=== PATIENT | male | born 1960 | race Caucasian/White ===

== ENCOUNTER 2018-03-06 14:20 | Emergency (ER) | payer OTHER ==
[2018-03-06 14:53] LABS: Absolute Lymphocytes (CBC) 2.3 K/uL (0.7-4.9); Absolute Monocytes 0.4 K/uL (0.1-1.3); Absolute Neutrophil 5.3 K/uL (1.8-8.0); Eosinophils % 2.2 % (0-4.4); Lymphocytes % 27.9 % (15.3-44.8); MCH 31.8 pg (27.0-35.0); MCV 94.5 fL (80-100); MPV 8.3 fL (7.6-11.3); Monocytes % 5.2 % (3.3-12.3); RBC Red Blood Cell Count 4.34 M/uL (4.33-5.43)
[2018-03-06 14:56] LABS: Protime INR 0.93
[2018-03-06 15:02] LABS: Bicarbonate 23 mEq/L (21-31); Glucose Level 121 mg/dL (65-120); Potassium 3.7 mEq/L (3.6-5.0); Sodium Level 137 mEq/L (135-145)
[2018-03-06 15:09] LABS: ALT/SGPT 17 IU/L (10-60); AST/SGOT 20 IU/L (10-42); Alkaline Phosphatase 59 IU/L (42-121); BUN Blood Urea Nitrogen 8 mg/dL (6-20); Bilirubin Direct 0.1 mg/dL (0-0.2); Magnesium 1.9 mg/dL (1.8-2.5); Protein, Total 6.7 g/dL (6.0-8.3)
--- NOTE | 2018-03-06 15:17 | RAD REPORT ---
EXAM DESCRIPTION: CT - Ct Stroke Brain Wo Cont - 03/06/2018 2:46 pm CLINICAL HISTORY: Numbness, left-sided weakness, history of CVA COMPARISON: August 2017 TECHNIQUE: Axial 5 millimeter thick images of the head were obtained without IV contrast. All CT scans are performed using dose optimization technique as appropriate and may include automated exposure control or mA/KV adjustment according to patient size. FINDINGS: No intracranial hemorrhage, mass, or cerebral edema. No acute cortical based infarction id entified. No cortical edema or sulcal effacement. A large area of encephalomalacia is present in the right temporal lobe extending into the right parietal lobe. There is no localized mass effect in this region which has the appearance of an old CVA. No extra-axial fluid collections. Yin matter-white matter differentiation is preserved. Visualized portions of the mastoid air cells, paranasal sinuses, and orbits are unremarkable. Findings telephoned to Andres Mccabe 1449 hours IMPRESSION: No CT evidence of acute intracranial process. Large area of encephalomalacia in the right temporoparietal region.
--- NOTE | 2018-03-06 15:36 | RAD REPORT ---
EXAM DESCRIPTION: RAD - Chest Single View - 03/06/2018 2:51 pm CLINICAL HISTORY: Left-sided weakness, code stroke chest film COMPARISON: January 05 TECHNIQUE: AP portable chest image was obtained 1446 hours . FINDINGS: Lungs are clear. Heart and vasculature are normal. No measurable pleural effusion and no p neumothorax. No gross bony abnormality seen. No acute aortic findings suspected. IMPRESSION: No acute cardiopulmonary process. No significant interval change.
--- NOTE | 2018-03-06 16:24 | EKG ---
Test Date: 2018-03-06 Test Time: 15:28:05 Coremaking Machine Operator: JO-ANN MEASUREMENT RESULTS: Intervals: Rate: 57 MD: 136 QRSD: 84 QT: 444 QTc: 432 [place]: P: 38 MD: 136 QRS: 31 T: 36 INTERPRETIVE STATEMENTS: Sinus bradycardia Otherwise normal ECG Compared to ECG 01/10/2018 17:20:04 Sinus rhythm no longer present Electronically Signed On 03-06-18 16:23:20 CDT by Carlos Pickard
--- NOTE | 2018-03-06 17:33 | RAD REPORT ---
EXAM DESCRIPTION: MRI - Brain Wo Cont - 03/06/2018 5:23 pm CLINICAL HISTORY: Left-sided numbness since this morning COMPARISON: January 2018 TECHNIQUE: Axial, sagittal, and coronal magnetic images of the brain were obtained. Contrast was not requested FINDINGS: Moderate to large area of cystic encephalomalacia is present within the right cerebrum. Diffusion-weighted/ADC mapping does not reveal evidence of acute infarction. The ventricles are normal caliber. An extra-axial fluid collection is not present The sinuses and mastoids are clear. IMPRESSION: Moderate to large area of cystic encephalomalacia within the right cerebrum likely secon lexie to an old infarct No acute abnormality is displayed
--- NOTE | 2018-03-06 18:10 | ER ---
Nurse's Notes [facility] Name: Agustín Camacho Age: 57 yrs Sex: Male : 1960 Arrival Date: 03/06/2018 Time: 14:23 Bed 20 Private MD: Naif Banegas H Diagnosis: Left sided paresthesia ;Other idiopathic peripheral autonomic neuropathy Presentation: 03/06 14:24 Presenting complaint: Patient states: i have a stroke 2013; this morning, around 8 am hj when i woke up, i didn't feel my L arm and L leg; denies headache and numbness;. Transition of care: patient was not received from another setting of care. Onset of symptoms was March 06, 2018. Initial Sepsis Screen: Does the patient meet any 2 criteria? No. Patient's initial sepsis screen is negative. Does the patient have a suspected source of infection? No. Patient's initial sepsis screen is negative. Care prior to arrival: None. 14:24 Method Of Arrival: Ambulatory 14:24 Acuity: BEVERLY 3 hj 14:39 Note last known normal last night;. hj Triage Assessment: 14:27 General: Appears in no apparent distress. uncomfortable, Behavior is calm, cooperative, hj appropriate for age. Pain: Denies pain. Historical: - Allergies: 14:27 NKA; hj - Home Meds: 14:27 aspirin 325 mg Oral tab 1 tab once daily [Active]; citalopram 20 mg tab 1 tab once hj daily [Active]; propranolol 10 mg Oral tab 1 tab daily [Active]; - PMHx: 14:27 Anxiety; CVA; Hernia; High Cholesterol; Hypertension; Prostate Cancer; hj - PSHx: 14:27 shoulder; Knee surgery; Hernia repair; prostate; hj - Immunization history:: Adult Immunizations up to date. - Social history:: Smoking status: . Screenin:50 Abuse screen: Denies threats or abuse. Nutritional screening: No deficits noted. em Tuberculosis screening: No symptoms or risk factors identified. Fall Risk None identified. Assessment: 14:32 Reassessment: pt transported to CT via wheelchair with DIEGO Wong. iw 14:39 Reassessment: Dr. Latham reports no bleed, and only sees previous infarct. iw 14:45 General: Appears in no apparent distress. comfortable, Behavior is calm, cooperative. em Pain: Denies pain. Neuro: Level of Consciousness is awake, alert, obeys commands, Oriented to person, place, time, situation, Pharmacy Informatics Specialist are equal bilaterally Speech is normal, Facial symmetry appears normal, Pupils are PERRLA, paresthesias in left arm and left leg Reports paresthesias in left arm and left leg since this morning but noticed it yesterday as well, took a Benadryl for itching that he noticed on his left side, arm and leg. Neuro: Denies headache. Cardiovascular: Heart tones S1 S2 present Capillary refill < 3 seconds Patient's skin is warm and dry. Respiratory: Airway is patent Respiratory effort is even, unlabored, Respiratory pattern is regular, symmetrical. GI: Abdomen is flat, Patient currently denies nausea, vomiting. : No signs and/or symptoms were reported regarding the genitourinary system. EENT: No signs and/or symptoms were reported regarding the EENT system. Derm: Skin is intact, Skin is pink, warm \\T\\ dry. Musculoskeletal: Range of motion: intact in all extremities. 14:50 Reassessment: Patient appears in no apparent distress at this time. I agree with above iw assessment by John Soriano LVN. 15:44 Reassessment: Patient appears in no apparent distress at this time. Patient is alert, em oriented x 3, equal unlabored respirations, skin warm/dry/pink. pt resting comfortably with eyes closed, pt at bedside Patient states symptoms have not improved. 16:45 Reassessment: Patient appears in no apparent distress at this time. pt wheeled to [facility] em via wheelchair by process environmental technician. 17:40 Reassessment: Patient appears in no apparent distress at this time. Patient and/or em family updated on plan of care and expected duration. Pain level reassessed. Patient is alert, oriented x 3, equal unlabored respirations, skin warm/dry/pink. pt reports feeling back in hands, Dr. Rees notified. 18:15 Reassessment: Patient appears in no apparent distress at this time. Patient and/or em family updated on plan of care and expected duration. Pain level reassessed. Patient is alert, oriented x 3, equal unlabored respirations, skin warm/dry/pink. pt states, "I am feeling better, my numbness has is almost gone, and my headache is gone." Patient states feeling better. Patient states symptoms have improved. Vital Signs: 14:27 BP 127 / 93; Pulse 65; Resp 18; Temp 98.2(TE); Pulse Ox 97% on R/A; Weight 78.93 kg; hj Height 5 ft. 8 in. (172.72 cm); Pain 0/10; 15:30 BP 114 / 74; Pulse 64; Resp 18; Pulse Ox 96% on R/A; Pain 0/10; em 16:30 BP 142 / 73; Pulse 59; Resp 18; Pulse Ox 96% on R/A; Pain 0/10; em 17:39 BP 150 / 89; Pulse 55; Resp 18; Pulse Ox 98% on R/A; Pain 0/10; em 18:37 BP 132 / 82; Pulse 59; Resp 20; Pulse Ox 98% on R/A; em 14:27 Body Mass Index 26.46 (78.93 kg, 172.72 cm) hj ED Course: 14:23 Patient arrived in ED. mr 14:24 Naif Banegas DO is Private Physician. mr 14:26 Triage completed. hj 14:27 Arm band placed on right wrist. hj 14:[address] via wheelchair. nj 14:38 CT completed. Patient tolerated procedure well. Patient moved back from CT. nj 14:40 Jose Rees MD is Attending Physician. kdr 14:46 John Soriano LVN is Primary Nurse. em 14:46 CT Stroke Brain w/o Contrast In Process Unspecified. EDMS 14:46 X-ray completed. Portable x-ray completed in exam room. Patient tolerated procedure jb2 well. 14:51 XRAY Chest (1 view) In Process Unspecified. EDMS 14:55 Patient has correct armband on for positive identification. Placed in gown. Bed in low em position. Call light in reach. Adult w/ patient. 14:58 No provider procedures requiring assistance completed. em 15:34 EKG done, by advanced manufacturing technician. reviewed by Jose Rese MD. at1 16:57 Patient moved to MRI via wheelchair. em2 17:11 Brain Wo Cont In Process Unspecified. EDMS 17:31 MRI completed. Patient tolerated well. Patient moved back from MRI. em2 18:08 Naif Banegas DO is Referral Physician. kdr 18:32 Patient did not have IV access during this emergency room visit. em Administered Medications: No medications were administered Outcome: 18:10 Discharge ordered by . kdr 18:33 Discharged to home ambulatory. em 18:33 Condition: good 18:33 Discharge instructions given to patient, Instructed on discharge instructions, follow up and referral plans. Demonstrated understanding of instructions, follow-up care. 18:38 Patient left the ED. em Signatures: Dispatcher [employer] EDMS Jose Rees MD MD kdr Rivera, Maria Luis M Guthrie jb2 John Soriano, MINE MANAGER MINE MANAGER em Liana Gao, DIEGO CORTEZ iw Donell Gupta em2 Josefa salazar, disk grinder EKG Tat1 Marvin Moura RN RN Harrison Maxwell Corrections: (The following items were deleted from the chart) 14:29 14:27 Pulse 65bpm; Resp 18bpm; Pulse Ox 97% RA; Temp 98.2F Temporal; 78.93 kg; Height 5 hj ft. 8 in.; BMI: 26.4; Pain 0/10; hj 18:38 18:15 Reassessment: Patient appears in no apparent distress at this time. Patient em and/or family updated on plan of care and expected duration. Pain level reassessed. Patient is alert, oriented x 3, equal unlabored respirations, skin warm/dry/pink. pt states, "I am feeling better, my numbness has is almost gone, and my headache is gone." em
--- NOTE | 2018-03-06 18:10 | EDPHYS ---
Physician Documentation [facility] Name: Agustín Camacho Age: 57 yrs Sex: Male : 1960 Arrival Date: 03/06/2018 Time: 14:23 Bed 20 Private MD: Naif Banegas H ED Physician Jose Rees HPI: 03/06 18:50 This 57 yrs old Male presents to ER via Ambulatory with complaints of Left kdr side Numbness. 18:50 The patient's problem is reported as paresthesias, in left upper extremity, in left kdr lower extremity. Onset: The symptoms/episode began/occurred at an unknown time. Last know well was last night. He noted decreased sensation in the left upper and lower extremity. That has persisted today. Duration: This was a single incident, The episode is continuous, the symptoms became persistent Today. Context: the episode(s) was witnessed, by family, , symptoms became apparent at an unknown time, Last night, occurred at home, occurred while the patient was at rest. The symptoms are alleviated by nothing. The symptoms are aggravated by nothing. Associated signs and symptoms: The patient has no apparent associated signs or symptoms. Severity of symptoms: At their worst the symptoms were mild moderate just prior to arrival, in the emergency department the symptoms are unchanged. The patient has experienced similar episodes in the past, a few times. The patient has not recently seen a physician. Historical: - Allergies: 14:27 NKA; hj - Home Meds: 14:27 aspirin 325 mg Oral tab 1 tab once daily [Active]; citalopram 20 mg tab 1 tab once hj daily [Active]; propranolol 10 mg Oral tab 1 tab daily [Active]; - PMHx: 14:27 Anxiety; CVA; Hernia; High Cholesterol; Hypertension; Prostate Cancer; hj - PSHx: 14:27 shoulder; Knee surgery; Hernia repair; prostate; hj - Immunization history:: Adult Immunizations up to date. - Social history:: Smoking status: . ROS: 18:50 Constitutional: Negative for fever, chills, and weight loss, Eyes: Negative for injury, kdr pain, redness, and discharge, ENT: Negative for injury, pain, and discharge, Neck: Negative for injury, pain, and swelling, Cardiovascular: Negative for chest pain, palpitations, and edema, Respiratory: Negative for shortness of breath, cough, wheezing, and pleuritic chest pain, Abdomen/GI: Negative for abdominal pain, nausea, vomiting, diarrhea, and constipation, Back: Negative for injury and pain, : Negative for injury, bleeding, discharge, and swelling, MS/Extremity: Negative for injury and deformity, Skin: Negative for injury, rash, and discoloration, Psych: Negative for depression, anxiety, suicide ideation, homicidal ideation, and hallucinations, Allergy/Immunology: Negative for hives, rash, and allergies, Endocrine: Negative for neck swelling, polydipsia, polyuria, polyphagia, and marked weight changes, Hematologic/Lymphatic: Negative for swollen nodes, abnormal bleeding, and unusual bruising. 18:50 Neuro: Positive for numbness, Negative for altered mental status, dizziness, gait disturbance, headache, hearing loss, loss of consciousness, seizure activity, speech changes, syncope, near syncope, tingling, tinnitus, tremor, visual changes, weakness. Exam: 18:50 Radiologist reports: No acute concerns kdr 18:50 Constitutional: This is a well developed, well nourished patient who is awake, alert, and in no acute distress. Head/Face: Normocephalic, atraumatic. Eyes: Pupils equal round and reactive to light, extra-ocular motions intact. Lids and lashes normal. Conjunctiva and sclera are non-icteric and not injected. Cornea within normal limits. Periorbital areas with no swelling, redness, or edema. Neck: Trachea midline, no thyromegaly or masses palpated, and no cervical lymphadenopathy. Supple, full range of motion without nuchal rigidity, or vertebral point tenderness. No Meningismus. Chest/axilla: Normal chest wall appearance and motion. Nontender with no deformity. No lesions are appreciated. Cardiovascular: Regular rate and rhythm with a normal S1 and S2. No gallops, murmurs, or rubs. Normal PMI, no JVD. No pulse deficits. Respiratory: Lungs have equal breath sounds bilaterally, clear to auscultation and percussion. No rales, rhonchi or wheezes noted. No increased work of breathing, no retractions or nasal flaring. Abdomen/GI: Soft, non-tender, with normal bowel sounds. No distension or tympany. No guarding or rebound. No evidence of tenderness throughout. Back: No spinal tenderness. No costovertebral tenderness. Full range of motion. Skin: Warm, dry with normal turgor. Normal color with no rashes, no lesions, and no evidence of cellulitis. MS/ Extremity: Pulses equal, no cyanosis. Neurovascular intact. Full, normal range of motion. Psych: Awake, alert, with orientation to person, place and time. Behavior, mood, and affect are within normal limits. 18:50 Neuro: Orientation: is normal, Mentation: is normal, Memory: is normal, Cranial nerves: no acute changes, Cerebellar function: is grossly normal based on the patient's age, Motor: moves all fours, strength is 5/5 in all extremities, Sensation: numbness, that is mild, Diffusely - he was unable to differentiate dull/sharp in either upper/lower extremity or face. Vital Signs: 14:27 BP 127 / 93; Pulse 65; Resp 18; Temp 98.2(TE); Pulse Ox 97% on R/A; Weight 78.93 kg; hj Height 5 ft. 8 in. (172.72 cm); Pain 0/10; 15:30 BP 114 / 74; Pulse 64; Resp 18; Pulse Ox 96% on R/A; Pain 0/10; em 16:30 BP 142 / 73; Pulse 59; Resp 18; Pulse Ox 96% on R/A; Pain 0/10; em 17:39 BP 150 / 89; Pulse 55; Resp 18; Pulse Ox 98% on R/A; Pain 0/10; em 18:37 BP 132 / 82; Pulse 59; Resp 20; Pulse Ox 98% on R/A; em 14:27 Body Mass Index 26.46 (78.93 kg, 172.72 cm) MDM: 18:10 Patient medically screened. kdr 18:50 Data reviewed: vital signs, nurses notes, lab test result(s), radiologic studies. kdr Counseling: I had a detailed discussion with the patient and/or guardian regarding: the historical points, exam findings, and any diagnostic results supporting the discharge/admit diagnosis, lab results, radiology results, the need for outpatient follow up. 03/06 14:46 Order name: Basic Metabolic Panel; Complete Time: 15:49 kdr 03/06 14:46 Order name: BNP; Complete Time: 15:49 kdr 03/06 14:46 Order name: CBC with Diff; Complete Time: 15:49 [facility] 03/06 14:46 Order name: LFT's; Complete Time: 15:49 [facility] 03/06 14:46 Order name: Magnesium; Complete Time: 15:49 [facility] 03/06 14:46 Order name: PT-INR; Complete Time: 15:49 [facility] 03/06 14:43 Order name: CT Stroke Brain w/o Contrast; Complete Time: 15:49 03/06 14:46 Order name: Ptt, Activated; Complete Time: 15:49 [facility] 03/06 14:46 Order name: Troponin (emerg Dept Use Only); Complete Time: 15:49 [facility] 03/06 14:46 Order name: XRAY Chest (1 view); Complete Time: 15:49 [facility] 03/06 14:46 Order name: EKG; Complete Time: 14:46 [facility] 03/06 14:46 Order name: Cardiac monitoring; Complete Time: 14:47 [facility] 03/06 16:08 Order name: Brain Wo Cont; Complete Time: 17:43 EDSD 03/06 14:46 Order name: EKG - Nurse/Tech; Complete Time: 14:47 [facility] 03/06 14:46 Order name: IV Saline Lock; Complete Time: 14:47 [facility] 03/06 14:46 Order name: Labs collected and sent; Complete Time: 14:47 [facility] 03/06 14:46 Order name: O2 Per Protocol; Complete Time: 14:46 [facility] 03/06 14:46 Order name: O2 Sat Monitoring; Complete Time: 14:46 kdr Administered Medications: No medications were administered Disposition: 03/06/18 18:10 Discharged to Home. Impression: Left sided paresthesia , Other idiopathic peripheral autonomic neuropathy. - Condition is Stable. - Medication Reconciliation Form, Thank You Letter form. - Follow up: Naif Banegas DO; When: 2 - 3 days; Reason: If symptoms return, Further diagnostic work-up, Recheck today's complaints, Continuance of care, Re-evaluation by your physician. - Problem is new. - Symptoms have improved. Signatures: Dispatcher [employer] Jose Alfred MD MD kdr John Soriano, CREATIVE SERVICES DIRECTOR CREATIVE SERVICES DIRECTOR Marvin Noel, RN RN hj Corrections: (The following items were deleted from the chart) 16:08 15:09 MR STROKE PROTOCOL+MRI.RAD.BRZ ordered. EDMS EDMS 18:31 14:46 Urine Dipstick-Ancillary ordered. kdr em
[2018-03-06 18:41] VITALS: TEMP 98.2
[2018-03-06 18:45] VITALS: O2SAT 98
[2018-03-06 18:46] VITALS: BP 132/82
== END 2018-03-06 18:38 | disposition home or self-care (01) ==
LOC: ER 14:20
DX: G90.09 Other idiopathic peripheral autonomic neuropathy (principal); I10 Essential (primary) hypertension; E78.00 Pure hypercholesterolemia, unspecified; F41.9 Anxiety disorder, unspecified; Z79.82 Long term (current) use of aspirin; Z85.46 Personal history of malignant neoplasm of prostate; Z86.73 Personal history of transient ischemic attack (TIA), and cerebral infarction without residual deficits
CPT/HCPCS: 36415; 70450; 70551; 71045; 80048; 80076; 83735; 83880; 84484; 85025; 85610; 85730; 93005; 99284

== ENCOUNTER 2018-06-04 08:48 | Emergency (ER) | payer OTHER ==
[2018-06-04] MEDS ORDERED: METHYLPREDNISOLONE 125 MG INJ ONE (09:33)
[2018-06-04] MEDS ORDERED: DIPHENHYDRAMINE 50 MG/ML VIAL ONE (09:33)
[2018-06-04] MEDS ORDERED: FAMOTIDINE 20 MG/2 ML VIAL IV ONE (09:33)
[2018-06-04] MEDS ORDERED: MORPHINE 4 MG/ML SYR ONE (10:11)
[2018-06-04] MEDS ORDERED: ONDANSETRON 4 MG/2 ML VIAL ONE (10:11)
--- NOTE | 2018-06-04 10:39 | EDPHYS ---
Physician Documentation [facility] Name: Agustín Camacho Age: 57 yrs Sex: Male : 1960 Arrival Date: 06/04/2018 Time: 08:51 Bed 8 Private MD: Naif Banegas H ED Physician Jose Rees HPI: 06/04 10:26 This 57 yrs old Male presents to ER via Wheelchair with complaints of Bee kdr Sting, Chest Tightness. 10:26 The patient or guardian reports chest pain that is located primarily in the anterior kdr chest wall, chest diffusely. Onset: suddenly, just prior to arrival. The pain does not radiate. Associated signs and symptoms: Pertinent positives: diaphoresis, nausea, Pertinent negatives: headache, lower extremity pain, lower extremity swelling, shortness of breath, syncope, vomiting, Multiple bee stings on his arms and legs. The chest pain is described as aching, burning. 10:28 The patient was bitten on the right arm and right leg, by a bee, after disturbing a kdr nest. Onset: The symptoms/episode began/occurred suddenly, just prior to arrival. Secondary to the bite the patient reports swelling, warmth. Associated signs and symptoms: Pertinent positives: erythema at site, pain at site, swelling at site, tenderness. Severity of symptoms: At their worst the symptoms were moderate, in the emergency department the symptoms are unchanged. The patient has not experienced similar symptoms in the past. The patient has not recently seen a physician. Historical: - Allergies: 09:02 NKA; iw - PMHx: 09:02 Anxiety; CVA; Hernia; High Cholesterol; Hypertension; Prostate Cancer; ADD/ADHD; iw - PSHx: 09:02 shoulder; Knee surgery; Hernia repair; prostate; iw - Immunization history:: Adult Immunizations not up to date, Last tetanus immunization: unknown. - Social history:: Smoking status: Patient uses tobacco products, smokes one-half pack cigarettes per day, Patient uses alcohol. - Ebola Screening: : Patient negative for fever greater than or equal to 101.5 degrees Fahrenheit, and additional compatible Ebola Virus Disease symptoms Patient denies exposure to infectious person Patient denies travel to an Ebola-affected area in the 21 days before illness onset No symptoms or risks identified at this time. ROS: 10:28 Constitutional: Negative for fever, chills, and weight loss, Eyes: Negative for injury, kdr pain, redness, and discharge, Neck: Negative for injury, pain, and swelling, Respiratory: Negative for shortness of breath, cough, wheezing, and pleuritic chest pain, Abdomen/GI: Negative for abdominal pain, nausea, vomiting, diarrhea, and constipation, Back: Negative for injury and pain, : Negative for injury, bleeding, discharge, and swelling, MS/Extremity: Negative for injury and deformity, Neuro: Negative for headache, weakness, numbness, tingling, and seizure activity. Psych: Negative for depression, anxiety, suicide ideation, homicidal ideation, and hallucinations, Allergy/Immunology: Negative for hives, rash, and allergies, Endocrine: Negative for neck swelling, polydipsia, polyuria, polyphagia, and marked weight changes, Hematologic/Lymphatic: Negative for swollen nodes, abnormal bleeding, and unusual bruising. 10:28 Cardiovascular: Positive for chest pain, Negative for edema, orthopnea, palpitations, paroxysmal nocturnal dyspnea. 10:28 Skin: Positive for discoloration, erythema, swelling, diffusely. Exam: 10:28 Constitutional: This is a well developed, well nourished patient who is awake, alert, kdr and in no acute distress. Head/Face: Normocephalic, atraumatic. Eyes: Pupils equal round and reactive to light, extra-ocular motions intact. Lids and lashes normal. Conjunctiva and sclera are non-icteric and not injected. Cornea within normal limits. Periorbital areas with no swelling, redness, or edema. Neck: Trachea midline, no thyromegaly or masses palpated, and no cervical lymphadenopathy. Supple, full range of motion without nuchal rigidity, or vertebral point tenderness. No Meningismus. Chest/axilla: Normal chest wall appearance and motion. Nontender with no deformity. No lesions are appreciated. Cardiovascular: Regular rate and rhythm with a normal S1 and S2. No gallops, murmurs, or rubs. Normal PMI, no JVD. No pulse deficits. Respiratory: Lungs have equal breath sounds bilaterally, clear to auscultation and percussion. No rales, rhonchi or wheezes noted. No increased work of breathing, no retractions or nasal flaring. Abdomen/GI: Soft, non-tender, with normal bowel sounds. No distension or tympany. No guarding or rebound. No evidence of tenderness throughout. Back: No spinal tenderness. No costovertebral tenderness. Full range of motion. Skin: Warm, dry with normal turgor. Normal color with no rashes, no lesions, and no evidence of cellulitis. Neuro: Awake and alert, GCS 15, oriented to person, place, time, and situation. Cranial nerves II-XII grossly intact. Motor strength 5/5 in all extremities. Sensory grossly intact. Cerebellar exam normal. Normal gait. Psych: Awake, alert, with orientation to person, place and time. Behavior, mood, and affect are within normal limits. 10:28 Musculoskeletal/extremity: Extremities: grossly normal except: The patient has multiple stings sites to the right side where is was stung by the bees.. Vital Signs: 09:02 BP 154 / 110; Pulse 85; Resp 18 S; Pulse Ox 96% on R/A; Weight 78.93 kg; Height 5 ft. 9 iw in. (175.26 cm); Pain 1010; 09:38 BP 144 / 95; Pulse 56; Resp 16 S; Pulse Ox 96% on R/A; iw 09:02 Body Mass Index 25.70 (78.93 kg, 175.26 cm) iw MDM: 10:28 Data reviewed: vital signs, nurses notes, lab test result(s). Counseling: I had a kdr detailed discussion with the patient and/or guardian regarding: the historical points, exam findings, and any diagnostic results supporting the discharge/admit diagnosis, lab results. 10:39 Patient medically screened. kdr Administered Medications: 09:37 Drug: SOLU-Medrol 125 mg Route: IVP; Site: left antecubital; iw 10:00 Follow up: Response: No adverse reaction; Marked relief of symptoms iw 09:37 Drug: Benadryl 25 mg Route: IVP; Site: left antecubital; iw 10:00 Follow up: Response: No adverse reaction; Marked relief of symptoms iw 09:37 Drug: Pepcid 20 mg Route: IVP; Site: left antecubital; iw 10:00 Follow up: Response: No adverse reaction iw 10:13 Drug: morphine 4 mg Route: IVP; Site: left antecubital; iw 10:40 Follow up: Response: No adverse reaction; Pain is decreased iw 10:13 Drug: Zofran 4 mg Route: IVP; Site: left antecubital; iw 10:32 Follow up: Response: No adverse reaction iw Disposition: 06/04/18 10:39 Discharged to Home. Impression: Toxic effect of venom of bees. - Condition is Stable. - Discharge Instructions: Bee, Wasp, or Hornet Sting, Adult. - Prescriptions for Benadryl 25 mg Oral Capsule - take 1 capsule by ORAL route every 6 hours As needed; 30 tablet. Pepcid 20 mg Oral Tablet - take 1 tablet by ORAL route every 12 hours for 10 days; 20 tablet. Zofran 4 mg Oral Tablet - take 1 tablet by ORAL route every 12 hours As needed; 6 tablet. Tramadol 50 mg Oral Tablet - take 1 tablet by ORAL route every 8 hours as needed; 12 tablet. Medrol (Domenico) 4 mg Oral Tablets, Dose Pack - take 1 tablet by ORAL route as directed - follow package instructions; 1 packet. - Medication Reconciliation Form, Thank You Letter form. - Follow up: Naif Banegas DO; When: 48 Hours; Reason: If symptoms return, Further diagnostic work-up, Recheck today's complaints, Continuance of care, Re-evaluation by your physician. - Problem is new. - Symptoms have improved. Signatures: Jose Rees MD MD kdr Liana Gao RN RN iw Willie Corley RN RN ae1 Corrections: (The following items were deleted from the chart) 10:51 10:39 06/04/2018 10:39 Discharged to Home. Impression: Toxic effect of venom of bees. ae1 Condition is Stable. Forms are Medication Reconciliation Form, Thank You Letter, Antibiotic Education, Prescription Opioid Use. Follow up: Naif Banegas; When: 48 Hours; Reason: If symptoms return, Further diagnostic work-up, Recheck today's complaints, Continuance of care, Re-evaluation by your physician. Problem is new. Symptoms have improved. kdr
--- NOTE | 2018-06-04 10:39 | ER ---
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 Transition of care: patient was not received from another setting of care. Onset: The symptoms/episode began/occurred acutely. Anaphylaxis evaluation, chest pain. Onset of symptoms was June 04, 2018. Risk Assessment: Do you want to hurt yourself or someone else? Patient reports no desire to harm self or others. Initial Sepsis Screen: Does the patient meet any 2 criteria? No. Patient's initial sepsis screen is negative. Does the patient have a suspected source of infection? No. Patient's initial sepsis screen is negative. Care prior to arrival: None. 09:00 Method Of Arrival: Wheelchair iw 09:00 Acuity: BEVERLY 3 iw Historical: - Allergies: 09:02 NKA; iw - PMHx: 09:02 Anxiety; CVA; Hernia; High Cholesterol; Hypertension; Prostate Cancer; ADD/ADHD; iw - PSHx: 09:02 shoulder; Knee surgery; Hernia repair; prostate; iw - Immunization history:: Adult Immunizations not up to date, Last tetanus immunization: unknown. - Social history:: Smoking status: Patient uses tobacco products, smokes one-half pack cigarettes per day, Patient uses alcohol. - Ebola Screening: : Patient negative for fever greater than or equal to 101.5 degrees Fahrenheit, and additional compatible Ebola Virus Disease symptoms Patient denies exposure to infectious person Patient denies travel to an Ebola-affected area in the 21 days before illness onset No symptoms or risks identified at this time. Screenin:40 Abuse screen: Denies threats or abuse. Denies injuries from another. Nutritional iw screening: No deficits noted. Tuberculosis screening: No symptoms or risk factors identified. Fall Risk IV access (20 points). Assessment: 09:10 General: Appears uncomfortable, Behavior is cooperative, anxious. Pain: Complains of iw pain in right arm and right leg Pain currently is 10 out of 10 on a pain scale. Neuro: Level of Consciousness is awake, alert, obeys commands, Oriented to person, place, time, situation, Moves all extremities. Full function. Cardiovascular: Reports chest pain, Capillary refill < 3 seconds in bilateral fingers Patient's skin is warm and dry. Respiratory: Airway is patent Respiratory effort is even, unlabored, Breath sounds are clear bilaterally. GI: Abdomen is flat, non-distended. Derm: Skin is normal. Musculoskeletal: Range of motion: intact in all extremities. Injury Description: Bite sustained to dorsal aspect of right forearm, right tricep, right elbow, right knee and anterior aspect of right ankle caused by is from insect was sustained 30-60 minutes ago. 10:11 Reassessment: Patient appears in no apparent distress at this time. Patient and/or iw family updated on plan of care and expected duration. Pain level reassessed. Patient is alert, oriented x 3, equal unlabored respirations, skin warm/dry/pink. pt sill c/o pain to right arm and right knee, pt states he is very sensitive on his right side after his stroke, ERP notified, verbal order given for pain meds, given per MAR. 10:45 Reassessment: Patient appears in no apparent distress at this time. Patient and/or iw family updated on plan of care and expected duration. Pain level reassessed. Patient is alert, oriented x 3, equal unlabored respirations, skin warm/dry/pink. Patient denies pain at this time. Patient states feeling better. Patient states symptoms have improved. Vital Signs: 09:02 BP 154 / 110; Pulse 85; Resp 18 S; Pulse Ox 96% on R/A; Weight 78.93 kg; Height 5 ft. 9 iw in. (175.26 cm); Pain 10/10; 09:38 BP 144 / 95; Pulse 56; Resp 16 S; Pulse Ox 96% on R/A; iw 09:02 Body Mass Index 25.70 (78.93 kg, 175.26 cm) ED Course: 08:51 Patient arrived in ED. mr 08:51 Naif Banegas DO is Private Physician. mr 08:52 Willie Corley, RN is Primary Nurse. ae1 08:54 Jose Rees MD is Attending Physician. kdr 09:01 Triage completed. iw 09:02 Arm band placed on. iw 09:03 Primary Nurse role handed off by Willie Corley, RN iw 09:03 Liana Gao, RN is Primary Nurse. iw 09:05 Patient has correct armband on for positive identification. iw 09:22 EKG done, by body shop technician. reviewed by Jose Rees MD. at1 09:25 Inserted saline lock: 20 gauge in right antecubital area, using aseptic technique. iw 10:37 Naif Banegas DO is Referral Physician. kdr 10:46 No provider procedures requiring assistance completed. Patient did not have IV access iw during this emergency room visit. Administered Medications: 09:37 Drug: SOLU-Medrol 125 mg Route: IVP; Site: left antecubital; iw 10:00 Follow up: Response: No adverse reaction; Marked relief of symptoms iw 09:37 Drug: Benadryl 25 mg Route: IVP; Site: left antecubital; iw 10:00 Follow up: Response: No adverse reaction; Marked relief of symptoms iw 09:37 Drug: Pepcid 20 mg Route: IVP; Site: left antecubital; iw 10:00 Follow up: Response: No adverse reaction iw 10:13 Drug: morphine 4 mg Route: IVP; Site: left antecubital; iw 10:40 Follow up: Response: No adverse reaction; Pain is decreased iw 10:13 Drug: Zofran 4 mg Route: IVP; Site: left antecubital; iw 10:32 Follow up: Response: No adverse reaction iw Outcome: 10:39 Discharge ordered by . kdr 10:50 Discharged to home ambulatory, with significant other. ae1 10:50 Condition: stable 10:50 Discharge instructions given to patient, Instructed on discharge instructions, follow up and referral plans. Demonstrated understanding of instructions. 10:51 Patient left the ED. ae1 Signatures: Jose Rees MD MD kdr Rivera, Maria mr Liana Gao, DIEGO RN iw Josefa salazar, electrician supervisor EKG Tat1 Willie Corley, DIEGO RN ae1
[2018-06-04 10:57] VITALS: O2SAT 96
[2018-06-04 10:58] VITALS: BP 144/95
--- NOTE | 2018-06-04 12:10 | EKG ---
Test Date: 2018-06-04 Test Time: 09:01:52 Web Software Engineer: JO-ANN MEASUREMENT RESULTS: Intervals: Rate: 82 SC: 148 QRSD: 82 QT: 376 QTc: 439 [place]: P: 25 SC: 148 QRS: 13 T: 18 INTERPRETIVE STATEMENTS: Normal sinus rhythm with sinus arrhythmia Normal ECG Compared to ECG 05/18/2018 08:48:12 Sinus bradycardia no longer present Electronically Signed On 06-04-18 12:10:06 CDT by Carlos Pickard
== END 2018-06-04 10:51 | disposition home or self-care (01) ==
LOC: ER 08:48
DX: T63.441A Toxic effect of venom of bees, accidental (unintentional), initial encounter (principal); I10 Essential (primary) hypertension; F17.210 Nicotine dependence, cigarettes, uncomplicated
CPT/HCPCS: 93005; 96374; 96375; 99283; J2405; J2930

== ENCOUNTER 2018-06-21 09:24 | Emergency (ER) | payer OTHER ==
[2018-06-21] MEDS ORDERED: ONDANSETRON 4 MG/2 ML VIAL ONE (09:56)
[2018-06-21] MEDS ORDERED: MORPHINE 4 MG/ML SYR ONE (09:56)
[2018-06-21 10:06] LABS: Urine Blood NEGATIVE (NEG); Urine Glucose NEGATIVE (NEG); Urine Protein NEGATIVE (NEG); Urine Specific Gravity 1.015 (1.005-1.030)
[2018-06-21 10:17] LABS: Urine Bacteria NONE SEEN /HPF (NONE SEEN); Urine Culture Reflex Order NOT NEEDED; Urine RBC <5 /HPF (NONE SEEN)
[2018-06-21 11:11] LABS: Absolute Lymphocytes (CBC) 2.1 K/uL (0.7-4.9); Absolute Monocytes 0.5 K/uL (0.1-1.3); Absolute Neutrophil 5.3 K/uL (1.8-8.0); Basophils % 1.1 % (0-1.3); Eosinophils % 2.4 % (0-4.4); Hematocrit 41.4 % (39.6-49.0); Lymphocytes % 25.3 % (15.3-44.8); MCH 31.6 pg (27.0-35.0); MCV 91.3 fL (80-100); MPV 8.8 fL (7.6-11.3); Monocytes % 6.3 % (3.3-12.3); RBC Red Blood Cell Count 4.54 M/uL (4.33-5.43)
[2018-06-21 11:18] LABS: ALT/SGPT 36 U/L (12-78); AST/SGOT 44 U/L (15-37); Albumin 3.4 g/dL (3.4-5.0); Alkaline Phosphatase 75 U/L (45-117); Amylase Level 40 U/L (25-115); BUN Blood Urea Nitrogen 14 mg/dL (7-18); Bicarbonate 27 mmol/L (21-32); Bilirubin Direct 0.2 mg/dL (0-0.2); Bilirubin Total 0.9 mg/dL (0.2-1.0); Glucose Level 90 mg/dL (74-106); Lipase 108 U/L (73-393); Potassium 4.1 mmol/L (3.5-5.1); Protein, Total 6.6 g/dL (6.4-8.2); Sodium Level 141 mmol/L (136-145)
[2018-06-21 11:21] LABS: CKMB Creatine Kinase MB < 1.0 ng/mL (0.3-3.6); Creatine Phosphokinase 109 U/L (39-308)
--- NOTE | 2018-06-21 12:07 | RAD REPORT ---
EXAM DESCRIPTION: CT - Chest Abdomen Pelvis W Cont - 06/21/2018 11:44 am CLINICAL HISTORY: Chest pain, abdominal pain COMPARISON: None. TECHNIQUE: Following dynamic enhancement using 100 milliliters nonionic IV contrast, axial imaging o f the chest, abdomen and pelvis was performed. Biphasic technique was utilized through the abdomen. Oral contrast was administered. All CT scans are performed using dose optimization technique as appropriate and may include automated exposure control or mA/KV adjustment according to patient size. FINDINGS: Lungs are clear of mass and infiltrate. No pleural effusion, pleural thickening or pneumot horax. No significant aortic or pulmonary arterial tree finding. Mediastinal and hilar regions show n o mass or abnormal lymphadenopathy. No chest wall mass or axillary lymphadenopathy. The liver, spleen and pancreas show no suspicious findings. Gallbladder is absent. No biliary tree di latation. Symmetric renal function is seen with no mass or hydronephrosis. No adrenal abnormalities. No dilated bowel loops or focal bowel wall thickening. Nonspecific enteritis is still possible. No acute or destructive bony process. No hernia, mass or bulky lymphadenopathy. Patient has right ing uinal hernia repair changes. No significant vascular findings. IMPRESSION: CT chest imaging shows no significant or suspicious finding. No obstruction, free air or emergent abdominal or pelvic finding. Small bowel enteritis is still possible.
--- NOTE | 2018-06-21 12:26 | EDPHYS ---
Physician Documentation [facility] Name: Agustín Camacho Age: 57 yrs Sex: Male : 1960 Arrival Date: 06/21/2018 Time: 09:26 Bed 15 Private MD: Naif Banegas H ED Physician Maxi Gonzalez HPI: 06/21 09:38 This 57 yrs old Male presents to ER via Ambulatory with complaints of jmm Abdominal Pain. 09:38 The patient presents with abdominal pain in the epigastric area, in the right upper jmm quadrant. Onset: The symptoms/episode began/occurred gradually, 1 month(s) ago. The symptoms radiate to right supraclavicular area, right clavicle, anterior aspect of right upper chest and right breast. Associated signs and symptoms: Pertinent negatives: fever, vomiting. This is a 57 year old male with a history of CVA, HTN, HLP that presents to the ED with right sided abdominal pain which radiates up the right chest. Patient denies vomiting or diarrhea. Symptoms are worsened after eating. Patient denies left sided chest pain or shortness of breath. . Historical: - Allergies: 09:30 NKA; rb1 - Home Meds: 09:30 aspirin 325 mg Oral tab 1 tab once daily [Active]; citalopram 20 mg tab 1 tab once rb1 daily [Active]; propranolol 10 mg Oral tab 1 tab daily [Active]; - PMHx: 09:30 ADD/ADHD; Anxiety; CVA; Hernia; High Cholesterol; Hypertension; Prostate Cancer; rb1 - PSHx: 09:30 shoulder; Knee surgery; Hernia repair; prostate; Cholecystectomy; rb1 - Immunization history:: Adult Immunizations up to date. - Social history:: Smoking status: Patient uses tobacco products, smokes one-half pack cigarettes per day. - Ebola Screening: : Patient negative for fever greater than or equal to 101.5 degrees Fahrenheit, and additional compatible Ebola Virus Disease symptoms. ROS: 09:38 Constitutional: Negative for fever, chills, and weight loss. jmm 09:38 Respiratory: Negative for shortness of breath, cough, wheezing, and pleuritic chest pain. 09:38 Back: Negative for injury and pain, MS/Extremity: Negative for injury and deformity, Skin: Negative for injury, rash, and discoloration, Neuro: Negative for headache, weakness, numbness, tingling, and seizure. 09:38 Cardiovascular: Positive for chest pain. 09:38 Abdomen/GI: Positive for abdominal pain. 09:38 All other systems are negative. Exam: 09:38 Head/Face: atraumatic. Chest/axilla: Normal chest wall appearance and motion. jm Cardiovascular: Regular rate and rhythm. No edema appreciated Respiratory: Normal respirations, no respiratory distress appreciated 09:38 Constitutional: The patient appears in no acute distress, alert, awake. 09:38 Abdomen/GI: Inspection: abdomen appears normal, Bowel sounds: normal, Palpation: moderate abdominal tenderness, in the right upper quadrant and right lower quadrant, voluntary guarding, is elicited in the right upper quadrant. 09:38 Back: ROM is normal. 09:38 Musculoskeletal/extremity: ROM: intact in all extremities. 09:38 Skin: Appearance: Color: normal in color. 09:38 Neuro: Orientation: is normal, Mentation: is normal, Memory: is normal. 09:38 Psych: Behavior/mood is pleasant, cooperative. Vital Signs: 09:30 BP 148 / 97; Pulse 54; Resp 19; Temp 97.8(TE); Pulse Ox 98% on R/A; Weight 78.93 kg; rb1 Height 5 ft. 8 in. (172.72 cm) (R); Pain 8/10; 10:30 BP 135 / 93; Pulse 53; Resp 18; Pulse Ox 98% on R/A; rb1 11:30 BP 123 / 81; Pulse 48; Resp 18; Pulse Ox 98% on R/A; Pain 5/10; rb1 12:30 BP 120 / 80; Pulse 48; Resp 19; Pulse Ox 98% on R/A; rb1 09:30 Body Mass Index 26.46 (78.93 kg, 172.72 cm) rb1 MDM: 09:38 Patient medically screened. [facility] 10:00 Differential diagnosis: gastritis, gastroesophageal reflux disease, Hepatitis, Peptic jmm Ulcer Disease, Perf. Gastric Ulcer. 12:25 Data reviewed: vital signs, nurses notes, lab test result(s), radiologic studies, CT [facility] scan. Counseling: I had a detailed discussion with the patient and/or guardian regarding: the historical points, exam findings, and any diagnostic results supporting the discharge/admit diagnosis, lab results, radiology results, the need for outpatient follow up, to return to the emergency department if symptoms worsen or persist or if there are any questions or concerns that arise at home. 12:25 Response to treatment: the patient's symptoms have markedly improved after treatment. [facility] 06/21 09:47 Order name: Amylase, Serum; Complete Time: 11:28 [facility] 06/21 09:47 Order name: Basic Metabolic Panel; Complete Time: 11:28 [facility] 06/21 09:47 Order name: CBC with Diff; Complete Time: 11:28 [facility] 06/21 09:47 Order name: Creatinine for Radiology; Complete Time: 11:28 [facility] 06/21 09:47 Order name: Hepatic Function; Complete Time: 11:28 [facility] 06/21 09:47 Order name: Lipase; Complete Time: 11: [facility] 06/21 09:47 Order name: Urine Microscopic Only; Complete Time: 10:18 [facility] 06/21 09:50 Order name: CT Chest, Abdomen, Pelvis - W/Contrast; Complete Time: 12:10 [facility] 06/21 09:50 Order name: Troponin (emerg Dept Use Only); Complete Time: 11: [facility] 06/21 09:50 Order name: CPK; Complete Time: 11:28 [facility] 06/21 09:50 Order name: Ckmb; Complete Time: 11: [facility] 06/21 09:59 Order name: Urine Dipstick--Ancillary (enter results) 06/21 09:59 Order name: Urine Dipstick-Ancillary; Complete Time: 10:18 [facility] 06/21 09:47 Order name: IV Saline Lock; Complete Time: 10:11 [facility] 06/21 09:47 Order name: Labs collected and sent; Complete Time: 10: [facility] 06/21 09:47 Order name: Urine Dipstick-Ancillary (obtain specimen); Complete Time: 10: [facility] 06/21 10:21 Order name: Labs - recollect needed; Complete Time: 10:41 eb Administered Medications: 09:57 Drug: morphine 4 mg Route: IVP; Site: right antecubital; rb1 10:11 Follow up: Response: No adverse reaction; Pain is decreased rb1 09:57 Drug: Zofran 4 mg Route: IVP; Site: right antecubital; rb1 10:11 Follow up: Response: No adverse reaction; Nausea is decreased rb1 Disposition: 14:39 Co-signature as Attending Physician, Maxi Gonzalez MD. rn Disposition: 06/21/18 12:25 Discharged to Home. Impression: Unspecified abdominal pain. - Condition is Stable. - Discharge Instructions: Abdominal Pain, Adult. - Prescriptions for omeprazole 40 mg Oral capsule,delayed release(DR/EC) - take 1 capsule by ORAL route once daily before a meal; 30 capsule. - Medication Reconciliation Form, Thank You Letter, Antibiotic Education, Prescription Opioid Use form. - Follow up: Jesus Jiménez MD; When: 2 - 3 days; Reason: Recheck today's complaints, Continuance of care, Re-evaluation by your physician. Signatures: Dispatcher [employer] [facility] Zane Thomas PA PA [facility] Maxi Gonzalez MD MD rn Blanca Andrew RN RN rb1 Rosa Hurtado Corrections: (The following items were deleted from the chart) 09:52 09:47 Abdomen Pelvis W Con+CT.RAD.BRZ ordered. [facility] 12:41 12:25 06/21/2018 12:25 Discharged to Home. Impression: Unspecified abdominal pain. rb1 Condition is Stable. Forms are Medication Reconciliation Form, Thank You Letter, Antibiotic Education, Prescription Opioid Use. Follow up: Jesus Jiménez; When: 2 - 3 days; Reason: Recheck today's complaints, Continuance of care, Re-evaluation by your physician. [facility]
--- NOTE | 2018-06-21 12:26 | ER ---
Nurse's Notes [facility] Name: Agustín Camacho Age: 57 yrs Sex: Male : 1960 Arrival Date: 06/21/2018 Time: 09:26 Bed 15 Private MD: Naif Banegas H Diagnosis: Unspecified abdominal pain Presentation: 06/21 09:30 Presenting complaint: Patient states: Has had abdominal pain x one month with N/V/D, rb1 denies bloody stools. Transition of care: patient was not received from another setting of care. Onset of symptoms is unknown. Risk Assessment: Do you want to hurt yourself or someone else? Patient reports no desire to harm self or others. Initial Sepsis Screen: Does the patient meet any 2 criteria? No. Patient's initial sepsis screen is negative. Does the patient have a suspected source of infection? No. Patient's initial sepsis screen is negative. Care prior to arrival: None. 09:30 Method Of Arrival: Ambulatory rb1 09:30 Acuity: BEVERLY 3 rb1 Triage Assessment: 09:30 General: Appears in no apparent distress. comfortable, Behavior is calm, cooperative, rb1 Reports fever for. Pain: Complains of pain in right lower quadrant Pain radiates to right upper quadrant Pain currently is 8 out of 10 on a pain scale. Pain began x one month. Neuro: Level of Consciousness is awake, alert, obeys commands, Oriented to person, place, time, situation. Cardiovascular: Capillary refill < 3 seconds is brisk in bilateral fingers. Respiratory: Airway is patent Respiratory effort is even, unlabored, Respiratory pattern is regular, symmetrical. GI: Reports diarrhea, nausea, vomiting, Patient currently denies bloody stool. : No signs and/or symptoms were reported regarding the genitourinary system. Derm: Skin is pink, warm \T\ dry. Historical: - Allergies: 09:30 NKA; rb1 - Home Meds: :30 aspirin 325 mg Oral tab 1 tab once daily [Active]; citalopram 20 mg tab 1 tab once rb1 daily [Active]; propranolol 10 mg Oral tab 1 tab daily [Active]; - PMHx: 09:30 ADD/ADHD; Anxiety; CVA; Hernia; High Cholesterol; Hypertension; Prostate Cancer; rb1 - PSHx: 09:30 shoulder; Knee surgery; Hernia repair; prostate; Cholecystectomy; rb1 - Immunization history:: Adult Immunizations up to date. - Social history:: Smoking status: Patient uses tobacco products, smokes one-half pack cigarettes per day. - Ebola Screening: : Patient negative for fever greater than or equal to 101.5 degrees Fahrenheit, and additional compatible Ebola Virus Disease symptoms. Screenin:30 Abuse screen: Denies threats or abuse. Nutritional screening: decreased appetite.. rb1 Tuberculosis screening: No symptoms or risk factors identified. Fall Risk None identified. Assessment: 09:30 General: See triage assessment. rb1 09:30 GI: Bowel sounds present X 4 quads. Abd is soft. rb1 10:12 Reassessment: Patient appears in no apparent distress at this time. Patient and/or rb1 family updated on plan of care and expected duration. Pain level reassessed. Patient is alert, oriented x 3, equal unlabored respirations, skin warm/dry/pink. 11:10 Reassessment: Patient appears in no apparent distress at this time. Patient and/or rb1 family updated on plan of care and expected duration. Pain level reassessed. Patient is alert, oriented x 3, equal unlabored respirations, skin warm/dry/pink. at bedside. 12:09 Reassessment: Patient appears in no apparent distress at this time. No changes from rb1 previously documented assessment. Vital Signs: 09:30 BP 148 / 97; Pulse 54; Resp 19; Temp 97.8(TE); Pulse Ox 98% on R/A; Weight 78.93 kg; rb1 Height 5 ft. 8 in. (172.72 cm) (R); Pain 8/10; 10:30 BP 135 / 93; Pulse 53; Resp 18; Pulse Ox 98% on R/A; rb1 11:30 BP 123 / 81; Pulse 48; Resp 18; Pulse Ox 98% on R/A; Pain 5/10; rb1 12:30 BP 120 / 80; Pulse 48; Resp 19; Pulse Ox 98% on R/A; rb1 09:30 Body Mass Index 26.46 (78.93 kg, 172.72 cm) [facility] ED Course: 09:26 Patient arrived in ED. sb2 09:27 Naif Banegas DO is Private Physician. sb2 09:29 Zane Thomas PA is PHCP. jmm 09:29 Maxi Gonzalez MD is Attending Physician. jmm 09:30 Arm band placed on right wrist. rb1 09:30 Patient has correct armband on for positive identification. Placed in gown. Bed in low rb1 position. Call light in reach. Side rails up X 1. Pulse ox on. NIBP on. Warm blanket given. 09:35 Blanca Andrew, RN is Primary Nurse. rb1 09:42 Triage completed. rb1 09:55 Inserted saline lock: 22 gauge in right antecubital area, using aseptic technique. rb1 Blood collected. 10:37 Radiology exam delayed due to lab results not completed at this time. (BUN/Creatinine). kw1 11:43 CT completed. Patient moved to CT via stretcher. Patient moved back from CT. kw1 11:44 CT Chest, Abdomen, Pelvis - W/Contrast In Process Unspecified. EDMS 12:25 Jesus Jiménez MD is Referral Physician. jm 12:40 Urine Dipstick--Ancillary (enter results) Sent. rb1 12:40 No provider procedures requiring assistance completed. IV discontinued, intact, rb1 bleeding controlled, No redness/swelling at site. Pressure dressing applied. Administered Medications: 09:57 Drug: morphine 4 mg Route: IVP; Site: right antecubital; rb1 10:11 Follow up: Response: No adverse reaction; Pain is decreased rb1 09:57 Drug: Zofran 4 mg Route: IVP; Site: right antecubital; rb1 10:11 Follow up: Response: No adverse reaction; Nausea is decreased rb1 Outcome: 12:25 Discharge ordered by . [facility] 12:40 Discharged to home ambulatory, with family. rb1 12:40 Condition: stable 12:40 Discharge instructions given to patient, Instructed on discharge instructions, follow up and referral plans. medication usage, Demonstrated understanding of instructions, follow-up care, medications, Prescriptions given X 1. 12:41 Patient left the ED. rb1 Signatures: Dispatcher [employer] EDMS aZne Thomas PA PA jmm Barber, Rebecca, RN RN rb1 Gretta Beasley kw1 Elba Henderson sb2
[2018-06-21 12:53] VITALS: TEMP 97.8; O2SAT 98
[2018-06-21 12:56] VITALS: BP 120/80
== END 2018-06-21 12:41 | disposition home or self-care (01) ==
LOC: ER 09:24 → SUPCPDRO 09:24 → ER 12:41
DX: R10.9 Unspecified abdominal pain (principal); I10 Essential (primary) hypertension; E78.00 Pure hypercholesterolemia, unspecified; F17.210 Nicotine dependence, cigarettes, uncomplicated; F41.9 Anxiety disorder, unspecified; Z79.82 Long term (current) use of aspirin; Z85.46 Personal history of malignant neoplasm of prostate; Z86.73 Personal history of transient ischemic attack (TIA), and cerebral infarction without residual deficits
CPT/HCPCS: 36415; 71260; 74177; 80048; 80076; 82150; 82550; 82553; 83690; 84484; 85025; J2405; Q9967; 81003; 81015; 96374; 96375; 99284

== ENCOUNTER 2019-01-06 21:54 | Emergency (ER) | payer OTHER ==
[2019-01-06 22:37] LABS: Protime INR 0.97
[2019-01-06 22:42] LABS: Absolute Lymphocytes (CBC) 3.1 K/uL (0.7-4.9); Absolute Neutrophil 12.8 K/uL (1.8-8.0); Basophils % 0.9 % (0-1.3); Eosinophils % 0.7 % (0-4.4); Hematocrit 42.7 % (39.6-49.0); Lymphocytes % 17.9 % (15.3-44.8); MPV 8.6 fL (7.6-11.3); Monocytes % 5.7 % (3.3-12.3); RBC Red Blood Cell Count 4.67 M/uL (4.33-5.43)
[2019-01-06 22:53] LABS: ALT/SGPT 25 U/L (12-78); AST/SGOT 16 U/L (15-37); Albumin 3.6 g/dL (3.4-5.0); Alkaline Phosphatase 94 U/L (45-117); BUN Blood Urea Nitrogen 8 mg/dL (7-18); Bicarbonate 20 mmol/L (21-32); Bilirubin Direct 0.1 mg/dL (0-0.2); Bilirubin Total 0.6 mg/dL (0.2-1.0); Glucose Level 98 mg/dL (74-106); NT PRO-BNP 58 pg/mL (<125); Potassium 3.7 mmol/L (3.5-5.1); Sodium Level 143 mmol/L (136-145); Troponin (Emerg Dept Use Only) < 0.02 ng/mL (0.0-0.045)
--- NOTE | 2019-01-06 23:26 | ER ---
Nurse's Notes [facility] Name: Agustín Camacho Age: 58 yrs Sex: Male : 1960 Arrival Date: 01/06/2019 Time: 22:02 Bed 20 Private MD: Diagnosis: Chest pain, unspecified Presentation: 01/06 22:03 Presenting complaint: Patient states: c/o sharp substernal chest pain that radiated to tl2 left side of jaw and slight tingling in left hand. Pain resolved on EMS arrival. EMS gave 324 aspirin. Pt states pain come and goes and is aggravated by palpation on chest wall. Transition of care: patient was not received from another setting of care. Onset of symptoms was January 06, 2019 at 21:30. Risk Assessment: Do you want to hurt yourself or someone else? Patient reports no desire to harm self or others. Initial Sepsis Screen: Does the patient meet any 2 criteria? No. Patient's initial sepsis screen is negative. Does the patient have a suspected source of infection? No. Patient's initial sepsis screen is negative. Care prior to arrival: Medication(s) given: ASA, 81 mg, x 4. 22:03 Method Of Arrival: EMS: [facility] tl2 22:03 Acuity: BEVERLY 3 tl2 Triage Assessment: 22:06 General: Appears in no apparent distress. uncomfortable, Behavior is calm, cooperative, tl2 appropriate for age. Pain: Complains of pain in anterior aspect of left upper chest Pain radiates to left jaw Pain currently is 2 out of 10 on a pain scale. Quality of pain is described as sharp, Is intermittent, Aggravated by palpation. Neuro: Level of Consciousness is awake, alert, obeys commands, Oriented to person, place, time, situation. Cardiovascular: Chest pain is described as mild, quality is sharp, is located in left anterior chest wall radiates to left jaw(s) began suddenly, 30 minutes prior to arrival episodes are intermittent last < 1 minute is aggravated by activity. Respiratory: Airway is patent Respiratory effort is even, unlabored, Respiratory pattern is regular, symmetrical, Breath sounds are clear bilaterally. GI: No signs and/or symptoms were reported involving the gastrointestinal system. : No signs and/or symptoms were reported regarding the genitourinary system. Derm: Skin is pink, warm \T\ dry. Historical: - Allergies: 22:06 NKA; tl2 - Home Meds: 22:06 aspirin 325 mg Oral tab 1 tab once daily [Active]; citalopram 20 mg tab 1 tab once tl2 daily [Active]; propranolol 10 mg Oral tab 1 tab daily [Active]; - PMHx: 22:06 ADD/ADHD; Anxiety; CVA; Hernia; High Cholesterol; Hypertension; Prostate Cancer; AAA; tl2 - Immunization history:: Adult Immunizations up to date. - Social history:: Smoking status: Patient uses tobacco products. - Ebola Screening: : No symptoms or risks identified at this time. Screenin:11 Abuse screen: Denies threats or abuse. Nutritional screening: No deficits noted. tl2 Tuberculosis screening: No symptoms or risk factors identified. Fall Risk None identified. Assessment: 22:06 General: see triage assessment. tl2 22:06 Pain: Pain began suddenly, 30 min ago. tl2 23:05 Reassessment: Patient appears in no apparent distress at this time. No changes from tl2 previously documented assessment. Patient and/or family updated on plan of care and expected duration. Pain level reassessed. Patient is alert, oriented x 3, equal unlabored respirations, skin warm/dry/pink. 23:30 Reassessment: Patient appears in no apparent distress at this time. Patient and/or tl2 family updated on plan of care and expected duration. Pain level reassessed. Patient is alert, oriented x 3, equal unlabored respirations, skin warm/dry/pink. pt verbalized understanding of discharge instructions, need for follow up. Patient states feeling better. Vital Signs: 22:06 BP 127 / 83; Pulse 85; Resp 20; Temp 98.7(O); Pulse Ox 98% on R/A; Weight 77.11 kg; tl2 Height 5 ft. 8 in. (172.72 cm); Pain 2/10; 23:05 BP 112 / 81; Pulse 79; Resp 22; Pulse Ox 96% on R/A; tl2 23:30 BP 109 / 73; Pulse 83; Resp 18; Pulse Ox 98% on R/A; Pain 0/10; tl2 22:06 Body Mass Index 25.85 (77.11 kg, 172.72 cm) tl2 ED Course: 22:02 Patient arrived in ED. tl2 22:04 Andres Love PA is PHCP. jr8 22:04 Al Selby MD is Attending Physician. jr8 22:05 Triage completed. tl2 22:06 Arm band placed on right wrist. EKG completed in triage. Results shown to MD. tl2 22:11 Patient has correct armband on for positive identification. electrologist on. Pulse tl2 ox on. NIBP on. 22:11 Patient maintains SpO2 saturation greater than 95% on room air. tl2 22:12 Jacque Singh, DIEGO is Primary Nurse. tl2 22:38 Inserted saline lock: 22 gauge in right hand, using aseptic technique. Blood collected. tl2 22:41 XRAY Chest (1 view) In Process Unspecified. EDMS 23:30 No provider procedures requiring assistance completed. IV discontinued, intact, tl2 bleeding controlled, No redness/swelling at site. Pressure dressing applied. Administered Medications: No medications were administered Outcome: 23:25 Discharge ordered by MD. jr8 23:30 Discharged to home ambulatory, with family. tl2 23:30 Condition: stable 23:30 Discharge instructions given to patient, family, Instructed on discharge instructions, follow up and referral plans. Demonstrated understanding of instructions, follow-up care. 23:31 Patient left the ED. tl2 Signatures: Dispatcher [employer] EDMS Andres Love PA PA jr8 Jacque Singh, DIEGO RN tl2 Corrections: (The following items were deleted from the chart) 23:05 22:00 General: see triage assessment. tl2 tl2
--- NOTE | 2019-01-06 23:26 | EDPHYS ---
Physician Documentation [facility] Name: Agustín Camacho Age: 58 yrs Sex: Male : 1960 Arrival Date: 01/06/2019 Time: 22:02 Bed 20 Private MD: ED Physician Al Selby HPI: 01/06 22:54 This 58 yrs old Male presents to ER via EMS with complaints of Chest Pain. jr8 22:54 The patient or guardian reports chest pain that is located primarily in the anterior jr8 chest wall, left. Onset: acutely, today. The pain radiates to left jaw. Associated signs and symptoms: The patient has no apparent associated signs or symptoms. The chest pain is described as sharp. Duration: The patient or guardian reports multiple episodes, that are intermittent, that wax and wane, with no pattern. Modifying factors: The symptoms are alleviated by nothing. the symptoms are aggravated by nothing. Severity of pain: At its worst the pain was moderate in the emergency department the pain has improved mildly. The patient has not experienced similar symptoms in the past. The patient has not recently seen a physician. Historical: - Allergies: 22:06 NKA; tl2 - Home Meds: 22:06 aspirin 325 mg Oral tab 1 tab once daily [Active]; citalopram 20 mg tab 1 tab once tl2 daily [Active]; propranolol 10 mg Oral tab 1 tab daily [Active]; - PMHx: 22:06 ADD/ADHD; Anxiety; CVA; Hernia; High Cholesterol; Hypertension; Prostate Cancer; AAA; tl2 - Immunization history:: Adult Immunizations up to date. - Social history:: Smoking status: Patient uses tobacco products. - Ebola Screening: : No symptoms or risks identified at this time. ROS: 22:54 Eyes: Negative for injury, pain, redness, and discharge, ENT: Negative for injury, jr8 pain, and discharge, Neck: Negative for injury, pain, and swelling, Respiratory: Negative for shortness of breath, cough, wheezing, and pleuritic chest pain, Abdomen/GI: Negative for abdominal pain, nausea, vomiting, diarrhea, and constipation, Back: Negative for injury and pain, MS/Extremity: Negative for injury and deformity, Skin: Negative for injury, rash, and discoloration, Neuro: Negative for headache, weakness, numbness, tingling, and seizure. 22:54 Cardiovascular: Positive for chest pain, Negative for edema, orthopnea, palpitations, paroxysmal nocturnal dyspnea. Exam: 22:54 Eyes: Pupils equal round and reactive to light, extra-ocular motions intact. Lids and jr8 lashes normal. Conjunctiva and sclera are non-icteric and not injected. Cornea within normal limits. Periorbital areas with no swelling, redness, or edema. ENT: Nares patent. No nasal discharge, no septal abnormalities noted. Tympanic membranes are normal and external auditory canals are clear. Oropharynx with no redness, swelling, or masses, exudates, or evidence of obstruction, uvula midline. Mucous membranes moist. Neck: Trachea midline, no thyromegaly or masses palpated, and no cervical lymphadenopathy. Supple, full range of motion without nuchal rigidity, or vertebral point tenderness. No Meningismus. Cardiovascular: Regular rate and rhythm with a normal S1 and S2. No gallops, murmurs, or rubs. Normal PMI, no JVD. No pulse deficits. Respiratory: Lungs have equal breath sounds bilaterally, clear to auscultation and percussion. No rales, rhonchi or wheezes noted. No increased work of breathing, no retractions or nasal flaring. Abdomen/GI: Soft, non-tender, with normal bowel sounds. No distension or tympany. No guarding or rebound. No evidence of tenderness throughout. Back: No spinal tenderness. No costovertebral tenderness. Full range of motion. Skin: Warm, dry with normal turgor. Normal color with no rashes, no lesions, and no evidence of cellulitis. MS/ Extremity: Pulses equal, no cyanosis. Neurovascular intact. Full, normal range of motion. Neuro: Awake and alert, GCS 15, oriented to person, place, time, and situation. Cranial nerves II-XII grossly intact. Motor strength 5/5 in all extremities. Sensory grossly intact. Cerebellar exam normal. Normal gait. 22:54 Chest/axilla: Inspection: normal, Palpation: tenderness, that is moderate, of the anterior aspect of left upper chest, that totally reproduces the patient's complaints, Axilla: are normal. Vital Signs: 22:06 BP 127 / 83; Pulse 85; Resp 20; Temp 98.7(O); Pulse Ox 98% on R/A; Weight 77.11 kg; tl2 Height 5 ft. 8 in. (172.72 cm); Pain 2/10; 23:05 BP 112 / 81; Pulse 79; Resp 22; Pulse Ox 96% on R/A; tl2 23:30 BP 109 / 73; Pulse 83; Resp 18; Pulse Ox 98% on R/A; Pain 0/10; tl2 22:06 Body Mass Index 25.85 (77.11 kg, 172.72 cm) tl2 MDM: 22:04 Patient medically screened. jr8 22:54 The patient was not given aspirin in the Emergency Department. Administered by EMS. jr8 Data reviewed: vital signs, nurses notes, lab test result(s), EKG, radiologic studies, plain films. Data interpreted: Pulse oximetry: on room air is 98 %. Interpretation: normal. 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 23:21 ED course: Patient has complete resolution of pain. Pain was completely reproducible jr8 upon palpation. Negative trop and ECG findings. Negative for acute radiographic findings. Patient safe to be d/c's home with knowing he should come back if worse or new symptoms were to arise . 01/06 22:04 Order name: Basic Metabolic Panel; Complete Time: 22:54 01/06 22:04 Order name: CBC with Diff; Complete Time: 22:47 01/06 22:04 Order name: LFT's; Complete Time: 22:54 01/06 22:04 Order name: Magnesium; Complete Time: 22:54 01/06 22:04 Order name: NT PRO-BNP; Complete Time: :54 01/06 22:04 Order name: PT-INR; Complete Time: 22:47 01/06 22:04 Order name: Troponin (emerg Dept Use Only); Complete Time: 22:54 01/06 22:04 Order name: XRAY Chest (1 view) 01/06 22:04 Order name: EKG; Complete Time: 22:05 /27 22:04 Order name: Cardiac monitoring; Complete Time: :8 01/06 22:04 Order name: EKG - Nurse/Tech; Complete Time: 8 01/06 22:04 Order name: IV Saline Lock; Complete Time: 8 01/06 22:04 Order name: Labs collected and sent; Complete Time: 8 01/06 22:04 Order name: O2 Per Protocol; Complete Time: 8 01/06 22:04 Order name: O2 Sat Monitoring; Complete Time: : Administered Medications: No medications were administered Disposition: 01/07 06:05 Co-signature as Attending Physician, Al Selby MD I agree with the assessment and tw4 plan of care. Disposition: 01/06/19 23:25 Discharged to Home. Impression: Chest pain, unspecified. - Condition is Stable. - Discharge Instructions: Nonspecific Chest Pain, Chest Wall Pain. - Medication Reconciliation Form, Thank You Letter, Antibiotic Education, Prescription Opioid Use form. - Follow up: Private Physician; When: 2 - 3 days; Reason: Recheck today's complaints, Continuance of care, Re-evaluation by your physician. - Problem is new. - Symptoms have improved. Signatures: Dispatcher [employer] EDMS Andres Love PA PA jr8 Jacque Singh RN RN tl2 Al Selby MD MD tw4 Corrections: (The following items were deleted from the chart) 01/06 23:31 23:25 01/06/2019 23:25 Discharged to Home. Impression: Chest pain, unspecified. tl2 Condition is Stable. Forms are Medication Reconciliation Form, Thank You Letter, Antibiotic Education, Prescription Opioid Use. Follow up: Private Physician; When: 2 - 3 days; Reason: Recheck today's complaints, Continuance of care, Re-evaluation by your physician. Problem is new. Symptoms have improved. jr8
[2019-01-07 01:01] VITALS: TEMP 98.7
[2019-01-07 01:04] VITALS: BP 109/73; O2SAT 98
--- NOTE | 2019-01-07 08:00 | RAD REPORT ---
EXAM DESCRIPTION: Juliann Single View01/06/2019 10:41 pm CLINICAL HISTORY: Chest pain COMPARISON: February 2018 FINDINGS: The lungs appear clear of acute infiltrate. The heart is normal size IMPRESSION: No acute abnormalities displayed
--- NOTE | 2019-01-07 08:44 | EKG ---
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
== END 2019-01-06 23:31 | disposition home or self-care (01) ==
LOC: ER 21:54
DX: R07.9 Chest pain, unspecified (principal); I10 Essential (primary) hypertension; E78.00 Pure hypercholesterolemia, unspecified; F90.9 Attention-deficit hyperactivity disorder, unspecified type; Z72.0 Tobacco use; Z79.82 Long term (current) use of aspirin; Z85.46 Personal history of malignant neoplasm of prostate
CPT/HCPCS: 36415; 71045; 80048; 80076; 83735; 83880; 84484; 85025; 85610; 93005; 99285

== ENCOUNTER 2020-04-01 19:48 | Observation (INO) | payer OTHER ==
--- OUTSIDE RECORDS SUMMARY | 2020-04-01 19:50 | XMS REPORT ---
:1960 Author Organization [facility] t Address [address] [place] [address] Dr. Castro[address] [place] [id number] Care Team Providers Name Role Phone Carlos BOLES, Dm Attending Clinician Problems This patient has no known problems. Allergies, Adverse Reactions, Alerts This patient has no known allergies or adverse reactions. Medications This patient has no known medications. Procedures This patient has no known procedures. Encounters Start End Encounter Admission Attending Care Care Encounter Source Date/Time Date/Time Type Type Clinicians Facility Department ID 2019-07-02 2019-07-02 Emergency Carlos [facility] [id number] 20:25:52 22:21:00 Shaggy Keller [id number] [place] [id number] [place] [id number] Results This patient has no known results.
[2020-04-01 20:35] LABS: Urine Blood NEGATIVE (NEG); Urine Glucose NEGATIVE (NEG); Urine Protein NEGATIVE (NEG); Urine pH 5.5 (5.0-7.0)
[2020-04-01 20:39] LABS: Barbiturates NEGATIVE (NEGATIVE); Benzodiazepines NEGATIVE (NEGATIVE); Cocaine NEGATIVE (NEGATIVE); METHAMPHETAM NEGATIVE (NEGATIVE); Methadone NEGATIVE (NEGATIVE); Opiates NEGATIVE (NEGATIVE); Phencyclidine NEGATIVE (NEGATIVE); THC Cannibis NEGATIVE (NEGATIVE)
--- NOTE | 2020-04-01 20:55 | RAD REPORT ---
EXAM DESCRIPTION: CT - Head Brain Wo Cont - 04/01/2020 8:41 pm CLINICAL HISTORY: Dizziness;TIA Headache, drowsiness COMPARISON: Ct Stroke Brain Wo Cont dated 03/06/2018; Head Brain Wo Cont dated 08/10/2017 TECHNIQUE: All CT scans are performed using dose optimization technique as appropriate and may inclu de automated exposure control or mA/KV adjustment according to patient size. FINDINGS: No intracranial hemorrhage, hydrocephalus or extra-axial fluid collection.Encephalomalacia in the distribution of the right middle cerebral artery again noted compatible with old infarction.N o areas of brain edema or evidence of midline shift. The paranasal sinuses and mastoids are clear. The calvarium is intact. IMPRESSION: No acute intracranial abnormality.
--- NOTE | 2020-04-01 20:57 | RAD REPORT ---
EXAM DESCRIPTION: RAD - Chest Single View - 04/01/2020 8:31 pm CLINICAL HISTORY: CHEST PAIN Chest pain. COMPARISON: Chest Single View dated 01/06/2019; Chest Single View dated 03/06/2018; Chest Pa And Lat ( 2 Views) dated 01/05/2018; Chest Pa And Lat (2 Views) dated 07/03/2017 FINDINGS: Portable technique limits examination quality. The lungs are grossly clear. The heart is normal in size. No displaced fractures. IMPRESSION: No acute intrathoracic process suspected.
[2020-04-01] MEDS ORDERED: THIAMINE 200 MG/2 ML INJ ONE (21:21)
[2020-04-01] MEDS ORDERED: ACETAMINOPHEN 500 MG TAB ONE (21:22)
[2020-04-01] MEDS ORDERED: NA CHLORIDE 0.9% 1,000 ML ONE (21:24)
[2020-04-01] MEDS ORDERED: FOLIC ACID 5 MG/ML VIAL ONE (21:24)
--- NOTE | 2020-04-01 21:25 | EDPHYS ---
Physician Documentation [facility] Name: Agustín Camacho Age: 59 yrs Sex: Male : 1960 Arrival Date: 04/01/2020 Time: 19:56 Bed 19 Private MD: ED Physician Duran De La Fuente HPI: 04/01 19:59 This 59 yrs old Male presents to ER via Unassigned with complaints of chest walter pain and hand pain. 19:59 The patient or guardian reports decreased range of motion, pain. The complaints affect walter the left hand diffusely. Context: The problem was sustained at home. The patient or guardian reports chest pain that is located primarily in the anterior chest wall, left. Onset: 1.5 hour(s) ago. The pain radiates to left hand and left arm. Onset: The symptoms/episode began/occurred just prior to arrival. Associated signs and symptoms: The patient has no apparent associated signs or symptoms. The chest pain is described as a heaviness. Duration: The patient or guardian reports a single episode, that is still ongoing. Modifying factors: The symptoms are alleviated by nothing. the symptoms are aggravated by nothing. Severity of pain: At its worst the pain was mild moderate in the emergency department the pain is unchanged. Modifying factors: The symptoms are alleviated by nothing, the symptoms are aggravated by nothing. Associated signs and symptoms: The patient has no apparent associated signs or symptoms. Historical: - Allergies: 20:20 NKA; ah - Home Meds: 21:43 aspirin 325 mg Oral tab 1 tab once daily [Active]; citalopram 40 mg oral tab [Active]; propranolol 10 mg Oral tab 1 tab daily [Active]; gabapentin oral oral [Active]; Omeprazole Oral [Active]; - PMHx: 20:20 AAA; Anxiety; CVA; Hernia; ADD/ADHD; High Cholesterol; Hypertension; Prostate Cancer; ah - Immunization history:: Adult Immunizations up to date. - Social history:: Smoking status: Patient reports the use of cigarette tobacco products, smokes one-half pack cigarettes per day, Patient uses alcohol, on a daily basis. - Family history:: not pertinent. ROS: 19:59 Constitutional: Negative for fever, chills, and weight loss, Eyes: Negative for injury, walter pain, redness, and discharge, ENT: Negative for injury, pain, and discharge, Neck: Negative for injury, pain, and swelling, Respiratory: Negative for shortness of breath, cough, wheezing, and pleuritic chest pain, Abdomen/GI: Negative for abdominal pain, nausea, vomiting, diarrhea, and constipation, Back: Negative for injury and pain, : Negative for injury, bleeding, discharge, and swelling, Skin: Negative for injury, rash, and discoloration, Neuro: Negative for headache, weakness, numbness, tingling, and seizure, Psych: Negative for depression, anxiety, suicide ideation, homicidal ideation, and hallucinations, Allergy/Immunology: Negative for hives, rash, and allergies, Endocrine: Negative for neck swelling, polydipsia, polyuria, polyphagia, and marked weight changes, Hematologic/Lymphatic: Negative for swollen nodes, abnormal bleeding, and unusual bruising. 19:59 Cardiovascular: Positive for chest pain. 19:59 MS/extremity: Positive for decreased range of motion, pain, of the left hand. Exam: 19:59 Constitutional: This is a well developed, well nourished patient who is awake, alert, walter and in no acute distress. Head/Face: Normocephalic, atraumatic. Eyes: Pupils equal round and reactive to light, extra-ocular motions intact. Lids and lashes normal. Conjunctiva and sclera are non-icteric and not injected. Cornea within normal limits. Periorbital areas with no swelling, redness, or edema. ENT: Nares patent. No nasal discharge, no septal abnormalities noted. Tympanic membranes are normal and external auditory canals are clear. Oropharynx with no redness, swelling, or masses, exudates, or evidence of obstruction, uvula midline. Mucous membranes moist. Neck: Trachea midline, no thyromegaly or masses palpated, and no cervical lymphadenopathy. Supple, full range of motion without nuchal rigidity, or vertebral point tenderness. No Meningismus. Chest/axilla: Normal chest wall appearance and motion. Nontender with no deformity. No lesions are appreciated. Cardiovascular: Regular rate and rhythm with a normal S1 and S2. No gallops, murmurs, or rubs. Normal PMI, no JVD. No pulse deficits. Respiratory: Lungs have equal breath sounds bilaterally, clear to auscultation and percussion. No rales, rhonchi or wheezes noted. No increased work of breathing, no retractions or nasal flaring. Abdomen/GI: Soft, non-tender, with normal bowel sounds. No distension or tympany. No guarding or rebound. No evidence of tenderness throughout. Back: No spinal tenderness. No costovertebral tenderness. Full range of motion. Skin: Warm, dry with normal turgor. Normal color with no rashes, no lesions, and no evidence of cellulitis. Neuro: Awake and alert, GCS 15, oriented to person, place, time, and situation. Cranial nerves II-XII grossly intact. Motor strength 5/5 in all extremities. Sensory grossly intact. Cerebellar exam normal. Normal gait. Psych: Awake, alert, with orientation to person, place and time. Behavior, mood, and affect are within normal limits. 19:59 Musculoskeletal/extremity: ROM: limited active range of motion due to pain, limited passive range of motion due to pain, in the left arm, Circulation is intact in all extremities. hypersensitive, ususal Compartment Syndrome exam of affected extremity: is normal. DVT Exam: no swelling, no appreciated bluish discoloration, no erythema, no increased warmth, pain, tenderness. 20:26 ECG was reviewed by the Attending Physician. [facility] Vital Signs: 20:00 BP 144 / 96; Pulse 62; Resp 15; Temp 98.3; Pulse Ox 96% ; Weight 84.37 kg; Height 5 ft. 9 in. (175.26 cm); Pain 0/10; 22:56 BP 136 / 96; Pulse 55; Resp 18; Pulse Ox 99% ; ll1 23:14 BP 141 / 77; Pulse 52; Resp 16; Temp 97.8; Pulse Ox 99% ; ll1 20:00 Body Mass Index 27.47 (84.37 kg, 175.26 cm) NIH Stroke Scale Scores: 20:05 NIHSS Score: 1 [facility] MDM: 19:56 Patient medically screened. [facility] 20:05 Data reviewed: vital signs, nurses notes, lab test result(s), EKG, radiologic studies, [facility] CT scan, plain films. 21:20 Differential diagnosis: anxiety, coronary artery disease chest wall pain, stable walter angina, unstable angina, tia/ cva. Data interpreted: suede brusher: rate is 62 beats/min, Pulse oximetry: on room air is 96 %. Test interpretation: by ED physician or midlevel provider: ECG, plain radiologic studies. Counseling: I had a detailed discussion with the patient and/or guardian regarding: the historical points, exam findings, and any diagnostic results supporting the discharge/admit diagnosis, lab results, radiology results, the need for further work-up and treatment in the hospital. Awaiting: labs results. ED course: dw pt, results, will admit to dr mcgarry, chest pain, left hand pain etoh ingestion. 21:53 HEART Score: History: Moderately Suspicious (1), ECG: Normal (0), Age: > 45 and < 65 walter years (1), Risk Factors: > or = 3 Risk factors for atherosclerotic disease (2), [Hypercholesterolemia] [Hypertension] [+ Family HX] Troponin: < or = 1 x Normal Limit (0). The patient was given aspirin in the Emergency Department. The patient's deep vein thrombosis risk score was calculated as follows: Total Score: 0. This patient was found to be at low risk for a deep vein thrombosis by using the Well's assessment criteria. The patient's pulmonary embolism risk score was calculated as follows: Total Score: 0-2 points. This patient was found to be at low risk for a pulmonary embolism by using the Well's assessment criteria. PATITO Risk Score: 1 - Three or more CAD risk factors, [Family Hx], [HTN], [Elevated Cholesterol], 1 - ASA use in past 7 days, TOTAL SCORE = 2. ED course: dr mcgarry admitting, pt stable. 04/01 19:58 Order name: Basic Metabolic Panel; Complete Time: 21:51 walter 04/01 19:58 Order name: CBC with Diff; Complete Time: 21:51 walter 04/01 19:58 Order name: LFT's; Complete Time: 21:51 walter 04/01 19:58 Order name: Magnesium; Complete Time: 21:51 walter 04/01 19:58 Order name: NT PRO-BNP; Complete Time: 21:51 walter 04/01 19:58 Order name: PT-INR; Complete Time: 21:38 walter 04/01 19:58 Order name: Troponin (emerg Dept Use Only); Complete Time: 21:51 walter 04/01 19:58 Order name: Alcohol Level; Complete Time: 21:51 walter 04/01 19:58 Order name: UDS; Complete Time: 20:52 walter 04/01 20:26 Order name: Urine Dipstick--Ancillary (enter results); Complete Time: 20:52 wv 04/01 22:37 Order name: Basic Metabolic Panel [facility] 04/01 22:37 Order name: Basic Metabolic Panel [facility] 04/01 22:37 Order name: Lipid Profile [facility] 04/01 22:37 Order name: Lipid Profile [facility] 04/01 19:58 Order name: XRAY Chest (1 view); Complete Time: 21:20 [facility] 04/01 19:58 Order name: EKG; Complete Time: 19:59 [facility] 04/01 19:58 Order name: Cardiac monitoring; Complete Time: 20:20 [facility] 04/01 19:58 Order name: EKG - Nurse/Tech; Complete Time: 20:20 [facility] 04/01 19:58 Order name: IV Saline Lock; Complete Time: 23:23 [facility] 04/01 19:58 Order name: Labs collected and sent; Complete Time: 23:23 [facility] 04/01 19:58 Order name: CT Head Brain wo Cont; Complete Time: 21:20 [facility] 04/01 22:38 Order name: CONS Physician Consult [facility] 04/01 22:38 Order name: EKG Electrocardiogram [facility] 04/01 19:58 Order name: O2 Per Protocol; Complete Time: 20:20 [facility] 04/01 19:58 Order name: O2 Sat Monitoring; Complete Time: 20:21 [facility] 04/01 19:58 Order name: Urine Dipstick-Ancillary (obtain specimen); Complete Time: 20:21 [facility] EC:26 Rate is 58 beats/min. Rhythm is regular. QRS [place] is Normal. RI interval is normal. QRS walter interval is normal. QT interval is normal. No Q waves. T waves are Normal. No ST changes noted. Clinical impression: Sinus bradycardia and No evidence of ischemia. Interpreted by me. Reviewed by me. Administered Medications: 21:20 Drug: foLIC Acid 1 mg Route: IVPB; Site: right antecubital; 23:24 Follow up: Response: No adverse reaction; IV Status: Completed infusion 1 21:25 Drug: NS 0.9% 1000 ml Route: IV; Rate: 1 bolus; Site: right antecubital; 23:25 Follow up: Response: No adverse reaction; IV Status: Completed infusion 1 21:25 Drug: Thiamine 100 mg Route: IV; Rate: bolus; Site: right antecubital; 23:25 Follow up: Response: No adverse reaction; IV Status: Completed infusion ll1 21:28 Drug: Tylenol 1000 mg Route: PO; 22:46 Follow up: Response: No adverse reaction ll1 21:36 Drug: PlaVIX 75 mg Route: PO; 22:46 Follow up: Response: No adverse reaction; RASS: Alert and Calm (0) ll1 22:09 Not Given (aspirin 324 mg given en route): Aspirin 81 mg PO once ll1 22:45 Drug: Lovenox 80 mg Route: Sub-Q; Site: right lower abdomen; 1 22:55 Follow up: Response: No adverse reaction 1 Disposition: 04/01/20 21:24 Hospitalization ordered by Matthieu Mcgarry for Observation. Preliminary diagnosis are Chest pain, unspecified, Weakness, Alcohol abuse. - Bed requested for Telemetry/MedSurg (observation). - Status is Observation. ll1 - Condition is Fair. - Problem is new. - Symptoms have improved. NIH Stroke Scale - NIH Stroke Score Date: 04/01/2020 Time: 20:05 Total Score = 1 1a. Level of Consciousness (LOC) - 0(Alert) 1b. Level of Consciousness (LOC) (Year \T\ Age) - 0(Both) 1c. LOC Commands (Open \T\ Closes Eyes/City Planning Teacher) - 0(Both) 2. Best Gaze (Lateral Gaze Paresis) - 0(Normal) 3. Visual Field Loss - 0(No visual loss) 4. Facial Palsy - 0(Normal) 5a. Left Arm: Motor (10-second hold) - 0(No drift) 5b. Right Arm: Motor (10-second hold) - 0(No drift) 6a. Left Leg: Motor (5-second hold - always test supine) - 0(No drift) 6b. Right Leg: Motor (5-second hold - always test supine) - 0(No drift) 7. Limb Ataxia (finger/nose \T\ heel/rodney - test with eyes open) - 0(Absent) 8. Sensory Loss (pinprick arms/legs/face) - 0(Normal) 9. Best Language: Aphasia (description/naming/reading) - 0(No aphasia) 10. Dysarthria (speech clarity - read or repeat words) - 1(Mild to Moderate) 11. Extinction and Inattention (visual/tactile/auditory/spatial/personal) - 0(No abnormality) Initials: [facility] Signatures: Dispatcher [employer] EDBrittani Harvey RN Duran Evans MD MD cha Harris, Amy, RN RN Reza Young RN RN ll1 Corrections: (The following items were deleted from the chart) 21:52 21:24 Hospitalization Ordered by Matthieu Mcgarry MD for Observation. Preliminary [facility] diagnosis is Chest pain, unspecified; Alcohol abuse with intoxication; Weakness. Bed requested for Telemetry/MedSurg (observation). Status is Observation. Condition is Fair. Problem is new. Symptoms have improved. [facility] 22:41 21:52 04/01/2020 21:24 Hospitalization Ordered by Matthieu Mcgarry MD for Observation. Preliminary diagnosis is Chest pain, unspecified; Weakness; Alcohol abuse. Bed requested for Telemetry/MedSurg (observation). Status is Observation. Condition is Fair. Problem is new. Symptoms have improved. [facility] 23:37 22:41 04/01/2020 21:24 Hospitalization Ordered by Matthieu Mcgarry MD for ll1 Observation. Preliminary diagnosis is Chest pain, unspecified; Weakness; Alcohol abuse. Bed requested for Telemetry/MedSurg (observation). Status is Observation. Condition is Fair. Problem is new. Symptoms have improved.
--- NOTE | 2020-04-01 21:25 | ER ---
Nurse's Notes [facility] Name: Agustín Camacho Age: 59 yrs Sex: Male : 1960 Arrival Date: 04/01/2020 Time: 19:56 Bed 19 Private MD: Diagnosis: Chest pain, unspecified;Weakness;Alcohol abuse Presentation: 04/01 20:00 Chief complaint: Patient states: chest pain on left side and left sided weakness. EMS states that they gave nitro and asa enroute. BP 144/96. Coronavirus screen: Proceed with normal triage. Patient denies a cough. Patient denies shortness of breath or difficulty breathing. Patient denies measured and/or subjective temperature greater than 100.4F prior to today's visit. Patient denies travel on a cruise ship or to a country the [facility] currently lists as an affected area. Patient denies contact with known and/or suspected case of COVID-19. Ebola Screen: No symptoms or risks identified at this time. Initial Sepsis Screen: Does the patient meet any 2 criteria? No. Patient's initial sepsis screen is negative. Does the patient have a suspected source of infection? No. Patient's initial sepsis screen is negative. Risk Assessment: Do you want to hurt yourself or someone else? Patient reports no desire to harm self or others. Onset of symptoms was April 01, 2020. Care prior to arrival: Medication(s) given: ASA, 325 mg, Nitroglycerin, 0.4 mg SL. 20:00 Method Of Arrival: EMS: [facility] 20:00 Acuity: BEVERLY 3 Historical: - Allergies: 20:20 NKA; - Home Meds: 21:43 aspirin 325 mg Oral tab 1 tab once daily [Active]; citalopram 40 mg oral tab [Active]; propranolol 10 mg Oral tab 1 tab daily [Active]; gabapentin oral oral [Active]; Omeprazole Oral [Active]; - PMHx: 20:20 AAA; Anxiety; CVA; Hernia; ADD/ADHD; High Cholesterol; Hypertension; Prostate Cancer; - Immunization history:: Adult Immunizations up to date. - Social history:: Smoking status: Patient reports the use of cigarette tobacco products, smokes one-half pack cigarettes per day, Patient uses alcohol, on a daily basis. - Family history:: not pertinent. Screenin:57 Abuse screen: Denies threats or abuse. Nutritional screening: No deficits noted. ll1 Tuberculosis screening: No symptoms or risk factors identified. Fall Risk IV access (20 points). Ambulatory Aid- None/Bed Rest/Nurse Assist (0 pts). Gait- Weak (10 pts.). Total [place] Fall Scale indicates Low Risk Score (25-44 pts). Assessment: 20:15 General: Appears uncomfortable, Behavior is calm, cooperative. Pain: Complains of pain ah in left arm Pain does not radiate. Pain currently is 5 out of 10 on a pain scale. Neuro: Level of Consciousness is awake, alert, Oriented to person, place, time, situation, Registered Representative are weak on left Gait is steady, Speech is normal, Facial symmetry appears normal, Pupils are PERRLA, pt states that left side is weaker r/t stroke from 6 years ago. Cardiovascular: Heart tones S1 S2 present Capillary refill < 3 seconds Patient's skin is warm and dry. Rhythm is sinus bradycardia. Respiratory: Airway is patent Respiratory effort is even, unlabored, Respiratory pattern is regular, symmetrical, Breath sounds are clear bilaterally. GI: No signs and/or symptoms were reported involving the gastrointestinal system. : No signs and/or symptoms were reported regarding the genitourinary system. EENT: No signs and/or symptoms were reported regarding the EENT system. Derm: No signs and/or symptoms reported regarding the dermatologic system. Musculoskeletal: No signs and/or symptoms reported regarding the musculoskeletal system. 20:45 Reassessment: pt states that chest is no longer hurting but he does have a headache ah now. Explained that this is a side effect of nitroglycerin sometime. Informed MD and received order for tylenol. Patient states feeling better. 22:10 Reassessment: Patient appears in no apparent distress at this time. No changes from ll1 previously documented assessment. Patient and/or family updated on plan of care and expected duration. Pain level reassessed. Patient is alert, oriented x 3, equal unlabored respirations, skin warm/dry/pink. 23:10 Reassessment: Patient appears in no apparent distress at this time. No changes from ll1 previously documented assessment. Patient and/or family updated on plan of care and expected duration. Pain level reassessed. Patient is alert, oriented x 3, equal unlabored respirations, skin warm/dry/pink. Vital Signs: 20:00 BP 144 / 96; Pulse 62; Resp 15; Temp 98.3; Pulse Ox 96% ; Weight 84.37 kg; Height 5 ft. ah 9 in. (175.26 cm); Pain 0/10; 22:56 BP 136 / 96; Pulse 55; Resp 18; Pulse Ox 99% ; ll1 23:14 BP 141 / 77; Pulse 52; Resp 16; Temp 97.8; Pulse Ox 99% ; ll1 20:00 Body Mass Index 27.47 (84.37 kg, 175.26 cm) NIH Stroke Scale Scores: 20:05 NIHSS Score: 1 [facility] ED Course: 19:56 Patient arrived in ED. [facility] 19:56 Duran De La Fuente MD is Attending Physician. [facility] 19:59 Sandi Hill, RN is Primary Nurse. 20:18 Triage completed. 20:31 XRAY Chest (1 view) In Process Unspecified. EDMS 20:41 CT Head Brain wo Cont In Process Unspecified. EDMS 21:23 Matthieu Ewing MD is Hospitalizing Provider. [facility] 22:10 Report received from Sandi Hill RN. ll1 22:58 Patient has correct armband on for positive identification. Bed in low position. Call ll1 light in reach. Side rails up X 1. seat installer on. Pulse ox on. NIBP on. 23:19 No provider procedures requiring assistance completed. Patient admitted, IV remains in ll1 place. 23:20 Arm band placed on. ll1 Administered Medications: 21:20 Drug: foLIC Acid 1 mg Route: IVPB; Site: right antecubital; 23:24 Follow up: Response: No adverse reaction; IV Status: Completed infusion 1 21:25 Drug: NS 0.9% 1000 ml Route: IV; Rate: 1 bolus; Site: right antecubital; 23:25 Follow up: Response: No adverse reaction; IV Status: Completed infusion 1 21:25 Drug: Thiamine 100 mg Route: IV; Rate: bolus; Site: right antecubital; 23:25 Follow up: Response: No adverse reaction; IV Status: Completed infusion 1 21:28 Drug: Tylenol 1000 mg Route: PO; 22:46 Follow up: Response: No adverse reaction ll1 21:36 Drug: PlaVIX 75 mg Route: PO; 22:46 Follow up: Response: No adverse reaction; RASS: Alert and Calm (0) [facility] 22:09 Not Given (aspirin 324 mg given en route): Aspirin 81 mg PO once [facility] 22:45 Drug: Lovenox 80 mg Route: Sub-Q; Site: right lower abdomen; 1 22:55 Follow up: Response: No adverse reaction [facility] Outcome: 21:24 Decision to Hospitalize by Provider. [facility] 23:20 Admitted to Med/surg accompanied by nurse, via wheelchair, room 224, Report called to [facility] DIEGO Loving on second 23:20 Condition: stable 23:20 Instructed on the need for admit. 23:37 Patient left the ED. [facility] NIH Stroke Scale - NIH Stroke Score Date: 04/01/2020 Time: 20:05 Total Score = 1 1a. Level of Consciousness (LOC) - 0(Alert) 1b. Level of Consciousness (LOC) (Year \T\ Age) - 0(Both) 1c. LOC Commands (Open \T\ Closes Eyes/Clinical Assistant Professor) - 0(Both) 2. Best Gaze (Lateral Gaze Paresis) - 0(Normal) 3. Visual Field Loss - 0(No visual loss) 4. Facial Palsy - 0(Normal) 5a. Left Arm: Motor (10-second hold) - 0(No drift) 5b. Right Arm: Motor (10-second hold) - 0(No drift) 6a. Left Leg: Motor (5-second hold - always test supine) - 0(No drift) 6b. Right Leg: Motor (5-second hold - always test supine) - 0(No drift) 7. Limb Ataxia (finger/nose \T\ heel/rodney - test with eyes open) - 0(Absent) 8. Sensory Loss (pinprick arms/legs/face) - 0(Normal) 9. Best Language: Aphasia (description/naming/reading) - 0(No aphasia) 10. Dysarthria (speech clarity - read or repeat words) - 1(Mild to Moderate) 11. Extinction and Inattention (visual/tactile/auditory/spatial/personal) - 0(No abnormality) Initials: walter Signatures: Dispatcher [employer] EDDuran Koch MD MD cha Harris, Amy RN DIEGO Reza Young RN RN ll1
[2020-04-01 21:27] LABS: Protime INR 0.93
[2020-04-01 21:35] LABS: Absolute Lymphocytes (CBC) 2.1 K/uL (0.7-4.9); Basophils % 0.7 % (0-1.3); Hematocrit 41.3 % (39.6-49.0); Lymphocytes % 24.6 % (15.3-44.8); MPV 8.3 fL (7.6-11.3); RBC Red Blood Cell Count 4.34 M/uL (4.33-5.43)
[2020-04-01] MEDS ORDERED: CLOPIDOGREL 75 MG TABLET ONE (21:40)
[2020-04-01 21:41] LABS: ALT/SGPT 21 U/L (12-78); AST/SGOT 18 U/L (15-37); Albumin 3.3 g/dL (3.4-5.0); Alkaline Phosphatase 60 U/L (45-117); BUN Blood Urea Nitrogen 13 mg/dL (7-18); Bicarbonate 25 mmol/L (21-32); Bilirubin Direct 0.2 mg/dL (0-0.2); Bilirubin Total 0.8 mg/dL (0.2-1.0); Glucose Level 89 mg/dL (74-106); NT PRO-BNP 79 pg/mL (<125); Potassium 3.7 mmol/L (3.5-5.1); Protein, Total 6.7 g/dL (6.4-8.2); Sodium Level 139 mmol/L (136-145); Troponin (Emerg Dept Use Only) < 0.02 ng/mL (0.0-0.045)
[2020-04-01] MEDS ORDERED: ENOXAPARIN 80 MG/0.8 ML SQ ONE (22:31)
[2020-04-01] MEDS ORDERED: MORPHINE 4 MG/ML SYR IV PRN (22:33)
[2020-04-01] MEDS ORDERED: ALPRAZOLAM 0.25 MG TABLET PO PRN (22:33)
[2020-04-01] MEDS ORDERED: ACETAMINOPHEN 500 MG TAB PO PRN (22:33)
[2020-04-01 23:44] VITALS: O2SAT 99
[2020-04-02 00:04] VITALS: BMI 24.8
[2020-04-02] MEDS: METOPROLOL TAR 50 MG TAB PO SCH ×2 (05:50→09:00)
[2020-04-02 06:43] LABS: Absolute Lymphocytes (CBC) 2.1 K/uL (0.7-4.9); Basophils % 0.7 % (0-1.3); Hematocrit 42.7 % (39.6-49.0); Lymphocytes % 32.5 % (15.3-44.8); MPV 8.5 fL (7.6-11.3); RBC Red Blood Cell Count 4.53 M/uL (4.33-5.43)
[2020-04-02 07:10] LABS: BUN Blood Urea Nitrogen 12 mg/dL (7-18); Bicarbonate 24 mmol/L (21-32); Glucose Level 94 mg/dL (74-106); Potassium 3.9 mmol/L (3.5-5.1); Sodium Level 143 mmol/L (136-145); Troponin I < 0.02 ng/mL (0.0-0.045)
[2020-04-02] MEDS ORDERED: ENOXAPARIN 40 MG/0.4 ML SQ SCH (09:00)
[2020-04-02] MEDS ORDERED: ASPIRIN EC 81 MG TAB PO SCH (09:00)
[2020-04-02 09:02] VITALS: BP 157/84
[2020-04-02 09:19] VITALS: TEMP 97.6
--- NOTE | 2020-04-02 09:37 | P.HP ---
Certification for Inpatient Patient admitted to: Observation With expected LOS: <2 Midnights Patient will require the following post-hospital care: None Practitioner: I am a practitioner with admitting privileges, knowledge of patient current condition, hospital course, and medical plan of care. Services: Services provided to patient in accordance with Admission requirements found in Title 42 Section 412.3 of the Code of Federal Regulations Patient History Date of Service: 04/01/20 Reason for admission: Chest pain rule out History of Present Illness: Patient is a 59-year-old gentleman who came to the hospital with chest discomfort. Pain was mainly in the sternal region. Patient's history of abdominal aortic aneurysm. Patient has been seeing Cardiology and had a stress test a year ago. Patient came to the hospital for further evaluation. Patient's serial troponins and EKG been negative. Patient echocardiograms are pending. Patient will be admitted for further evaluation. Allergies No Known Allergies Allergy (Verified 07/03/17 15:30) Home Medications: Aspirin Chewable [Aspirin Chewable*] 81 mg PO DAILY 04/02/20 Citalopram Hydrobromide [Citalopram HBr] 40 mg PO DAILY 04/02/20 Gabapentin 300 mg PO DAILY 04/02/20 Melatonin 5 mg PO BEDTIME 04/02/20 Omeprazole [Prilosec] 40 mg PO BEDTIME 04/02/20 Propranolol [Inderal*] 10 mg PO DAILY 04/02/20 - Past Medical/Surgical History Has patient received pneumonia vaccine in the past: No Diabetic: No -: CVA Jul 2014 -: Seziures started November 2014 -: HTN -: Tremors -: High CHolestrol -: Rotator Cuff SX Right X 3 -: Right Knee Arthroscopic -: Hernia with mesh - Family History Mother Medical History: Heart disease, Diabetes, Other (see notes) Notes: cabg. alzheimers Father Medical History: Cancer Notes: Brother Medical History: Cancer Notes: bladder cancer - Social History Smoking Status: Current every day smoker Alcohol use: Yes CD- Drugs: No Caffeine use: Yes Place of Residence: Home Review of Systems 10-point ROS is otherwise unremarkable Physical Examination - Vital Signs Temperature: 97.6 F Blood Pressure: 157/84 Pulse: 53 Respirations: 17 Pulse Ox (%): 98 - Physical Exam General: Alert, In no apparent distress, Oriented x3 HEENT: Atraumatic, PERRLA, Mucous membr. moist/pink, EOMI, Sclerae nonicteric Neck: Supple, 2+ carotid pulse no bruit, No LAD, Without JVD or thyroid abnormality Respiratory: Clear to auscultation bilaterally, Normal air movement Cardiovascular: Regular rate/rhythm, Normal S1 S2 Gastrointestinal: Normal bowel sounds, No tenderness Musculoskeletal: No clubbing, No swelling, No tenderness Integumentary: No rashes Neurological: Normal gait, Normal speech, Normal strength at 5/5 x4 extr, Normal tone, Sensation intact, Cranial nerves 3-12 intact, Normal affect Lymphatics: No axilla or inguinal lymphadenopathy - Studies Laboratory Data (last 24 hrs) 04/01/20 21:03: PT 11.0, INR 0.93 04/01/20 21:03: WBC 8.7, Hgb 14.2, Hct 41.3, Plt Count 195 04/01/20 21:03: Sodium 139, Potassium 3.7, BUN 13, Creatinine 0.86, Glucose 89, Magnesium 2.0, Total Bilirubin 0.8, AST 18, ALT 21, Alkaline Phosphatase 60 Assessment & Plan - Problems (Diagnosis) (1) Chest pain, rule out acute myocardial infarction Current Visit: Yes Status: Acute (2) Paresthesia of left upper extremity Current Visit: Yes Status: Acute (3) Tobacco abuse Onset Date: 04/02/17 Current Visit: No Status: Acute (4) History of completed stroke Current Visit: No Status: Chronic - Plan 1. Serial troponins and EKG 2. Cardiology consultation 3. Patient may need further workup. Discuss with Cardiology regarding inpatient or outpatient 4. Anti-platelet therapy, anti coagulation, beta-kan, statin, and O2 as needed 5. IV morphine for pain 6. Patient may need further evaluation of AAA 7. GI and DVT prophylaxis Discharge Plan: Home Plan to discharge in: 24 Hours - Advance Directives Does patient have a Living Will: No Does patient have a Durable POA for Healthcare: No - Code Status/Comfort Care Code Status Assessed: Yes Code Status: Full Code Critical Care: No Time Spent Managing PTS Care (In Minutes): 40
--- NOTE | 2020-04-02 09:40 | P.DS ---
Discharge Date: 04/02/20 Disposition: ROUTINE DISCHARGE Discharge Condition: GOOD Reason for Admission: Chest pain rule out Consultations: Cardiology - Problems (1) Chest pain, rule out acute myocardial infarction Status: Acute (2) Paresthesia of left upper extremity Status: Acute (3) Tobacco abuse Onset Date: 04/02/17 Status: Acute (4) History of completed stroke Status: Chronic Brief History of Present Illness: Patient is a 59-year-old gentleman who came to the hospital with chest discomfort. Pain was mainly in the sternal region. Patient's history of abdominal aortic aneurysm. Patient has been seeing Cardiology and had a stress test a year ago. Patient came to the hospital for further evaluation. Patient's serial troponins and EKG been negative. Patient echocardiograms are pending. Patient will be admitted for further evaluation. Hospital Course: Patient has done well during hospital stay. Cardiology was consulted and they are okay with discharge with outpatient follow-up. Patient will need outpatient echo and possibly stress testing along with evaluation of AAA. Return to the ER if chest pain worsens. Vital Signs/Physical Exam: Temp Pulse Resp BP Pulse Ox 97.6 F 53 17 157/84 H 98 04/02/20 09:36 04/02/20 09:36 04/02/20 09:36 04/02/20 09:36 04/02/20 09:36 General: Alert, In no apparent distress, Oriented x3 Laboratory Data at Discharge: WBC 6.4 K/uL (4.3-10.9) D 04/02/20 06:02 Hgb 14.4 g/dL (13.6-17.9) 04/02/20 06:02 Hct 42.7 % (39.6-49.0) 04/02/20 06:02 Plt Count 202 K/uL (152-406) 04/02/20 06:02 PT 11.0 SECONDS (9.5-12.5) 04/01/20 21:03 INR 0.93 04/01/20 21:03 Sodium 143 mmol/L (136-145) 04/02/20 06:02 Potassium 3.9 mmol/L (3.5-5.1) 04/02/20 06:02 BUN 12 mg/dL (7-18) 04/02/20 06:02 Creatinine 0.70 mg/dL (0.55-1.3) 04/02/20 06:02 Glucose 94 mg/dL (74-106) 04/02/20 06:02 Magnesium 2.0 mg/dL (1.8-2.4) 04/01/20 21:03 Total Bilirubin 0.8 mg/dL (0.2-1.0) 04/01/20 21:03 AST 18 U/L (15-37) 04/01/20 21:03 ALT 21 U/L (12-78) 04/01/20 21:03 Alkaline Phosphatase 60 U/L (45-117) 04/01/20 21:03 Troponin I < 0.02 ng/mL (0.0-0.045) 04/02/20 06:02 Triglycerides 75 mg/dL (<150) 04/02/20 06:21 Cholesterol 125 mg/dL (<200) 04/02/20 06:21 HDL Cholesterol 67 mg/dL (40-60) H 04/02/20 06:21 Cholesterol/HDL Ratio 1.87 04/02/20 06:21 Home Medications: Aspirin Chewable [Aspirin Chewable*] 81 mg PO DAILY 04/02/20 Citalopram Hydrobromide [Citalopram HBr] 40 mg PO DAILY 04/02/20 Gabapentin 300 mg PO DAILY 04/02/20 Melatonin 5 mg PO BEDTIME 04/02/20 Omeprazole [Prilosec] 40 mg PO BEDTIME 04/02/20 Propranolol [Inderal*] 10 mg PO DAILY 04/02/20 Patient Discharge Instructions: OK TO DC IV AND DC HOME. FOLLOW-UP WITH PRIMARY CARE PROVIDER IN 1-2 WEEKS. FOLLOW-UP WITH CARDIOLOGY IN 1-2 WEEKS. RETURN TO THE ER IF symptoms worsen. CALL or TEXT DR. ARIAS AT [phone] IF ANY QUESTIONS REGARDING HOSPITAL STAY. PLEASE CALL THE FLOOR AT [phone] IF ANY MEDICATION OR NURSING QUESTIONS. Diet: AHA Activity: Fall precautions Followup: Carlos Pickard MD [ACTIVE - CAN ADMIT] - 1-2 Weeks (Call to make an appointment. ) Time spent managing pt's care (in minutes): 20
--- NOTE | 2020-04-02 12:32 | CON ---
Date of Consultation: 04/02/[address] Ewing's service on 04/01/2020. I saw the patient on 04/02/2020. Reason For Consultation: Chest pain. History Of Present Illness: Mr. Camacho is a 59-year-old male. He is very well known to me from prev ious office visits. He has a history of hypertension, dyslipidemia, prostate cancer, ADD, CVA, anxie ty, and an abdominal aortic aneurysm. He came in with left-sided anterior sharp chest pain without a ny nausea, vomiting, diaphoresis. He denied any PND, orthopnea, pedal edema, palpitations, or syncop e. He denied any fever or chills. He felt a strange sensation in his left hand when he felt like he could not open it. The symptoms occurred after he ate. His symptoms are not exertional. Past Medical History: As stated above. Allergies: NONE. Review of Systems: Negative. Social History: Positive for tobacco. Family History: Positive for coronary artery disease. Medications: At home include Inderal, aspirin, Prilosec, and Neurontin. Physical Examination: General: He was in no acute distress. Vital Signs: His heart rate was 48, blood pressure 160/80, he was afebrile. HEENT: Negative. Neck: Supple with no bruit, lymphadenopathy, JVD, or thyromegaly. Chest: Clear to auscultation and percussion. Cardiac: Revealed a regular rhythm and rate with S4 gallops. No murmurs or rubs. Abdomen: Benign. Extremities: Revealed no clubbing, cyanosis, or edema. Skin: Dry and intact. Vascular: Pulses were present distally bilaterally. Neurologic: He was nonfocal. Impression And Plan: Atypical chest pain in a patient with many cardiac risk factors including hyper tension, dyslipidemia, abdominal aortic aneurysm. His EKG is normal. Chest x-ray is normal. Tropon in is normal. CT of his head was normal. I am comfortable with him going home today. This certainl y could be reflux disease. Could also be coronary artery disease. I will make arrangements for him to have outpatient followup with workup including a stress test, MPI, echocardiogram, abdominal aorti c aneurysm check and a carotid Doppler. He is to continue his other medications at home including In deral, aspirin . His cerebrovascular accident is old and coronary artery disease basically had no residual except hypersensitivity in his hand. His dyslipidemia is well controlled. His atte ntion deficit disorder and anxiety are well controlled. As stated above, he was due to have his abdo kelly aortic aneurysm checked in the near future. The case was discussed with Dr. Mitchell. MARY/PALMIRA Voice ID: [id number] Report ID: [id number]
--- NOTE | 2020-04-03 08:56 | EKG ---
Test Date: 2020-04-01 Test Time: 20:08:25 [employer] Supervisor: CARLOS MEASUREMENT RESULTS: Intervals: Rate: 58 NC: 112 QRSD: 72 QT: 450 QTc: 441 [place]: P: 55 NC: 112 QRS: 57 T: 57 INTERPRETIVE STATEMENTS: Sinus bradycardia Otherwise normal ECG Compared to ECG 01/06/2019 21:55:10 Sinus rhythm no longer present Sinus arrhythmia no longer present Electronically Signed On 04-03-20 08:54:11 CDT by Carlos Pickard
== END 2020-04-02 10:11 | disposition home or self-care (01) ==
LOC: ER 19:48 → ERHOLD 22:33 → 2ND 23:24
PROVIDERS: ADMIT Hospitalist; ATTEND Hospitalist
DX: R07.89 Other chest pain (principal); R20.2 Paresthesia of skin; I10 Essential (primary) hypertension; E78.00 Pure hypercholesterolemia, unspecified; F41.9 Anxiety disorder, unspecified; F17.200 Nicotine dependence, unspecified, uncomplicated; Z86.73 Personal history of transient ischemic attack (TIA), and cerebral infarction without residual deficits
CPT/HCPCS: 96365; 93005; 85025 ×2; 80048 ×2; 36415; 80320; 83735; 85610; 80061; 80076; 80307 ×8; 81003; 84484 ×3; 83880; 70450; 71045; 96372; 99285; J3411; J1650 ×2; J7030; G0378 ×2

== ENCOUNTER 2020-12-20 01:56 | Emergency (ER) | payer OTHER ==
--- NOTE | 2020-12-20 03:55 | EDPHYS ---
Physician Documentation [facility] Name: Agustín Camacho Age: 60 yrs Sex: Male : 1960 Arrival Date: 12/20/2020 Time: 02:02 Bed 13 Private MD: Naif Banegas H ED Physician Matthieu Alegre HPI: 12/20 02:56 This 60 yrs old Male presents to ER via Ambulatory with complaints of Foot ma2 Pain. 02:56 The patient presents with a contusion. The complaints affect the left foot. Associated ma2 signs and symptoms: Pertinent negatives: nausea, swelling, vomiting. Severity of symptoms: At their worst the symptoms were mild, in the emergency department the symptoms are unchanged. The patient has not experienced similar symptoms in the past. Historical: - Allergies: 02:35 NKA; sf - Home Meds: 02:35 aspirin 325 mg Oral tab 1 tab once daily [Active]; citalopram 40 mg tab [Active]; sf gabapentin Oral [Active]; Omeprazole Oral [Active]; propranolol 10 mg Oral tab 1 tab daily [Active]; - PMHx: 02:35 CVA; Hypertension; High Cholesterol; Prostate Cancer; Anxiety; AAA; Hernia; ADD/ADHD; sf - PSHx: 02:35 Joint replacement; sf - Immunization history:: Adult Immunizations unknown. - Social history:: Smoking status: Patient reports the use of cigarette tobacco products, denies chronic smoking, but will smoke occasionally, Patient uses alcohol, on a daily basis. 2-3 beers per day. Patient/guardian denies using street drugs, IV drugs. - Family history:: not pertinent. ROS: 02:56 MS/extremity: Positive for contusion, decreased range of motion, Negative for erythema, ma2 warmth. 02:56 Constitutional: Negative for fever, chills, and weight loss, Eyes: Negative for injury, pain, redness, and discharge. 02:56 All other systems are negative. Exam: 02:56 Constitutional: This is a well developed, well nourished patient who is awake, alert, ma2 and in no acute distress. Chest/axilla: Normal chest wall appearance and motion. Nontender with no deformity. No lesions are appreciated. Cardiovascular: Regular rate and rhythm with a normal S1 and S2. No gallops, murmurs, or rubs. Normal PMI, no JVD. No pulse deficits. Respiratory: Lungs have equal breath sounds bilaterally, clear to auscultation and percussion. No rales, rhonchi or wheezes noted. No increased work of breathing, no retractions or nasal flaring. MS/ Extremity: right great toe is contused with mild ttp, cap refill brisk no erythema or warmth Pulses equal, no cyanosis. Neurovascular intact. Full, normal range of motion. Neuro: Awake and alert, GCS 15, oriented to person, place, time, and situation. Cranial nerves II-XII grossly intact. Motor strength 5/5 in all extremities. Sensory grossly intact. Cerebellar exam normal. Normal gait. Vital Signs: 02:30 BP 116 / 83 (auto/); Pulse 70 MON; Resp 16 S; Temp 98.2(O); Pulse Ox 97% on R/A; Weight sf 78.93 kg (R); Height 5 ft. 9 in. (175.26 cm) (R); 02:30 BP 123 / 75; Pulse 69; Pulse Ox 98% ; sf 03:00 BP 123 / 80; Pulse 60; Resp 16; Pulse Ox 98% ; sf 03:30 BP 128 / 79; Pulse 56; Resp 16; Pulse Ox 97% ; sf 02:30 Body Mass Index 25.70 (78.93 kg, 175.26 cm) MDM: 02:12 Patient medically screened. [facility] 02:56 Differential diagnosis: fracture, sprain, gout. [facility] 03:53 Data reviewed: vital signs, nurses notes. Counseling: I had a detailed discussion with [facility] the patient and/or guardian regarding: the historical points, exam findings, and any diagnostic results supporting the discharge/admit diagnosis, the presence of at least one elevated blood pressure reading (>120/80) during this emergency department visit, radiology results. Response to treatment: the patient's symptoms have mildly improved after treatment. 12/20 02:58 Order name: Foot Right 3 View XRAY caHugo Administered Medications: No medications were administered Disposition: 12/20/20 03:54 Discharged to Home. Impression: Contusion of right great toe without damage to nail. - Condition is Stable. - Discharge Instructions: Foot Pain. - Medication Reconciliation Form, Thank You Letter, Antibiotic Education, Prescription Opioid Use form. - Follow up: Private Physician; When: Tomorrow; Reason: If symptoms return, Continuance of care. Signatures: Dispatcher [employer] [facility] Matthieu Alegre MD MD ma2 Giles Rasmussen RN RN sf Corrections: (The following items were deleted from the chart) 03:07 02:50 Foot Left 3 View+RAD.RAD.BRZ ordered. [facility] 04:05 03:54 12/20/2020 03:54 Discharged to Home. Impression: Contusion of right great toe sf without damage to nail. Condition is Stable. Forms are Medication Reconciliation Form, Thank You Letter, Antibiotic Education, Prescription Opioid Use. Follow up: Private Physician; When: Tomorrow; Reason: If symptoms return, Continuance of care. ma2
--- NOTE | 2020-12-20 03:55 | ER ---
Nurse's Notes [facility] Name: Agustín Camacho Age: 60 yrs Sex: Male : 1960 Arrival Date: 12/20/2020 Time: 02:02 Bed 13 Private MD: Naif Banegas H Diagnosis: Contusion of right great toe without damage to nail Presentation: 12/20 02:30 Chief complaint: Patient states: reports playing soccer with his dogs about 1300, sf kicked ball with right foot and felt pain, thought would get better but hasn't. Coronavirus screen: Client denies travel out of the [place] in the last 14 days. At this time, the client does not indicate any symptoms associated with coronavirus-19. Ebola Screen: Patient negative for fever greater than or equal to 101.5 degrees Fahrenheit, and additional compatible Ebola Virus Disease symptoms Patient denies exposure to infectious person. Patient denies travel to an Ebola-affected area in the 21 days before illness onset. No symptoms or risks identified at this time. Initial Sepsis Screen: Does the patient meet any 2 criteria? No. Patient's initial sepsis screen is negative. Does the patient have a suspected source of infection? No. Patient's initial sepsis screen is negative. Risk Assessment: Do you want to hurt yourself or someone else? Patient reports no desire to harm self or others. Onset of symptoms was December 19, 2020 at 13:00. 02:30 Method Of Arrival: Ambulatory 02:30 Acuity: BEVERLY 4 sf Historical: - Allergies: 02:35 NKA; sf - Home Meds: 02:35 aspirin 325 mg Oral tab 1 tab once daily [Active]; citalopram 40 mg tab [Active]; sf gabapentin Oral [Active]; Omeprazole Oral [Active]; propranolol 10 mg Oral tab 1 tab daily [Active]; - PMHx: 02:35 CVA; Hypertension; High Cholesterol; Prostate Cancer; Anxiety; AAA; Hernia; ADD/ADHD; sf - PSHx: 02:35 Joint replacement; sf - Immunization history:: Adult Immunizations unknown. - Social history:: Smoking status: Patient reports the use of cigarette tobacco products, denies chronic smoking, but will smoke occasionally, Patient uses alcohol, on a daily basis. 2-3 beers per day. Patient/guardian denies using street drugs, IV drugs. - Family history:: not pertinent. Screenin:39 Abuse screen: Denies threats or abuse. Denies injuries from another. Nutritional sf screening: No deficits noted. Tuberculosis screening: No symptoms or risk factors identified. Never had TB. Possible symptoms: None Risk factors: None. Fall Risk No fall in past 12 months (0 pts). Secondary diagnosis (15 points) CVA, No IV (0 pts). Ambulatory Aid- None/Bed Rest/Nurse Assist (0 pts). Gait- Impaired (20 pts.). Mental Status- Oriented to own ability (0 pts). Total [place] Fall Scale indicates Low Risk Score (25-44 pts). Fall prevention measures have been instituted. Side Rails Up X 2 As available Patient and Family Educated on Fall Prevention Program and strategies. Assessment: 02:37 General: Appears in no apparent distress. comfortable, Behavior is calm, cooperative, sf appropriate for age. Pain: Complains of pain in right foot Pain currently is 5 out of 10 on a pain scale. at worst was 10 out of 10 on a pain scale. Pain began suddenly. Neuro: No deficits noted. Level of Consciousness is awake, alert, Oriented to person, place, time, situation, Appropriate for age. Cardiovascular: No deficits noted. Capillary refill < 3 seconds Patient's skin is warm and dry. Respiratory: No deficits noted. Airway is patent Respiratory effort is even, unlabored, Respiratory pattern is regular, symmetrical. Musculoskeletal: Tenderness present in right foot Reports pain in right foot. 03:10 Reassessment: Patient appears in no apparent distress at this time. Patient and/or sf family updated on plan of care and expected duration. Pain level reassessed. Patient is alert, oriented x 3, equal unlabored respirations, skin warm/dry/pink. Vital Signs: 02:30 BP 116 / 83 (auto/); Pulse 70 MON; Resp 16 S; Temp 98.2(O); Pulse Ox 97% on R/A; Weight sf 78.93 kg (R); Height 5 ft. 9 in. (175.26 cm) (R); 02:30 BP 123 / 75; Pulse 69; Pulse Ox 98% ; sf 03:00 BP 123 / 80; Pulse 60; Resp 16; Pulse Ox 98% ; sf 03:30 BP 128 / 79; Pulse 56; Resp 16; Pulse Ox 97% ; sf 02:30 Body Mass Index 25.70 (78.93 kg, 175.26 cm) ED Course: 02:02 Patient arrived in ED. mr 02:02 Naif Banegas DO is Private Physician. mr 02:12 Matthieu Alegre MD is Attending Physician. ma2 02:20 Giles Rasmussen, RN is Primary Nurse. sf 02:32 Triage completed. sf 02:37 Arm band placed on. sf 02:39 Bed in low position. Call light in reach. Side rails up X2. sf 03:00 Foot Right 3 View XRAY Sent. sf 03:00 X-ray(s) taken. sf 03:10 Foot Right 3 View XRAY In Process Unspecified. EDMS 04:04 No provider procedures requiring assistance completed. Patient did not have IV access sf during this emergency room visit. Administered Medications: No medications were administered Outcome: 03:54 Discharge ordered by . ma 04:04 Discharged to home ambulatory, (refused w/c) sf 04:04 Condition: stable 04:04 Discharge instructions given to patient, Instructed on discharge instructions, follow up and referral plans. medication usage, Demonstrated understanding of instructions, follow-up care, medications. 04:05 Patient left the ED. sf Signatures: Dispatcher [employer] Savanna Jung mr Matthieu Alegre MD MD ma2 Giles Rasmussen, RN RN sf
[2020-12-20 04:10] VITALS: TEMP 98.2
[2020-12-20 04:12] VITALS: BP 128/79; O2SAT 97
--- NOTE | 2020-12-20 08:10 | RAD REPORT ---
EXAM DESCRIPTION: RAD - Foot Right 3 View - 12/20/2020 3:10 am CLINICAL HISTORY: PAIN, foot trauma COMPARISON: No comparisons FINDINGS: There is no dislocation or periosteal reaction. No fracture confirmed. There are subtle co rtical irregularities of the tuft first distal phalanx no this is not definitive for fracture. Histor y did not indicate any specific location of the posttraumatic pain. No joint abnormality. No air or foreign body in the soft tissues. IMPRESSION: No fracture confirmed. No foreign body. History did not localize a site of posttraumatic pain. Repeat, focused imaging could be performed in 7 days if the patient has continued symptoms concerning for fracture.
--- OUTSIDE RECORDS SUMMARY | 2020-12-20 12:35 | XMS REPORT | Continuity of Care Document ---
:1960 Author Organization [facility] t Address [address] [place] [address] Dr. Castro. [address] [place] [address] Care Team Providers Name Role Phone Carlos BOELS, Dm Attending Clinician Problems This patient has no known problems. Allergies, Adverse Reactions, Alerts This patient has no known allergies or adverse reactions. Medications This patient has no known medications. Procedures This patient has no known procedures. Encounters Start End Encounter Admission Attending Care Care Encounter Source Date/Time Date/Time Type Type Clinicians Facility Department ID 2019-07-02 2019-07-02 Emergency Carlos [facility] [id number] 20:25:52 22:21:00 Shaggy Keller [id number] [place] [id number] [place] [id number] Results This patient has no known results.
== END 2020-12-20 04:05 | disposition home or self-care (01) ==
LOC: ER 01:56
DX: S90.111A Contusion of right great toe without damage to nail, initial encounter (principal); X58.XXXA Exposure to other specified factors, initial encounter; I10 Essential (primary) hypertension; E78.00 Pure hypercholesterolemia, unspecified; Z85.46 Personal history of malignant neoplasm of prostate; F17.210 Nicotine dependence, cigarettes, uncomplicated; F41.9 Anxiety disorder, unspecified; F90.9 Attention-deficit hyperactivity disorder, unspecified type; Z86.73 Personal history of transient ischemic attack (TIA), and cerebral infarction without residual deficits; Z96.60 Presence of unspecified orthopedic joint implant
CPT/HCPCS: 99283

== ENCOUNTER 2021-08-23 22:20 | Emergency (ER) | payer OTHER ==
[2021-08-24 00:17] LABS: BUN Blood Urea Nitrogen 12 mg/dL (7-18); Bicarbonate 24 mmol/L (21-32); Glucose Level 112 mg/dL (74-106); Potassium 3.7 mmol/L (3.5-5.1); Sodium Level 139 mmol/L (136-145); Troponin (Emerg Dept Use Only) < 0.02 ng/mL (0.0-0.045)
--- NOTE | 2021-08-24 00:23 | EDPHYS ---
Physician Documentation [facility] Name: Agustín Camacho Age: 60 yrs Sex: Male : 1960 Arrival Date: 08/23/2021 Time: 22:24 Bed 5 Private MD: ED Physician Maxi Gonzalez HPI: 08/23 23:40 This 60 yrs old Male presents to ER via Ambulatory with complaints of High rn Blood Pressure. 23:40 The patient has elevated blood pressure and discovered this at home. Onset: The rn symptoms/episode began/occurred at an unknown time. Modifying factors: The symptoms are aggravated by Nothing. Associated signs and symptoms: Pertinent positives: Ringing in ears, Pertinent negatives: chest pain, dizziness, lightheadedness, visual changes, vomiting, weakness. Severity of symptoms: At its worst the blood pressure was moderate, in the emergency department the blood pressure is improved. The patient has experienced similar episodes in the past. The patient has not recently seen a physician. Patient reports went to bed feeling fine got woken up with ringing in the ears. States had a stroke in 2013 and ringing in the ears has been consistent and daily pain since then but tonight it felt a little bit louder. Denies any focal neurologic deficit that has not really been there since 2013. Denies any chest pain or shortness of breath. No vision changes. Ambulatory. Denies any change in medication or missed dosages. Is already feeling better and blood pressure has improved without intervention. States that blood pressure was 190/108 at home. Currently in triage is 164/99. Patient states now the blood pressure come down he feels like the ringing in the ears is closer back to normal.. Historical: - Allergies: 22:52 NKA; sj1 - Home Meds: 23:10 aspirin 325 mg Oral tab 1 tab once daily [Active]; citalopram 20 mg oral tab twice a df1 day [Active]; gabapentin 800 mg oral tab 1 tab 3 times per day [Active]; propranolol 10 mg Oral tab 1 tab daily [Active]; tizanidine 4 mg oral cap 1 cap 3 times per day [Active]; - PMHx: 22:52 AAA; ADD/ADHD; Anxiety; Hernia; CVA; Hypertension; High Cholesterol; Prostate Cancer; sj1 - PSHx: 23:10 umbilical hernia repair; roator cuff repair right; prostate removal; right knee df1 revision; Cholecystectomy; CVA; - Immunization history:: Adult Immunizations up to date, Client reports receiving the Shankar \T\ Shankar single-dose vaccine. - Social history:: Smoking status: Patient reports the use of cigarette tobacco products, 4 cigs daily, Patient uses alcohol, on a daily basis. Patient/guardian denies using street drugs. - Family history:: not pertinent. - Hospitalizations: : No recent hospitalization is reported. ROS: 23:40 Constitutional: Negative for fever, chills, and weight loss, Eyes: Negative for injury, rn pain, redness, and discharge, Neck: Negative for injury, pain, and swelling, Cardiovascular: Negative for chest pain, palpitations, and edema, Respiratory: Negative for shortness of breath, cough, wheezing, and pleuritic chest pain, Abdomen/GI: Negative for abdominal pain, nausea, vomiting, diarrhea, and constipation, Back: Negative for injury and pain, MS/Extremity: Negative for injury and deformity, Skin: Negative for injury, rash, and discoloration, Neuro: Negative for weakness, numbness, tingling, and seizure. 23:40 All other systems are negative. Exam: 23:40 Constitutional: This is a well developed, well nourished patient who is awake, alert, rn and in no acute distress. Ambulatory to room without assistance. Sits reclined in bed with legs crossed and well-appearing. Head/Face: Normocephalic, atraumatic. Eyes: Pupils equal round and reactive to light, extra-ocular motions intact. Lids and lashes normal. Conjunctiva and sclera are non-icteric and not injected. Cornea within normal limits. Periorbital areas with no swelling, redness, or edema. Neck: Trachea midline, no thyromegaly or masses palpated, and no cervical lymphadenopathy. Supple, full range of motion without nuchal rigidity, or vertebral point tenderness. No Meningismus. Cardiovascular: Regular rate and rhythm. No pulse deficits. Respiratory: No increased work of breathing, no retractions or nasal flaring. Abdomen/GI: Soft, non-tender Skin: Warm, dry with normal turgor. Normal color with no rashes, no lesions, and no evidence of cellulitis. MS/ Extremity: Pulses equal, no cyanosis. Neurovascular intact. Full, normal range of motion. Equal circumference. Neuro: Awake and alert, GCS 15, oriented to person, place, time, and situation. Cranial nerves II-XII grossly intact. Motor strength 4/5 left upper extremity and left lower extremity. Motor strength 5 out of 5 right upper extremity and right lower extremity. Sensory grossly intact. Cerebellar exam normal. Mild limp on left lower extremity when walking but no signs of ataxia. 08/24 00:18 ECG was reviewed by the Attending Physician. rn Vital Signs: 08/23 22:48 BP 164 / 99; Pulse 54; Resp 18; Temp 97.7(O); Pulse Ox 98% ; Weight 77.11 kg (R); sj1 Height 5 ft. 9 in. (175.26 cm) (R); Pain 0/10; 23:53 BP 158 / 96; Pulse 51; Resp 18; Pulse Ox 99% on R/A; Pain 10/10; df1 22:48 Body Mass Index 25.10 (77.11 kg, 175.26 cm) [facility] MDM: 22:55 Patient medically screened. rn 08/24 00:20 Differential diagnosis: hypertensive crisis, Malignant HTN. Data reviewed: vital signs, rn nurses notes, lab test result(s), EKG, radiologic studies, CT scan, and as a result, I will discharge patient. Data interpreted: awake overnight monitor: rate is 51 beats/min, rhythm is sinus bradycardia, with no ectopy, Interpretation: bradycardia, Pulse oximetry: on room air is 99 %. Interpretation: normal. Counseling: I had a detailed discussion with the patient and/or guardian regarding: the historical points, exam findings, and any diagnostic results supporting the discharge/admit diagnosis, lab results, radiology results, the need for outpatient follow up, to return to the emergency department if symptoms worsen or persist or if there are any questions or concerns that arise at home. Response to treatment: the patient's symptoms have markedly improved after treatment, the patient's condition has returned to base line, the patient is now symptom free, and as a result, I will discharge patient. Special discussion: I discussed with the patient/guardian in detail that at this point there is no indication for admission to the hospital. It is understood, however, that if the symptoms persist or worsen the patient needs to return immediately for re-evaluation. Based on the history and exam findings, there is no indication for further emergent testing or inpatient evaluation. I discussed with the patient/guardian the need to see the primary care provider for further evaluation of the symptoms. ED course: Findings and CT head. No ischemia on EKG. Troponin negative. No renal failure. Patient currently asymptomatic and blood pressure down to the 130s systolic without any medication or intervention. Will DC home with PCP follow-up and return precautions. Patient very happy that no damage found and they can go home.. 08/23 23:07 Order name: Troponin (emerg Dept Use Only); Complete Time: 00:17 rn 08/23 23:07 Order name: BMP; Complete Time: 00:17 rn 08/23 23: Order name: CT Head Brain wo Cont rn 08/23 23: Order name: IV Start; Complete Time: 23:54 rn 08/23 23: Order name: EKG; Complete Time: 23:08 rn 08/23 23: Order name: EKG - Nurse/Tech; Complete Time: 23:54 rn EC:18 Rate is 50 beats/min. Rhythm is regular. QRS [place] is Normal. [place] interval is normal. QRS rn interval is normal. QT interval is normal. No Q waves. T waves are Normal. No ST changes noted. Clinical impression: Sinus bradycardia. Interpreted by me. Reviewed by me. 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
--- NOTE | 2021-08-24 00:23 | ER ---
Nurse's Notes [facility] Name: Agustín Camacho Age: 60 yrs Sex: Male : 1960 Arrival Date: 08/23/2021 Time: 22:24 Bed 5 Private MD: Diagnosis: Essential (primary) hypertension;Headache Presentation: 08/23 22:48 Chief complaint: Patient states: bp 190/108 at home, ringing in the ears, lightheaded, sj1 and headache that started around 0. hx of CVA 2013. Coronavirus screen: Vaccine status: Patient reports receiving the 1st dose of the Covid vaccine. Ebola Screen: Patient negative for fever greater than or equal to 101.5 degrees Fahrenheit, and additional compatible Ebola Virus Disease symptoms Patient denies exposure to infectious person. Patient denies travel to an Ebola-affected area in the 21 days before illness onset. No symptoms or risks identified at this time. Initial Sepsis Screen: Does the patient meet any 2 criteria? No. Patient's initial sepsis screen is negative. Does the patient have a suspected source of infection? No. Patient's initial sepsis screen is negative. Risk Assessment: Do you want to hurt yourself or someone else? Patient reports no desire to harm self or others. Onset of symptoms was August 23, 2021. 22:48 Method Of Arrival: Ambulatory [facility] 22:48 Acuity: BEVERLY 2 sj1 Triage Assessment: 22:53 General: Appears in no apparent distress. Behavior is calm, cooperative, appropriate sj1 for age. Pain: Complains of pain in ringing in ears, headache resolved. EENT: Reports ringing in right ear and left ear. Neuro: Reports lightheaded. Cardiovascular: No deficits noted. Respiratory: No deficits noted. GI: No deficits noted. : No deficits noted. Derm: No deficits noted. Musculoskeletal: No deficits noted. Historical: - Allergies: 22:52 NKA; sj1 - Home Meds: 23:10 aspirin 325 mg Oral tab 1 tab once daily [Active]; citalopram 20 mg oral tab twice a df1 day [Active]; gabapentin 800 mg oral tab 1 tab 3 times per day [Active]; propranolol 10 mg Oral tab 1 tab daily [Active]; tizanidine 4 mg oral cap 1 cap 3 times per day [Active]; - PMHx: 22:52 AAA; ADD/ADHD; Anxiety; Hernia; CVA; Hypertension; High Cholesterol; Prostate Cancer; sj1 - PSHx: 23:10 umbilical hernia repair; roator cuff repair right; prostate removal; right knee df1 revision; Cholecystectomy; CVA; - Immunization history:: Adult Immunizations up to date, Client reports receiving the Shankar \T\ Shankar single-dose vaccine. - Social history:: Smoking status: Patient reports the use of cigarette tobacco products, 4 cigs daily, Patient uses alcohol, on a daily basis. Patient/guardian denies using street drugs. - Family history:: not pertinent. - Hospitalizations: : No recent hospitalization is reported. Screenin:54 Abuse screen: Denies threats or abuse. Denies injuries from another. Nutritional sj1 screening: No deficits noted. Tuberculosis screening: No symptoms or risk factors identified. Fall Risk None identified. Assessment: 23:54 General: Appears in no apparent distress. Behavior is calm, cooperative. Pain: df1 Complains of pain in face Pain does not radiate. Neuro: No deficits noted. Cardiovascular: No deficits noted. Respiratory: No deficits noted. GI: No deficits noted. : No deficits noted. EENT: Reports ringing in left ear and right ear. Derm: No deficits noted. Musculoskeletal: No deficits noted. Vital Signs: 22:48 BP 164 / 99; Pulse 54; Resp 18; Temp 97.7(O); Pulse Ox 98% ; Weight 77.11 kg (R); sj1 Height 5 ft. 9 in. (175.26 cm) (R); Pain 0/10; 23:53 BP 158 / 96; Pulse 51; Resp 18; Pulse Ox 99% on R/A; Pain 10/10; df1 22:48 Body Mass Index 25.10 (77.11 kg, 175.26 cm) sj1 ED Course: 22:24 Patient arrived in ED. wm 22:52 Triage completed. sj1 22:54 Patient has correct armband on for positive identification. sj1 22:55 Maxi Gonzalez MD is Attending Physician. rn 22:55 Arm band placed on right wrist. sj1 22:57 Vicki Burks, DIEGO is Primary Nurse. bc5 23:34 CT Head Brain wo Cont In Process Unspecified. EDMS 23:53 Inserted saline lock: 20 gauge in right antecubital area, using aseptic technique. df1 23:54 BMP Sent. df1 23:54 Troponin (emerg Dept Use Only) Sent. df1 08/24 00:31 No provider procedures requiring assistance completed. IV discontinued, intact. df1 Administered Medications: No medications were administered Outcome: 00:22 Discharge ordered by . rn 00:32 Discharged to home ambulatory. df1 00:32 Condition: stable 00:32 Discharge instructions given to patient, Instructed on discharge instructions, follow up and referral plans. Demonstrated understanding of instructions, follow-up care. 00:32 Patient left the ED. df1 Signatures: Dispatcher [employer] EDMS Maxi Gonzalez MD MD rn Marsh, Wendy Vicki Burks, RN RN [email or web address] Chika Dominguez df1 Bryanna Chaparro, RN RN sj1
[2021-08-24 00:50] VITALS: TEMP 97.7
[2021-08-24 00:51] VITALS: BP 158/96; O2SAT 99
--- NOTE | 2021-08-24 13:01 | RAD REPORT ---
EXAM DESCRIPTION: CT - Head Brain Wo Cont - 08/24/2021 6:16 am CLINICAL HISTORY: High blood pressure;Headache COMPARISON: 04/01/2020. TECHNIQUE: CT HEAD WITHOUT IV CONTRAST on 08/23/2021 11:07 PM CDT This exam was performed according to our departmental dose-optimization program, which includes autom ated exposure control, adjustment of the mA and/or kV according to patient size and/or use of iterati ve reconstruction technique. FINDINGS: There is no acute hemorrhage, mass effect or midline shift. There is encephalomalacia ther e is encephalomalacia throughout the right MCA territory. There is no hydrocephalus. There is bifront al cerebral atrophy. The calvarium is intact. Orbits and globes are unremarkable. The paranasal sinuses are clear. Mastoid air cells are clear. IMPRESSION: No acute intracranial findings. Electronically signed by: Stevan Vega MD 08/23/2021 11:56 PM CDT Due to temporary technical issues with the PACS/Fluency reporting system, reports are being signed by the in house radiologist without review as a courtesy to ensure prompt reporting. The interpreting r adiologist is fully responsible for the content of the report.
--- NOTE | 2021-08-25 11:46 | EKG ---
Test Date: 2021-08-23 Test Time: 23:41:49 Product Marketing Specialist: MEASUREMENT RESULTS: Intervals: Rate: 50 NE: 146 QRSD: 70 QT: 474 QTc: 432 [place]: P: 38 NE: 146 QRS: 23 T: 27 INTERPRETIVE STATEMENTS: Sinus bradycardia Junctional ST depression, probably normal Borderline ECG Compared to ECG 04/01/2020 20:08:25 ST (T wave) deviation now present Electronically Signed On 08-25-21 11:44:32 CDT by Carlos Pickard
== END 2021-08-24 00:32 | disposition home or self-care (01) ==
LOC: ER 22:20
DX: I10 Essential (primary) hypertension (principal); Z86.73 Personal history of transient ischemic attack (TIA), and cerebral infarction without residual deficits
CPT/HCPCS: 36415; 70450; 80048; 84484; 93005; 99283

== ENCOUNTER 2022-03-19 09:37 | Emergency (ER) | payer OTHER ==
--- OUTSIDE RECORDS SUMMARY | 2022-03-19 09:40 | XMS REPORT | Continuity of Care Document ---
:1960 Author Organization [facility] t Address [address] [place] [address] Dr. Mcgrath [address] [place] [address] Care Team Providers Name Role Phone Carmelo Banegas Bell Primary Care Physician CRISTOPHER Attending Clinician Unavailable Tino HERNANDEZ Attending Clinician Unavailable Dm Jeffrey Attending Clinician Payers Payer Name Policy Type Policy Number Effective Date Expiration Date S adriana MACIAS [id number] 2020 00:00:00 Problems Condition Condition Condition Status Onset Resolution Last Treating Co mments Source Name Details Category Date Date Treatment Clinician Date Essential Essential Disease Active 2017-11 NPI :183 hypertensi hypertensi 0-06 15220 on on 00:00: 00 Coronary Coronary Disease Active 2017-11 NPI:1 83 artery artery 0-06 [id number] disease disease 00:00: involving involving 00 [place] coronary coronary artery of artery of [place] heart with heart with angina angina pectoris pectoris Chest pain Chest pain Disease Active 2017-11 N PI:183 0-04 [id number] 00:00: 00 Allergies, Adverse Reactions, Alerts This patient has no known allergies or adverse reactions. 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 Clinician (SIG) Name Name naloxone 2022- Yes [id number] .4mg Administer NPI:152 (Narcan) 2 03-01 019652 0.4 mL 8509 205 MG/2ML 00:00: 04:59 (0.4 mg injection 00 :00 total) into affected nostril(s) if needed for opioid reversal. May repeat every 2-3 minutes as needed until medical assistance available. traMADol 2021- Yes [id number] 50mg Q6H Take 1 NPI:152 (Ultram) 50 03-01 [id number] tablet (50 4305923 MG tablet 00:00: 04:59 mg total) 00 :00 by mouth every 6 (six) hours if needed for severe pain for up to 10 days. cyclobenzap 2021- Yes [id number] 10mg Q.11419820 Take 1 NPI:152 rine 03-01 [id number] [id number] tablet (10 [id number] (Flexeril) 00:00: 04:59 3D mg total) 10 MG 00 :00 by mouth 3 tablet (three) times a day if needed for muscle spasms for up to 10 days. aspirin 81 Yes 81mg Chew 81 NPI: 152 MG chewable 4-21 mg. 1961106 tablet 10:40: 31 citalopram Yes 20mg Take 20 mg N PI:152 (CeleXA) 20 4-21 by mouth. 850 9205 MG tablet 10:40: 30 propranolol Yes NPI:15 2 (Inderal) 4-04 [id number] 10 MG 00:00: tablet 00 gabapentin Yes NPI:152 (Neurontin) 9-11 [id number] 600 MG 00:00: tablet 00 iohexol 2018- No 120mL 120 mL, NPI:1 83 (OMNIPAQUE 07-03 Intravenou 13 23872 350 02:45: 02:23 s, ONCE, 1 BULK-100 00 :00 dose, Fri mL) 07/02/19 at injection 2145, 120 mL Routine aspirin 81 2017-11 Yes 81mg Take 81 mg N PI:183 mg chewable 0-05 by mouth 1318 781 tablet 17:44: daily. 42 propranolol 2017-11 Yes 10mg Take 10 mg NPI:183 10 mg 0-05 by mouth 2 [id number] tablet 17:44: (two) 42 times daily. citalopram 2017-11 Yes 20mg Take 20 mg N PI:183 20 mg 0-05 by mouth [id number] tablet 17:44: daily. 42 omeprazole 2017-11 Yes 40mg Take 40 mg N PI:183 40 mg 0-05 by mouth 2 [id number] capsule 17:44: (two) 42 times daily. Immunizations Ordered Immunization Filled Immunization Date Status Commen ts Source Name Name Influenza Virus 2018-08-14 Completed NPI:[id number] Vaccine Quad .5 mL 00:00:00 IM 6+ MO Vital Signs Vital Name Observation Time Observation Value Comments Source Systolic blood pressure 2019-07-03 02:00:00 142 mm[Hg] Diastolic blood 2019-07-03 02:00:00 92 mm[Hg] NPI:1 [id number] pressure Heart rate 2019-07-03 02:00:00 80 /min NPI:1831 [id number] Respiratory rate 2019-07-03 02:00:00 18 /min Oxygen saturation in 2019-07-03 02:00:00 98 /min Arterial blood by Pulse oximetry Body temperature 2019-07-02 23:41:00 36.83 Seema Body height 2019-07-02 23:41:00 175.3 cm NPI:1831 [id number] Body weight 2019-07-02 23:41:00 79.379 kg NPI:1831 [id number] BMI 2019-07-02 23:41:00 25.84 kg/m2 NPI:1831 444265 Systolic blood pressure 2019-07-03 02:00:00 142 mm[Hg] Diastolic blood 2019-07-03 02:00:00 92 mm[Hg] NPI:1 [id number] pressure Heart rate 2019-07-03 02:00:00 80 /min NPI:1831 [id number] Respiratory rate 2019-07-03 02:00:00 18 /min Oxygen saturation in 2019-07-03 02:00:00 98 /min Arterial blood by Pulse oximetry Body temperature 2019-07-02 23:41:00 36.83 Seema Body height 2019-07-02 23:41:00 175.3 cm NPI:1831 [id number] Body weight 2019-07-02 23:41:00 79.379 kg NPI:1831 [id number] BMI 2019-07-02 23:41:00 25.84 kg/m2 NPI:1831 [id number] Procedures Procedure Date / Time Performed Performing Clinician [facility] e CT ABDOMEN PELVIS W 2019-07-03 02:30:21 Shaggy Gonzalez NPI:1831 [id number] CONTRAST LIPASE 2019-07-03 01:59:00 Sheyla Gao NPI:[id number] COMP. 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 [id number] DIAGNOSIS AND TREATMENT Name Encounters Start End Encounter Admission Attending Care Care Encounter Source Date/Time Date/Time Type Type Clinicians Facility Department ID 2022-03-14 Outpatient [facility] [id number] NPI:152 17:35:15 [id number] 2022-03-01 Outpatient VEGA NICHOLAS [facility] [id number] 05-29 NPI:152 13:13:28 [id number] 2022-02-28 Outpatient VEGA NICHOLAS [facility] [id number] 05-29 NPI:152 09:56:43 [id number] 2022-02-19 Outpatient [facility] [id number] NPI:152 08:57:39 [id number] 2022-02-13 Outpatient VEGA NICHOLAS [facility] [id number] 05-29 NPI:152 14:32:28 [id number] 2022-03-04 2022-03-04 Telephone TinoMikki [facility] [id number] NPI:152 00:00:00 00:00:00 TinoMikki TAFT [id number] [facility] [id number] [place] [id number] 2019-07-02 2019-07-02 Emergency [facility] [id number] 20:25:52 22:21:00 Shaggy Kelelr 350.1.13.10 [place] 4.2.7.2.686 [place] [id number] 2019-07-02 2019-07-02 Emergency [facility] [id number] NPI:183 20:25:52 22:21:00 Shaggy Keller [id number] [place] 4.2.7.2.686 [place] [id number] Results Test Description Test Time Test Comments Results Result Comments Source Lipase, Serum 2019-07-03 02:19:00 Test Item Value Reference Range Interpretation Comme nts LIPASE (test code = 8571294127) 218 U/L 0-220 Lab Interpretation (test code = 29658-2) Normal NPI:[id number] Metabolic [id number] 02:18:00 Test Item Value Reference Range Interpretation Comments NA (test code = 143 mmol/L 135-145 1994654603) K (test code = 4.3 mmol/L 3.5-5 7858868385) CL (test code = 110 mmol/L 98-108 H 3286135595) CO2 TOTAL (test code = 19 mmol/L 23-31 L 1224789709) AGAP (test code = 2-16 7609746151) BUN (test code = 6 mg/dL 7-23 L 1649474830) GLUCOSE (test code = 73 mg/dL 70-110 0421326166) CREATININE (test code = 0.62 mg/dL 0.6-1.25 3950362400) TOTAL BILI (test code = 0.4 mg/dL 0.1-1.1 4523474865) CALCIUM (test code = 8.9 mg/dL 8.6-10.6 8074539139) T PROTEIN (test code = 7.6 g/dL 6.3-8.2 3691771212) ALBUMIN (test code = 4.4 g/dL 3.5-5 3369634760) ALK PHOS (test code = 114 U/L 34-122 1611557601) ALT(SGPT) (test code = 60 U/L 9-51 H 6013591483) AST(SGOT) (test code = 26 U/L 13-40 5729683661) eGFR Calculation mL/min/1.73m2 (Non-) (test code = 1114792639) eGFR Calculation mL/min/1.73m2 () (test code = 9234499801) THOMAS (test code = THOMAS) Association of Glomerular Filtration Rate (GFR) and Staging of Kidney Disease*+ + + +| GFR (mL/min/1.73 m2)?| With Kidney Damage?|?Without Kidney Damage+ --------+ --------+ +|?>90?|?S tage one?|? Normal?+ ---------+ ---------+ +|?60-89? |?Stage two?|? Decreased GFR? + --+ --+ ------+|?30-59?|?Stage three?|? Stage three? + --+ --+ ------+|?15-29?|?Stage four? |? Stage four?+ -------+ -------+ +|?<15 (or dialysis)?|?Stage five? |? Stage five?+ -------+ -------+ +*Each stage assumes the associated GFR level has been in effect for at least three months.?Stages 1 to 5, with or without kidney disease, indicate chronic kidney disease.Notes: Determination of stages one and two (with eGFR >59mL/min/1.73 m2) requires estimation of kidney damage for at least three months as defined by structural or functional abnormalities of the kidney, manifested by either:Pathological abnormalities or Markers of kidney damage (including abnormalities in the composition of the blood or urine or abnormalities in imaging tests). Lab Interpretation Abnormal (test code = 99222-8) NPI:[id number] 02:16:00 Test Item Value Reference Range Interpretation Comments APPEARANCE (test code = Clear Clear 0155548462) COLOR (test code = Yellow Yellow 0679863136) PH (test code = 4.8-8.0 1577910154) SP GRAVITY (test code = <=1.005 1.003-1.030 3164261406) GLU U QUAL (test code = Negative Negative 2766764488) BLOOD (test code = Negative Negative 1212942762) KETONES (test code = Negative Negative 9231147107) PROTEIN (test code = Negative Negative 2887-8) UROBILIN (test code = 0.2 mg/dL See_Comment [Auto mated message] 9777281605) The system Unight generated this result transmit keely reference range : 0-1.0 mg/dL. Th e reference range was not used to interpret this result as normal/abnormal . BILIRUBIN (test code = Negative Negative 2687158270) NITRITE (test code = Negative Negative 4072003708) LEUK HARSHA (test code = Negative Negative 3876165432) RBC/HPF (test code = See_Comment [Autom ated message] 0187738706) The system Unight generated this result transmit keely reference range : 0 - 3 HPF. The refe rence range was not u sed to interpret th is result as normal/abnormal . WBC/HPF (test code = See_Comment [Autom ated message] 0730014899) The system Unight generated this result transmit keely reference range : 0 - 5 HPF. The refe rence range was not u sed to interpret th is result as normal/abnormal . BACTERIA (test code = Negative Negative 7181386523) Lab Interpretation (test Normal code = 33137-4) NPI:[id number] WITH [id number] 02:07:00 Test Item Value Reference Range Interpretation Comments WBC (test code = See_Comment H [Automated 6690-2) message] The sy stem which generated this result transmitted reference range : 4.20 - 10.70 10*3/?L. The reference range was not used to interpret this result as normal/abnormal . RBC (test code = See_Comment [Automated 789-8) message] The sy stem which generated this result transmitted reference range : 4.26 - 5.52 10*6/?L. The reference range was not used to interpret this result as normal/abnormal . HGB (test code = 14.8 g/dL 12.2-16.4 718-7) HCT (test code = 42.9 % 38.4-49.3 4544-3) MCV (test code = 92.1 fL 81.7-95.6 787-2) MCH (test code = 31.8 pg 26.1-32.7 785-6) MCHC (test code = 34.5 g/dL 31.2-35 786-4) RDW-SD (test code = 45.6 fL 38.5-51.6 47688-3) RDW-CV (test code = 13.4 % 12.1-15.4 788-0) PLT (test code = See_Comment [Automated 777-3) message] The sy stem which generated this result transmitted reference range : 150 - 328 10*3/ ?L. The reference r ellen was not used to interpret this result as normal/abnormal . MPV (test code = 9.8 fL 9.8-13 11876-6) NRBC/100 WBC (test See_Comment [Automat ed code = 4617218430) message] The system which generated this result transmitted reference range : 0.0 - 10.0 /100 WBCs. The refer ence range was not u sed to interpret th is result as normal/abnormal . NRBC x10^3 (test code <0.01 See_Comment [Auto mated = 4361186082) message] The s ystem which generated this result transmitted reference range : 10*3/?L. The reference range was not used to interpret this result as normal/abnormal . GRAN MAT (NEUT) % 60.9 % (test code = 770-8) IMM GRAN % (test code 0.40 % = 2227689005) LYMPH % (test code = 31.2 % 736-9) MONO % (test code = 4.9 % 5905-5) EOS % (test code = 2.0 % 713-8) BASO % (test code = 0.6 % 706-2) GRAN MAT x10^3(ANC) 6.66 10*3/uL 1.99-6.95 (test code = 9485111441) IMM GRAN x10^3 (test 0.04 10*3/uL 0-0.06 code = 0582928480) LYMPH x10^3 (test code 3.41 10*3/uL 1.09-3.23 H = 731-0) MONO x10^3 (test code 0.54 10*3/uL 0.36-1.02 = 742-7) EOS x10^3 (test code = 0.22 10*3/uL 0.06-0.53 711-2) BASO x10^3 (test code 0.07 10*3/uL 0.01-0.09 = 704-7) Lab Interpretation Abnormal (test code = 58884-7) "
[2022-03-19] MEDS ORDERED: KETOROLAC 30 MG/ML INJ ONE (10:08)
[2022-03-19] MEDS ORDERED: METHYLPREDNISOLONE 125 MG INJ ONE (10:08)
[2022-03-19 10:10] LABS: Absolute Lymphocytes (CBC) 1.7 K/uL (0.7-4.9); Hematocrit 40.5 % (39.6-49.0); Lymphocytes % 22.3 % (15.3-44.8); MPV 7.8 fL (7.6-11.3); RBC Red Blood Cell Count 4.27 M/uL (4.33-5.43)
[2022-03-19 10:43] LABS: Potassium 4.2 mmol/L (3.5-5.1); Troponin High Sensitivity 6.2 pg/mL (<58.9)
--- NOTE | 2022-03-19 10:59 | RAD REPORT ---
EXAM DESCRIPTION: RAD - Chest Single View - 03/19/2022 10:36 am CLINICAL HISTORY: CHEST PAIN COMPARISON: Portable 04/01/2020 TECHNIQUE: AP portable chest image was obtained 03/19/2022 10:36 am . FINDINGS: Lungs are clear. Heart and vasculature are normal. No measurable pleural effusion and no p neumothorax. No acute bony abnormality seen. No acute aortic findings suspected. IMPRESSION: No acute cardiopulmonary process. Insert stable
--- NOTE | 2022-03-19 13:22 | EDPHYS ---
Physician Documentation [facility] Name: Agustín Camacho Age: 61 yrs Sex: Male : 1960 Arrival Date: 03/19/2022 Time: 09:49 Bed 6 Private MD: ED Physician Jose Rees HPI: 03/19 10:26 This 61 yrs old Male presents to ER via EMS with complaints of Chest pain. kdr 10:26 Patient states over he was at home this morning when he started to have chest kdr discomfort. The pain radiated into his back and his shoulder blade. He has had prior chest pain episodes, this pain was different and what he is experienced before. He was also having pain with deep breath or with turning his torso. He denied nausea vomiting fever chills cough congestion diaphoresis. He otherwise is not in any acute distress and has no other focal complaints. Onset: The symptoms/episode began/occurred suddenly, this morning. Severity of symptoms: At their worst the symptoms were mild moderate just prior to arrival, in the emergency department the symptoms are unchanged. The patient has not experienced similar symptoms in the past. The patient has not recently seen a physician. Patient states that while he has chest pain and chest pain episodes previously this is different pain which is why he came to the ED. Historical: - Allergies: 10:12 NKA; jd3 - PMHx: 10:12 AAA; ADD/ADHD; Anxiety; CVA; Hernia; High Cholesterol; Hypertension; Prostate Cancer; jd3 - PSHx: 10:12 Cholecystectomy; prostate removal; right knee revision; roator cuff repair right; jd3 umbilical hernia repair; - Immunization history:: Adult Immunizations up to date. - Social history:: Smoking status: unknown. ROS: 10:26 Constitutional: Negative for fever, chills, and weight loss, Eyes: Negative for injury, kdr pain, redness, and discharge, ENT: Negative for injury, pain, and discharge, Neck: Negative for injury, pain, and swelling, Respiratory: Negative for shortness of breath, cough, wheezing, and pleuritic chest pain, Abdomen/GI: Negative for abdominal pain, nausea, vomiting, diarrhea, and constipation, Back: Negative for injury and pain, : Negative for injury, bleeding, discharge, and swelling, MS/Extremity: Negative for injury and deformity, Skin: Negative for injury, rash, and discoloration, Neuro: Negative for headache, weakness, numbness, tingling, and seizure activity. Psych: Negative for depression, anxiety, suicide ideation, homicidal ideation, and hallucinations, Allergy/Immunology: Negative for hives, rash, and allergies, Endocrine: Negative for neck swelling, polydipsia, polyuria, polyphagia, and marked weight changes, Hematologic/Lymphatic: Negative for swollen nodes, abnormal bleeding, and unusual bruising. 10:26 Cardiovascular: Positive for chest pain, Negative for edema, orthopnea, palpitations, paroxysmal nocturnal dyspnea, acute changes. Exam: 10:14 ECG was reviewed by the Attending Physician. kdr 10:26 Constitutional: This is a well developed, well nourished patient who is awake, alert, kdr and in no acute distress. Head/Face: Normocephalic, atraumatic. Eyes: Pupils equal round and reactive to light, extra-ocular motions intact. Lids and lashes normal. Conjunctiva and sclera are non-icteric and not injected. Cornea within normal limits. Periorbital areas with no swelling, redness, or edema. Neck: Trachea midline, no thyromegaly or masses palpated, and no cervical lymphadenopathy. Supple, full range of motion without nuchal rigidity, or vertebral point tenderness. No Meningismus. Chest/axilla: Normal chest wall appearance and motion. Nontender with no deformity. No lesions are appreciated. Respiratory: Lungs have equal breath sounds bilaterally, clear to auscultation and percussion. No rales, rhonchi or wheezes noted. No increased work of breathing, no retractions or nasal flaring. Abdomen/GI: Soft, non-tender, with normal bowel sounds. No distension or tympany. No guarding or rebound. No evidence of tenderness throughout. Back: No spinal tenderness. No costovertebral tenderness. Full range of motion. Skin: Warm, dry with normal turgor. Normal color with no rashes, no lesions, and no evidence of cellulitis. MS/ Extremity: Pulses equal, no cyanosis. Neurovascular intact. Full, normal range of motion. Neuro: Awake and alert, GCS 15, oriented to person, place, time, and situation. Cranial nerves II-XII grossly intact. Motor strength 5/5 in all extremities. Sensory grossly intact. Cerebellar exam normal. Normal gait. Psych: Awake, alert, with orientation to person, place and time. Behavior, mood, and affect are within normal limits. 10:26 Cardiovascular: Rate: bradycardic, Rhythm: regular, Pulses: no pulse deficits are appreciated, Heart sounds: normal, Edema: is not appreciated. Vital Signs: 10:12 BP 133 / 85; Pulse 50; Resp 16 S; Temp 98.2(TE); Pulse Ox 97% on R/A; Weight 81.65 kg jd3 (R); Height 5 ft. 7 in. (170.18 cm) (R); Pain 5/10; 11:25 BP 145 / 87; Pulse 49; Resp 16 S; Pulse Ox 99% on R/A; jd3 12:43 BP 139 / 88; Pulse 51; Resp 17 S; Pulse Ox 99% on R/A; jd3 10:12 Body Mass Index 28.19 (81.65 kg, 170.18 cm) jd3 MDM: 10:26 Data reviewed: vital signs, nurses notes. kdr 13:22 Patient medically screened. kdr 03/19 09:56 Order name: Basic Metabolic Panel; Complete Time: 11:38 kdr 03/19 09:56 Order name: CBC with Diff; Complete Time: 11:38 kdr 03/19 09:56 Order name: NT PRO-BNP; Complete Time: 11:38 kdr 03/19 09:56 Order name: Troponin HS; Complete Time: 11:38 kdr 03/19 09:58 Order name: COVID-19 SARS RT PCR (Document "Date of Onset" if Symptomatic); Complete jd3 Time: 11:54 03/19 11:38 Order name: Troponin High Sensitivity; Complete Time: 13:08 kdr 03/19 09:56 Order name: XRAY Chest (1 view); Complete Time: 11:38 kdr 03/19 09:56 Order name: EKG; Complete Time: 09:57 kdr 03/19 09:56 Order name: Cardiac monitoring; Complete Time: 09:59 kdr 03/19 09:56 Order name: EKG - Nurse/Tech; Complete Time: 09:59 kdr 03/19 09:56 Order name: IV Saline Lock; Complete Time: 09:59 kdr 03/19 09:56 Order name: Labs collected and sent; Complete Time: 09:59 kdr 03/19 09:56 Order name: O2 Per Protocol; Complete Time: 09:59 kdr 03/19 09:56 Order name: O2 Sat Monitoring; Complete Time: :59 kdr EC:14 Rate is 54 beats/min. Rhythm is regular, Sinus bradycardia with No ectopy. QRS Slick is kdr Normal. KS interval is normal. QRS interval is normal. QT interval is normal. Clinical impression: NSR w/ Non-specific ST/T Changes and Sinus bradycardia. Administered Medications: 10:16 Drug: Ketorolac 15 mg Route: IVP; Site: right antecubital; jd3 11:14 Follow up: Response: No adverse reaction jd3 10:16 Drug: SOLU-Medrol (methylPrednisoLONE) 125 mg Route: IVP; Site: right antecubital; jd3 11:14 Follow up: Response: No adverse reaction jd3 Disposition Summary: 03/19/22 13:22 Discharge Ordered Location: Home kdr Problem: new kdr Symptoms: have improved kdr Condition: Fair kdr Diagnosis - Chest pain on breathing kdr - Chest pain, unspecified kdr Followup: kdr - With: Private Physician - When: 2 - 3 days - Reason: If symptoms return, Further diagnostic work-up, Recheck today's complaints, Continuance of care, Re-evaluation by your physician Discharge Instructions: - Discharge Summary Sheet kdr - Chest Wall Pain, [id number] kdr - Nonspecific Chest Pain, Adult, [id number] kdr Forms: - Medication Reconciliation Form kdr - Thank You Letter kdr Prescriptions: - Ibuprofen 600 mg Oral Tablet - take 1 tablet by ORAL route every 6 hours As needed take with food; 30 tablet; kdr Refills: 0, Product Selection Permitted - Medrol (Domenico) 4 mg Oral Tablets, Dose Pack - take 1 tablet by ORAL route as directed - follow package instructions; 1 kdr packet; Refills: 0, Product Selection Permitted Signatures: Dispatcher [employer] Jose Alfred MD MD kdr Osbaldo Broussard RN RN jd3 Corrections: (The following items were deleted from the chart) 10:12 10:12 PSHx: CVA; jd3 jd3
--- NOTE | 2022-03-19 13:22 | ER ---
Nurse's Notes [facility] Name: Agustín Camacho Age: 61 yrs Sex: Male : 1960 Arrival Date: 03/19/2022 Time: 09:49 Bed 6 Private MD: Diagnosis: Chest pain on breathing;Chest pain, unspecified Presentation: 03/19 10:09 Chief complaint: EMS states: "pt reporting chest pain that started this morning about 1 jd3 and a half hours ago. this chest pain radiated to his left arm and to his back. we gave 2 of nitro and the pt reported the pain getting better. his EKG showed normal sinus bradycardia.". Coronavirus screen: At this time, the client does not indicate any symptoms associated with coronavirus-19. Ebola Screen: No symptoms or risks identified at this time. Initial Sepsis Screen: Does the patient meet any 2 criteria? No. Patient's initial sepsis screen is negative. Does the patient have a suspected source of infection? No. Patient's initial sepsis screen is negative. Risk Assessment: Do you want to hurt yourself or someone else? Patient reports no desire to harm self or others. Onset of symptoms was March 19, 2022. 10:09 Method Of Arrival: EMS: [facility] jd3 10:09 Acuity: BEVERLY 3 jd3 Historical: - Allergies: 10:12 NKA; jd3 - PMHx: 10:12 AAA; ADD/ADHD; Anxiety; CVA; Hernia; High Cholesterol; Hypertension; Prostate Cancer; jd3 - PSHx: 10:12 Cholecystectomy; prostate removal; right knee revision; roator cuff repair right; jd3 umbilical hernia repair; - Immunization history:: Adult Immunizations up to date. - Social history:: Smoking status: unknown. Screenin:16 Abuse screen: Denies threats or abuse. Nutritional screening: No deficits noted. jd3 Tuberculosis screening: No symptoms or risk factors identified. Fall Risk IV access (20 points). Ambulatory Aid- None/Bed Rest/Nurse Assist (0 pts). Gait- Normal/Bed Rest/Wheelchair (0 pts) Mental Status- Oriented to own ability (0 pts). Total Saldana Fall Scale indicates No Risk (0-24 pts). Assessment: 10:13 General: Appears in no apparent distress. comfortable, Behavior is calm, cooperative, jd3 appropriate for age. Pain: Complains of pain in chest Pain radiates to back Quality of pain is described as heavy, pressure. Neuro: Jo Agitation-Sedation Scale (RASS): 0 - Alert and Calm Level of Consciousness is awake, alert, obeys commands, Oriented to person, place, time, situation. Cardiovascular: Capillary refill < 3 seconds Patient's skin is warm and dry. Rhythm is sinus bradycardia. Respiratory: Airway is patent Respiratory effort is even, unlabored, Respiratory pattern is regular, symmetrical, Denies cough, shortness of breath at rest. GI: Abdomen is non-distended, Abd is soft and non tender X 4 quads. Reports nausea, Patient currently denies abdominal pain, constipation, diarrhea, vomiting. : No signs and/or symptoms were reported regarding the genitourinary system. EENT: No signs and/or symptoms were reported regarding the EENT system. Derm: Skin is intact, Skin is dry, Skin is normal, Skin temperature is warm. Musculoskeletal: Circulation, motion, and sensation intact. Range of motion: intact in all extremities. 11:25 Reassessment: Patient appears in no apparent distress at this time. No changes from jd3 previously documented assessment. Patient and/or family updated on plan of care and expected duration. Pain level reassessed. Patient is alert, oriented x 3, equal unlabored respirations, skin warm/dry/pink. 12:43 Reassessment: Patient appears in no apparent distress at this time. Patient and/or jd3 family updated on plan of care and expected duration. Pain level reassessed. Patient is alert, oriented x 3, equal unlabored respirations, skin warm/dry/pink. Patient denies pain at this time. Patient states feeling better. 13:33 Reassessment: Patient appears in no apparent distress at this time. Patient and/or jd3 family updated on plan of care and expected duration. Pain level reassessed. Patient is alert, oriented x 3, equal unlabored respirations, skin warm/dry/pink. Patient denies pain at this time. Patient states feeling better. Vital Signs: 10:12 BP 133 / 85; Pulse 50; Resp 16 S; Temp 98.2(TE); Pulse Ox 97% on R/A; Weight 81.65 kg jd3 (R); Height 5 ft. 7 in. (170.18 cm) (R); Pain 5/10; 11:25 BP 145 / 87; Pulse 49; Resp 16 S; Pulse Ox 99% on R/A; jd3 12:43 BP 139 / 88; Pulse 51; Resp 17 S; Pulse Ox 99% on R/A; jd3 10:12 Body Mass Index 28.19 (81.65 kg, 170.18 cm) jd3 ED Course: 09:49 Patient arrived in ED. bd 09:50 Jose Rees MD is Attending Physician. kdr 09:57 Osbaldo Broussard, RN is Primary Nurse. jd3 10:11 Triage completed. jd3 10:13 Arm band placed on. jd3 10:13 EKG done, by ED staff, reviewed by Jose Rees MD. Inserted saline lock: 20 gauge in jd3 right antecubital area, using aseptic technique. Blood collected. 10:16 Patient has correct armband on for positive identification. Bed in low position. Call jd3 light in reach. Side rails up X2. Client placed on continuous cardiac and pulse oximetry monitoring. NIBP monitoring applied. forestry technical officer on. Pulse ox on. NIBP on. 10:38 XRAY Chest (1 view) In Process Unspecified. EDMS 13:33 No provider procedures requiring assistance completed. IV discontinued, intact, jd3 bleeding controlled, No redness/swelling at site. Pressure dressing applied. Administered Medications: 10:16 Drug: Ketorolac 15 mg Route: IVP; Site: right antecubital; jd3 11:14 Follow up: Response: No adverse reaction jd3 10:16 Drug: SOLU-Medrol (methylPrednisoLONE) 125 mg Route: IVP; Site: right antecubital; jd3 11:14 Follow up: Response: No adverse reaction jd3 Outcome: 13:22 Discharge ordered by . kdr 13:34 Discharged to home ambulatory, with family. jd3 13:34 Condition: stable 13:34 Discharge instructions given to patient, family, Instructed on discharge instructions, follow up and referral plans. medication usage, Demonstrated understanding of instructions, follow-up care, medications, Prescriptions given X 2. 13:34 Patient left the ED. jd3 Signatures: Dispatcher [employer] EDMS Janet Diana bd Jose Rees MD MD kdr Osbaldo Broussard, RN RN jd3 Corrections: (The following items were deleted from the chart) 10:12 10:12 PSHx: CVA; jd3 jd3
[2022-03-19 14:35] VITALS: TEMP 98.2
[2022-03-19 14:36] VITALS: O2SAT 99
[2022-03-19 14:37] VITALS: BP 139/88
--- NOTE | 2022-03-20 07:32 | EKG ---
Test Date: 2022-03-19 Test Time: 09:58:06 Stone Gluer: MANINDER MEASUREMENT RESULTS: Intervals: Rate: 54 [place]: 146 QRSD: 82 QT: 446 QTc: 422 [place]: P: 57 [place]: 146 QRS: 54 T: 46 INTERPRETIVE STATEMENTS: Sinus bradycardia Otherwise normal ECG Compared to ECG 08/23/2021 23:41:49 ST (T wave) deviation no longer present Electronically Signed On 03-20-22 07:29:58 CDT by Carlos Pickard
== END 2022-03-19 13:34 | disposition home or self-care (01) ==
LOC: ER 09:37
DX: R07.1 Chest pain on breathing (principal); I10 Essential (primary) hypertension; E78.00 Pure hypercholesterolemia, unspecified; Z20.822 Contact with and (suspected) exposure to COVID-19; Z86.73 Personal history of transient ischemic attack (TIA), and cerebral infarction without residual deficits; Z85.46 Personal history of malignant neoplasm of prostate
CPT/HCPCS: 93005; 85025; 80048; 36415; 84484 ×2; 83880; 71045; 96375; 96374; 99285; U0003; J2930

== ENCOUNTER 2022-12-16 20:20 | Emergency (ER) | payer OTHER ==
--- OUTSIDE RECORDS SUMMARY | 2022-12-16 20:23 | XMS REPORT | Continuity of Care Document ---
:1960 Author Organization [facility] t Address [address] [place] [address] Care Team Providers Name Role Phone Alexandrea Banegas Primary Care Physician Tong Macedo MD Attending Clinician Mikki Jiménez MA Attending Clinician Unavailable Shaggy Jeffrey Attending Clinician Payers Payer Name Policy Type Policy Number Effective Date Expiration Date S ource Problems Condition Condition Condition Status Onset Resolution Last Treating Co mments Source Name Details Category Date Date Treatment Clinician Date Tear of Tear of Disease Active [facility] right right 06-04 Health rotator rotator 00:00: cuff cuff 00 Arthritis Arthritis Disease Active [facility] of right of right -17 Health acromiocla acromiocla 00:00: vicular vicular 00 joint joint Essential Essential Disease Active 2017-11 Uni vers hypertensi hypertensi 0-06 it y of on on 00:00: [place] [facility] Coronary Coronary Disease Active 2017-11 Unive rs artery artery 0-06 ity of disease disease 00:00: [place] involving involving 00 Medi ginny [place] coronary coronary artery of artery of [place] heart with heart with angina angina pectoris pectoris Chest pain Chest pain Disease Active 2017-11 U nivers 0-04 ity of 00:00: [place] 00 [facility] Allergies, Adverse Reactions, Alerts This patient has no known allergies or adverse reactions. Social History Social Habit Start Date Stop Date Quantity Comments Source History of tobacco Cigarette Smoker [facility] use Alcohol intake 2022-06-04 2022-06-04 Current drinker [facility]th 00:00:00 00:00:00 of alcohol (finding) Exposure to 2022-02-24 2022-03-26 Not sure [facility] SARS-CoV-2 (event) 00:00:00 14:58:00 Cigarettes smoked 2022-02-28 2022-02-28 [facility] current (pack per 00:00:00 00:00:00 day) - Reported Tobacco use and 2022-02-28 2022-02-28 Smokeless tobacco [facility] exposure 00:00:00 00:00:00 non-user Cigarette 2022-02-28 2022-02-28 [facility] pack-years 00:00:00 00:00:00 Alcohol Comment 2018-08-13 2018-08-13 [facility] 00:00:00 00:00:[address] [facility] Sex Assigned At [birth year] [facility] 00:00:00 00:00:00 Smoking Status Start Date Stop Date Source Heavy tobacco smoker 2022-02-28 00:00:00 [facility] Current every day smoker 2019-07-02 00:00:[address] Uni [address] [facility] Medications Ordered Filled Start Stop Current Ordering Indication Dosage Frequency Signature Comments Components Source Medication Medication Date Date Medication? Clinician (SIG) Name Name cyclobenzap Yes [id number] 10mg Q.[id number] Take 1 UT rine 03-01 [id number] tablet (10 H ealth (Flexeril) 00:00: 3D mg total) 10 MG 00 by mouth 3 tablet (three) times a day if needed for muscle spasms for up to 10 days. cyclobenzap Yes [id number] 10mg Q.59731437 Take 1 UT rine - 715183 [id number] tablet (10 H ealth (Flexeril) 00:00: 3D mg total) 10 MG 00 by mouth 3 tablet (three) times a day if needed for muscle spasms for up to 10 days. naloxone 2022- No [id number] .4mg Administer [facility] (Narcan) 2 03-01 [id number] 0.4 mL [facility] th MG/2ML 00:00: 04:59 (0.4 mg injection 00 :00 total) into affected nostril(s) if needed for opioid reversal. May repeat every 2-3 minutes as needed until medical assistance available. naloxone 2022- No [id number] .4mg Administer UT (Narcan) 2 03-01 [id number] 0.4 mL Heal th MG/2ML 00:00: 04:59 (0.4 mg injection 00 :00 total) into affected nostril(s) if needed for opioid reversal. May repeat every 2-3 minutes as needed until medical assistance available. traMADol 2021- No [id number] 50mg Q6H Take 1 UT (Ultram) 50 03-01 [id number] tablet (50 Health MG tablet 00:00: 04:59 mg total) 00 :00 by mouth every 6 (six) hours if needed for severe pain for up to 10 days. cyclobenzap 2021- No [id number] 10mg Q.86119302 Take 1 UT rine 03-01 [id number] tablet (10 Health (Flexeril) 00:00: 04:59 3D mg total) 10 MG 00 :00 by mouth 3 tablet (three) times a day if needed for muscle spasms for up to 10 days. aspirin 81 2021-0 Yes 81mg Chew 81 UT MG chewable 4-21 mg. Health tablet 10:40: 31 aspirin 81 2021-0 Yes 81mg Chew 81 UT MG chewable 4-21 mg. Health tablet 10:40: 31 aspirin 81 2021-0 Yes 81mg Chew 81 UT MG chewable 4-21 mg. Health tablet 10:40: 31 citalopram 2021-0 Yes 20mg Take 20 mg U T (CeleXA) 20 4-21 by mouth. Hea lth MG tablet 10:40: 30 citalopram 2021-0 Yes 20mg Take 20 mg U T (CeleXA) 20 4-21 by mouth. Hea lth MG tablet 10:40: 30 citalopram 2021-0 Yes 20mg Take 20 mg U T (CeleXA) 20 4-21 by mouth. Hea lth MG tablet 10:40: 30 propranolol 2021-0 Yes UT (Inderal) 4- Health 10 MG 00:00: tablet 00 propranolol Yes UT (Inderal) 4- Health 10 MG 00:00: tablet 00 propranolol Yes UT (Inderal) 4-04 Health 10 MG 00:00: tablet 00 gabapentin Yes UT (Neurontin) 9- Health 600 MG 00:00: tablet 00 gabapentin Yes UT (Neurontin) 9-11 Health 600 MG 00:00: tablet 00 gabapentin Yes UT (Neurontin) 9 Health 600 MG 00:00: tablet 00 iohexol 2019- No 120mL 120 mL, Unive rs (OMNIPAQUE 07-03 Intravenou it y of 350 02:45: 02:23 s, ONCE, 1 [place] BULK-100 00 :00 dose, Fri Medica l mL) 07/02/19 at [place] injection 2145, 120 mL Routine aspirin 81 2017-11 Yes 81mg Take 81 mg U nivers mg chewable 0-05 by mouth ity of tablet 17:44: daily. [address] propranolol 2017-11 Yes 10mg Take 10 mg Univers 10 mg 0-05 by mouth 2 ity of tablet 17:44: (two) [place] 42 times Medical daily. [place] citalopram 2017-11 Yes 20mg Take 20 mg U nivers 20 mg 0-05 by mouth ity of tablet 17:44: daily. [address] omeprazole 2017-11 Yes 40mg Take 40 mg U nivers 40 mg 0-05 by mouth 2 ity of capsule 17:44: (two) [place] 42 times Medical daily. [place] Immunizations Ordered Filled Immunization Date Status Comments [facility] e Immunization Name Name Influenza Virus 2018-08-14 Completed Universit y of Vaccine Quad .5 mL 00:00:00 [facility] 6+ MO [place] Vital Signs Vital Name Observation Time Observation Value Comments Source Body height 2022-02-28 15:39:00 175.3 cm [facility] Body weight 2022-02-28 15:39:00 78.926 kg [facility] BMI 2022-02-28 15:39:00 25.70 kg/m2 [facility] Systolic blood 2019-07-03 02:00:00 142 mm[Hg] Univer sity of pressure [facility] Diastolic blood 2019-07-03 02:00:00 92 mm[Hg] Unive rsity of pressure [facility] Branch Heart rate 2019-07-03 02:00:00 80 /min [facility] [place] [facility] Respiratory rate 2019-07-03 02:00:00 18 /min Univ ersity of [place] [facility] Oxygen saturation in 2019-07-03 02:00:00 98 /min University of Arterial blood by [facility] Pulse oximetry Branch Body temperature 2019-07-02 23:41:00 36.83 Seema [facility] ersity of [facility] Body height 2019-07-02 23:41:00 175.3 cm Universi ty of [facility] Body weight 2019-07-02 23:41:00 79.379 kg Universi ty of [facility] Branch BMI 2019-07-02 23:41:00 25.84 kg/m2 Universi ty [facility] Systolic blood 2019-07-03 02:00:00 142 mm[Hg] Univer sity of pressure [facility] Diastolic blood 2019-07-03 02:00:00 92 mm[Hg] Unive rsity of pressure [facility] Heart rate 2019-07-03 02:00:00 80 /min Universi ty of [facility] Branch Respiratory rate 2019-07-03 02:00:00 18 /min Univ ersity of [facility] Branch Oxygen saturation in 2019-07-03 02:00:00 98 /min University of Arterial blood by [facility] Pulse oximetry Branch Body temperature 2019-07-02 23:41:00 36.83 Seema [facility] ersity of [facility] Body height 2019-07-02 23:41:00 175.3 cm Universi ty [facility] Medical [place] Body weight 2019-07-02 23:41:00 79.379 kg Universi ty [facility] Branch BMI 2019-07-02 23:41:00 25.84 kg/m2 [facility] Procedures Procedure Date / Time Performing Clinician Source Performed CT ABDOMEN PELVIS W 2019-07-03 02:30:21 Shaggy Gonzalez [facility] CONTRAST [facility] Branch LIPASE 2019-07-03 01:59:00 Sheyla Gao [facility] COMP. METABOLIC PANEL 2019-07-03 01:59:00 Sheyla Gao [facility] [place] ([id number]) Medical Branch CBC WITH DIFFERENTIAL 2019-07-03 01:59:00 Sheyla Gao Uni versity [facility] URINALYSIS 2019-07-03 01:59:00 Sheyla Gao [facility] CONSENT/REFUSAL FOR 2019-07-02 23:33:31 [facility], [facility] Name Medical Branch Encounters Start End Encounter Admission Attending Care Care Encounter Source Date/Time Date/Time Type Type Clinicians Facility Department ID 2022-03-26 2022-03-26 Office Tong Macedo [facility] [id number] [place] 15:30:00 16:50:06 Visit OLNEY [id number] H [facility] MEDICAL [id number] [address] 0 [id number] 2022-03-04 2022-03-04 Telephone Mikki Jiménez [facility] 1.2.840. [id number] [place] 00:00:00 00:00:00 TinoMikki SCAR [id number] [facility] MEDICAL [id number] [address] 6 [id number] 2022-02-28 2022-02-28 Office Tong Macedo [facility] [id number] [place] 10:00:00 12:04:39 Visit OLNEY [id number] H [facility] MEDICAL [id number] [address] [id number] 2019-07-02 2019-07-02 Emergency [facility] [id number] 20:25:52 22:21:00 Shaggy Keller [id number] [place] 4.2.7.2.686 [place] [id number] 2019-07-02 2019-07-02 Emergency [facility] [place] [facility] [id number] [facility] 20:25:52 22:21:00 Shaggy Keller [id number] i ty of [place] [id number] [facility] [id number] [place] [address] Branch Results Test Description Test Time Test Comments Results Result Comments Source Lipase, Serum 2019-07-03 02:19:00 Test Item Value Reference Range Interpretation Comme nts LIPASE (test code = 5941525707) 218 U/L 0-220 Lab Interpretation (test code = 21043-5) Normal [facility] [id number] 02:18:00 Test Item Value Reference Range Interpretation Comments NA (test code = 143 mmol/L 135-145 5838528305) K (test code = 4.3 mmol/L 3.5-5 1130022688) CL (test code = 110 mmol/L 98-108 H 8002077913) CO2 TOTAL (test code = 19 mmol/L 23-31 L 1327015587) AGAP (test code = 2-16 5345380435) BUN (test code = 6 mg/dL 7-23 L 7998712251) GLUCOSE (test code = 73 mg/dL 70-110 6900730505) CREATININE (test code = 0.62 mg/dL 0.6-1.25 1241409831) TOTAL BILI (test code = 0.4 mg/dL 0.1-1.9 8014255911) CALCIUM (test code = 8.9 mg/dL 8.6-10.6 7769978110) T PROTEIN (test code = 7.6 g/dL 6.3-8.2 4361562225) ALBUMIN (test code = 4.4 g/dL 3.5-5 8161032484) ALK PHOS (test code = 114 U/L 34-122 7966814149) ALT(SGPT) (test code = 60 U/L 9-51 H 9197714276) AST(SGOT) (test code = 26 U/L 13-40 7972146594) eGFR Calculation mL/min/1.73m2 (Non-) (test code = 7717591987) eGFR Calculation mL/min/1.73m2 () (test code = 3864567794) THOMAS (test code = THOMAS) Association of [...] tests). Lab Interpretation Abnormal (test code = 08281-0) [facility]inal[facility]2019-08-24 02:16:00 Test Item Value Reference Range Interpretation Comments APPEARANCE (test code = Clear Clear 8300567876) COLOR (test code = Yellow Yellow 4323777888) PH (test code = 4.8-8.0 7748041675) SP GRAVITY (test code = <=1.005 1.003-1.030 9814374947) GLU U QUAL (test code = Negative Negative 5629833219) BLOOD (test code = Negative Negative 5021724804) KETONES (test code = Negative Negative 9394358213) PROTEIN (test code = Negative Negative 2887-8) UROBILIN (test code = 0.2 mg/dL See_Comment [Auto mated message] 5697739615) The system [employer] generated this result transmit keely reference range : 0-1.0 mg/dL. Th e reference range was not used to interpret this result as normal/abnormal . BILIRUBIN (test code = Negative Negative 8153011898) NITRITE (test code = Negative Negative 8755060449) LEUK HARSHA (test code = Negative Negative 6001108206) RBC/HPF (test code = See_Comment [Autom ated message] 3777271059) The system [employer] generated this result transmit keely reference range : 0 - 3 HPF. The refe rence range was not u sed to interpret th is result as normal/abnormal . WBC/HPF (test code = See_Comment [Autom ated message] 9762677960) The system whic h generated this result transmit keely reference range : 0 - 5 HPF. The refe rence range was not u sed to interpret th is result as normal/abnormal . BACTERIA (test code = Negative Negative 9617112305) Lab Interpretation (test Normal code = 37616-2) [facility] WITH [id number] 02:07:00 Test Item Value Reference Range Interpretation Comments WBC (test code = See_Comment H [Automated 5875-2) message] The sy stem which generated this [...] RDW-SD (test code = 45.6 fL 38.5-51.6 34977-2) RDW-CV (test code = 13.4 % 12.1-15.4 788-0) PLT (test code = See_Comment [Automated 777-3) message] The sy stem which generated this result transmitted reference range : 150 - 328 10*3/ ?L. The reference r ellen was not used to interpret this result as normal/abnormal . MPV (test code = 9.8 fL 9.8-13 25773-8) NRBC/100 WBC (test See_Comment [Automat ed code = 8049915817) message] The system which generated this result transmitted reference range : 0.0 - 10.0 /100 WBCs. The refer ence range was not u sed to interpret th is result as normal/abnormal . NRBC x10^3 (test code <0.01 See_Comment [Auto mated = 4663585670) message] The s ystem which generated this result transmitted reference range : 10*3/?L. The reference range was not used to interpret this result as normal/abnormal . GRAN MAT (NEUT) % 60.9 % (test code = 770-8) IMM GRAN % (test code 0.40 % = 7179069099) LYMPH % (test code = 31.2 % 736-9) MONO % (test code = 4.9 % 5905-5) EOS % (test code = 2.0 % 713-8) BASO % (test code = 0.6 % 706-2) GRAN MAT x10^3(ANC) 6.66 10*3/uL 1.99-6.95 (test code = 5432297163) IMM GRAN x10^3 (test 0.04 10*3/uL 0-0.06 code = 9033902508) LYMPH x10^3 (test code 3.41 10*3/uL 1.09-3.23 H = 731-0) MONO x10^3 (test code 0.54 10*3/uL 0.36-1.02 = 742-7) EOS x10^3 (test code = 0.22 10*3/uL 0.06-0.53 711-2) BASO x10^3 (test code 0.07 10*3/uL 0.01-0.09 = 704-7) Lab Interpretation Abnormal (test code = 73138-7) [facility]"
[2022-12-16] MEDS ORDERED: NA CHLORIDE 0.9% 1,000 ML ONE (20:52)
[2022-12-16 21:09] LABS: Absolute Lymphocytes (CBC) 2.2 K/uL (0.7-4.9); Hematocrit 40.7 % (39.6-49.0); Lymphocytes % 39.7 % (15.3-44.8); MCV 94.4 fL (80-100); MPV 7.3 fL (7.6-11.3); RBC Red Blood Cell Count 4.31 M/uL (4.33-5.43)
[2022-12-16] MEDS ORDERED: MORPHINE 4 MG/ML SYR ONE (21:23)
[2022-12-16] MEDS ORDERED: ONDANSETRON 4 MG/2 ML VIAL ONE (21:23)
[2022-12-16 21:24] LABS: Albumin 3.4 g/dL (3.4-5.0); Bilirubin Direct 0.3 mg/dL (0-0.2); Bilirubin Total 1.2 mg/dL (0.2-1.0); Potassium 3.4 mmol/L (3.5-5.1); Protein, Total 6.5 g/dL (6.4-8.2)
[2022-12-16 21:26] LABS: Urine Blood Negative (Negative); Urine Glucose Negative (Negative); Urine Protein Negative (Negative); Urine Specific Gravity <=1.005 (1.005-1.030); Urine pH 5.5 (5.0-7.0)
--- NOTE | 2022-12-16 22:20 | RAD REPORT ---
EXAM DESCRIPTION: CT - Head C Spine Cap Suzie Knight - 12/16/2022 10:00 pm CLINICAL HISTORY: Head and neck injury with chest and abdominal pain status post fall. Head and neck pain . TECHNIQUE: Computed axial tomography of the head and cervical spine was obtained Computed axial tomography of the chest, abdomen and pelvis was obtained. 100 cc Isovue-300 was given intravenously coronal and sagittal reconstruction was performed. All CT scans are performed using dose optimization technique as appropriate and may include automated exposure control or mA/KV adjustment according to patient size. COMPARISON: [address] FINDINGS: Moderate to large area of cystic encephalomalacia right cerebrum unchanged probably second antoinette to old infarction. An intracranial bleed is not seen. The ventricles are normal in caliber. An extra-axial fluid collect ion is not noted. Fluid within the sinuses is not seen A cervical fracture is not seen. No dislocation is seen. A mediastinal hematoma is not noted. A pleural effusion is not present. A lung contusion is not seen. The liver, spleen, pancreas, adrenals, kidneys and bladder do not demonstrate an acute traumatic inju ry Fatty liver IMPRESSION: No acute intracranial abnormality is seen A cervical fracture is not visualized. If the patient continues have symptoms to suggest intracranial /spinal cord pathology then MRI would be recommended. No acute traumatic injury involving the chest, abdomen or pelvis is seen.
--- NOTE | 2022-12-16 23:06 | ER ---
Nurse's Notes [facility] Name: Agustín Camacho Age: 62 yrs Sex: Male : 1960 Arrival Date: 12/16/2022 Time: 20:24 Bed 17 Private MD: Diagnosis: Fall (on) (from) other stairs and steps;Low back pain;Unspecified injury of head, initial encounter;Alcohol abuse with intoxication;Hypokalemia Presentation: 12/16 20:25 Chief complaint: EMS states: Patient fell from 4 feet off of a ladder and is kd3 complaining of back pain. Pt is in a C collar and has a r 18 g to the right forearm. Pt also complains of left sided pain but the left pain is chronic from a previous stroke. Coronavirus screen: Vaccine status: Patient reports receiving the 1st dose of the Covid vaccine. Ebola Screen: No symptoms or risks identified at this time. Initial Sepsis Screen: Does the patient meet any 2 criteria? No. Patient's initial sepsis screen is negative. Does the patient have a suspected source of infection? No. Patient's initial sepsis screen is negative. Risk Assessment: Do you want to hurt yourself or someone else? Patient reports no desire to harm self or others. Onset of symptoms was December 16, 2022. 20:25 Method Of Arrival: EMS: [facility] kd3 20:25 Acuity: BEVERLY 3 kd3 20:25 Care prior to arrival: IV initiated. 18 GA, in the right forearm. pf1 20:25 Mechanism of Injury: Fall Patient stated fell onto the hard wood floor, Patient denies pf1 any head injury or LOC. Trauma event details: Injury occurred in the [facility], Injury occurred: at home. Injury occurred: December 16, 2022 Injury occurred at: 19:30. Triage Assessment: 20:28 General: Appears uncomfortable, Behavior is calm, cooperative. Pain: Complains of pain kd3 in back. Neuro: Level of Consciousness is awake, alert, obeys commands, Oriented to person, place, time, situation. Respiratory: Airway is patent Respiratory effort is even, unlabored. Trauma Activation: Alert Physician: ED Physician; Name: Dr. De La Fuente; Notified At: 20:18; Arrived At: Physician: General Surgeon; Name: ; Notified At: 20:18; Arrived At: Physician: Radiology; Name: ; Notified At: 20:18; Arrived At: Physician: Respiratory; Name: ; Notified At: 20:18; Arrived At: Physician: Lab; Name: ; Notified At: 20:18; Arrived At: Historical: - Allergies: 20:28 NKA; kd3 - PMHx: 20:28 AAA; Anxiety; CVA; Hernia; High Cholesterol; Hypertension; Prostate Cancer; ADD/ADHD; kd3 - PSHx: 20:28 prostate removal; Cholecystectomy; right knee revision; umbilical hernia repair; roator kd3 cuff repair right; - Immunization history:: Adult Immunizations up to date. - Social history:: Smoking status: Patient reports the use of cigarette tobacco products. - Immunization history: Last tetanus immunization: - up to date. - Family history:: not pertinent. Screenin:25 Abuse screen: Denies threats or abuse. Tuberculosis screening: No symptoms or risk pf1 factors identified. 20:25 [facility] ED Fall Risk Assessment (Adult) History of falling in the last 3 months, pf1 including since admission Yes- single mechanical fall (1 pt) Confusion or Disorientation No (0 pts) Intoxicated or Sedated Yes (3 pts) Impaired Gait No (0 pts) Mobility Assist Device Used No (0 pt) Altered Elimination No (0 pt) Score/Fall Risk Level 3 or more points = High Risk Oriented to surroundings, Maintained a safe environment, Educated pt \\T\\ family on fall prevention, incl call for assistance when getting out of bed, Assessed \\T\\ reinforced patient's understanding of fall precautions, Provided non-skid footwear, Hourly rounding (assess needs \\T\\ fall precautionary measures) done, Used ambulatory aids as needed (educated on \\T\\ assisted with), Used gait belt as appropriate Implemented a Fall Risk Plan of Care, Apply high fall risk patient identification: yellow non skid footwear/ fall signage, Remained w/in arm's length of patient and in sight while toileting, Offered frequent toileting (1:1 observation), Remained with patient while ambulating, Utilized family, sitter, or virtual police magistrate as indicated. 20:25 Nutritional screening: No deficits noted. pf1 Primary Survey: 20:25 NO uncontrolled hemorrhage observed. pf1 20:25 A: The client is awake and alert. The airway is patent. Breathing/Chest: Spontaneous pf1 respiratory effort, equal unlabored respirations, breath sounds clear bilaterally, regular pattern, symmetrical chest rise and fall. Circulation: No external hemorrhage present. Regular and strong central pulse, skin warm/dry/normal color. Disability Pupils are equal, round, reactive to light and accommodation. Client is alert. Exposure/Environment: There is no evidence of uncontrolled external bleeding. Patient C/O generalized body pain of 10 A warming method has been applied: A warm blanket has been provided to the patient. 20:25 Reassessment Alertness and Airway: Awake and alert. The airway is patent. Breathing: pf1 Spontaneous respiratory effort, equal unlabored respirations, breath sounds clear bilaterally, regular pattern with symmetrical chest rise and fall. Circulation: No external hemorrhage noted. Regular and strong central pulse, skin warm/dry/normal color. Disability: Pupils Pupils are equal, round, reactive to light and accomodation. Alert. Secondary Survey: 20:55 HEENT: No deficits noted. Head No injury/deformity Face No injury/deformity Eyes: No pf1 injury or deformity noted. Ears: clear Nose: clear to bilateral nares. Throat: No injury or deformity noted. 20:55 Gastrointestinal: No deficits noted. : No deficits noted. Musculoskeletal: Reports pf1 pain in generalized body pain Pain is 10 out of 10 on a pain scale. Assessment: 20:25 General: Appears in no apparent distress. comfortable, well groomed, well developed, pf1 Behavior is calm, cooperative, appropriate for age, Smells of alcohol. 20:25 Pain: Complains of pain in generalized body pain of 10 Pain currently is 10 out of 10 pf1 on a pain scale. Neuro: No deficits noted. Level of Consciousness is awake, alert, obeys commands, Oriented to person, place, time, situation. Cardiovascular: No deficits noted. Capillary refill < 3 seconds Patient's skin is warm and dry. Respiratory: No deficits noted. Airway is patent Trachea midline Respiratory effort is even, unlabored, Respiratory pattern is regular, symmetrical, Breath sounds are clear bilaterally. GI: No deficits noted. No signs and/or symptoms were reported involving the gastrointestinal system. Abdomen is flat, non-distended, Bowel sounds present X 4 quads. : No deficits noted. No signs and/or symptoms were reported regarding the genitourinary system. EENT: No deficits noted. No signs and/or symptoms were reported regarding the EENT system. Derm: No deficits noted. No signs and/or symptoms reported regarding the dermatologic system. Musculoskeletal: No deficits noted. Circulation, motion, and sensation intact. Capillary refill < 3 seconds, Range of motion: intact in all extremities, Reports pain in generalized body pain of 10 Pain is 10 out of 10 on a pain scale. 21:00 General: Patient removed c-collar and stated "I' m not going to put that back on, it pf1 makes me neck hurt." Patient turned to right side and stated, "my back hurts." Updated patient on risks of removing c-collar and not laying supine or flat, if there was any trauma to neck or back. Patient stated, " I don't care my back hurts." Notified Dr. De La Fuente of patient's refusal of care.. 22:00 Reassessment: Patient appears in no apparent distress at this time. No changes from pf1 previously documented assessment. Patient and/or family updated on plan of care and expected duration. Pain level reassessed. Patient is alert, oriented x 3, equal unlabored respirations, skin warm/dry/pink. Patient states symptoms have improved. 23:00 Reassessment: Patient appears in no apparent distress at this time. No changes from pf1 previously documented assessment. Patient and/or family updated on plan of care and expected duration. Pain level reassessed. Patient is alert, oriented x 3, equal unlabored respirations, skin warm/dry/pink. Patient states feeling better. Patient states symptoms have improved. Vital Signs: 20:25 BP 131 / 90; Pulse 54; Resp 19; Temp 98.1(O); Pulse Ox 99% ; Weight 81.65 kg; Height 5 kd3 ft. 8 in. (172.72 cm); Pain 10/10; 21:30 BP 119 / 79; Pulse 61; Resp 16; Pulse Ox 99% on R/A; Pain 10/10; pf1 22:30 BP 122 / 79; Pulse 66; Resp 16; Pulse Ox 97% on R/A; Pain 9/10; pf1 23:00 BP 115 / 78; Pulse 62; Resp 14; Temp 98(O); Pulse Ox 98% ; Pain 7/10; pf1 20:25 Body Mass Index 27.37 (81.65 kg, 172.72 cm) kd3 Erie Coma Score: 20:55 Eye Response: spontaneous(4). Verbal Response: oriented(5). Motor Response: obeys pf1 commands(6). Total: 15. 22:04 Eye Response: spontaneous(4). Verbal Response: oriented(5). Motor Response: obeys walter commands(6). Total: 15. 22:30 Eye Response: spontaneous(4). Verbal Response: oriented(5). Motor Response: obeys pf1 commands(6). Total: 15. 23:00 Eye Response: spontaneous(4). Verbal Response: oriented(5). Motor Response: obeys pf1 commands(6). Total: 15. Trauma Score (Adult): 20:25 Eye Response: spontaneous(1); Verbal Response: oriented(1); Motor Response: obeys pf1 commands(2); Systolic BP: > 89 mm Hg(4); Respiratory Rate: 10 to 29 per min(4); Erie Score: 15; Trauma Score: 12 ED Course: 20:24 Patient arrived in ED. mw2 20:25 Patient maintains SpO2 saturation greater than 95% on room air. pf1 20:25 Thermoregulation: warm blanket given to patient. pf1 20:28 Triage completed. kd3 20:28 Arm band placed on right wrist. kd3 20:30 Patient has correct armband on for positive identification. Bed in low position. Call pf1 light in reach. Side rails up X2. 20:31 Duran De La Fuente MD is Attending Physician. walter 20:40 Valentine turk, DIEGO is Primary Nurse. pf1 21:00 Lipase Sent. pf1 21:00 LFT's Sent. pf1 21:00 Basic Metabolic Panel Sent. pf1 21:00 CBC with Diff Sent. pf1 21:00 Type And Screen Sent. pf1 21:07 Alcohol Level Sent. pf1 23:06 Renard Richmond MD is Referral Physician. walter 23:23 No provider procedures requiring assistance completed. IV discontinued, intact, as6 bleeding controlled, No redness/swelling at site. Pressure dressing applied. Administered Medications: 21:09 Drug: NS 0.9% 1000 ml Route: IV; Rate: 1 bolus; Site: right antecubital; pf1 22:00 Follow up: Response: No adverse reaction; IV Status: Completed infusion; IV Intake: pf1 1000ml 21:20 Drug: morphine 4 mg Route: IVP; Infused Over: 4 mins; Site: right antecubital; pf1 22:12 Follow up: Response: No adverse reaction; Marked relief of symptoms; Pain is decreased pf1 21:20 Drug: Zofran (Ondansetron) 4 mg Route: IVP; Site: right antecubital; pf1 22:12 Follow up: Response: No adverse reaction; Marked relief of symptoms; Pain is decreased pf1 23:20 Drug: Potassium Effervescent Tablet 25 mEq Route: PO; pf1 23:23 Follow up: Response: No adverse reaction as6 Medication: 23:00 VIS not applicable for this client. pf1 Intake: 22:00 IV: 1000ml; Total: 1000ml. pf1 23:28 PO: 300ml; IV: 1000ml; Total: 2300ml. pf1 Output: 23:28 Urine: 1200ml (Voided); Total: 1200ml. pf1 Outcome: 23:06 Discharge ordered by MD. watson 23:26 Discharged to home ambulatory, with family. pf1 23:26 Condition: improved 23:26 Discharge instructions given to patient, family, Instructed on discharge instructions, follow up and referral plans. Demonstrated understanding of instructions, follow-up care. 23:26 Patient's length of stay in the Emergency Department was greater than 2 hours. pending pf1 test results. Patient's length of stay extended due to 23:28 Patient left the ED. pf1 Signatures: Duran De La Fuente MD MD cha Gatti, MyKena mw2 Ze Cuellar RN RN as6 Vivien Wagner RN RN kd3 Valentine turk RN RN pf1
--- NOTE | 2022-12-16 23:06 | EDPHYS ---
Physician Documentation [facility] Name: Agustín Camacho Age: 62 yrs Sex: Male : 1960 Arrival Date: 12/16/2022 Time: 20:24 Bed 17 Private MD: ED Physician Duran De La Fuente HPI: 12/16 22:00 This 62 yrs old Male presents to ER via EMS with complaints of fall off walter ladder drunk. 22:00 The patient or guardian reports pain, swelling. The complaints affect the left side of walter the back of head, left occipital area, left base of the skull, right side of the back of head, right occipital area and right base of the skull. Context of injury: The problem was sustained at home, resulted from a fall, down stairs. Onset: The symptoms/episode began/occurred just prior to arrival. Associated signs and symptoms: Loss of consciousness: This patient did not experience any loss of consciousness. Pertinent positives: headache. The patient or guardian complains of decreased range of motion, pain. The symptoms are located at the cervical spine. The patient presents with pain and decreased range of motion, and an injury. The pain does not radiate. Associated signs and symptoms: Pertinent positives: abdominal pain. 22:02 The problem was sustained during a fall, on ladder. Details of fall: The patient fell walter from a height, from a ladder, approximately 4 feet. Severity of symptoms: At their worst the symptoms were moderate, in the emergency department the symptoms are unchanged. Historical: - Allergies: 20:28 NKA; kd3 - PMHx: 20:28 AAA; Anxiety; CVA; Hernia; High Cholesterol; Hypertension; Prostate Cancer; ADD/ADHD; kd3 - PSHx: 20:28 prostate removal; Cholecystectomy; right knee revision; umbilical hernia repair; roator kd3 cuff repair right; - Immunization history:: Adult Immunizations up to date. - Social history:: Smoking status: Patient reports the use of cigarette tobacco products. - Immunization history: Last tetanus immunization: - up to date. - Family history:: not pertinent. ROS: 22:02 Constitutional: Negative for fever, chills, and weight loss, Eyes: Negative for injury, walter pain, redness, and discharge, ENT: Negative for injury, pain, and discharge, Neck: Negative for injury, pain, and swelling, Cardiovascular: Negative for chest pain, palpitations, and edema, Respiratory: Negative for shortness of breath, cough, wheezing, and pleuritic chest pain, : Negative for injury, bleeding, discharge, and swelling, MS/Extremity: Negative for injury and deformity, Skin: Negative for injury, rash, and discoloration, Neuro: Negative for headache, weakness, numbness, tingling, and seizure, Psych: Negative for depression, anxiety, suicide ideation, homicidal ideation, and hallucinations, Allergy/Immunology: Negative for hives, rash, and allergies, Endocrine: Negative for neck swelling, polydipsia, polyuria, polyphagia, and marked weight changes. 22:02 Abdomen/GI: Positive for abdominal pain. 22:02 Back: Positive for decreased range of motion, pain at rest, pain with movement, of the thoracic area and lumbar area. Exam: 22:02 Constitutional: This is a well developed, well nourished patient who is awake, alert, walter and in no acute distress. Head/Face: Normocephalic, atraumatic. Eyes: Pupils equal round and reactive to light, extra-ocular motions intact. Lids and lashes normal. Conjunctiva and sclera are non-icteric and not injected. Cornea within normal limits. Periorbital areas with no swelling, redness, or edema. ENT: Nares patent. No nasal discharge, no septal abnormalities noted. Tympanic membranes are normal and external auditory canals are clear. Oropharynx with no redness, swelling, or masses, exudates, or evidence of obstruction, uvula midline. Mucous membranes moist. Neck: Trachea midline, no thyromegaly or masses palpated, and no cervical lymphadenopathy. Supple, full range of motion without nuchal rigidity, or vertebral point tenderness. No Meningismus. Chest/axilla: Normal chest wall appearance and motion. Nontender with no deformity. No lesions are appreciated. Cardiovascular: Regular rate and rhythm with a normal S1 and S2. No gallops, murmurs, or rubs. Normal PMI, no JVD. No pulse deficits. Respiratory: Lungs have equal breath sounds bilaterally, clear to auscultation and percussion. No rales, rhonchi or wheezes noted. No increased work of breathing, no retractions or nasal flaring. Male : Normal genitalia with no discharge or lesions. Skin: Warm, dry with normal turgor. Normal color with no rashes, no lesions, and no evidence of cellulitis. MS/ Extremity: Pulses equal, no cyanosis. Neurovascular intact. Full, normal range of motion. Neuro: Awake and alert, GCS 15, oriented to person, place, time, and situation. Cranial nerves II-XII grossly intact. Motor strength 5/5 in all extremities. Sensory grossly intact. Cerebellar exam normal. Normal gait. Psych: Awake, alert, with orientation to person, place and time. Behavior, mood, and affect are within normal limits. 22:02 Abdomen/GI: Inspection: abdomen appears normal, Bowel sounds: normal, Palpation: moderate abdominal tenderness, in all quadrants, Liver: no appreciated palpable abnormalities, Hernia: not appreciated. Vital Signs: 20:25 BP 131 / 90; Pulse 54; Resp 19; Temp 98.1(O); Pulse Ox 99% ; Weight 81.65 kg; Height 5 kd3 ft. 8 in. (172.72 cm); Pain 10/10; 21:30 BP 119 / 79; Pulse 61; Resp 16; Pulse Ox 99% on R/A; Pain 10/10; pf1 22:30 BP 122 / 79; Pulse 66; Resp 16; Pulse Ox 97% on R/A; Pain 9/10; pf1 23:00 BP 115 / 78; Pulse 62; Resp 14; Temp 98(O); Pulse Ox 98% ; Pain 7/10; pf1 20:25 Body Mass Index 27.37 (81.65 kg, 172.72 cm) kd3 Nola Coma Score: 20:55 Eye Response: spontaneous(4). Verbal Response: oriented(5). Motor Response: obeys pf1 commands(6). Total: 15. 22:04 Eye Response: spontaneous(4). Verbal Response: oriented(5). Motor Response: obeys walter commands(6). Total: 15. 22:30 Eye Response: spontaneous(4). Verbal Response: oriented(5). Motor Response: obeys pf1 commands(6). Total: 15. 23:00 Eye Response: spontaneous(4). Verbal Response: oriented(5). Motor Response: obeys pf1 commands(6). Total: 15. Trauma Score (Adult): 20:25 Eye Response: spontaneous(1); Verbal Response: oriented(1); Motor Response: obeys pf1 commands(2); Systolic BP: > 89 mm Hg(4); Respiratory Rate: 10 to 29 per min(4); Nola Score: 15; Trauma Score: 12 MDM: 20:31 Patient medically screened. [facility] 22:04 Differential diagnosis: Contusion of Hematoma on Intracranial bleed- Concussion without walter LOC. cerebral contusion, Cervical Disc Herniation chronic back pain, Fracture cervical strain, Degenerative Disc Disease. Differential diagnosis: abrasion, closed head injury, contusion, fracture, laceration, multiple trauma, sprain, strain. Data reviewed: vital signs, nurses notes, lab test result(s), radiologic studies, CT scan. Consideration of Admission/Observation Patient was admitted/placed on observation. Escalation of care including admission/observation considered. I considered the following discharge prescriptions or medication management in the emergency department Medications were administered in the Emergency Department. See MAR. Test considered but Not performed: MRI: mri head , spinal survey. Historians other than the Patient: Spouse/Significant Other: . 12/16 20:34 Order name: Basic Metabolic Panel [facility] 12/16 20:34 Order name: CBC with Diff [facility] 12/16 20:34 Order name: Type And Screen [facility] 12/16 20:34 Order name: LFT's [facility] 12/16 20:34 Order name: Lipase [facility] 12/16 20:53 Order name: Alcohol Level [facility] 12/16 21:14 Order name: CBC with Automated Diff; Complete Time: 22:56 [facility] 12/16 21:22 Order name: Alcohol Serum/Plasma; Complete Time: 22:56 [facility] 12/16 21:24 Order name: Basic Metabolic Panel; Complete Time: 22:56 [facility] 12/16 21:24 Order name: Liver (Hepatic) Function; Complete Time: 22:56 [facility] 12/16 21:24 Order name: Lipase; Complete Time: 22:56 [facility] 12/16 21:27 Order name: Urine Dipstick-Ancillary; Complete Time: 22:56 [facility] 12/16 22:07 Order name: Type and Screen; Complete Time: 22:56 [facility] 12/16 20:34 Order name: Labs collected and sent; Complete Time: 21:00 [facility] 12/16 20:34 Order name: Urine Dipstick-Ancillary (obtain specimen); Complete Time: 21:24 [facility] 12/16 22:21 Order name: CT; Complete Time: 22:56 EDMS Administered Medications: 21:09 Drug: NS 0.9% 1000 ml Route: IV; Rate: 1 bolus; Site: right antecubital; pf1 22:00 Follow up: Response: No adverse reaction; IV Status: Completed infusion; IV Intake: pf1 1000ml 21:20 Drug: morphine 4 mg Route: IVP; Infused Over: 4 mins; Site: right antecubital; pf1 22:12 Follow up: Response: No adverse reaction; Marked relief of symptoms; Pain is decreased pf1 21:20 Drug: Zofran (Ondansetron) 4 mg Route: IVP; Site: right antecubital; pf1 22:12 Follow up: Response: No adverse reaction; Marked relief of symptoms; Pain is decreased pf1 23:20 Drug: Potassium Effervescent Tablet 25 mEq Route: PO; pf1 23:23 Follow up: Response: No adverse reaction as6 Disposition Summary: 12/16/22 23:06 Discharge Ordered Location: Home walter Problem: new walter Symptoms: have improved walter Condition: Stable walter Diagnosis - Fall (on) (from) other stairs and steps walter - Low back pain walter - Unspecified injury of head, initial encounter walter - Alcohol abuse with intoxication walter - Hypokalemia walter Followup: walter - With: Private Physician - When: 2 - 3 days - Reason: Recheck today's complaints, Continuance of care, Re-evaluation by your physician Followup: walter - With: - When: 2 - 3 days - Reason: Recheck today's complaints, Re-evaluation by your physician Discharge Instructions: - Discharge Summary Sheet walter - Alcohol Intoxication walter - Acute Back Pain, Adult walter - Head Injury, Adult walter - Musculoskeletal Pain walter - Potassium Content of Foods walter - Alcohol Intoxication, [id number] walter - Head Injury, Adult, [id number] walter - Hypokalemia walter Forms: - Medication Reconciliation Form walter - Thank You Letter walter - Antibiotic Education walter - Prescription Opioid Use walter Prescriptions: - Tylenol 325 mg Oral Tablet - take 2 tablets by ORAL route every 6 hours as needed; 1 bottle; Refills: 0, walter Product Selection Permitted Signatures: Dispatcher [employer] EDMS Duran De La Fuente MD MD cha Doucette, Kyli, RN RN kd3 Valentine truk, RN RN pf1 Ze Cuellar RN as6
[2022-12-16] MEDS ORDERED: POTASSIUM 25 MEQ EFFERV TAB ONE (23:16)
[2022-12-16 23:56] VITALS: TEMP 98.1
[2022-12-16 23:59] VITALS: BP 122/79; O2SAT 97
== END 2022-12-16 23:28 | disposition home or self-care (01) ==
LOC: ER 20:20
DX: S09.90XA Unspecified injury of head, initial encounter (principal); M54.50 Low back pain, unspecified; F10.129 Alcohol abuse with intoxication, unspecified; E87.6 Hypokalemia; W11.XXXA Fall on and from ladder, initial encounter; I10 Essential (primary) hypertension; F17.210 Nicotine dependence, cigarettes, uncomplicated; Z86.73 Personal history of transient ischemic attack (TIA), and cerebral infarction without residual deficits
CPT/HCPCS: 85025; 80048; 36415; 86900; 86850; 86901; 80076; 81003; 83690; 70450; 72125; 71260; 74177; Q9967; J7030; J2405; G0480

== ENCOUNTER → 2023-11-04 | Emergency (ER) | payer OTHER ==
[~2023-11-04] MED LIST: DIPHENHYDRAMINE 50 MG/ML VIAL ONE; METOCLOPRAMIDE 10 MG/2mL INJ ONE; Magnesium Sulfate 2gm IVPB 2 G/50 ML BAG IV ONE; NA CHLORIDE 0.9% 1,000 ML ONE
--- OUTSIDE RECORDS SUMMARY | 2023-11-04 13:26 | XMS REPORT | Continuity of Care Document ---
Author Name Unknown Address [address] [facility] [address] [place] [address] [facility] Address [address] [facility] [address] [place] [address] Care Team Providers Care Commutator Tester Name Role Phone Alexandrea Banegas Primary Care Physician [phone] Vega Macedo MD Attending Clinician [phone] Rolly Araya MD Attending Clinician [phone] Mikki Jiménez MA Attending Clinician Unavail Shaggy Higgins Attending Clinician [phone] Payers Payer Name Policy Type Policy Number Effective Date Expirati on Date Source [employer] [id number] 2020 00:00:00 2020 00:00:00 Problems Condition Name Condition Details Condition Category Status Onset Date Resolution Date Last Treatment Date Treating Clinician Comments Source Trigger finger, left middle finger Trigger finger, left middle finger Disease Active 07-15 00:00: 00 [facility] Ganglion of left wrist Ganglion of left wrist Disease Active 07-15 00:00: 00 [facility] Pain of left hand Pain of left hand Disease Active 07-15 00:00: 00 [facility] Tear of right rotator cuff Tear of right rotator cuff Disease Active 06-04 00:00: 00 [facility] 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 vicular joint Disease Active 17 00:00: 00 [facility] Essential hypertensi on Essential hypertensi on Disease Active 2017-11 0 00:00: 00 [facility] 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 Disease Active 2017-11 0 00:00: 00 [facility] Chest pain Chest pain Disease Active 2017-11 004 00:00: 00 [facility] Social History Social Habit Start Date Stop Date Quantity Comments Source Sexual orientation [facility] History of tobacco use Cigarette Smoker [facility] History of Social function 2023-05-27 00:00:00 2023-05-27 00:00:00 [facility] Alcohol intake 2023-05-27 00:00:00 2023-05-27 00:00:00 Current drinker of alcohol (finding) [facility] Exposure to SARS-CoV-2 (event) 2022-02-24 00:00:00 2022-03-26 14:58:00 Not sure [facility] Cigarettes smoked current (pack per day) - Reported 2022-02-28 00:00:00 2022-02-28 00:00:00 [facility] Tobacco use and exposure 2022-02-28 00:00:00 2022-02-28 00:00:00 Smokeless tobacco non-user [facility] Cigarette pack-years 2022-02-28 00:00:00 2022-02-28 00:00:00 [facility] Alcohol Comment 2018-08-13 00:00:00 2018-08-13 00:00:[address] [facility] Sex Assigned At 1960 00:00:00 1960 00:00:00 [facility] Smoking Status Start Date Stop Date Source Heavy tobacco smoker 2022-02-28 00:00:00 [facility] Current every day smoker 2019-07-02 00:00:00 [facility] Medications Ordered Medication Name Filled Medication Name Start Date Stop Date Current Medication? Ordering Clinician Indication Dosage Frequency Signature (SIG) Comments Components Source lidocaine (Xylocaine) 1 % injection 1 mL 07-15 13:00: 00 07-15 13:00 :00 No [id number] 1mL [facility] betamethaso ne acetate-bet amethasone sodium phosphate (Celestone) injection 1 mg 07-15 13:00: 00 07-15 13:00 :00 No [id number] 1mg [facility] betamethaso ne acetate-bet amethasone sodium phosphate (Celestone) injection 1 mg 07-15 13:00: 00 07-15 13:00 :00 No [id number] 1mg 1 mg, Intra-tatianna cular, Once PRN Procedure, Starting on Fri07/15/23 at 0800, For 1 dose [facility] lidocaine (Xylocaine) 1 % injection 1 mL 07-15 13:00: 00 07-15 13:00 :00 No [id number] 1mL 1 mL, Injection, Once PRN Procedure, Starting on Fri07/15/23 at 0800, For 1 dose [facility] lidocaine (Xylocaine) 1 % injection 1 mL 07-15 13:00: 00 07-15 13:00 :00 No [id number] 1mL [facility] betamethaso ne acetate-bet amethasone sodium phosphate (Celestone) injection 1 mg 07-15 13:00: 00 07-15 13:00 :00 No [id number] 1mg [facility] betamethaso ne acetate-bet amethasone sodium phosphate (Celestone) injection 1 mg 07-15 13:00: 00 07-15 13:00 :00 No [id number] 1mg 1 mg, Intra-tatianna cular, Once PRN Procedure, Starting on Fri07/15/23 at 0800, For 1 dose [facility] lidocaine (Xylocaine) 1 % injection 1 mL 07-15 13:00: 00 07-15 13:00 :00 No [id number] 1mL 1 mL, Injection, Once PRN Procedure, Starting on Fri07/15/23 at 0800, For 1 dose [facility] meloxicam (Mobic) 15 MG tablet 7-18 00:00: 00 06-27 04:59 :00 No [id number] 15mg QD Take 1 tablet (15 mg total) by mouth 1 (one) time each day. [facility] meloxicam (Mobic) 15 MG tablet 05-27 00:00: 00 06-27 04:59 :00 No [id number] 07614 15mg QD Take 1 tablet (15 mg total) by mouth 1 (one) time each day. [facility] cyclobenzap rine (Flexeril) 10 MG tablet 03-01 00:00: 00 Yes [id number] [id number] 10mg Q.92665379 1073906469 3D Take 1 tablet (10 mg total) by mouth 3 (three) times a day if needed for muscle spasms for up to 10 days. [facility] cyclobenzap rine (Flexeril) 10 MG tablet 03-01 00:00: 00 Yes [id number] 10mg Q.14306466 6296001056 3D Take 1 tablet (10 mg total) by mouth 3 (three) times a day if needed for muscle spasms for up to 10 days. [facility] cyclobenzap rine (Flexeril) 10 MG tablet 03-01 00:00: 00 Yes [id number] 10mg Q.38050318 [id number] 3D Take 1 tablet (10 mg total) by mouth 3 (three) times a day if needed for muscle spasms for up to 10 days. [facility] cyclobenzap rine (Flexeril) 10 MG tablet 03-01 00:00: 00 Yes [id number] 10mg Q.00181539 [id number] 3D Take 1 tablet (10 mg total) by mouth 3 (three) times a day if needed for muscle spasms for up to 10 days. [facility] cyclobenzap rine (Flexeril) 10 MG tablet 03-01 00:00: 00 Yes [id number] 10mg Q.78625760 [id number] 3D Take 1 tablet (10 mg total) by mouth 3 (three) times a day if needed for muscle spasms for up to 10 days. [facility] cyclobenzap rine (Flexeril) 10 MG tablet 03-01 00:00: 00 Yes [id number] 10mg Q.23488438 [id number] 3D Take 1 tablet (10 mg total) by mouth 3 (three) times a day if needed for muscle spasms for up to 10 days. [facility] cyclobenzap rine (Flexeril) 10 MG tablet 03-01 00:00: 00 Yes [id number] 10mg Q.30387471 [id number] 3D Take 1 tablet (10 mg total) by mouth 3 (three) times a day if needed for muscle spasms for up to 10 days. [facility] naloxone (Narcan) 2 MG/2ML injection 03-01 00:00: 00 03-02 04:59 :00 No [id number] 361445 .4mg Administer 0.4 mL (0.4 mg total) into affected nostril(s) if needed for opioid reversal. May repeat every 2-3 minutes as needed until medical assistance available. [facility] naloxone (Narcan) 2 MG/2ML injection 03-01 00:00: 00 03-02 04:59 :00 No [id number] 708486 .4mg Administer 0.4 mL (0.4 mg total) into affected nostril(s) if needed for opioid reversal. May repeat every 2-3 minutes as needed until medical assistance available. [facility] traMADol (Ultram) 50 MG tablet 03-01 00:00: 00 03-12 04:59 :00 No [id number] 340816 50mg Q6H Take 1 tablet (50 mg total) by mouth every 6 (six) hours if needed for severe pain for up to 10 days. [facility] cyclobenzap rine (Flexeril) 10 MG tablet 03-01 00:00: 00 03-12 04:59 :00 No [id number] 10mg Q.33615328 [id number] 3D Take 1 tablet (10 mg total) by mouth 3 (three) times a day if needed for muscle spasms for up to 10 days. [facility] aspirin 81 MG chewable tablet 02-28 10:40: 31 Yes 81mg Chew 81 mg. [facility] aspirin 81 MG chewable tablet 02-28 10:40: 31 Yes 81mg Chew 81 mg. [facility] aspirin 81 MG chewable tablet 02-28 10:40: 31 Yes 81mg Chew 81 mg. [facility] aspirin 81 MG chewable tablet 02-28 10:40: 31 Yes 81mg Chew 81 mg. [facility] aspirin 81 MG chewable tablet 02-28 10:40: 31 Yes 81mg Chew 81 mg. [facility] aspirin 81 MG chewable tablet 02-28 10:40: 31 Yes 81mg Chew 81 mg. [facility] aspirin 81 MG chewable tablet 02-28 10:40: 31 Yes 81mg Chew 81 mg. [facility] aspirin 81 MG chewable tablet 02-28 10:40: 31 Yes 81mg Chew 81 mg. [facility] citalopram (CeleXA) 20 MG tablet 02-28 10:40: 30 Yes 20mg Take 20 mg by mouth. [facility] citalopram (CeleXA) 20 MG tablet 02-28 10:40: 30 Yes 20mg Take 20 mg by mouth. [facility] citalopram (CeleXA) 20 MG tablet 02-28 10:40: 30 Yes 20mg Take 20 mg by mouth. [facility] citalopram (CeleXA) 20 MG tablet 02-28 10:40: 30 Yes 20mg Take 20 mg by mouth. [facility] citalopram (CeleXA) 20 MG tablet 02-28 10:40: 30 Yes 20mg Take 20 mg by mouth. [facility] citalopram (CeleXA) 20 MG tablet 02-28 10:40: 30 Yes 20mg Take 20 mg by mouth. [facility] citalopram (CeleXA) 20 MG tablet 02-28 10:40: 30 Yes 20mg Take 20 mg by mouth. [facility] citalopram (CeleXA) 20 MG tablet 02-28 10:40: 30 Yes 20mg Take 20 mg by mouth. [facility] propranolol (Inderal) 10 MG tablet 02-11 00:00: 00 Yes [facility] propranolol (Inderal) 10 MG tablet 02-11 00:00: 00 Yes [facility] propranolol (Inderal) 10 MG tablet 02-11 00:00: 00 Yes [facility] propranolol (Inderal) 10 MG tablet 02-11 00:00: 00 Yes [facility] propranolol (Inderal) 10 MG tablet 02-11 00:00: 00 Yes [facility] propranolol (Inderal) 10 MG tablet 02-11 00:00: 00 Yes [facility] propranolol (Inderal) 10 MG tablet 02-11 00:00: 00 Yes [facility] propranolol (Inderal) 10 MG tablet 0 02-11 00:00: 00 Yes [facility] gabapentin (Neurontin) 600 MG tablet 07-21 00:00: 00 Yes [facility] gabapentin (Neurontin) 600 MG tablet 07-21 00:00: 00 Yes [facility] gabapentin (Neurontin) 600 MG tablet 0 07-21 00:00: 00 Yes [facility] gabapentin (Neurontin) 600 MG tablet 07-21 00:00: 00 Yes [facility] gabapentin (Neurontin) 600 MG tablet 0 07-21 00:00: 00 Yes [facility] gabapentin (Neurontin) 600 MG tablet 07-21 00:00: 00 Yes [facility] gabapentin (Neurontin) 600 MG tablet 07-21 00:00: 00 Yes [facility] gabapentin (Neurontin) 600 MG tablet 0 07-21 00:00: 00 Yes [facility] iohexol (OMNIPAQUE 350 BULK-100 mL) injection 120 mL 07-03 02:45: 00 07-03 02:23 :00 No 120mL 120 mL, Intravenou s, ONCE, 1 dose, Fri07/02/19 at 2145, Routine [facility] aspirin 81 mg chewable tablet 2017-11 17:44: 42 Yes 81mg Take 81 mg by mouth daily. [facility] propranolol 10 mg tablet 2017-11 17:44: 42 Yes 10mg Take 10 mg by mouth 2 (two) times daily. [facility] citalopram 20 mg tablet 2017-11 17:44: 42 Yes 20mg Take 20 mg by mouth daily. [facility] omeprazole 40 mg capsule 2017-11 005 17:44: 42 Yes 40mg Take 40 mg by mouth 2 (two) times daily. [facility] Vital Signs Vital Name Observation Time Observation Value Comments Lakisha wright Body height 2023-05-27 20:27:00 [facility] 2023-05-27 20:27:00 [facility] BMI 2023-05-27 20:27:00 25.70 [facility]m2 [facility] weight 2022-02-28 15:39:[facility] 2022-02-28 15:39:00 25[facility]70 [facility] height 2022-02-28 15:39:00 [facility] Systolic blood pressure 2019-07-03 02:00:00 142 mm[Hg] [facility] Diastolic blood pressure 2019-07-03 02:00:00 92 mm[Hg] [facility] Heart rate 2019-07-03 02:00:00 80 /min [facility] Respiratory rate 2019-07-03 02:00:00 18 /min [facility] Oxygen saturation in Arterial blood by Pulse oximetry 2019-07-03 02:00:00 98 /min [facility] Body temperature 2019-07-02 23:41:[address] [facility] Body height 2019-07-02 23:41:00 175.3 cm [facility] Body weight 2019-07-02 23:41:00 79.379 kg [facility] BMI 2019-07-02 23:41:00 25.84 kg/m2 [facility] Systolic blood pressure 2019-07-03 02:00:00 142 mm[Hg] [facility] Diastolic blood pressure 2019-07-03 02:00:00 92 mm[Hg] [facility] Heart rate 2019-07-03 02:00:00 80 /[facility] Respiratory rate 2019-07-03 02:00:00 18 /min [facility] Oxygen saturation in Arterial blood by Pulse oximetry 2019-07-03 02:00:00 98 /min [place] [facility] Body temperature 2019-07-02 23:41:[address] [facility] Body height 2019-07-02 23:41:00 175.3 cm [facility] Body weight 2019-07-02 23:41:00 79.379 kg [facility] BMI 2019-07-02 23:41:00 25.84 kg/m2 [facility] Procedures Procedure Date / Time Performed Performing Clinician Source DE INJECT TENDON SHEATH/LIGAMENT 2023-07-15 13:00[facility]LIGAMENT 2023-07-15 [facility] ABDOMEN PELVIS W CONTRAST 2019-07-03 02:30:[address] [facility] LIPASE 2019-07-03 01:59:00 Sheyla Gao [facility] COMP. METABOLIC PANEL (66818) 2019-07-03 01:59:[address] [facility] CBC WITH DIFFERENTIAL 2019-07-03 01:59:[address] [facility] URINALYSIS 2019-07-03 01:59:00 Sheyla Gao [facility] CONSENT/REFUSAL FOR DIAGNOSIS AND TREATMENT 2019-07-02 23:33:31 Doctor Unassigned, Seama [facility] Encounters Start Date/Time End Date/Time Encounter Type Admission Type Attending Clinicians Care Facility Care Department Encounter ID Source 2023-05-27 15:08:50 Outpatient [facility] [id number] [facility] 2023-05-23 14:42:59 Outpatient [facility] [id number] [facility] 2023-05-22 09:33:41 Outpatient [facility] [id number] [facility] 2023-04-16 12:45:29 Outpatient [facility] [id number] [facility] 2023-03-12 09:15:57 Outpatient [facility] [id number] [facility] 2023-07-31 10:30:00 2023-07-31 11:34:02 Office Visit CristopherVega alcala [facility] ialty - [facility] [id number] [id number] [facility] 2023-07-24 14:15:00 2023-07-24 14:15:00 Outpatient CRISTOPHERVEGA ALCALA [facility] [id number] [facility] 2023-07-15 08:10:00 2023-07-15 09:05:23 Outpatient [facility] [id number] [facility] 2023-07-15 08:00:00 2023-07-15 09:04:59 Office Visit Rolly Araya [facility] 1 [id number] [id number] [id number] [id number] [facility] 2023-05-27 15:15:00 2023-05-27 16:42:25 Office Visit CristopherVega alcala [facility] 1 1.2.840.114 [id number] [id number] [id number] [facility] 2023-03-25 14:15:00 2023-03-25 14:15:00 Outpatient CRISTOPHERVEGA ALCALA [facility] [id number] [facility] 2022-03-26 15:30:00 2022-03-26 16:50:06 Office Visit CristopherVega alcala [facility] 1 1.2.840.114 [id number] 9.2.7.2.686 [id number] [facility] 2022-03-04 00:00:00 2022-03-04 00:00:00 Kenneth TinoMikki snow Lindsay [facility] 1 1.2.840.114 [id number] [id number] [id number] [facility] 2022-02-28 10:00:00 2022-02-28 12:04:39 Office Visit Vega Macedo [facility] 1 1.2.840.114 [id number] [id number] [id number] [facility] 2019-07-02 20:25:52 2019-07-02 22:21:00 [facility] [id number] 350.1.13.10 [id number] [id number] [facility] 2019-07-02 20:25:52 2019-07-02 22:21:00 [facility] [id number] 350.1.13.10 [id number] [id number] Results Test Description Test Time Test Comments Results Result Co mments [facility] [id number] 02:18:00* Test Item Value Reference Range Interpretation Comme nts NA (test code = 7915496704) 143 mmol/L 135-145 K (test code = 9326770513) 4.3 mmol/L 3.5-5 CL (test code = 9370731156) 110 mmol/L 98-108 H CO2 TOTAL (test code = 7159275192) 19 mmol/L 23-31 L AGAP (test code = 6126110456) 2-16 BUN (test code = 3222700735) 6 mg/dL 7-23 L GLUCOSE (test code = 7149485605) 73 mg/dL 70-110 CREATININE (test code = 1581217835) 0.62 mg/dL 0.6-1.25 TOTAL BILI (test code = 7926746241) 0.4 mg/dL 0.1-1.1 CALCIUM (test code = 8413439173) 8.9 mg/dL 8.6-10.6 T PROTEIN (test code = 1920024891) 7.6 g/dL 6.3-8.2 ALBUMIN (test code = 4493423988) 4.4 g/dL 3.5-5 ALK PHOS (test code = 1019164901) 114 U/L 34-122 ALT(SGPT) (test code = 6761747425) 60 U/L 9-51 H AST(SGOT) (test code = 6290218399) 26 U/L 13-40 eGFR Calculation (Non-) (test code = 0483233709) mL/min/1.73m2 eGFR Calculation () (test code = 0115881615) mL/min/1.73m2 THOMAS (test code = THOMAS) Association of [...] or abnormalities in imaging tests). Lab Interpretation (test code = 61684-1) Abnormal [facility] [id number] 02:16:00* Test Item Value Reference Range Interpretation Comme nts APPEARANCE (test code = 8826695567) Clear Clear COLOR (test code = 8757565450) Yellow Yellow PH (test code = 5933561623) 4.8-8.0 SP GRAVITY (test code = 1737689295) <=1.005 1.003-1.030 GLU U QUAL (test code = 0856930737) Negative Negative BLOOD (test code = 0930644872) Negative Negative KETONES (test code = 2910376750) Negative Negative PROTEIN (test code = 2887-8) Negative Negative UROBILIN (test code = 6187879173) 0.2 mg/dL See_Comment [Automated messa ge] The system which generated this result transmitted reference range: 0-1.0 mg/dL. The reference range was not used to interpret this result as normal/abnormal. BILIRUBIN (test code = 1919898103) Negative Negative NITRITE (test code = 2595819957) Negative Negative LEUK HARSHA (test code = 2430835210) Negative Negative RBC/HPF (test code = 4057445958) See_Comment [Automated messa ge] The system which generated this result transmitted reference range: 0 - 3 HPF. The reference range was not used to interpret this result as normal/abnormal. WBC/HPF (test code = 5234887080) See_Comment [Automated messa ge] The system which generated this result transmitted reference range: 0 - 5 HPF. The reference range was not used to interpret this result as normal/abnormal. BACTERIA (test code = 0335165234) Negative Negative Lab Interpretation (test code = 17163-1) Normal [facility] WITH [id number] 02:07:00* Test Item Value Reference Range Interpretation Comme nts WBC (test code = 6690-2) See_Comment H [Automated messa ge] The system which generated this result transmitted reference range: 4.20 - 10.70 10*3/?L. The reference range was not used to interpret this result as normal/abnormal. RBC (test code = 789-8) See_Comment [Automated messa ge] The system which generated this result transmitted reference range: 4.26 - 5.52 10*6/?L. The reference range was not used to interpret this result as normal/abnormal. HGB (test code = 718-7) 14.8 g/dL 12.2-16.4 HCT (test code = 4544-3) 42.9 % 38.4-49.3 MCV (test code = 787-2) 92.1 fL 81.7-95.6 MCH (test code = 785-6) 31.8 pg 26.1-32.7 MCHC (test code = 786-4) 34.5 g/dL 31.2-35 RDW-SD (test code = 67104-8) 45.6 fL 38.5-51.6 RDW-CV (test code = 788-0) 13.4 % 12.1-15.4 PLT (test code = 777-3) See_Comment [Automated Improveit! 360a ge] The system which generated this result transmitted reference range: 150 - 328 10*3/?L. The reference range was not used to interpret this result as normal/abnormal. MPV (test code = 31490-7) 9.8 fL 9.8-13 NRBC/100 WBC (test code = 7759515673) See_Comment [Automated Cinegif ssage] The system which generated this result transmitted reference range: 0.0 - 10.0 /100 WBCs. The reference range was not used to interpret this result as normal/abnormal. NRBC x10^3 (test code = 3321795492) <0.01 See_Comment [Automated Improveit! 360a ge] The system which generated this result transmitted reference range: 10*3/?L. The reference range was not used to interpret this result as normal/abnormal. GRAN MAT (NEUT) % (test code = 770-8) 60.9 % IMM GRAN % (test code = 2247502330) 0.40 % LYMPH % (test code = 736-9) 31.2 % MONO % (test code = 5905-5) 4.9 % EOS % (test code = 713-8) 2.0 % BASO % (test code = 706-2) 0.6 % GRAN MAT x10^3(ANC) (test code = 4440704023) 6.66 10*3/uL 1.99-6.95 IMM GRAN x10^3 (test code = 6448202013) 0.04 10*3/uL 0-0.06 LYMPH x10^3 (test code = 731-0) 3.41 10*3/uL 1.09-3.23 H MONO x10^3 (test code = 742-7) 0.54 10*3/uL 0.36-1.02 EOS x10^3 (test code = 711-2) 0.22 10*3/uL 0.06-0.53 BASO x10^3 (test code = 704-7) 0.07 10*3/uL 0.01-0.09 Lab Interpretation (test code = 86011-0) Abnormal [facility]"
--- NOTE | 2023-11-04 14:26 | RAD REPORT ---
EXAM DESCRIPTION: CT - Head Brain Wo Cont - 11/04/2023 2:10 pm CLINICAL HISTORY: DIZZINESS COMPARISON: Head Brain Wo Cont dated 08/23/2021; Head Brain Wo Cont dated 04/01/2020 TECHNIQUE: All CT scans are performed using dose optimization technique as appropriate and may inclu de automated exposure control or mA/KV adjustment according to patient size. FINDINGS: No intracranial hemorrhage, hydrocephalus or extra-axial fluid collection.No areas of brai n edema or evidence of midline shift. Remote right MCA territory infarct. The paranasal sinuses and mastoids are clear. The calvarium is intact. IMPRESSION: No acute intracranial abnormality. Moderate remote right MCA territory infarct.
--- NOTE | 2023-11-04 14:27 | RAD REPORT ---
EXAM DESCRIPTION: RAD - Chest Single View - 11/04/2023 2:21 pm CLINICAL HISTORY: CHEST PAIN COMPARISON: <Comparisons> FINDINGS: Lines: None. Lungs: No evidence of edema or pneumonia. Pleural: No significant pleural effusions or pneumothorax. Cardiac: The heart size is within normal limits. Mediastinum: Within normal limits. Bones: No acute fractures. Other: None IMPRESSION: No acute cardiopulmonary disease.
[2023-11-04 14:41] LABS: Absolute Lymphocytes (CBC) 2.4 K/uL (0.7-4.9); Hematocrit 40.5 % (39.6-49.0); Lymphocytes % 33.8 % (15.3-44.8); MCV 93.1 fL (80-100); MPV 8.2 fL (7.6-11.3); Platelets 213 thou/uL (152-406); RBC Red Blood Cell Count 4.35 M/uL (4.33-5.43)
[2023-11-04 15:29] LABS: Potassium 3.9 mEq/L (3.5-5.1); Troponin High Sensitivity 8.2 pg/mL (<58.9)
--- NOTE | 2023-11-04 16:51 | EDPHYS ---
Physician Documentation [facility] Name: Agustín Camacho Age: 63 yrs Sex: Male : 1960 Arrival Date: 11/04/2023 Time: 13:22 Bed 20 Private MD: ED Physician Shaggy Mejia HPI: 11/04 13:42 This 63 yrs old Male presents to ER via Wheelchair with complaints of High ec2 Blood Pressure, Dizziness. 13:42 Patient arrives today for evaluation of lightheadedness and elevated blood pressure. ec2 Patient reports that he has been told to keep his blood pressure under control, unclear what the parameters would be, states that he has been checking it and noted it to be elevated greater than 180. Patient reports no chest pain and is new. Reports a chronic chest pain that is unchanged from his baseline. Patient reports that he also has some lightheadedness, denies any difficulty breathing, denies any syncopal episodes, denies any head injuries or trauma. Patient reports that he is on lisinopril as well as carvedilol for blood pressure management. Patient does have a history of a stroke in the past, has residual left-sided deficits that are his baseline. Patient also with complaint of a headache.. Historical: - Allergies: 13:30 NKA; iw - PMHx: 13:30 AAA; ADD/ADHD; Anxiety; CVA; Hernia; Hernia; High Cholesterol; Hypertension; Prostate iw Cancer; - PSHx: 13:30 Cholecystectomy; prostate removal; right knee revision; right knee revision; roator iw cuff repair right; umbilical hernia repair; - Immunization history:: Adult Immunizations. - Social history:: Smoking status: Patient reports the use of cigarette tobacco products, smokes one pack cigarettes per day. ROS: 13:43 Constitutional: as per hpi ec2 Exam: 13:43 Constitutional: GEN: NAD Head: atraumatic Eyes: EOMI Ears: External ears are ec2 normal. CV: regular rate LUNGS: no respiratory distress ABD: non-distended SKIN: no evidence of rashes MSK: no evidence of trauma NEURO: Cranial nerves II through XII intact, left upper extremity and left lower extremity weakness compared to right. Vital Signs: 13:27 BP 170 / 97; Pulse 50; Resp 16; Temp 98.2; Pulse Ox 99% on R/A; Weight 76.2 kg; Height iw 5 ft. 8 in. ; Pain 1/10; 14:09 BP 162 / 95; Pulse 50; Resp 17; Pulse Ox 95% on R/A; me1 15:43 BP 168 / 94; Pulse 47; Resp 18; Pulse Ox 95% on R/A; me1 16:00 BP 160 / 95; Pulse 54; Resp 18; Pulse Ox 98% on R/A; me1 16:45 BP 166 / 89; Pulse 48; Resp 18; Pulse Ox 98% on R/A; me1 13:27 Body Mass Index 25.54 (76.20 kg, 172.72 cm) iw 13:27 Pain Scale: Adult iw MDM: 13:42 Patient medically screened. ec2 13:45 Data reviewed: vital signs. ED course: Patient arrives today due to concern for ec2 elevated blood pressure and concern for lightheadedness. Examination remarkable for well-appearing nontoxic individual is otherwise in no acute distress who has known left-sided deficits which are present on my examination. Will obtain lab work, treat the patient's headache and reassess the patient. Currently considering process such as elevated blood pressure, low suspicion for stroke, low suspicion for intracranial brain bleed, low suspicion for process such as dissection.. 14:05 ED course: EKG independently reviewed and interpreted by me, shows normal sinus rhythm, ec2 rate of 45, no acute ST segment elevations, nonconcerning intervals.. 14:27 ED course: CT scan of the head shows right MCA infarct, this is known as patient has ec2 residual deficits from this.. 15:29 ED course: CBC is reassuring. Chest x-ray shows no acute intrathoracic process. . ec2 15:32 ED course: Metabolic profile is reassuring. Troponin within normal ranges. . ec2 16:17 ED course: On reassessment patient reports marked improvement in his symptoms. States ec2 that he still has general headache however this is improved from his initial arrival. I offered the patient inpatient hospitalization for continued management of his symptoms however patient states that he felt comfortable returning home. I did not find any emergent process on my workup. 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 Return precautions given.. 11/04 13:41 Order name: Basic Metabolic Panel; Complete Time: 15:32 ec2 11/04 13:41 Order name: CBC with Diff; Complete Time: 15:29 ec2 11/04 13:41 Order name: Troponin HS; Complete Time: 15:32 ec2 11/04 13:41 Order name: XRAY Chest (1 view); Complete Time: 15:29 ec2 11/04 13:42 Order name: CT Head Brain wo Cont; Complete Time: 14:27 ec2 11/04 13:41 Order name: EKG; Complete Time: 13:42 ec2 11/04 13:41 Order name: Cardiac monitoring; Complete Time: 15:11 ec2 11/04 13:41 Order name: EKG - Nurse/Tech; Complete Time: 14:09 ec2 11/04 13:41 Order name: IV Saline Lock; Complete Time: 15:11 ec2 11/04 13:41 Order name: Labs collected and sent; Complete Time: 15:11 ec2 11/04 13:41 Order name: O2 Per Protocol; Complete Time: 15:11 ec2 11/04 13:41 Order name: O2 Sat Monitoring; Complete Time: 15:11 ec2 Administered Medications: 14:31 Drug: Magnesium Sulfate IVPB 2 grams IVPB once over 30 mins Route: IVPB; Infused Over: me1 30 mins; Site: right antecubital; 15:17 Follow up: Response: No adverse reaction; IV Status: Completed infusion me1 14:32 Drug: NS 0.9% IV 1000 ml IV at 1 bolus Per protocol; 1000 mL bolus Route: IV; Rate: 1 me1 bolus; Site: right antecubital; 17:07 Follow up: IV Status: Completed infusion; IV Intake: 1000ml me1 14:32 Drug: metoCLOPramide IVP 10 mg IVP once; over 1 to 2 minutes Route: IVP; Site: right me1 antecubital; 15:11 Follow up: Response: No adverse reaction me1 14:32 Drug: diphenhydrAMINE IVP 25 mg IVP once Route: IVP; Site: right antecubital; me1 15:11 Follow up: Response: No adverse reaction me1 Disposition Summary: 11/04/23 16:50 Discharge Ordered Notes: Location: Home ec2 Condition: Stable ec2 Problem: chronic ec2 Symptoms: have improved ec2 Diagnosis - Headache ec2 - Chest pain, unspecified ec2 - Essential (primary) hypertension ec2 Followup: ec2 - With: Private Physician - When: - Reason: Recheck today's complaints Discharge Instructions: - Discharge Summary Sheet ec2 - Nonspecific Chest Pain, Adult ec2 Forms: - Medication Reconciliation Form ec2 - Thank You Letter ec2 - Antibiotic Education ec2 - Prescription Opioid Use ec2 - Patient Portal Instructions ec2 - Leadership Thank You Letter ec2 Signatures: Dispatcher [employer] Liana Chu RN RN Kiah Hummel RN RN me1 Shaggy Mejia MD MD ec2 Corrections: (The following items were deleted from the chart) 13:44 13:42 Patient arrives today for evaluation of lightheadedness and metabolic blood ec2 pressure. ec2 13:45 13:42 Patient arrives today for evaluation of lightheadedness and elevated blood ec2 pressure. Patient reports that he has been told to keep his blood pressure under control, unclear what the parameters would be, states that he has been checking it and noted it to be elevated greater than 180. Patient reports no chest pain and is new. Reports a chronic chest pain that is unchanged from his baseline. Patient reports that he also has some lightheadedness, denies any difficulty breathing, denies any syncopal episodes, denies any head injuries or trauma. Patient reports that he is on lisinopril as well as carvedilol for blood pressure management.. ec2 13:45 13:42 Patient arrives today for evaluation of lightheadedness and elevated blood ec2 pressure. Patient reports that he has been told to keep his blood pressure under control, unclear what the parameters would be, states that he has been checking it and noted it to be elevated greater than 180. Patient reports no chest pain and is new. Reports a chronic chest pain that is unchanged from his baseline. Patient reports that he also has some lightheadedness, denies any difficulty breathing, denies any syncopal episodes, denies any head injuries or trauma. Patient reports that he is on lisinopril as well as carvedilol for blood pressure management. Patient does have a history of a stroke in the past, has residual left-sided deficits that are his baseline.. ec2 16:17 13:42 Patient arrives today for evaluation of lightheadedness and elevated blood ec2 pressure. Patient reports that he has been told to keep his blood pressure under control, unclear what the parameters would be, states that he has been checking it and noted it to be elevated greater than 180. Patient reports no chest pain and is new. Reports a chronic chest pain that is unchanged from his baseline. Patient reports that he also has some lightheadedness, denies any difficulty breathing, denies any syncopal episodes, denies any head injuries or trauma. Patient reports that he is on lisinopril as well as carvedilol for blood pressure management. Patient does have a history of a stroke in the past, has residual left-sided deficits that are his baseline. Patient also with complaint of a headache.. ec2 16:49 16:17 ED course: On reassessment patient reports worsening chest pain, states that this ec2 is different than his baseline.. ec2
--- NOTE | 2023-11-04 16:51 | ER ---
Nurse's Notes [facility] Name: Agustín Camacho Age: 63 yrs Sex: Male : 1960 Arrival Date: 11/04/2023 Time: 13:22 Bed 20 Private MD: Diagnosis: Headache;Chest pain, unspecified;Essential (primary) hypertension Presentation: 11/04 13:27 Chief complaint: Patient states: had extreme high BP at home and was very dizzy, iw started at 0530 this morning, they called an EMS bc of the dizziness, takes carvedilol and lisinopril and has taken double the dose today trying to get his pressure down, BP at home was 195/105. Coronavirus screen: At this time, the client does not indicate any symptoms associated with coronavirus-19. Ebola Screen: Patient negative for fever greater than or equal to 101.5 degrees Fahrenheit, and additional compatible Ebola Virus Disease symptoms Patient denies exposure to infectious person. Patient denies travel to an Ebola-affected area in the 21 days before illness onset. No symptoms or risks identified at this time. Initial Sepsis Screen: Does the patient meet any 2 criteria? No. Patient's initial sepsis screen is negative. Does the patient have a suspected source of infection? No. Patient's initial sepsis screen is negative. Risk Assessment: Do you want to hurt yourself or someone else? Patient reports no desire to harm self or others. Onset of symptoms was November 04, 2023. 13:27 Method Of Arrival: Wheelchair iw 13:27 Acuity: BEVERLY 3 iw Historical: - Allergies: 13:30 NKA; iw - PMHx: 13:30 AAA; ADD/ADHD; Anxiety; CVA; Hernia; Hernia; High Cholesterol; Hypertension; Prostate iw Cancer; - PSHx: 13:30 Cholecystectomy; prostate removal; right knee revision; right knee revision; roator iw cuff repair right; umbilical hernia repair; - Immunization history:: Adult Immunizations. - Social history:: Smoking status: Patient reports the use of cigarette tobacco products, smokes one pack cigarettes per day. Screenin:53 [facility] ED Fall Risk Assessment (Adult) History of falling in the last 3 months, me1 including since admission No falls in past 3 months (0 pts) Confusion or Disorientation No (0 pts) Intoxicated or Sedated No (0 pts) Impaired Gait No (0 pts) Mobility Assist Device Used No (0 pt) Altered Elimination No (0 pt) Score/Fall Risk Level 0 - 2 = Low Risk Maintained a safe environment, Provided non-skid footwear, Hourly rounding (assess needs \T\ fall precautionary measures) done. Abuse screen: Denies threats or abuse. Nutritional screening: No deficits noted. Tuberculosis screening: No symptoms or risk factors identified. Assessment: 15:52 General: Appears uncomfortable, well groomed, well developed, well nourished, Behavior me1 is calm, cooperative, appropriate for age, Reports. 15:53 General: Reports had extreme high BP at home and was very dizzy, started at 0530 this me1 morning, they called an EMS bc of the dizziness, takes carvedilol and lisinopril and has taken double the dose today trying to get his pressure down, BP at home was 195/105. Pain: Complains of pain in head Pain does not radiate. Pain currently is 4 out of 10 on a pain scale. Quality of pain is described as aching, Pain began gradually, Is continuous. Neuro: Level of Consciousness is awake, alert, obeys commands, Oriented to person, place, time, situation, Appropriate for age Reports dizziness, since 05:30 headache since 05:30. Cardiovascular: Capillary refill < 3 seconds Patient's skin is warm and dry. Respiratory: Airway is patent Respiratory effort is even, unlabored, Respiratory pattern is regular, symmetrical. Vital Signs: 13:27 BP 170 / 97; Pulse 50; Resp 16; Temp 98.2; Pulse Ox 99% on R/A; Weight 76.2 kg; Height iw 5 ft. 8 in. ; Pain /; 14:09 BP 162 / 95; Pulse 50; Resp 17; Pulse Ox 95% on R/A; me1 15:43 BP 168 / 94; Pulse 47; Resp 18; Pulse Ox 95% on R/A; me1 16:00 BP 160 / 95; Pulse 54; Resp 18; Pulse Ox 98% on R/A; me1 16:45 BP 166 / 89; Pulse 48; Resp 18; Pulse Ox 98% on R/A; me1 13:27 Body Mass Index 25.54 (76.20 kg, 172.72 cm) iw 13:27 Pain Scale: Adult iw ED Course: 13:27 Patient arrived in ED. ll1 13:28 Shaggy Mejia MD is Attending Physician. ec2 13:30 Triage completed. iw 13:57 Kiah Hummel, RN is Primary Nurse. me1 14:11 CT Head Brain wo Cont In Process Unspecified. EDMS 14:22 XRAY Chest (1 view) In Process Unspecified. EDMS 14:31 Inserted saline lock: 20 gauge in right antecubital area, using aseptic technique. me1 15:53 No provider procedures requiring assistance completed. me1 15:53 Patient has correct armband on for positive identification. Bed in low position. Call me1 light in reach. Side rails up X 1. Provided Education on: POC. Verbalized understanding. . 15:57 Arm band placed on Patient placed in an exam room. me1 17:06 IV discontinued, intact, bleeding controlled, No redness/swelling at site. Pressure me1 dressing applied. Administered Medications: 14:31 Drug: Magnesium Sulfate IVPB 2 grams IVPB once over 30 mins Route: IVPB; Infused Over: me1 30 mins; Site: right antecubital; 15:17 Follow up: Response: No adverse reaction; IV Status: Completed infusion me1 14:32 Drug: NS 0.9% IV 1000 ml IV at 1 bolus Per protocol; 1000 mL bolus Route: IV; Rate: 1 me1 bolus; Site: right antecubital; 17:07 Follow up: IV Status: Completed infusion; IV Intake: 1000ml me1 14:32 Drug: metoCLOPramide IVP 10 mg IVP once; over 1 to 2 minutes Route: IVP; Site: right me1 antecubital; 15:11 Follow up: Response: No adverse reaction me1 14:32 Drug: diphenhydrAMINE IVP 25 mg IVP once Route: IVP; Site: right antecubital; me1 15:11 Follow up: Response: No adverse reaction me1 Medication: 15:53 VIS not applicable for this client. me1 Intake: 17:07 IV: 1000ml; Total: 1000ml. me1 Outcome: 16:50 Discharge ordered by MD. ec2 17:06 Discharged to home ambulatory, with family, me1 17:06 Condition: stable 17:06 Discharge instructions given to patient, family, Instructed on discharge instructions, follow up and referral plans. Demonstrated understanding of instructions, follow-up care, 17:07 Patient left the ED. me1 Signatures: Dispatcher [employer] Liana Chu RN RN Reza Young RN RN 1 Kiah Hummel RN RN wy1 Shaggy Mejia MD MD ec2 Corrections: (The following items were deleted from the chart) 15:52 13:27 Chief complaint: Patient states: had extreme high BP at home and was very dizzy, me1 started at 0530 this morning, they called an EMS bc of the dizziness, takes carvedilol and lisinopril and has taken double the dose today trying to get his pressure down, BP at home was 195/105 15:53 13:27 Chief complaint: Patient states: had extreme high BP at home and was very dizzy, me1 started at 0530 this morning, they called an EMS bc of the dizziness, takes carvedilol and lisinopril and has taken double the dose today trying to get his pressure down, BP at home was 195/105 [facility] 16:55 14:09 BP 168 / 94; Pulse 47bpm; Resp 18bpm; Pulse Ox 95% RA; me1 wy1
[2023-11-04 19:47] VITALS: TEMP 98.2
[2023-11-04 19:54] VITALS: BP 166/89; O2SAT 98
--- NOTE | 2023-11-06 13:27 | EKG ---
Test Date: 2023-11-04 Test Time: 14:00:51 Regulatory Affairs Assistant: KODAK MEASUREMENT RESULTS: Intervals: Rate: 45 ME: 130 QRSD: 84 QT: 480 QTc: 415 Bird In Hand: P: 68 ME: 130 QRS: 47 T: 41 INTERPRETIVE STATEMENTS: Marked sinus bradycardia Abnormal ECG Compared to ECG 03/19/2022 09:58:06 No significant changes Electronically Signed On 11-06-23 13:22:29 SENIOR SOURCING MANAGER by Ayad Yung
== END ==
LOC: ER 13:22
DX: R51.9 Headache, unspecified (principal); R07.9 Chest pain, unspecified; I10 Essential (primary) hypertension; F17.210 Nicotine dependence, cigarettes, uncomplicated; Z85.46 Personal history of malignant neoplasm of prostate
CPT/HCPCS: 96365; 96361; 93005; 85025; 80048; 36415; 84484; 70450; 71045; 96375; 99284; J3475; J2765; J1200; J7030

== ENCOUNTER → 2023-12-24 | Emergency (ER) | payer OTHER ==
[~2023-12-24] MED LIST changes: +ASPIRIN 81 MG CHEWABLE TABLET ONE; -DIPHENHYDRAMINE 50 MG/ML VIAL ONE; -METOCLOPRAMIDE 10 MG/2mL INJ ONE; -Magnesium Sulfate 2gm IVPB 2 G/50 ML BAG IV ONE; -NA CHLORIDE 0.9% 1,000 ML ONE
--- OUTSIDE RECORDS SUMMARY | 2023-12-24 21:06 | XMS REPORT | Continuity of Care Document ---
Author Name Unknown Address [address] [facility] [address] [place] [address] [facility] Address [address] [facility] [address] [place] [address] Care Team Providers Care Corporate Risk Analyst Name Role Phone Alexandrea Banegas Primary Care Physician Vega Macedo MD Attending Clinician [phone] Rolly Araya MD Attending Clinician [phone] Mikki Jiménez MA Attending Clinician UnavailShaggy Jurado Attending Clinician [phone] Payers Payer Name Policy Type Policy Number Effective Date Expirati on Date Source [employer] [id number] 2020 00:00:00 2020 00:00:00 Problems Condition Name [...] vicular joint Disease Active 17 00:00: 00 [facility]ential hypertensi on Essential hypertensi on Disease Active 2017-11 006 00:00: 00 [facility] 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 Disease Active 2017-11 0 00:00: 00 [facility] Chest pain Chest pain Disease Active 2017-11 004 00:00: 00 [facility] Social History Social Habit Start Date Stop Date Quantity Comments Source Sexual orientation [facility] History of tobacco use Cigarette Smoker [facility] History of Social function 2023-05-27 00:00:00 2023-05-27 00:00:00 [facility] Alcohol intake 2023-05-27 00:00:00 2023-05-27 00:00:00 Current drinker of alcohol (finding) [facility] Exposure to SARS-CoV-2 (event) 2022-02-24 00:00:00 2022-03-26 14:58:00 Not sure [facility] Cigarettes smoked current (pack per day) - Reported 2022-02-28 00:00:00 2022-02-28 00:00:00 [facility] Tobacco use and exposure 2022-02-28 00:00:00 2022-02-28 00:00:00 Smokeless tobacco non-user [facility] Cigarette pack-years 2022-02-28 00:00:00 2022-02-28 00:00:00 [facility] Alcohol Comment 2018-08-13 00:00:00 2018-08-13 00:00:00 Occasional [facility] Sex Assigned At 1960 00:00:00 1960 00:00:00 [facility] Smoking Status Start Date Stop Date Source Heavy tobacco smoker 2022-02-28 00:00:00 [facility] Current every day smoker 2019-07-02 00:00:00 [facility] Medications Ordered Medication Name Filled Medication Name Start Date Stop Date Current Medication? Ordering Clinician Indication Dosage Frequency Signature (SIG) Comments Components Source lidocaine (Xylocaine) 1 % injection 1 mL 07-15 13:00: 00 07-15 13:00 :00 No [id number] 1mL [facility] betamethaso ne acetate-bet amethasone sodium phosphate (Celestone) injection 1 mg 07-15 13:00: 00 07-15 13:00 :00 No [id number] 1mg [facility] betamethaso ne acetate-bet amethasone sodium phosphate (Celestone) injection 1 mg 07-15 13:00: 00 07-15 13:00 :00 No [id number] 1mg 1 mg, Intra-tatianna cular, Once PRN Procedure, Starting on Fri07/15/23 at 0800, For 1 dose [facility] lidocaine (Xylocaine) 1 % injection 1 mL 07-15 13:00: 00 07-15 13:00 :00 No [id number] 1mL 1 mL, Injection, Once PRN Procedure, Starting on Fri07/15/23 at 0800, For 1 dose [facility] lidocaine (Xylocaine) 1 % injection 1 mL 07-15 13:00: 00 07-15 13:00 :00 No [id number] 1mL [facility] betamethaso ne acetate-bet amethasone sodium phosphate (Celestone) injection 1 mg 07-15 13:00: 00 07-15 13:00 :00 No [id number] 1mg [facility] betamethaso ne acetate-bet amethasone sodium phosphate (Celestone) injection 1 mg 07-15 13:00: 00 07-15 13:00 :00 No [id number] 1mg 1 mg, Intra-tatianna cular, Once PRN Procedure, Starting on Fri07/15/23 at 0800, For 1 dose [facility] lidocaine (Xylocaine) 1 % injection 1 mL 07-15 13:00: 00 07-15 13:00 :00 No [id number] 1mL 1 mL, Injection, Once PRN Procedure, Starting on Fri07/15/23 at 0800, For 1 dose [facility] meloxicam (Mobic) 15 MG tablet 7-18 00:00: 00 06-27 04:59 :00 No [id number] 82770 15mg QD Take 1 tablet (15 mg total) by mouth 1 (one) time each day. [facility] meloxicam (Mobic) 15 MG tablet 05-27 00:00: 00 06-27 04:59 :00 No [id number] 64012 15mg QD Take 1 tablet (15 mg total) by mouth 1 (one) time each day. [facility] cyclobenzap rine (Flexeril) 10 MG tablet 03-01 00:00: 00 Yes [id number] 273212 10mg Q.09038433 [id number] 3D Take 1 tablet (10 mg total) by mouth 3 (three) times a day if needed for muscle spasms for up to 10 days. [facility] cyclobenzap rine (Flexeril) 10 MG tablet 03-01 00:00: 00 Yes [id number] 532464 10mg Q.49141929 [id number] 3D Take 1 tablet (10 mg total) by mouth 3 (three) times a day if needed for muscle spasms for up to 10 days. [facility] cyclobenzap rine (Flexeril) 10 MG tablet 03-01 00:00: 00 Yes [id number] 10mg Q.15712733 [id number] 3D Take 1 tablet (10 mg total) by mouth 3 (three) times a day if needed for muscle spasms for up to 10 days. [facility] cyclobenzap rine (Flexeril) 10 MG tablet 03-01 00:00: 00 Yes [id number] 676377 10mg Q.98447848 [id number] 3D Take 1 tablet (10 mg total) by mouth 3 (three) times a day if needed for muscle spasms for up to 10 days. [facility] cyclobenzap rine (Flexeril) 10 MG tablet 03-01 00:00: 00 Yes [id number] 10mg Q.57556023 [id number] 3D Take 1 tablet (10 mg total) by mouth 3 (three) times a day if needed for muscle spasms for up to 10 days. [facility] cyclobenzap rine (Flexeril) 10 MG tablet 03-01 00:00: 00 Yes [id number] 10mg Q.18734268 [id number] 3D Take 1 tablet (10 mg total) by mouth 3 (three) times a day if needed for muscle spasms for up to 10 days. [facility] cyclobenzap rine (Flexeril) 10 MG tablet 03-01 00:00: 00 Yes [id number] 693638 10mg Q.96466173 [id number] 3D Take 1 tablet (10 mg total) by mouth 3 (three) times a day if needed for muscle spasms for up to 10 days. [facility] naloxone (Narcan) 2 MG/2ML injection 03-01 00:00: 00 03-02 04:59 :00 No [id number] 555465 .4mg Administer 0.4 mL (0.4 mg total) into affected nostril(s) if needed for opioid reversal. May repeat every 2-3 minutes as needed until medical assistance available. [facility] naloxone (Narcan) 2 MG/2ML injection 03-01 00:00: 00 03-02 04:59 :00 No [id number] 881098 .4mg Administer 0.4 mL (0.4 mg total) into affected nostril(s) if needed for opioid reversal. May repeat every 2-3 minutes as needed until medical assistance available. [facility] traMADol (Ultram) 50 MG tablet 03-01 00:00: 00 03-12 04:59 :00 No [id number] 666662 50mg Q6H Take 1 tablet (50 mg total) by mouth every 6 (six) hours if needed for severe pain for up to 10 days. [facility] cyclobenzap rine (Flexeril) 10 MG tablet 03-01 00:00: 00 03-12 04:59 :00 No [id number] 10mg Q.54984311 [id number] 3D Take 1 tablet (10 mg total) by mouth 3 (three) times a day if needed for muscle spasms for up to 10 days. [facility] aspirin 81 MG chewable tablet 02-28 10:40: 31 Yes 81mg Chew 81 mg. [facility] aspirin 81 MG chewable tablet 02-28 10:40: 31 Yes 81mg Chew 81 mg. [facility] aspirin 81 MG chewable tablet 02-28 10:40: 31 Yes 81mg Chew 81 mg. [facility] aspirin 81 MG chewable tablet 02-28 10:40: 31 Yes 81mg Chew 81 mg. [facility] aspirin 81 MG chewable tablet 02-28 10:40: 31 Yes 81mg Chew 81 mg. [facility] aspirin 81 MG chewable tablet 02-28 10:40: 31 Yes 81mg Chew 81 mg. [facility] aspirin 81 MG chewable tablet 02-28 10:40: 31 Yes 81mg Chew 81 mg. [facility] aspirin 81 MG chewable tablet 02-28 10:40: 31 Yes 81mg Chew 81 mg. [facility] citalopram (CeleXA) 20 MG tablet 02-28 10:40: 30 Yes 20mg Take 20 mg by mouth. [facility] citalopram (CeleXA) 20 MG tablet 02-28 10:40: 30 Yes 20mg Take 20 mg by mouth. [facility] citalopram (CeleXA) 20 MG tablet 02-28 10:40: 30 Yes 20mg Take 20 mg by mouth. [facility] citalopram (CeleXA) 20 MG tablet 02-28 10:40: 30 Yes 20mg Take 20 mg by mouth. [facility] citalopram (CeleXA) 20 MG tablet 02-28 10:40: 30 Yes 20mg Take 20 mg by mouth. [facility] citalopram (CeleXA) 20 MG tablet 02-28 10:40: 30 Yes 20mg Take 20 mg by mouth. [facility] citalopram (CeleXA) 20 MG tablet 02-28 10:40: 30 Yes 20mg Take 20 mg by mouth. [facility] citalopram (CeleXA) 20 MG tablet 02-28 10:40: 30 Yes 20mg Take 20 mg by mouth. [facility] propranolol (Inderal) 10 MG tablet 02-11 00:00: 00 Yes [facility] propranolol (Inderal) 10 MG tablet 02-11 00:00: 00 Yes [facility] propranolol (Inderal) 10 MG tablet 02-11 00:00: 00 Yes [facility] propranolol (Inderal) 10 MG tablet 02-11 00:00: 00 Yes [facility] propranolol (Inderal) 10 MG tablet 02-11 00:00: 00 Yes [facility] propranolol (Inderal) 10 MG tablet 02-11 00:00: 00 Yes [facility] propranolol (Inderal) 10 MG tablet 02-11 00:00: 00 Yes [facility] propranolol (Inderal) 10 MG tablet 02-11 00:00: 00 Yes [facility] gabapentin (Neurontin) 600 MG tablet 07-21 00:00: 00 Yes [facility] gabapentin (Neurontin) 600 MG tablet 07-21 00:00: 00 Yes [facility] gabapentin (Neurontin) 600 MG tablet 07-21 00:00: 00 Yes [facility] gabapentin (Neurontin) 600 MG tablet 07-21 00:00: 00 Yes [facility] gabapentin (Neurontin) 600 MG tablet 0 07-21 00:00: 00 Yes [facility] gabapentin (Neurontin) 600 MG tablet 07-21 00:00: 00 Yes [facility] gabapentin (Neurontin) 600 MG tablet 07-21 00:00: 00 Yes [facility] gabapentin (Neurontin) 600 MG tablet 07-21 00:00: 00 Yes [facility] iohexol (OMNIPAQUE 350 BULK-100 mL) injection 120 mL 07-03 02:45: 00 07-03 02:23 :00 No 120mL 120 mL, Intravenou s, ONCE, 1 dose, Fri07/02/19 at 2145, Routine [facility] aspirin 81 mg chewable tablet 2017-11 17:44: 42 Yes 81mg Take 81 mg by mouth daily. [facility] propranolol 10 mg tablet 2017-11 17:44: 42 Yes 10mg Take 10 mg by mouth 2 (two) times daily. [facility] citalopram 20 mg tablet 2017-11 17:44: 42 Yes 20mg Take 20 mg by mouth daily. [facility] omeprazole 40 mg capsule 2017- 17:44: 42 Yes 40mg Take 40 mg by mouth 2 (two) times daily. [facility] Vital Signs Vital Name Observation Time Observation Value Comments Lakisha wright Body height 2023-05-27 20:27:00 175.3 [facility] Body weight 2023-05-27 20:27:00 78.926 [facility] BMI 2023-05-27 20:27:00 [facility] 2022-02-28 15:39:00 [facility] weight 2022-02-28 15:39:00 78.926 kg [facility] BMI 2022-02-28 15:39:00 25.70 kg/m2 [facility] Systolic blood pressure 2019-07-03 02:00:00 142 mm[Hg] [facility] Diastolic blood pressure 2019-07-03 02:00:00 92 mm[Hg] [facility] Heart rate 2019-07-03 02:00:00 80 /min [facility] Respiratory rate 2019-07-03 02:00:00 18 /min [facility] Oxygen saturation in Arterial blood by Pulse oximetry 2019-07-03 02:00:00 98 /min [facility] Body temperature 2019-07-02 23:41:00 36.83 Seema [facility] Body height 2019-07-02 23:41:00 175.3 cm [facility] Body weight 2019-07-02 23:41:00 79.379 kg [facility] BMI 2019-07-02 23:41:00 25.84 kg/m2 [facility] Systolic blood pressure 2019-07-03 02:00:00 142 mm[Hg] [facility] Diastolic blood pressure 2019-07-03 02:00:00 92 mm[Hg] [facility] Heart rate 2019-07-03 02:00:00 80 /min [facility] Respiratory rate 2019-07-03 02:00:00 18 /min [facility] Oxygen saturation in Arterial blood by Pulse oximetry 2019-07-03 02:00:00 98 /min Geronimo o [facility] Body temperature 2019-07-02 23:41:00 36.83 Seema [facility] Body height 2019-07-02 23:41:00 175.3 cm [facility] Body weight 2019-07-02 23:41:00 79.379 kg [facility] BMI 2019-07-02 23:41:00 25.84 kg/m2 [facility] Procedures Procedure Date / Time Performed Performing Clinician Source DE INJECT TENDON SHEATH/LIGAMENT 2023-07-15 13:00:00 [facility] DE INJECT TENDON SHEATH/LIGAMENT 2023-07-15 [facility] ABDOMEN PELVIS W CONTRAST 2019-07-03 02:30:21 Shaggy Gonzalez [facility] LIPASE 2019-07-03 01:59:00 Sheyla Gao [facility] COMP. METABOLIC PANEL (77592) 2019-07-03 01:59:00 Sheyla Gao [facility] CBC WITH DIFFERENTIAL 2019-07-03 01:59:00 Sa cadence Gao [facility] URINALYSIS 2019-07-03 01:59:00 Sheyla Gao [facility] CONSENT/REFUSAL FOR DIAGNOSIS AND TREATMENT 2019-07-02 23:33:31 Doctor Unassigned, Butters [facility] Encounters Start Date/Time End Date/Time Encounter Type Admission Type Attending Clinicians Care Facility Care Department Encounter ID Source 2023-05-27 15:08:50 Outpatient [facility] [id number] [facility] 2023-05-23 14:42:59 Outpatient [facility] [id number] [facility] 2023-05-22 09:33:41 Outpatient [facility] [id number] [facility] 2023-04-16 12:45:29 Outpatient [facility] [id number] [facility] 2023-03-12 09:15:57 Outpatient [facility] [id number] [facility] 2023-07-31 10:30:00 2023-07-31 11:34:02 Office Visit Vega Macedo [facility] [id number] [facility] 2023-07-24 14:15:00 2023-07-24 14:15:00 Outpatient VEGA MACEDO [facility] [id number] [facility] 2023-07-15 08:10:00 2023-07-15 09:05:23 Outpatient [facility] [id number] [facility] 2023-07-15 08:00:00 2023-07-15 09:04:59 Office Visit Rolly Araya [facility] 1 [id number] [id number] [id number] [facility] 2023-05-27 15:15:00 2023-05-27 16:42:25 Office Visit Vega Macedo [facility] 1 [id number] [id number] [id number] [facility] 2023-03-25 14:15:00 2023-03-25 14:15:00 Outpatient VEGA MACEDO [facility] [id number] [facility] 2022-03-26 15:30:00 2022-03-26 16:50:06 Office Visit Vega Macedo [facility] 1 [id number] [id number] [facility] 2022-03-04 00:00:00 2022-03-04 00:00:00 Kenneth TinoMikki snow Lindsay [facility] 1 [id number] [id number] [id number] [facility] 2022-02-28 10:00:00 2022-02-28 12:04:39 Office Visit Vega Macedo [facility] 1 [id number] [id number] [id number] [id number] [facility] 2019-07-02 20:25:52 2019-07-02 22:21:00 Emergency Shaggy Gonzalez [facility] [id number] [id number] [id number] [id number] 2019-07-02 20:25:52 2019-07-02 22:21:00 Emergency Shaggy Gonzalez [facility] [id number] [id number] [id number] [id number] [facility] Results Test Description Test Time Test Comments Results Result Co mments [facility] [id number] 02:18:00* Test Item Value Reference Range Interpretation Comme nts NA (test code = 3034143779) 143 mmol/L 135-145 K (test code = 7292943270) 4.3 mmol/L 3.5-5 CL (test code = 5353271774) 110 mmol/L 98-108 H CO2 TOTAL (test code = 0060130779) 19 mmol/L 23-31 L AGAP (test code = 5136796256) 2-16 BUN (test code = 3721193411) 6 mg/dL 7-23 L GLUCOSE (test code = 4735150512) 73 mg/dL 70-110 CREATININE (test code = 6646983541) 0.62 mg/dL 0.6-1.25 TOTAL BILI (test code = 5423759189) 0.4 mg/dL 0.1-1.1 CALCIUM (test code = 0926220011) 8.9 mg/dL 8.6-10.6 T PROTEIN (test code = 4531895707) 7.6 g/dL 6.3-8.2 ALBUMIN (test code = 6289657696) 4.4 g/dL 3.5-5 ALK PHOS (test code = 2337231861) 114 U/L 34-122 ALT(SGPT) (test code = 6230651256) 60 U/L 9-51 H AST(SGOT) (test code = 6883113538) 26 U/L 13-40 eGFR Calculation (Non-) (test code = 3318840822) mL/min/1.73m2 eGFR Calculation () (test code = 7172931693) mL/min/1.73m2 THOMAS (test code = THOMAS) Association [...] imaging tests). Lab Interpretation (test code = 45865-1) Abnormal [facility] [id number] 02:16:00* Test Item Value Reference Range Interpretation Comme nts APPEARANCE (test code = 2542745718) Clear Clear COLOR (test code = 1188144873) Yellow Yellow PH (test code = 7865584146) 4.8-8.0 SP GRAVITY (test code = 3830692912) <=1.005 1.003-1.030 GLU U QUAL (test code = 2744758235) Negative Negative BLOOD (test code = 7034781907) Negative Negative KETONES (test code = 8006071520) Negative Negative PROTEIN (test code = 2887-8) Negative Negative UROBILIN (test code = 0448294478) 0.2 mg/dL See_Comment [Automated messa ge] The system which generated this result transmitted reference range: 0-1.0 mg/dL. The reference range was not used to interpret this result as normal/abnormal. BILIRUBIN (test code = 9922161401) Negative Negative NITRITE (test code = 4502265169) Negative Negative LEUK HARSHA (test code = 0478151363) Negative Negative RBC/HPF (test code = 4550775621) See_Comment [Automated messa ge] The system which generated this result transmitted reference range: 0 - 3 HPF. The reference range was not used to interpret this result as normal/abnormal. WBC/HPF (test code = 5169105692) See_Comment [Automated messa ge] The system which generated this result transmitted reference range: 0 - 5 HPF. The reference range was not used to interpret this result as normal/abnormal. BACTERIA (test code = 7909569381) Negative Negative Lab Interpretation (test code = 29368-4) Normal [facility] WITH [id number] 02:07:00* Test Item Value Reference Range Interpretation [...] 34.5 g/dL 31.2-35 RDW-SD (test code = 33406-0) 45.6 fL 38.5-51.6 RDW-CV (test code = 788-0) 13.4 % 12.1-15.4 PLT (test code = 777-3) See_Comment [Automated messa ge] The system which generated this result transmitted reference range: 150 - 328 10*3/?L. The reference range was not used to interpret this result as normal/abnormal. MPV (test code = 86422-2) 9.8 fL 9.8-13 NRBC/100 WBC (test code = 3297353615) See_Comment [Automated [employer] ssage] The system which generated this result transmitted reference range: 0.0 - 10.0 /100 WBCs. The reference range was not used to interpret this result as normal/abnormal. NRBC x10^3 (test code = 6054239069) <0.01 See_Comment [Automated [employer] ge] The system which generated this result transmitted reference range: 10*3/?L. The reference range was not used to interpret this result as normal/abnormal. GRAN MAT (NEUT) % (test code = 770-8) 60.9 % IMM GRAN % (test code = 7931353633) 0.40 % LYMPH % (test code = 736-9) 31.2 % MONO % (test code = 5905-5) 4.9 % EOS % (test code = 713-8) 2.0 % BASO % (test code = 706-2) 0.6 % GRAN MAT x10^3(ANC) (test code = 2310560404) 6.66 10*3/uL 1.99-6.95 IMM GRAN x10^3 (test code = 0986389455) 0.04 10*3/uL 0-0.06 LYMPH x10^3 (test code = 731-0) 3.41 10*3/uL 1.09-3.23 H MONO x10^3 (test code = 742-7) 0.54 10*3/uL 0.36-1.02 EOS x10^3 (test code = 711-2) 0.22 10*3/uL 0.06-0.53 BASO x10^3 (test code = 704-7) 0.07 10*3/uL 0.01-0.09 Lab Interpretation (test code = 28641-0) Abnormal [facility]"
[2023-12-24 21:37] LABS: Absolute Lymphocytes (CBC) 2.4 K/uL (0.7-4.9); Hematocrit 38.3 % (39.6-49.0); MCV 93.2 fL (80-100); Platelets 186 thou/uL (152-406); RBC Red Blood Cell Count 4.11 M/uL (4.33-5.43)
[2023-12-24 21:39] LABS: Protime INR 0.94
--- NOTE | 2023-12-24 21:52 | RAD REPORT ---
EXAM DESCRIPTION: RAD - Chest Single View - 12/24/2023 9:45 pm CLINICAL HISTORY: CHEST PAIN Chest pain. COMPARISON: <Comparisons> FINDINGS: Portable technique limits examination quality. Mild interstitial pulmonary edema. The heart is mildly enlarged in size. No displaced fractures. IMPRESSION: Mild CHF.
[2023-12-24 22:21] LABS: ALT/SGPT 65 U/L (16-61); AST/SGOT 35 U/L (15-37); Albumin 3.4 g/dL (3.4-5.0); Alkaline Phosphatase 64 U/L (45-117); BUN Blood Urea Nitrogen 7 mg/dL (7-18); Bicarbonate 25 mEq/L (21-32); Bilirubin Direct 0.3 mg/dL (0-0.2); Bilirubin Indirect, Calculated 0.9 mg/dL (0.2-0.8); Bilirubin Total 1.2 mg/dL (0.2-1.0); Glomerular Filtration Rate 86 ml/min (=/>90); Glucose Level 79 mg/dL (74-106); NT PRO-BNP 89 pg/mL (<125); Potassium 3.8 mEq/L (3.5-5.1); Protein, Total 6.3 g/dL (6.4-8.2); Sodium Level 131 mEq/L (136-145); Thyroid Stimulating Hormone 0.934 uIU/mL (0.358-3.740); Troponin High Sensitivity 6.6 pg/mL (<58.9)
[2023-12-24 22:26] LABS: C-Reactive Protein < 2.90 mg/L (<3.00)
--- NOTE | 2023-12-25 01:31 | ER ---
Nurse's Notes [facility] Name: Agustín Camacho Age: 63 yrs Sex: Male : 1960 Arrival Date: 12/24/2023 Time: 21:03 Bed 2 Private MD: Diagnosis: Chest pain, unspecified;Non cardiac chest pain Presentation: 12/24 21:11 Chief complaint: EMS states: PT COMPLAINING OF LEFT ANT CHEST WALL PAIN, PRESSURE LIKE. rv2 DENIES SOB. WITH DEFICIT ON THE LEFT SIDE FROM PREVIOUS STROKE, VERY SENSITIVE TO TOUCH. CHRONIC PAIN ON THE LEFT SIDE. Coronavirus screen: At this time, the client does not indicate any symptoms associated with coronavirus-19. Ebola Screen: No symptoms or risks identified at this time. Initial Sepsis Screen: Does the patient meet any 2 criteria? No. Patient's initial sepsis screen is negative. Does the patient have a suspected source of infection? No. Patient's initial sepsis screen is negative. Risk Assessment: Do you want to hurt yourself or someone else? Patient reports no desire to harm self or others. Onset of symptoms was December 24, 2023. 21:11 Method Of Arrival: EMS: [facility] rv2 21:11 Acuity: BEVERLY 2 rv2 Triage Assessment: 21:13 General: Appears comfortable, Behavior is calm, cooperative. Pain: Complains of pain in rv2 chest. Neuro: Level of Consciousness is awake, alert, obeys commands, Oriented to person, place, time, situation. Cardiovascular: Capillary refill < 3 seconds Patient's skin is warm and dry. Cardiovascular: Reports chest pain, nausea, Rhythm is sinus bradycardia. Respiratory: Airway is patent Respiratory effort is even, unlabored. GI: Abdomen is flat, non-distended, Reports nausea. : No signs and/or symptoms were reported regarding the genitourinary system. Derm: Skin is intact. Historical: - Allergies: 21:13 NKA; rv2 - PMHx: 21:13 AAA; ADD/ADHD; Anxiety; CVA; Hernia; High Cholesterol; Hypertension; Prostate Cancer; rv2 - PSHx: 21:13 Cholecystectomy; prostate removal; right knee revision; roator cuff repair right; rv2 umbilical hernia repair; - Immunization history:: Adult Immunizations up to date. - Social history:: Smoking status: Patient denies any tobacco usage or history of. Screenin:15 [facility] ED Fall Risk Assessment (Adult) History of falling in the last 3 months, rv2 including since admission No falls in past 3 months (0 pts) Impaired Gait Yes (1 pt) Score/Fall Risk Level 3 or more points = High Risk Oriented to surroundings, Maintained a safe environment, Educated pt \T\ family on fall prevention, incl call for assistance when getting out of bed, Assessed \T\ reinforced patient's understanding of fall precautions. Abuse screen: Denies threats or abuse. Denies injuries from another. Nutritional screening: No deficits noted. Tuberculosis screening: No symptoms or risk factors identified. Assessment: 22:52 Reassessment: Patient appears in no apparent distress at this time. No changes from km8 previously documented assessment. Patient and/or family updated on plan of care and expected duration. Pain level reassessed. Patient is alert, oriented x 3, equal unlabored respirations, skin warm/dry/pink. Vital Signs: 21:07 BP 115 / 68; Pulse 56; Resp 18; Temp 97.5; Pulse Ox 98% on R/A; as9 21:11 BP 109 / 72; Pulse 56; Resp 18; Temp 98; Pulse Ox 98% ; Weight 80.5 kg; Height 5 ft. 8 rv2 in. ; 21:30 BP 117 / 78; Pulse 58; Resp 18; Pulse Ox 97% on R/A; as9 22:00 BP 120 / 79; Pulse 58; Resp 19; Pulse Ox 96% on R/A; as9 22:30 BP 118 / 71; Pulse 55; Resp 17; Pulse Ox 97% on R/A; as9 23:00 BP 117 / 70; Pulse 58; Resp 18; Pulse Ox 96% on R/A; as9 23:30 BP 123 / 70; Pulse 55; Resp 18; Temp 97.5; Pulse Ox 96% on R/A; as9 15 00:30 BP 110 / 62; Pulse 61; Resp 18; Pulse Ox 97% on R/A; as9 01:15 BP 113 / 66; Pulse 60; Resp 18; Temp 98; Pulse Ox 97% on R/A; as9 12/24 21:11 Body Mass Index 26.98 (80.50 kg, 172.72 cm) rv2 [place] Coma Score: 01:32 Eye Response: spontaneous(4). Motor Response: obeys commands(6). Verbal Response: sp4 oriented(5). Total: 15. NIH Stroke Scale Scores: 01:32 NIHSS Score: 0 sp4 ED Course: 12/24 21:06 Patient arrived in ED. ty 21:06 Zheng Louis MD is Attending Physician. sp4 21:11 DIEGO NealII, Yann, RN is Primary Nurse. rv2 21:13 Triage completed. rv2 21:13 Arm band placed on right wrist. rv2 21:15 Patient has correct armband on for positive identification. Client placed on continuous rv2 cardiac and pulse oximetry monitoring. NIBP monitoring applied. monitoring engineer on. 21:15 Troponin HS Sent. km8 21:15 PT-INR Sent. km8 21:15 NT PRO-BNP Sent. km8 21:15 Magnesium Sent. km8 21:15 LFT's Sent. km8 21:15 CBC with Diff Sent. km8 21:15 Basic Metabolic Panel Sent. km8 21:15 TSH Sent. km8 21:15 No provider procedures requiring assistance completed. Maintain EMS IV. Dressing rv2 intact. Good blood return noted. Site clean \T\ dry. Gauge \T\ site: 18 RAC. 21:16 CRP Sent. km8 21:16 Alcohol Level Sent. km8 21:16 T4 Free Sent. km8 21:46 XRAY Chest (1 view) In Process Unspecified. EDMS 23:41 Troponin High Sensitivity Sent. vc1 12/25 01:30 Ayad Yung MD is Referral Physician. sp4 01:42 Provided Education on: discharge medication instruction given. as9 01:42 Patient did not have IV access during this emergency room visit. as9 Administered Medications: 12/24 21:22 Drug: Aspirin PO Chewable Tablet 324 mg PO once; 81 mg tablets x 4 Route: PO; km8 12/25 01:31 Follow up: Response: No adverse reaction as9 Medication: 12/24 21:15 VIS not applicable for this client. rv2 Outcome: 12/25 01:31 Discharge ordered by . sp4 01:41 Discharged to home ambulatory, as9 01:41 Condition: good 01:41 Discharge instructions given to patient, family, Instructed on discharge instructions, follow up and referral plans. medication usage, Demonstrated understanding of instructions, follow-up care, medications, 01:43 Patient left the ED. as9 NIH Stroke Scale - NIH Stroke Score Date: 12/25/2023 Time: 01:32 Total Score = 0 10. Dysarthria (speech clarity - read or repeat words) - 0(Normal) 11. Extinction and Inattention (visual/tactile/auditory/spatial/personal) - 0(No abnormality) 1a. Level of Consciousness (LOC) - 0(Alert) 1b. Level of Consciousness (LOC) (Month \T\ Age) - 0(Both) 1c. LOC Commands (Open \T\ Closes Eyes/Data Entry Operator) - 0(Both) 2. Best Gaze (Lateral Gaze Paresis) - 0(Normal) 3. Visual Field Loss - 0(No visual loss) 4. Facial Palsy - 0(Normal) 5a. Left Arm: Motor (10-second hold) - 0(No drift) 5b. Right Arm: Motor (10-second hold) - 0(No drift) 6a. Left Leg: Motor (5-second hold - always test supine) - 0(No drift) 6b. Right Leg: Motor (5-second hold - always test supine) - 0(No drift) 7. Limb Ataxia (finger/nose \T\ heel/rodney - test with eyes open) - 0(Absent) 8. Sensory Loss (pinprick arms/legs/face) - 0(Normal) 9. Best Language: Aphasia (description/naming/reading) - 0(No aphasia) Initials: sp4 Signatures: Dispatcher [employer] EDMS Krissy Castorena RN RN 1 Zheng Louis MD MD sp4 PEGGY Neal, Yann, RN RN rv2 Kathy Porter, RN RN km8 Rodney Zuleta Aaron, RN RN as9
--- NOTE | 2023-12-25 01:31 | EDPHYS ---
Physician Documentation [facility] Name: Agustín Camacho Age: 63 yrs Sex: Male : 1960 Arrival Date: 12/24/2023 Time: 21:03 Bed 2 Private MD: ED Physician Zheng Louis HPI: 12/24 21:07 This 63 yrs old Male presents to ER via Unassigned with complaints of chest sp4 pressure . Historical: - Allergies: 21:13 NKA; rv2 - PMHx: 21:13 AAA; ADD/ADHD; Anxiety; CVA; Hernia; High Cholesterol; Hypertension; Prostate Cancer; rv2 - PSHx: 21:13 Cholecystectomy; prostate removal; right knee revision; roator cuff repair right; rv2 umbilical hernia repair; - Immunization history:: Adult Immunizations up to date. - Social history:: Smoking status: Patient denies any tobacco usage or history of. ROS: 23:31 Constitutional: Negative for fever, chills, and weight loss, positive chest pressure sp4 23:31 All other systems are negative, Exam: 22:51 Constitutional: This is a well developed, well nourished patient who is awake, alert, sp4 and in no acute distress. Head/Face: Normocephalic, atraumatic. Eyes: Pupils equal round and reactive to light, extra-ocular motions intact. Lids and lashes normal. Conjunctiva and sclera are not injected. Cornea within normal limits. Periorbital areas with no swelling, redness, or edema. ENT: Nares patent. No nasal discharge, no septal abnormalities noted. Tympanic membranes are normal and external auditory canals are clear. Oropharynx with no redness, swelling, or masses, exudates, or evidence of obstruction, uvula midline. Mucous membranes moist. Neck: Trachea midline, no thyromegaly or masses palpated, and no cervical lymphadenopathy. Supple, full range of motion without nuchal rigidity, or vertebral point tenderness. Chest/axilla: Normal chest wall appearance and motion. Nontender with no deformity. No lesions are appreciated. Cardiovascular: Regular rate and rhythm with a normal S1 and S2. No gallops, murmurs, or rubs. Normal PMI, no JVD. No pulse deficits. Respiratory: Lungs have equal breath sounds bilaterally, clear to auscultation and percussion. No rales, rhonchi or wheezes noted. No increased work of breathing, no retractions or nasal flaring. Abdomen/GI: Soft, with normal bowel sounds. No distension or tympany. No guarding or rebound. No evidence of tenderness throughout. Back: No spinal tenderness. No costovertebral tenderness. Skin: Warm, dry with normal turgor. Normal color with no rashes, no lesions, and no evidence of cellulitis. MS/ Extremity: Pulses equal, no cyanosis. Neurovascular intact. Full, normal range of motion. Neuro: Awake and alert, GCS 15, oriented to person, place, time, and situation. Cranial nerves II-XII grossly intact. Motor strength 5/5 in all extremities. Sensory grossly intact. Psych: Awake, alert, with orientation to person, place and time. Behavior, mood, and affect are within normal limits 22:51 ECG was reviewed by the Attending Physician. 21:11 Sinus bradycardia Vital Signs: 21:07 BP 115 / 68; Pulse 56; Resp 18; Temp 97.5; Pulse Ox 98% on R/A; as9 21:11 BP 109 / 72; Pulse 56; Resp 18; Temp 98; Pulse Ox 98% ; Weight 80.5 kg; Height 5 ft. 8 rv2 in. ; 21:30 BP 117 / 78; Pulse 58; Resp 18; Pulse Ox 97% on R/A; as9 22:00 BP 120 / 79; Pulse 58; Resp 19; Pulse Ox 96% on R/A; as9 22:30 BP 118 / 71; Pulse 55; Resp 17; Pulse Ox 97% on R/A; as9 23:00 BP 117 / 70; Pulse 58; Resp 18; Pulse Ox 96% on R/A; as9 23:30 BP 123 / 70; Pulse 55; Resp 18; Temp 97.5; Pulse Ox 96% on R/A; as9 12/25 00:30 BP 110 / 62; Pulse 61; Resp 18; Pulse Ox 97% on R/A; as9 01:15 BP 113 / 66; Pulse 60; Resp 18; Temp 98; Pulse Ox 97% on R/A; as9 12/24 21:11 Body Mass Index 26.98 (80.50 kg, 172.72 cm) rv2 NIH Stroke Scale Scores: 01:32 NIHSS Score: 0 sp4 [place] Coma Score: 01:32 Eye Response: spontaneous(4). Motor Response: obeys commands(6). Verbal Response: sp4 oriented(5). Total: 15. MDM: 12/24 21:35 Patient medically screened. [facility] 12/25 01:32 Differential Diagnosis altered mental status, sepsis, flu, CAD, ACS . Data reviewed: sp4 vital signs, nurses notes, EMS record, lab test result(s), EKG, radiologic studies, plain films. Consideration of Admission/Observation Patient was admitted/placed on observation. Escalation of care including admission/observation considered. ED course: Patient has troponin x 2 negative, EKG has premature atrial contractions otherwise normal. Patient stable for discharge home. Will advise follow-up with cardiology in 7 to 14 days.. 12/24 21:06 Order name: Basic Metabolic Panel; Complete Time: 23:31 [facility] 12/24 21:06 Order name: CBC with Diff; Complete Time: 23:31 [facility] 12/24 21:06 Order name: LFT's; Complete Time: 23:31 4 12/24 21:06 Order name: Magnesium; Complete Time: 23:31 4 12/24 21:06 Order name: NT PRO-BNP; Complete Time: 23:31 4 12/24 21:06 Order name: PT-INR; Complete Time: 23:31 4 12/24 21:06 Order name: Troponin HS; Complete Time: 23:31 4 12/24 21:06 Order name: TSH; Complete Time: 23:31 [facility] 12/24 21:06 Order name: CRP; Complete Time: 23:31 4 12/24 21:06 Order name: Alcohol Level; Complete Time: 23:31 4 12/24 21:06 Order name: T4 Free; Complete Time: 23:31 4 12/24 23:31 Order name: Troponin High Sensitivity; Complete Time: 01:27 4 12/24 21:06 Order name: XRAY Chest (1 view); Complete Time: 23:31 4 12/24 21:06 Order name: EKG; Complete Time: 21:07 [facility] 12/24 21:06 Order name: Cardiac monitoring; Complete Time: 21:15 4 12/24 21:06 Order name: EKG - Nurse/Tech; Complete Time: 21:15 sp4 12/24 21:06 Order name: IV Saline Lock; Complete Time: 21:15 sp4 12/24 21:06 Order name: Labs collected and sent; Complete Time: :15 sp4 12/24 21:06 Order name: O2 Per Protocol; Complete Time: 21:15 sp4 12/24 21:06 Order name: O2 Sat Monitoring; Complete Time: :15 sp4 EC/14 22:51 Rate is 57 beats/min. Rhythm is regular, Sinus bradycardia with PACs. QRS [place] is sp4 Normal. SD interval is normal. QRS interval is normal. QT interval is normal. No Q waves. T waves are Normal. No ST changes noted. Clinical impression: No evidence of ischemia. Interpreted by me. Reviewed by me. Administered Medications: :22 Drug: Aspirin PO Chewable Tablet 324 mg PO once; 81 mg tablets x 4 Route: PO; km8 12/25 01:31 Follow up: Response: No adverse reaction as9 Disposition Summary: 12/25/23 01:31 Discharge Ordered Problem: new sp4 Symptoms: have improved sp4 Condition: Stable sp4 Diagnosis - Chest pain, unspecified sp4 - Non cardiac chest pain sp4 Followup: sp4 - With: Ayad Yung MD - When: 7 - 10 days - Reason: Recheck today's complaints Discharge Instructions: - Discharge Summary Sheet sp4 - Nonspecific Chest Pain, Adult, [id number] sp4 Forms: - Patient Portal Instructions sp4 NIH Stroke Scale - NIH Stroke Score Date: 12/25/2023 Time: 01:32 Total Score = 0 10. Dysarthria (speech clarity - read or repeat words) - 0(Normal) 11. Extinction and Inattention (visual/tactile/auditory/spatial/personal) - 0(No abnormality) 1a. Level of Consciousness (LOC) - 0(Alert) 1b. Level of Consciousness (LOC) (Month \T\ Age) - 0(Both) 1c. LOC Commands (Open \T\ Closes Eyes/Ware Server) - 0(Both) 2. Best Gaze (Lateral Gaze Paresis) - 0(Normal) 3. Visual Field Loss - 0(No visual loss) 4. Facial Palsy - 0(Normal) 5a. Left Arm: Motor (10-second hold) - 0(No drift) 5b. Right Arm: Motor (10-second hold) - 0(No drift) 6a. Left Leg: Motor (5-second hold - always test supine) - 0(No drift) 6b. Right Leg: Motor (5-second hold - always test supine) - 0(No drift) 7. Limb Ataxia (finger/nose \T\ heel/rodney - test with eyes open) - 0(Absent) 8. Sensory Loss (pinprick arms/legs/face) - 0(Normal) 9. Best Language: Aphasia (description/naming/reading) - 0(No aphasia) Initials: sp4 Signatures: Dispatcher [employer] Zheng Stanley MD MD sp4 DIEGO NealII, Yann, RN RN rv2 Kathy Porter RN RN km8 Reilly Coyle RN as9
[2023-12-25 02:03] VITALS: BP 113/66; TEMP 98; O2SAT 97
--- NOTE | 2023-12-25 14:40 | EKG ---
Test Date: 2023-12-24 Test Time: 21:11:54 Floor Covering Printer: AARTI MEASUREMENT RESULTS: Intervals: Rate: 57 [place]: 120 QRSD: 86 QT: 464 QTc: 451 [place]: P: 6 W[place]: 120 QRS: 51 T: 52 INTERPRETIVE STATEMENTS: Sinus bradycardia with premature atrial complexes Otherwise normal ECG Compared to ECG 11/04/2023 14:00:51 Atrial premature complex(es) now present Electronically Signed On 12-25-23 14:39:35 SUPERINTENDENT [employer] DISTRIBUTION by Ayad Yung
== END ==
LOC: ER 21:03
DX: R07.89 Other chest pain (principal); I10 Essential (primary) hypertension; E78.00 Pure hypercholesterolemia, unspecified; Z86.73 Personal history of transient ischemic attack (TIA), and cerebral infarction without residual deficits
CPT/HCPCS: 36415; 71045; 80048; 80076; 82077; 83735; 83880; 84439; 84443; 84484; 85025; 85610; 86140

== ENCOUNTER 2024-07-21 19:41 | Emergency (ER) | payer OTHER ==
--- OUTSIDE RECORDS SUMMARY | 2024-07-21 19:46 | XMS REPORT | Continuity of Care Document ---
Author Name Unknown Address [address] [place] [address] [facility] Address [address] [place] [address] Care Team Providers Care Account Services Specialist Name Role Phone Alexandrea Banegas Primary Care Physician Vega Macedo MD Attending Clinician [phone] Rolly Araya MD Attending Clinician [phone] Mikki Jiménez MA Attending Clinician UnavailShaggy Jurado Attending Clinician [phone] Payers Payer Name Policy Type Policy Number Effective Date Expirati on Date Source [employer] [id number] 2020 00:00:00 2020 00:00:00 Problems Condition Name [...] vicular joint Disease Active 17 00:00: 00 [facility]ential hypertensi on Essential hypertensi on Disease Active 2017-11 006 00:00: 00 [facility] Coronary artery disease involving [place] coronary artery of [place] heart with angina pectoris Coronary artery disease involving [place] coronary artery of [place] heart with angina pectoris Disease Active 2017-11 0 00:00: 00 [facility] Chest pain Chest pain Disease Active 2017-11 004 00:00: 00 [facility] Social History Social Habit Start Date Stop Date Quantity Comments Source Sexual orientation [facility] History of tobacco use Cigarette Smoker [facility] History of Social function 2023-05-27 00:00:00 2023-05-27 00:00:00 [facility] Alcohol intake 2023-05-27 00:00:00 2023-05-27 00:00:00 Current drinker of alcohol (finding) [facility] Exposure to SARS-CoV-2 (event) 2022-02-24 00:00:00 2022-03-26 14:58:00 Not sure [facility] Cigarettes smoked current (pack per day) - Reported 2022-02-28 00:00:00 2022-02-28 00:00:00 [facility] Tobacco use and exposure 2022-02-28 00:00:00 2022-02-28 00:00:00 Smokeless tobacco non-user [facility] Cigarette pack-years 2022-02-28 00:00:00 2022-02-28 00:00:00 [facility] Alcohol Comment 2018-08-13 00:00:00 2018-08-13 00:00:00 [facility] Sex Assigned At 1960 00:00:00 1960 00:00:00 [facility] Smoking Status Start Date Stop Date Source Heavy tobacco smoker 2022-02-28 00:00:00 [facility] Current every day smoker 2019-07-02 00:00:00 [facility] Medications Ordered Medication Name Filled Medication Name Start Date Stop Date Current Medication? Ordering Clinician Indication Dosage Frequency Signature (SIG) Comments Components Source lidocaine (Xylocaine) 1 % injection 1 mL 07-15 13:00: 07-15 13:00 :00 No [id number] 1mL [facility] betamethaso ne acetate-bet amethasone sodium phosphate (Celestone) injection 1 mg 07-15 13:00: 07-15 13:00 :00 No [id number] 1mg [facility] meloxicam (Mobic) 15 MG tablet 05-27 00:00: 06-27 04:59 :00 No [id number] 65589 15mg QD Take 1 tablet (15 mg total) by mouth 1 (one) time each day. [facility] cyclobenzap rine (Flexeril) 10 MG tablet 03-01 00:00: 00 Yes [id number] 217271 10mg Q.[id number] 3D Take 1 tablet (10 mg total) by mouth 3 (three) times a day if needed for muscle spasms for up to 10 days. [facility] naloxone (Narcan) 2 MG/2ML injection 03-01 00:00: 00 03-02 04:59 :00 No [id number] 222579 .4mg Administer 0.4 mL (0.4 mg total) into affected nostril(s) if needed for opioid reversal. May repeat every 2-3 minutes as needed until medical assistance available. [facility] traMADol (Ultram) 50 MG tablet 03-01 00:00: 00 03-12 04:59 :00 No [id number] 095036 50mg Q6H Take 1 tablet (50 mg total) by mouth every 6 (six) hours if needed for severe pain for up to 10 days. [facility] aspirin 81 MG chewable tablet 02-28 10:40: 31 Yes 81mg Chew 81 mg. [facility] citalopram (CeleXA) 20 MG tablet 02-28 10:40: 30 Yes 20mg Take 20 mg by mouth. [facility] propranolol (Inderal) 10 MG tablet 02-11 00:00: 00 Yes [facility] gabapentin (Neurontin) 600 MG tablet 07-21 00:00: 00 Yes [facility] iohexol (OMNIPAQUE 350 BULK-100 mL) injection 120 mL 07-03 02:45: 00 07-03 02:23 :00 No 120mL 120 mL, Intravenou s, ONCE, 1 dose, Fri07/02/19 at 2145, Routine [facility] aspirin 81 mg chewable tablet 2017-11 17:44: 42 Yes 81mg Take 81 mg by mouth daily. [facility] propranolol 10 mg tablet 2017-11 17:44: 42 Yes 10mg Take 10 mg by mouth 2 (two) times daily. [facility] citalopram 20 mg tablet 2017-11 17:44: 42 Yes 20mg Take 20 mg by mouth daily. [facility] omeprazole 40 mg capsule 2017-11 17:44: 42 Yes 40mg Take 40 mg by mouth 2 (two) times daily. [facility] Vital Signs Vital Name Observation Time Observation Value Comments S ource Body height 2023-05-27 20:27:00 175.3 cm [facility] Body weight 2023-05-27 20:27:00 78.926 [facility] BMI 2023-05-27 20:27:00 [facility] 2022-02-28 15:39:00 175.3 cm [facility] Body weight 2022-02-28 15:39:00 [facility] BMI 2022-02-28 15:39:00 25.70 kg/m2 [facility] Systolic blood pressure 2019-07-03 02:00:00 142 mm[Hg] [facility] Diastolic blood pressure 2019-07-03 02:00:00 92 mm[Hg] [facility] Heart rate 2019-07-03 02:00:00 80 /min [facility] Respiratory rate 2019-07-03 02:00:00 18 /min [facility] Oxygen saturation in Arterial blood by Pulse oximetry 2019-07-03 02:00:00 98 /min [facility] Body temperature 2019-07-02 23:41:00 36.83 Seema [facility] Body height 2019-07-02 23:41:00 175.3 cm [facility] Body weight 2019-07-02 23:41:00 79.379 kg [facility] BMI 2019-07-02 23:41:00 25.84 kg/m2 [facility] Systolic blood pressure 2019-07-03 02:00:00 142 mm[Hg] [facility] Diastolic blood pressure 2019-07-03 02:00:00 92 mm[Hg] [facility] Heart rate 2019-07-03 02:00:00 80 /min [facility] Respiratory rate 2019-07-03 02:00:00 18 /min [facility] Oxygen saturation in Arterial blood by Pulse oximetry 2019-07-03 02:00:00 98 /min [facility] Body temperature 2019-07-02 23:41:00 36.83 Seema [facility] Body height 2019-07-02 23:41:00 175.3 cm [facility] Body weight 2019-07-02 23:41:00 79.379 kg [facility] BMI 2019-07-02 23:41:00 25.84 kg/m2 [facility] Procedures Procedure Date / Time Performed Performing Clinician Source [place] INJECT TENDON SHEATH/LIGAMENT 2023-07-15 13:00:00 [facility] [place] INJECT TENDON SHEATH/LIGAMENT 2023-07-15 13:00:[address] [facility] [address] ABDOMEN PELVIS W CONTRAST 2019-07-03 02:30:21 Shaggy Gonzalez [facility] LIPASE 2019-07-03 01:59:00 Sheyla Gao [facility] COMP. METABOLIC PANEL (94320) 2019-07-03 01:59:00 Sheyla Gao [facility] CBC WITH DIFFERENTIAL 2019-07-03 01:59:00 Sa cadence Gao [facility] URINALYSIS 2019-07-03 01:59:00 Sheyla Gao Un [facility] CONSENT/REFUSAL FOR DIAGNOSIS AND TREATMENT 2019-07-02 23:33:31 Doctor Unassigned, [place] [facility] Encounters Start Date/Time End Date/Time Encounter Type Admission Type Attending Clinicians Care Facility Care Department Encounter ID Source 2023-05-27 15:08:50 Outpatient [facility] [id number] [facility] 2023-05-23 14:42:59 Outpatient [facility] [id number] [facility] 2023-05-22 09:33:41 Outpatient [facility] [id number] [facility] 2023-04-16 12:45:29 Outpatient [facility] [id number] [facility] 2023-03-12 09:15:57 Outpatient [facility] [id number] [facility] 2023-07-31 10:30:00 2023-07-31 11:34:02 Office Visit Vega Macedo [facility] [id number] [id number] [id number] [id number] [facility] 2023-07-24 14:15:00 2023-07-24 14:15:00 Outpatient VEGA MACEDO [facility] [id number] [facility] 2023-07-15 08:10:00 2023-07-15 09:05:23 Outpatient [facility] [id number] [facility] 2023-07-15 08:00:00 2023-07-15 09:04:59 Office Visit Rolly Araya [facility] 1 1.2.840.114 350.1.13.58 9.2.7.2.686 [id number] [facility] 2023-05-27 15:15:00 2023-05-27 16:42:25 Office Visit Vega Macedo [facility] 1 1.2.840.114 350.1.13.58 9.2.7.2.686 [id number] [facility] 2023-03-25 14:15:00 2023-03-25 14:15:00 Outpatient VEGA MACEDO [facility] [id number] [facility] 2022-03-26 15:30:00 2022-03-26 16:50:06 Office Visit Vega Macedo [facility] 1 1.2.840.114 350.1.13.58 [id number] [id number] [facility] 2022-03-04 00:00:00 2022-03-04 00:00:00 Telephone Tino, Mikki Tino, Mikki [facility] 1 1.2.840.114 [id number] [id number] [id number] [facility] 2022-02-28 10:00:00 2022-02-28 12:04:39 Office Visit Vega Macedo [facility] 1 1.2.840.114 350.1.13.58 [id number] [id number] [facility] 2019-07-02 20:25:52 2019-07-02 22:21:[address] [facility] 1.2.840.114 350.1.13.10 [id number] [id number] 2019-07-02 20:25:52 2019-07-02 22:21:[address] [facility] 1.2.840.114 350.1.13.10 4.2.7.2.686 [id number] [facility] Results Test Description Test Time Test Comments Results Result Co mments Source [facility] Metabolic [id number] 02:18:00* Test Item Value Reference Range Interpretation Comme nts NA (test code = 2171699852) 143 mmol/L 135-145 K (test code = 8548026220) 4.3 mmol/L 3.5-5 CL (test code = 7736198425) 110 mmol/L 98-108 H CO2 TOTAL (test code = 6976649660) 19 mmol/L 23-31 L AGAP (test code = 8551452362) 2-16 BUN (test code = 6558217751) 6 mg/dL 7-23 L GLUCOSE (test code = 7664824263) 73 mg/dL 70-110 CREATININE (test code = 7711169773) 0.62 mg/dL 0.6-1.25 TOTAL BILI (test code = 8343498662) 0.4 mg/dL 0.1-1.1 CALCIUM (test code = 2666476504) 8.9 mg/dL 8.6-10.6 T PROTEIN (test code = 6191100811) 7.6 g/dL 6.3-8.2 ALBUMIN (test code = 7174952098) 4.4 g/dL 3.5-5 ALK PHOS (test code = 5237909596) 114 U/L 34-122 ALT(SGPT) (test code = 4194810412) 60 U/L 9-51 H AST(SGOT) (test code = 2028282217) 26 U/L 13-40 eGFR Calculation (Non-) (test code = 1992335695) mL/min/1.73m2 eGFR Calculation () (test code = 7587265103) mL/min/1.73m2 THOMAS (test code = THOMAS) Association [...] imaging tests). Lab Interpretation (test code = 03298-9) Abnormal [facility]inalysis2019-08-24 02:16:00* Test Item Value Reference Range Interpretation Comme nts APPEARANCE (test code = 0011559276) Clear Clear COLOR (test code = 4820177992) Yellow Yellow PH (test code = 4795975010) 4.8-8.0 SP GRAVITY (test code = 8757412250) <=1.005 1.003-1.030 GLU U QUAL (test code = 3196958155) Negative Negative BLOOD (test code = 9284660871) Negative Negative KETONES (test code = 0214224930) Negative Negative PROTEIN (test code = 2887-8) Negative Negative UROBILIN (test code = 5648639993) 0.2 mg/dL See_Comment [Automated messa ge] The system which generated this result transmitted reference range: 0-1.0 mg/dL. The reference range was not used to interpret this result as normal/abnormal. BILIRUBIN (test code = 2001777864) Negative Negative NITRITE (test code = 2040193966) Negative Negative LEUK HARSHA (test code = 6691007394) Negative Negative RBC/HPF (test code = 6690336316) See_Comment [Automated messa ge] The system which generated this result transmitted reference range: 0 - 3 HPF. The reference range was not used to interpret this result as normal/abnormal. WBC/HPF (test code = 8835824599) See_Comment [Automated messa ge] The system which generated this result transmitted reference range: 0 - 5 HPF. The reference range was not used to interpret this result as normal/abnormal. BACTERIA (test code = 2501053033) Negative Negative Lab Interpretation (test code = 60356-3) Normal [facility] WITH [id number] 02:07:00* Test Item Value Reference Range Interpretation [...] 34.5 g/dL 31.2-35 RDW-SD (test code = 76576-3) 45.6 fL 38.5-51.6 RDW-CV (test code = 788-0) 13.4 % 12.1-15.4 PLT (test code = 777-3) See_Comment [Automated messa ge] The system which generated this result transmitted reference range: 150 - 328 10*3/?L. The reference range was not used to interpret this result as normal/abnormal. MPV (test code = 05080-8) 9.8 fL 9.8-13 NRBC/100 WBC (test code = 0269499300) See_Comment [Automated [employer] ssage] The system which generated this result transmitted reference range: 0.0 - 10.0 /100 WBCs. The reference range was not used to interpret this result as normal/abnormal. NRBC x10^3 (test code = 3069834845) <0.01 See_Comment [Automated messa ge] The system which generated this result transmitted reference range: 10*3/?L. The reference range was not used to interpret this result as normal/abnormal. GRAN MAT (NEUT) % (test code = 770-8) 60.9 % IMM GRAN % (test code = 6639215455) 0.40 % LYMPH % (test code = 736-9) 31.2 % MONO % (test code = 5905-5) 4.9 % EOS % (test code = 713-8) 2.0 % BASO % (test code = 706-2) 0.6 % GRAN MAT x10^3(ANC) (test code = 6063131326) 6.66 10*3/uL 1.99-6.95 IMM GRAN x10^3 (test code = 3226556892) 0.04 10*3/uL 0-0.06 LYMPH x10^3 (test code = 731-0) 3.41 10*3/uL 1.09-3.23 H MONO x10^3 (test code = 742-7) 0.54 10*3/uL 0.36-1.02 EOS x10^3 (test code = 711-2) 0.22 10*3/uL 0.06-0.53 BASO x10^3 (test code = 704-7) 0.07 10*3/uL 0.01-0.09 Lab Interpretation (test code = 49362-8) Abnormal [facility]"
[2024-07-21] MEDS ORDERED: LEVETIRACETAM 500 MG/5 ML VIAL IV ONE (20:12)
[2024-07-21] MEDS ORDERED: THIAMINE 200 MG/2 ML INJ ONE ×2 (20:12→20:17)
[2024-07-21] MEDS ORDERED: NA CHLORIDE 0.9% 1,000 ML ONE ×2 (20:12→20:22)
[2024-07-21] MEDS ORDERED: LORazepam 2 MG/ML VIAL ONE (20:16)
[2024-07-21] MEDS ORDERED: MULTIVITAMINS 10 ML VIAL (INJ) IV ONE ×2 (20:18→20:20)
[2024-07-21] MEDS ORDERED: FOLIC ACID 5 MG/ML VIAL ONE (20:21)
--- NOTE | 2024-07-21 20:26 | RAD REPORT ---
EXAM DESCRIPTION: Juliann Single View07/21/2024 8:10 pm CLINICAL HISTORY: Chest pain COMPARISON: December 2023 FINDINGS: The lungs appear clear of acute infiltrate. The heart is mildly enlarged IMPRESSION: No acute abnormalities displayed
[2024-07-21 20:34] LABS: Absolute Basophils 0.1 K/uL (0-0.5); Absolute Eosinophils 0.2 K/uL (0-0.5); Absolute Monocytes 0.6 K/uL (0.1-1.3); Absolute Neutrophil 5.4 K/uL (1.8-8.0); Basophils % 0.8 % (0-1.3); Eosinophils % 2.5 % (0-4.4); Hematocrit 36.7 % (39.6-49.0); Hemoglobin 12.8 g/dL (13.6-17.9); Lymphocytes % 31.9 % (15.3-44.8); MCH 33.4 pg (27.0-35.0); MCHC 34.7 g/dL (32.0-36.0); MCV 96.2 fL (80-100); MPV 7.6 fL (7.6-11.3); Monocytes % 6.8 % (3.3-12.3); Nucleated Red Blood Cells % 0.1 % (0-0); Platelets 225 thou/uL (152-406); RBC Red Blood Cell Count 3.82 M/uL (4.33-5.43)
[2024-07-21 20:54] LABS: Albumin 3.4 g/dL (3.4-5.0); Anion Gap 12.7 mEq/L (5.0-15.0); Bilirubin Direct 0.2 mg/dL (0-0.2); Bilirubin Indirect, Calculated 0.6 mg/dL (0.2-0.8); Bilirubin Total 0.8 mg/dL (0.2-1.0); Globulin 3.3 g/dL (2.3-3.5); Potassium 3.7 mEq/L (3.5-5.1); Protein, Total 6.7 g/dL (6.4-8.2); Troponin High Sensitivity 6.6 pg/mL (<58.9)
[2024-07-21 21:03] LABS: Protime INR 0.98
--- NOTE | 2024-07-21 21:29 | RAD REPORT ---
EXAM DESCRIPTION: CT - Head Brain Wo Cont - 07/21/2024 9:18 pm CLINICAL HISTORY: Dizziness COMPARISON: 2022 TECHNIQUE: Computed axial tomography of the head was obtained. IV contrast was not requested. All CT scans are performed using dose optimization technique as appropriate and may include automated exposure control or mA/KV adjustment according to patient size. FINDINGS: An intracranial bleed is not seen The ventricles are normal in caliber No extra-axial fluid collection is noted. 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 Fluid within the sinuses/ mastoids is not seen. IMPRESSION: No acute intracranial abnormality is seen If patient's symptoms persist MRI of the brain would be recommended
--- NOTE | 2024-07-21 22:43 | EDPHYS ---
Physician Documentation [facility] Name: Agustín Camacho Age: 63 yrs Sex: Male : 1960 Arrival Date: 07/21/2024 Time: 19:39 Bed 3 Private MD: ED Physician Zheng Louis HPI: 07/21 19:52 This 63 yrs old Male presents to ER via EMS with complaints of Probable walter Seizure. 19:52 The patient presents after having a single isolated seizure, that lasted an unknown walter period of time. Character of seizure(s): Loss of consciousness: it is not known if the patient experienced loss of consciousness, Motor activity: generalized, shaking all over, Incontinence: none, Apnea: the patient did not experience apnea, Circulation: the patient did not experience evidence of pulse disturbance. Seizure onset: just prior to arrival. Context: the seizure(s) was witnessed, by family. Seizure Hx: Usual frequency: unknown, Seizure medications: unk. Associated injury: The patient did not suffer any apparent associated injury. EMS care: none. The patient has experienced similar episodes in the past, multiple times. Historical: - Allergies: 19:43 NKA; kj2 - PMHx: 19:43 AAA; ADD/ADHD; Anxiety; CVA; Hernia; High Cholesterol; Hypertension; Prostate Cancer; kj2 - PSHx: 19:43 Cholecystectomy; prostate removal; right knee revision; roator cuff repair right; kj2 umbilical hernia repair; - Immunization history:: Adult Immunizations unknown. - Infectious Disease History:: Denies. - Social history:: Smoking status: unknown. - Family history:: not pertinent. ROS: 19:52 Constitutional: Negative for fever, chills, and weight loss, Eyes: Negative for injury, walter pain, redness, and discharge, ENT: Negative for injury, pain, and discharge, Neck: Negative for injury, pain, and swelling, Cardiovascular: Negative for chest pain, palpitations, and edema, Respiratory: Negative for shortness of breath, cough, wheezing, and pleuritic chest pain, Abdomen/GI: Negative for abdominal pain, nausea, vomiting, diarrhea, and constipation, Back: Negative for injury and pain, : Negative for injury, bleeding, discharge, and swelling, MS/Extremity: Negative for injury and deformity, Skin: Negative for injury, rash, and discoloration, Psych: Negative for depression, anxiety, suicide ideation, homicidal ideation, and hallucinations, Allergy/Immunology: Negative for hives, rash, and allergies, Endocrine: Negative for neck swelling, polydipsia, polyuria, polyphagia, and marked weight changes, Hematologic/Lymphatic: Negative for swollen nodes, abnormal bleeding, and unusual bruising, 19:52 Neuro: Positive for seizure activity, Exam: 19:54 Constitutional: This is a well developed, well nourished patient who is awake, alert, walter and in no acute distress. Head/Face: Normocephalic, atraumatic. Eyes: Pupils equal round and reactive to light, extra-ocular motions intact. Lids and lashes normal. Conjunctiva and sclera are non-icteric and not injected. Cornea within normal limits. Periorbital areas with no swelling, redness, or edema. ENT: Nares patent. No nasal discharge, no septal abnormalities noted. Tympanic membranes are normal and external auditory canals are clear. Oropharynx with no redness, swelling, or masses, exudates, or evidence of obstruction, uvula midline. Mucous membranes moist. Neck: Trachea midline, no thyromegaly or masses palpated, and no cervical lymphadenopathy. Supple, full range of motion without nuchal rigidity, or vertebral point tenderness. No Meningismus. Chest/axilla: Normal chest wall appearance and motion. Nontender with no deformity. No lesions are appreciated. Cardiovascular: Regular rate and rhythm with a normal S1 and S2. No gallops, murmurs, or rubs. Normal PMI, no JVD. No pulse deficits. Respiratory: Lungs have equal breath sounds bilaterally, clear to auscultation and percussion. No rales, rhonchi or wheezes noted. No increased work of breathing, no retractions or nasal flaring. Abdomen/GI: Soft, non-tender, with normal bowel sounds. No distension or tympany. No guarding or rebound. No evidence of tenderness throughout. Back: No spinal tenderness. No costovertebral tenderness. Full range of motion. Male : Normal genitalia with no discharge or lesions. Skin: Warm, dry with normal turgor. Normal color with no rashes, no lesions, and no evidence of cellulitis. MS/ Extremity: Pulses equal, no cyanosis. Neurovascular intact. Full, normal range of motion. Neuro: Awake and alert, GCS 15, oriented to person, place, time, and situation. Cranial nerves II-XII grossly intact. Motor strength 5/5 in all extremities. Sensory grossly intact. Cerebellar exam normal. Normal gait. Psych: Awake, alert, with orientation to person, place and time. Behavior, mood, and affect are within normal limits. 20:08 ECG was reviewed by the Attending Physician. [facility] Vital Signs: 19:42 BP 109 / 63; Pulse 67; Resp 20; Pulse Ox 96% on R/A; Weight 77.11 kg; Pain 0/10; kj2 20:44 BP 98 / 54; Pulse 55; Resp 12; Pulse Ox 100% on R/A; kj2 21:37 BP 96 / 60; Pulse 57; Resp 18; Pulse Ox 99% on R/A; kj2 22:30 BP 120 / 72; Pulse 61; Resp 20; Pulse Ox 99% ; kj2 23:48 BP 118 / 90; Pulse 60; Resp 17; Temp 98.7; Pulse Ox 97% ; Pain 0/10; bm8 19:42 Pain Scale: Adult kj2 23:48 Pain Scale: Adult bm8 [place] Coma Score: 19:45 Eye Response: spontaneous(4). Motor Response: obeys commands(6). Verbal Response: kj2 oriented(5). Total: 15. 19:54 Eye Response: spontaneous(4). Motor Response: obeys commands(6). Verbal Response: walter oriented(5). Total: 15. 23:48 Eye Response: spontaneous(4). Motor Response: obeys commands(6). Verbal Response: bm8 oriented(5). Total: 15. MDM: 19:49 Patient medically screened. [facility] 19:54 Differential diagnosis: drug overdose, cardiac arrhythmia, seizure. Data reviewed: [facility] vital signs, nurses notes, lab test result(s), EKG, radiologic studies, CT scan, plain films. Consideration of Admission/Observation Escalation of care including admission/observation considered. I considered the following discharge prescriptions or medication management in the emergency department Medications were administered in the Emergency Department. See MAR. Independent interpretation of the following test(s) in the Emergency Department EKG: See my EKG interpretation above. Test considered but Not performed: MRI: no mri brain. Historians other than the Patient: EMS: ems well informed. Care significantly affected by the following chronic conditions: Hypertension, aaa, add,adhd, high chlesterol, prostrate cancer, etoh abuse. 07/21 19:52 Order name: Basic Metabolic Panel; Complete Time: 21:14 [facility] 07/21 19:52 Order name: CBC with Diff; Complete Time: 21:14 [facility] 07/21 19:52 Order name: LFT's; Complete Time: 21:14 [facility] 07/21 19:52 Order name: Magnesium; Complete Time: 21:14 [facility] 07/21 19:52 Order name: NT PRO-BNP; Complete Time: 21:14 [facility] 07/21 19:52 Order name: PT-INR; Complete Time: 21:14 [facility] 07/21 19:52 Order name: Troponin HS; Complete Time: 21:14 [facility] 07/21 21:15 Order name: Alcohol Level; Complete Time: 22:37 sp4 07/21 19:52 Order name: XRAY Chest (1 view); Complete Time: 20:29 [facility] 07/21 19:52 Order name: CT Head Brain wo Cont; Complete Time: 22:37 [facility] 07/21 19:52 Order name: Cardiac monitoring; Complete Time: 20:06 [facility] 07/21 19:52 Order name: EKG - Nurse/Tech; Complete Time: 20:06 [facility] 07/21 19:52 Order name: IV Saline Lock; Complete Time: 20:06 [facility] 07/21 19:52 Order name: Labs collected and sent; Complete Time: 20:06 [facility] 07/21 19:52 Order name: O2 Per Protocol; Complete Time: 20:06 [facility] 07/21 19:52 Order name: O2 Sat Monitoring; Complete Time: 20:06 [facility] 07/21 19:52 Order name: Seizure Precautions; Complete Time: 20:12 [facility] EC:08 Rate is 55 beats/min. Rhythm is regular. QRS [place] is Normal. QRS interval is normal. QT walter interval is normal. No Q waves. T waves are Normal. No ST changes noted. Clinical impression: Sinus bradycardia and No evidence of ischemia. Interpreted by me. Reviewed by me. Administered Medications: 20:39 Drug: NS 0.9% IV 1000 ml IV at 1 bolus Per protocol; 1000 mL bolus Route: IV; Rate: 1 kj2 bolus; Site: right forearm; 23:50 Follow up: Response: No adverse reaction; IV Status: Completed infusion; IV Intake: bm8 1000ml 20:39 Drug: Ativan IVP 1 mg IVP once Route: IVP; Site: right forearm; kj2 23:49 Follow up: Response: No adverse reaction bm8 20:39 Drug: Banana Bag - (Multivitamin IV 1 amp, NS 0.9% IV 1000 ml, Thiamine IV 100 mg, kj2 foLIC Acid IVPB 1 mg) IV at bolus once Route: IV; Rate: bolus; Site: right forearm; 23:49 Follow up: Response: No adverse reaction; IV Status: Completed infusion; IV Intake: bm8 1000ml 20:40 Drug: Thiamine IV 100 mg IV at per protocol once Route: IV; Rate: per protocol; Site: [facility] right forearm; 23:50 Follow up: Response: No adverse reaction; IV Status: Completed infusion; IV Intake: 06ijiz4 20:40 Drug: Keppra IV 1000 mg IV at per protocol once Route: IV; Rate: per protocol; Site: [facility] right forearm; 23:49 Follow up: Response: No adverse reaction; IV Status: Completed infusion; IV Intake: bm8 100ml Disposition Summary: 07/21/24 22:42 Discharge Ordered Notes: Consider Rehabilitation and Join AA Club Location: Home sp4 Problem: new sp4 Symptoms: have improved sp4 Condition: Stable sp4 Diagnosis - Epileptic seizures related to external causes, not intractable, without status sp4 epilepticus - Alcohol abuse with intoxication sp4 - Alcohol abuse sp4 Followup: walter - With: Private Physician - When: 2 - 3 days - Reason: Recheck today's complaints, Re-evaluation by your physician Followup: walter - With: Renard Richmond MD - When: 2 - 3 days - Reason: Recheck today's complaints, Continuance of care, Re-evaluation by your physician Followup: walter - With: Perico Phipps MD - When: 2 - 3 days - Reason: Recheck today's complaints, Re-evaluation by your physician Discharge Instructions: - Discharge Summary Sheet walter - Alcohol Intoxication walter Forms: - Patient Portal Instructions sp4 Signatures: Dispatcher [employer] Duran Crowder MD MD cha Potepalov, Sergey, MD MD sp4 Rukhsana Eddy RN RN kj2 Shmuel Chauhan RN bm8 Corrections: (The following items were deleted from the chart) 19:52 19:52 BASIC METABOLIC PANEL+C.LAB.BRZ ordered. EDMS EDMS 19:52 19:52 CBC+H.LAB.BRZ ordered. EDMS EDMS 19:52 19:52 HEPATIC FUNCTION+C.LAB.BRZ ordered. EDMS EDMS 19:52 19:52 MAGNESIUM+C.LAB.BRZ ordered. EDMS EDMS 19:52 19:52 PROBNP+C.LAB.BRZ ordered. EDMS EDMS 19:52 19:52 PROTIME (+INR)+COAG.LAB.BRZ ordered. EDMS EDMS 19:52 19:52 Troponin High Sensitivity+C.LAB.BRZ ordered. EDMS EDMS 19:52 19:52 Chest Single View+RAD.RAD.BRZ ordered. EDMS EDMS
--- NOTE | 2024-07-21 22:43 | ER ---
Nurse's Notes [facility] Name: Agustín Camacho Age: 63 yrs Sex: Male : 1960 Arrival Date: 07/21/2024 Time: 19:39 Bed 3 Private MD: Diagnosis: Epileptic seizures related to external causes, not intractable, without status epilepticus;Alcohol abuse with intoxication;Alcohol abuse Presentation: 07/21 19:39 Chief complaint: EMS states: patient had a unwitnessed seizure about 30 minutes ago, kj2 EMS called by his . He was reported to be altered by and has no peripheral vision, incontinent of urine. Coronavirus screen: At this time, the client does not indicate any symptoms associated with coronavirus-19. Ebola Screen: No symptoms or risks identified at this time. Initial Sepsis Screen: Does the patient meet any 2 criteria? No. Patient's initial sepsis screen is negative. Does the patient have a suspected source of infection? No. Patient's initial sepsis screen is negative. Risk Assessment: Do you want to hurt yourself or someone else? Patient reports no desire to harm self or others. Onset of symptoms was July 21, 2024. 19:39 Method Of Arrival: EMS: [facility] kj2 19:39 Acuity: BEVERLY 4 kj2 Triage Assessment: 19:45 General: Appears in no apparent distress. Behavior is. kj2 Historical: - Allergies: 19:43 NKA; kj2 - PMHx: 19:43 AAA; ADD/ADHD; Anxiety; CVA; Hernia; High Cholesterol; Hypertension; Prostate Cancer; kj2 - PSHx: 19:43 Cholecystectomy; prostate removal; right knee revision; roator cuff repair right; kj2 umbilical hernia repair; - Immunization history:: Adult Immunizations unknown. - Infectious Disease History:: Denies. - Social history:: Smoking status: unknown. - Family history:: not pertinent. Screenin:03 [facility] ED Fall Risk Assessment (Adult) History of falling in the last 3 months, kj2 including since admission Yes- physiologic fall (2 pts) Confusion or Disorientation No (0 pts) Intoxicated or Sedated Yes (3 pts) Impaired Gait No (0 pts) Mobility Assist Device Used No (0 pt) Altered Elimination No (0 pt) Score/Fall Risk Level 0 - 2 = Low Risk Maintained a safe environment, Educated pt \T\ family on fall prevention, incl call for assistance when getting out of bed, Hourly rounding (assess needs \T\ fall precautionary measures) done. Abuse screen: Denies threats or abuse. Denies injuries from another. Nutritional screening: No deficits noted. Tuberculosis screening: No symptoms or risk factors identified. Assessment: 19:47 General: see triage assessment. Pain: Denies pain. Neuro: Level of Consciousness is kj2 awake, alert, Oriented to person, place. 20:44 Reassessment: Patient appears in no apparent distress at this time. Patient and/or kj2 family updated on plan of care and expected duration. Pain level reassessed. Patient is alert, oriented x 3, equal unlabored respirations, skin warm/dry/pink. 21:37 Reassessment: Patient appears in no apparent distress at this time. Patient and/or kj2 family updated on plan of care and expected duration. Pain level reassessed. Patient is alert, oriented x 3, equal unlabored respirations, skin warm/dry/pink. 22:29 Reassessment: Patient and/or family updated on plan of care and expected duration. Pain kj2 level reassessed. Patient is alert, oriented x 3, equal unlabored respirations, skin warm/dry/pink. 23:48 Reassessment: Patient appears in no apparent distress at this time. Patient and/or bm8 family updated on plan of care and expected duration. Pain level reassessed. Patient is alert, oriented x 3, equal unlabored respirations, skin warm/dry/pink. Patient denies pain at this time. Patient states feeling better. Patient states symptoms have improved. Vital Signs: 19:42 BP 109 / 63; Pulse 67; Resp 20; Pulse Ox 96% on R/A; Weight 77.11 kg; Pain 0/10; kj2 20:44 BP 98 / 54; Pulse 55; Resp 12; Pulse Ox 100% on R/A; kj2 21:37 BP 96 / 60; Pulse 57; Resp 18; Pulse Ox 99% on R/A; kj2 22:30 BP 120 / 72; Pulse 61; Resp 20; Pulse Ox 99% ; kj2 23:48 BP 118 / 90; Pulse 60; Resp 17; Temp 98.7; Pulse Ox 97% ; Pain 0/10; bm8 19:42 Pain Scale: Adult kj2 23:48 Pain Scale: Adult bm8 [place] Coma Score: 19:45 Eye Response: spontaneous(4). Motor Response: obeys commands(6). Verbal Response: kj2 oriented(5). Total: 15. 19:54 Eye Response: spontaneous(4). Motor Response: obeys commands(6). Verbal Response: walter oriented(5). Total: 15. 23:48 Eye Response: spontaneous(4). Motor Response: obeys commands(6). Verbal Response: bm8 oriented(5). Total: 15. ED Course: 19:39 Patient arrived in ED. kj2 19:39 Patient has correct armband on for positive identification. Bed in low position. Call ha1 light in reach. Adult w/ patient. 19:42 Triage completed. kj2 19:47 Arm band placed on right wrist. Patient placed in an exam room. kj2 19:49 Duran De La Fuente MD is Attending Physician. [facility] 19:50 Provided Education on: call light, fall precautions. kj2 20:00 Door closed. Noise minimized. Warm blanket given. Pillow given. Assisted with urinal. ha1 20:05 No provider procedures requiring assistance completed. Maintain EMS IV. Dressing kj2 intact. Good blood return noted. Site clean \T\ dry. Gauge \T\ site: 18guage. Flushed with 10 mL NS IV with good blood return. 20:07 Attending Physician role handed off by Duran De La Fuente MD sp4 20:07 Zheng Louis MD is Attending Physician. sp4 20:11 XRAY Chest (1 view) In Process Unspecified. EDMS 20:44 Rukhsana Eddy, DIEGO is Primary Nurse. kj2 21:20 CT Head Brain wo Cont In Process Unspecified. EDMS 22:42 Renard Richmond MD is Referral Physician. sp4 22:42 Perico Phipps MD is Referral Physician. sp4 23:48 Patient has correct armband on for positive identification. Client placed on continuous bm8 cardiac and pulse oximetry monitoring. NIBP monitoring applied. transition mgr on. Pulse ox on. NIBP on. 23:48 Seizure precautions initiated. bm8 23:48 IV discontinued, intact, bleeding controlled, No redness/swelling at site. Pressure bm8 dressing applied. Administered Medications: 20:39 Drug: NS 0.9% IV 1000 ml IV at 1 bolus Per protocol; 1000 mL bolus Route: IV; Rate: 1 kj2 bolus; Site: right forearm; 23:50 Follow up: Response: No adverse reaction; IV Status: Completed infusion; IV Intake: bm8 1000ml 20:39 Drug: Ativan IVP 1 mg IVP once Route: IVP; Site: right forearm; kj2 23:49 Follow up: Response: No adverse reaction bm8 20:39 Drug: Banana Bag - (Multivitamin IV 1 amp, NS 0.9% IV 1000 ml, Thiamine IV 100 mg, kj2 foLIC Acid IVPB 1 mg) IV at bolus once Route: IV; Rate: bolus; Site: right forearm; 23:49 Follow up: Response: No adverse reaction; IV Status: Completed infusion; IV Intake: bm8 1000ml 20:40 Drug: Thiamine IV 100 mg IV at per protocol once Route: IV; Rate: per protocol; Site: kj2 right forearm; 23:50 Follow up: Response: No adverse reaction; IV Status: Completed infusion; IV Intake: [id number] 20:40 Drug: Keppra IV 1000 mg IV at per protocol once Route: IV; Rate: per protocol; Site: kj2 right forearm; 23:49 Follow up: Response: No adverse reaction; IV Status: Completed infusion; IV Intake: bm8 100ml Medication: 20:05 VIS not applicable for this client. kj2 Intake: 23:49 IV: 1000ml; Total: 1000ml. bm8 23:49 IV: 100ml; Total: 1100ml. bm8 23:50 IV: 1000ml; Total: 2100ml. bm8 23:50 IV: 50ml; Total: 2150ml. bm8 Outcome: 22:42 Discharge ordered by . sp4 23:48 Discharged to home via wheelchair, bm8 23:48 Condition: stable 23:48 Discharge instructions given to patient, family, Instructed on discharge instructions, follow up and referral plans. no drinking with medication, no driving heavy equipment, safety practices, Demonstrated understanding of instructions, follow-up care, medications, 23:50 Patient left the ED. bm8 Signatures: Dispatcher [employer] EDMS Duran De La Fuente MD MD cha Ayala, Heidy, RN RN ha1 Zheng Louis MD MD sp4 Shmuel Chauhan, RN RN bm8 Rukhsana Eddy, RN RN kj2 Corrections: (The following items were deleted from the chart) 21:53 19:50 Patient has correct armband on for positive identification. Bed in low position. ha1 Call light in reach. Adult w/ patient. kj2
[2024-07-22 00:40] VITALS: BP 118/90; TEMP 98.7; O2SAT 97
--- NOTE | 2024-07-22 16:21 | EKG ---
Test Date: 2024-07-21 Test Time: 19:59:47 Supervisor [employer] Reservations: MANINDER MEASUREMENT RESULTS: Intervals: Rate: 55 MA: 168 QRSD: 98 QT: 476 QTc: 455 [place]: P: 36 MA: 168 QRS: 46 T: 44 INTERPRETIVE STATEMENTS: Sinus bradycardia with premature atrial complexes Septal infarct, age undetermined Abnormal ECG Compared to ECG 12/24/2023 21:11:54 Myocardial infarct finding now present Electronically Signed On 07-22-24 16:20:27 CDT by Daren Zuniga
== END 2024-07-21 23:50 | disposition home or self-care (01) ==
LOC: ER 19:41
DX: G40.509 Epileptic seizures related to external causes, not intractable, without status epilepticus (principal); F10.129 Alcohol abuse with intoxication, unspecified; I10 Essential (primary) hypertension; E78.00 Pure hypercholesterolemia, unspecified; Z86.73 Personal history of transient ischemic attack (TIA), and cerebral infarction without residual deficits
CPT/HCPCS: 96365; 96367; 93005; 85025; 80048; 36415; 83735; 85610; 80076; 84484; 83880; 70450; 71045; 96375; 99285; 82077; J3411 ×2; J1953; J7030 ×2

== ENCOUNTER 2024-12-21 17:16 | Emergency (ER) | payer OTHER ==
--- OUTSIDE RECORDS SUMMARY | 2024-12-21 17:23 | XMS REPORT | Continuity of Care Document ---
Author Name Unknown Address [address] [facility] [address] [place] [address] [facility] Address [address] [facility] [address] [place] [address] Care Team Providers Care Medical Coding Manager Name Role Phone Alexandrea Banegas Primary Care Physician Vega Macedo MD Attending Clinician Rolly Araya MD Attending Clinician [phone] Mikki Jiménez MA Attending Clinician UnavailShaggy Jurado Attending Clinician [phone] Payers Payer Name Policy Type Policy Number Effective Date Expirati on Date Source [employer] [id number] 2020 00:00:00 2020 00:00:00 Problems Condition Name [...] on Disease Active 2017-11 006 00:00: 00 [facility] Coronary artery disease involving [place] coronary artery of [place] heart with angina pectoris Coronary artery disease involving [place] coronary artery of [place] heart with angina pectoris Disease Active 2017-11 0 00:00: 00 [facility] Chest pain Chest pain Disease Active 2017-11 004 00:00: 00 [facility] Social History Social Habit Start Date Stop Date Quantity Comments Source Sexual orientation [facility] History of tobacco use Cigarette Smoker [facility] History of Social function 2023-05-27 00:00:00 2023-05-27 00:00:00 [facility] Alcohol intake 2023-05-27 00:00:00 2023-05-27 00:00:00 Current drinker of alcohol (finding) [facility] Exposure to SARS-CoV-2 (event) 2022-02-24 00:00:00 2022-03-26 14:58:[address] [facility] Cigarettes smoked current (pack per day) - Reported 2022-02-28 00:00:00 2022-02-28 00:00:00 [facility] Tobacco use and exposure 2022-02-28 00:00:00 2022-02-28 00:00:00 Smokeless tobacco non-user [facility] Cigarette pack-years 2022-02-28 00:00:00 2022-02-28 00:00:00 [facility] Alcohol Comment 2018-08-13 00:00:00 2018-08-13 00:00:00 Occasional [facility] Sex Assigned At 1960 00:00:00 1960 00:00:00 [facility] Smoking Status Start Date Stop Date Source Heavy tobacco smoker 2022-02-28 00:00:00 [facility] Current every day smoker 2019-07-02 00:00:00 [facility] Medications Ordered Medication Name Filled Medication Name Start Date Stop Date Current Medication? Ordering Clinician Indication Dosage Frequency Signature (SIG) Comments Components Source lidocaine (Xylocaine) 1 % injection 1 mL 07-15 13:00: 07-15 13:00 :[id number] [facility] betamethaso ne acetate-bet amethasone sodium phosphate (Celestone) injection 1 mg 07-15 13:00: 07-15 13:00 :[id number] [facility] meloxicam (Mobic) 15 MG tablet 05-27 00:00: 06-27 04:59 :00 No [id number] 15mg QD Take 1 tablet (15 mg total) by mouth 1 (one) time each day. [facility] cyclobenzap rine (Flexeril) 10 MG tablet 03-01 00:00: 00 Yes [id number] 902116 10mg Q.27173131 [id number] 3D Take 1 tablet (10 mg total) by mouth 3 (three) times a day if needed for muscle spasms for up to [address] [facility] naloxone (Narcan) 2 MG/2ML injection 03-01 00:00: 00 03-02 04:59 :00 No [id number] 056355 .4mg Administer 0.4 mL (0.4 mg total) into affected nostril(s) if needed for opioid reversal. May repeat every 2-3 minutes as needed until medical assistance available. [facility] traMADol (Ultram) 50 MG tablet 03-01 00:00: 00 03-12 04:59 :00 No [id number] 738614 50mg Q6H Take 1 tablet (50 mg total) by mouth every 6 (six) hours if needed for severe pain for up to [address] [facility] aspirin 81 MG chewable tablet 02-28 10:40: 31 Yes 81mg Chew [address] [facility] citalopram (CeleXA) 20 MG tablet 02-28 10:40: 30 Yes 20mg Take [address] [facility] propranolol (Inderal) 10 MG tablet 02-11 00:00: [address] [facility] gabapentin (Neurontin) 600 MG tablet 07-21 00:00: [address] [facility] iohexol (OMNIPAQUE 350 BULK-100 mL) injection 120 mL 07-03 02:45: 00 07-03 02:23 :00 No 120mL 120 mL, Intravenou s, ONCE, 1 dose, Fri07/02/19 at 2145, Routine [facility] aspirin 81 mg chewable tablet 2017-11 17:44: 42 Yes 81mg Take 81 mg by mouth daily. [facility] propranolol 10 mg tablet 2017-11 17:44: 42 Yes 10mg Take 10 mg by mouth 2 (two) times daily. [facility] citalopram 20 mg tablet 2017-11 17:44: 42 Yes 20mg Take 20 mg by mouth daily. [facility] omeprazole 40 mg capsule 2017-11 17:44: 42 Yes 40mg Take 40 mg by mouth 2 (two) times daily. [facility] Vital Signs Vital Name Observation Time Observation Value Comments S ource Body height 2023-05-27 20:27:00 [facility].3 [facility] Body weight 2023-05-27 20:27:00 78[facility]926 [facility] BMI 2023-05-27 20:27:00 [facility] 2022-02-28 15:39:00 175.3 cm [facility] Body weight 2022-02-28 15:39:00 [facility] BMI 2022-02-28 15:39:00 25.70 kg[facility]m2 [facility] Systolic blood pressure 2019-07-03 02:00:00 142 mm[Hg] [facility] Diastolic blood pressure 2019-07-03 02:00:00 92 mm[Hg] [facility] Heart rate 2019-07-03 02:00:00 80 /min [facility] Respiratory rate 2019-07-03 02:00:00 18 /min [facility] Oxygen saturation in Arterial blood by Pulse oximetry 2019-07-03 02:00:00 98 /min [facility] Body temperature 2019-07-02 23:41:00 36.83 Seema [facility] Body height 2019-07-02 23:41:00 175.3 cm [facility] Body weight 2019-07-02 23:41:00 79.379 kg [facility] BMI 2019-07-02 23:41:00 25.84 kg/m2 [facility] Systolic blood pressure 2019-07-03 02:00:00 142 mm[Hg] [facility] Diastolic blood pressure 2019-07-03 02:00:00 92 mm[Hg] [facility] Heart rate 2019-07-03 02:00:00 80 /min [facility] Respiratory rate 2019-07-03 02:00:00 18 /min [facility] Oxygen saturation in Arterial blood by Pulse oximetry 2019-07-03 02:00:00 98 /min [facility] Body temperature 2019-07-02 23:41:00 36.83 Seema [facility] Body height 2019-07-02 23:41:00 175.3 cm [facility] Body weight 2019-07-02 23:41:00 79.379 kg [facility] BMI 2019-07-02 23:41:00 25.84 kg/m2 [facility] Procedures Procedure Date / Time Performed Performing Clinician Source [place] INJECT TENDON SHEATH[facility]LIGAMENT [facility]07[facility]15 [facility]LIGAMENT 2023-07-15 13:00:[address] [facility] [address] ABDOMEN PELVIS W CONTRAST 2019-07-03 02:30:21 Shaggy Gonzalez [facility] LIPASE 2019-07-03 01:59:00 Sheyla Gao [facility] COMP. METABOLIC PANEL (13449) 2019-07-03 01:59:00 Sheyla Gao [facility] CBC WITH DIFFERENTIAL 2019-07-03 01:59:00 Sa cadence Gao [facility] URINALYSIS 2019-07-03 01:59:00 Sheyla Gao Un [facility] CONSENT/REFUSAL FOR DIAGNOSIS AND TREATMENT 2019-07-02 23:33:31 Doctor Unassigned, [place] [facility] Encounters Start Date/Time End Date/Time Encounter Type Admission Type Attending Clinicians Care Facility Care Department Encounter ID Source 2023-05-27 15:08:50 Outpatient [facility] [id number] [facility] 2023-05-23 14:42:59 Outpatient [facility] [id number] [facility] 2023-05-22 09:33:41 Outpatient [facility] [id number] [facility] 2023-04-16 12:45:29 Outpatient [facility] [id number] [facility] 2023-03-12 09:15:57 Outpatient [facility] [id number] [facility] 2023-07-31 10:30:00 2023-07-31 11:34:02 Office Visit Vega Macedo [facility] 1.2.840.114 [id number] [id number] [facility] 2023-07-24 14:15:00 2023-07-24 14:15:00 Outpatient VEGA MACEDO [facility] [id number] [facility] 2023-07-15 08:10:00 2023-07-15 09:05:23 Outpatient [facility] [id number] [facility] 2023-07-15 08:00:00 2023-07-15 09:04:59 Office Visit Rolly Araya [facility] 1 1.2.840.114 350.1.13.58 9.2.7.2.[id number] [facility] 2023-05-27 15:15:00 2023-05-27 16:42:25 Office Visit Vega Macedo [facility] 1 1.2.840.114 350.1.13.58 9.2.7.2.[id number] [facility] 2023-03-25 14:15:00 2023-03-25 14:15:00 Outpatient VEGA MACEDO [facility] [id number] [facility] 2022-03-26 15:30:00 2022-03-26 16:50:06 Office Visit Vega Macedo [facility] 1 1.2.840.114 350.1.13.58 9.2.7.2.[id number] [facility] 2022-03-04 00:00:00 2022-03-04 00:00:00 Telephone Tino, Mikki Tino, Mikki [facility] 1 1.2.840.114 350.1.13.58 9.2.7.2.[id number] [facility] 2022-02-28 10:00:00 2022-02-28 12:04:39 Office Visit Vega Macedo [facility] 1 1.2.840.114 350.1.13.58 9.2.7.2.[id number] [facility] 2019-07-02 20:25:52 2019-07-02 22:21:00 [facility] 1.2.840.114 350.1.13.10 [id number] [id number] 2019-07-02 20:25:52 2019-07-02 22:21:00 [facility] 1.2.840.114 350.1.13.10 [id number] [id number] [facility] Results Test Description Test Time Test Comments Results Result Co mments Source [facility] Metabolic Likae5699-41-12 02:18:00* Test Item Value Reference Range Interpretation Comme nts NA (test code = 3256159441) 143 mmol/L 135-145 K (test code = 2654239554) 4.3 mmol/L 3.5-5 CL (test code = 1735390850) 110 mmol/L 98-108 H CO2 TOTAL (test code = 5372110919) 19 mmol/L 23-31 L AGAP (test code = 3571857908) 2-16 BUN (test code = 5336620456) 6 mg/dL 7-23 L GLUCOSE (test code = 6057968695) 73 mg/dL 70-110 CREATININE (test code = 3694178747) 0.62 mg/dL 0.6-1.25 TOTAL BILI (test code = 0919735612) 0.4 mg/dL 0.1-1.1 CALCIUM (test code = 0411429302) 8.9 mg/dL 8.6-10.6 T PROTEIN (test code = 5287019896) 7.6 g/dL 6.3-8.2 ALBUMIN (test code = 9456527709) 4.4 g/dL 3.5-5 ALK PHOS (test code = 1687934669) 114 U/L 34-122 ALT(SGPT) (test code = 8472671999) 60 U/L 9-51 H AST(SGOT) (test code = 9475786334) 26 U/L 13-40 eGFR Calculation (Non-) (test code = 8480149502) mL/min/1.73m2 eGFR Calculation () (test code = 7051393531) mL/min/1.73m2 THOMAS (test code = THOMAS) Association [...] imaging tests). Lab Interpretation (test code = 60231-0) Abnormal [facility] Center[facility]inalysis2019-08-24 02:16:00* Test Item Value Reference Range Interpretation Comme nts APPEARANCE (test code = 3905743167) Clear Clear COLOR (test code = 5564041796) Yellow Yellow PH (test code = 7065197044) 4.8-8.0 SP GRAVITY (test code = 5550404842) <=1.005 1.003-1.030 GLU U QUAL (test code = 5437447599) Negative Negative BLOOD (test code = 8366328425) Negative Negative KETONES (test code = 7652644274) Negative Negative PROTEIN (test code = 2887-8) Negative Negative UROBILIN (test code = 8446627788) 0.2 mg/dL See_Comment [Automated messa ge] The system which generated this result transmitted reference range: 0-1.0 mg/dL. The reference range was not used to interpret this result as normal/abnormal. BILIRUBIN (test code = 6190764228) Negative Negative NITRITE (test code = 2544479307) Negative Negative LEUK HARSHA (test code = 6935007581) Negative Negative RBC/HPF (test code = 7778917659) See_Comment [Automated messa ge] The system which generated this result transmitted reference range: 0 - 3 HPF. The reference range was not used to interpret this result as normal/abnormal. WBC/HPF (test code = 7212999174) See_Comment [Automated messa ge] The system which generated this result transmitted reference range: 0 - 5 HPF. The reference range was not used to interpret this result as normal/abnormal. BACTERIA (test code = 9611256095) Negative Negative Lab Interpretation (test code = 52654-7) Normal [facility] WITH [id number] 02:07:00* Test Item Value Reference Range Interpretation [...] 34.5 g/dL 31.2-35 RDW-SD (test code = 42248-3) 45.6 fL 38.5-51.6 RDW-CV (test code = 788-0) 13.4 % 12.1-15.4 PLT (test code = 777-3) See_Comment [Automated messa ge] The system which generated this result transmitted reference range: 150 - 328 10*3/?L. The reference range was not used to interpret this result as normal/abnormal. MPV (test code = 28340-0) 9.8 fL 9.8-13 NRBC/100 WBC (test code = 2201232825) See_Comment [Automated [employer] ssage] The system which generated this result transmitted reference range: 0.0 - 10.0 /100 WBCs. The reference range was not used to interpret this result as normal/abnormal. NRBC x10^3 (test code = 4098558737) <0.01 See_Comment [Automated messa ge] The system which generated this result transmitted reference range: 10*3/?L. The reference range was not used to interpret this result as normal/abnormal. GRAN MAT (NEUT) % (test code = 770-8) 60.9 % IMM GRAN % (test code = 2315680116) 0.40 % LYMPH % (test code = 736-9) 31.2 % MONO % (test code = 5905-5) 4.9 % EOS % (test code = 713-8) 2.0 % BASO % (test code = 706-2) 0.6 % GRAN MAT x10^3(ANC) (test code = 3127677723) 6.66 10*3/uL 1.99-6.95 IMM GRAN x10^3 (test code = 9775921466) 0.04 10*3/uL 0-0.06 LYMPH x10^3 (test code = 731-0) 3.41 10*3/uL 1.09-3.23 H MONO x10^3 (test code = 742-7) 0.54 10*3/uL 0.36-1.02 EOS x10^3 (test code = 711-2) 0.22 10*3/uL 0.06-0.53 BASO x10^3 (test code = 704-7) 0.07 10*3/uL 0.01-0.09 Lab Interpretation (test code = 64779-3) Abnormal [facility]"
[2024-12-21] MEDS ORDERED: HYDROCODONE/APAP 10/325 TAB ONE (17:52)
--- NOTE | 2024-12-21 18:33 | RAD REPORT ---
EXAMINATION: CT Thorax Wo Con CLINICAL INDICATION: Male, 64 years old. [facility] MAIN blunt chest trauma 1 month ago, worsening pain Bed: Y TECHNIQUE: Axial CT scan of the chest without intravenous contrast. Multiplanar reformats were genera keely and reviewed. One or more of the following dose reduction techniques were used: Automated exposure control, adjustment of the mA and/or kV according patient size, and/or iterative reconstruct ion. Unless otherwise specified, incidental findings do not require dedicated imaging follow-up. COMPARISON: Chest radiograph 07/21/2024 FINDINGS: LOWER NECK: Visualized thyroid gland and soft tissues are normal. LUNGS: Elevation of the right hemidiaphragm. The lungs are clear. No evidence of airspace or intersti tial process. No worrisome nodules. Mild background upper lobe predominant centrilobular emphysematous changes PLEURA: No pleural effusion. No pneumothorax. . MEDIASTINUM AND LYMPH NODES: No mediastinal mass or fluid collection. Normal size mediastinal, hilar, and axillary lymph nodes. OSSEOUS STRUCTURES AND CHEST WALL: Minimally displaced left lateral fourth, fifth, and sixth rib frac tures with signs of partial healing. UPPER ABDOMEN: No acute findings. Status post cholecystectomy. IMPRESSION: No acute intrathoracic abnormalities. Healing minimally displaced left lateral fourth, fifth, and sixth rib fractures.
--- NOTE | 2024-12-21 18:39 | EDPHYS ---
Physician Documentation [facility] Name: Agustín Camacho Age: 64 yrs Sex: Male : 1960 Arrival Date: 12/21/2024 Time: 17:16 Bed 3 Private MD: ED Physician Maxi Gonzalez HPI: 12/21 17:42 This 64 yrs old Male presents to ER via Ambulatory with complaints of Rib pain. rn 17:42 The patient or guardian reports chest pain that is located primarily in the left rn lateral anterior chest. Onset: The symptoms/episode began/occurred 1 month(s) ago. The pain does not radiate. Associated signs and symptoms: Pertinent positives: cough, Pertinent negatives: abdominal pain, diaphoresis, headache, shortness of breath, syncope, vomiting. The chest pain is described as sharp, stabbing. Modifying factors: The symptoms are alleviated by nothing. the symptoms are aggravated by palpation of area. Severity of pain: At its worst the pain was moderate in the emergency department the pain is unchanged. The patient has not experienced similar symptoms in the past. Patient reports fall 1 month ago from standing, struck left lateral chest onto counter edge. Has had pain since then but pain worsened over the last couple of days. Reports cough. No hemoptysis. Takes aspirin but nothing stronger. No shortness of breath. No abdominal pain.. Historical: - Allergies: 17:41 NKA; me1 - PMHx: 17:41 AAA; ADD/ADHD; Anxiety; CVA; Hernia; High Cholesterol; Hypertension; Prostate Cancer; me1 - PSHx: 17:41 Cholecystectomy; prostate removal; right knee revision; roator cuff repair right; me1 umbilical hernia repair; - Immunization history:: Adult Immunizations up to date. - Infectious Disease History:: Denies. - Social history:: Smoking status: Patient reports the use of cigarette tobacco products, smokes one pack cigarettes per day. - Family history:: not pertinent. - Hospitalizations: : No recent hospitalization is reported. ROS: 17:42 Constitutional: Negative for fever, chills, and weight loss, Cardiovascular: Positive rn for left lateral rib pain Respiratory: Positive for pleuritic chest pain with palpation and breathing Abdomen/GI: Negative for abdominal pain, nausea, vomiting, diarrhea, and constipation, MS/Extremity: Negative for injury and deformity, Neuro: Negative for headache, weakness, numbness, tingling, and seizure, Exam: 17:42 Constitutional: This is a well developed, well nourished patient who is awake, alert, rn and in no acute distress. Ambulatory to room without difficulty or assistance Chest/axilla: Mild tenderness left upper axillary region along the ribs. No crepitus Cardiovascular: Regular rate and rhythm. No pulse deficits. Respiratory: Speaking full sentences, unlabored. No increased work of breathing Abdomen/GI: Soft, nontender Vital Signs: 17:37 BP 155 / 86; Pulse 55; Resp 16; Temp 98.1; Pulse Ox 97% ; Weight 79.83 kg; Height 5 ft. me1 9 in. ; Pain 0/10; 18:37 BP 144 / 78; Pulse 62; Resp 15; Pulse Ox 98% ; ko1 17:37 Body Mass Index 25.99 (79.83 kg, 175.26 cm) me1 17:37 Pain Scale: Adult me1 MDM: 17:20 Medical Screening Exam initiated rn 18:37 Differential diagnosis: Blunt Chest Trauma Pneumothorax Pulmonary Contusion Rib rn Fracture. Data reviewed: vital signs, nurses notes, radiologic studies, CT scan, and as a result, I will discharge patient. Counseling: I had a detailed discussion with the patient and/or guardian regarding the historical points, exam findings, and any diagnostic results supporting the discharge/admit diagnosis, radiology results, the need for outpatient follow up, to return to the emergency department if symptoms worsen or persist or if there are any questions or concerns that arise at home. Special discussion: I discussed with the patient/guardian in detail that at this point there is no indication for admission to the hospital. It is understood, however, that if the symptoms persist or worsen the patient needs to return immediately for re-evaluation. ED course: CAT scan shows 3 healing rib fractures on the left side where he is hurting, fourth fifth and sixth ribs. No pneumothorax or complication. Will discharge home with return precautions. Patient declines pain medication here or prescription. 12/21 17:41 Order name: CT Chest Wo Con; Complete Time: 18:35 rn 12/21 18:08 Order name: EKG; Complete Time: 18:08 rn 12/21 18:08 Order name: EKG - Nurse/Tech; Complete Time: 18:21 rn Administered Medications: 17:55 Not Given (Patient Refused): norco10 mg-325 mg 1 tabs PO once ko1 Disposition Summary: 12/21/24 18:38 Discharge Ordered Notes: Location: Home rn Problem: an ongoing problem rn Symptoms: have improved rn Condition: Stable rn Diagnosis - Multiple fractures of ribs, left side rn Followup: rn - With: Private Physician - When: As needed - Reason: Recheck today's complaints, Re-evaluation by your physician Discharge Instructions: - Discharge Summary Sheet rn - Rib Fracture rn Forms: - Medication Reconciliation Form rn - Antibiotic burn out tender lace - Prescription Opioid Use rn - Patient Portal Instructions rn - Leadership Thank You Letter rn Signatures: Dispatcher [employer] Maxi Cabral MD MD rn Oliver, Kathy RN RN ko1 Kiah Hummel RN RN me1
--- NOTE | 2024-12-21 18:39 | ER ---
Nurse's Notes [facility] Name: Agustín Camacho Age: 64 yrs Sex: Male : 1960 Arrival Date: 12/21/2024 Time: 17:16 Bed 3 Private MD: Diagnosis: Multiple fractures of ribs, left side Presentation: 12/21 17:37 Chief complaint: Patient states: he fell about a month ago and has continued to have me1 intermittent sharp left rib pain with sneezing, coughing or straining. No c/o pain at this time but pain is 10/10 at worst. Coronavirus screen: Vaccine status: Patient reports being unvaccinated. Ebola Screen: No symptoms or risks identified at this time. Initial Sepsis Screen: Does the patient meet any 2 criteria? No. Patient's initial sepsis screen is negative. Risk Assessment: Do you want to hurt yourself or someone else? Patient reports no desire to harm self or others. Onset of symptoms is unknown. 17:37 [place] Of [place] [facility] [place] Acuity: BEVERLY 3 me1 18:43 Initial Sepsis Screen: Does the patient have a suspected source of infection? No. ld1 Patient's initial sepsis screen is negative. Historical: - Allergies: 17:41 NKA; me1 - PMHx: 17:41 AAA; ADD/ADHD; Anxiety; CVA; Hernia; High Cholesterol; Hypertension; Prostate Cancer; me1 - PSHx: 17:41 Cholecystectomy; prostate removal; right knee revision; roator cuff repair right; me1 umbilical hernia repair; - Immunization history:: Adult Immunizations up to date. - Infectious Disease History:: Denies. - Social history:: Smoking status: Patient reports the use of cigarette tobacco products, smokes one pack cigarettes per day. - Family history:: not pertinent. - Hospitalizations: : No recent hospitalization is reported. Screenin:59 [facility] ED Fall Risk Assessment (Adult) History of falling in the last 3 months, ko1 including since admission Yes- single mechanical fall (1 pt) Confusion or Disorientation No (0 pts) Intoxicated or Sedated No (0 pts) Impaired Gait No (0 pts) Mobility Assist Device Used No (0 pt) Altered Elimination No (0 pt) Score/Fall Risk Level 0 - 2 = Low Risk Oriented to surroundings, Maintained a safe environment, Educated pt \T\ family on fall prevention, incl call for assistance when getting out of bed, Assessed \T\ reinforced patient's understanding of fall precautions, Hourly rounding (assess needs \T\ fall precautionary measures) done. Abuse screen: Denies threats or abuse. Denies injuries from another. Nutritional screening: No deficits noted. Tuberculosis screening: No symptoms or risk factors identified. Assessment: 17:59 General: Appears in no apparent distress. Behavior is calm, cooperative, appropriate ko1 for age. Pain: Complains of pain in left lateral anterior chest. Neuro: No deficits noted. Cardiovascular: No deficits noted. Respiratory: No deficits noted. GI: No deficits noted. No signs and/or symptoms were reported involving the gastrointestinal system. : No deficits noted. No signs and/or symptoms were reported regarding the genitourinary system. EENT: No deficits noted. No signs and/or symptoms were reported regarding the EENT system. Derm: No deficits noted. No signs and/or symptoms reported regarding the dermatologic system. Musculoskeletal: Reports pain in left lateral anterior chest. 18:42 Reassessment: Patient appears in no apparent distress at this time. No changes from ld1 previously documented assessment. Patient and/or family updated on plan of care and expected duration. Pain level reassessed. Patient is alert, oriented x 3, equal unlabored respirations, skin warm/dry/pink. Vital Signs: 17:37 BP 155 / 86; Pulse 55; Resp 16; Temp 98.1; Pulse Ox 97% ; Weight 79.83 kg; Height 5 ft. me1 9 in. ; Pain 0/10; 18:37 BP 144 / 78; Pulse 62; Resp 15; Pulse Ox 98% ; ko1 17:37 Body Mass Index 25.99 (79.83 kg, 175.26 cm) me1 17:37 Pain Scale: Adult me1 ED Course: 17:18 Patient arrived in ED. mr 17:20 Maxi Gonzalez MD is Attending Physician. rn 17:41 Triage completed. me1 17:41 Arm band placed on Patient placed in waiting room. me1 17:49 Elda Garcia, DIEGO is Primary Nurse. ko1 17:59 Patient has correct armband on for positive identification. Bed in low position. Call ko1 light in reach. Side rails up X 1. Provided Education on: meds. Pulse ox on. NIBP on. Door closed. Noise minimized. Lights dimmed. Warm blanket given. Pillow given. 17:59 No provider procedures requiring assistance completed. Patient did not have IV access ko1 during this emergency room visit. 18:06 CT Chest Wo Con In Process Unspecified. EDMS 18:30 EKG done, by ED staff, reviewed by Maxi Gonzalez MD. ko1 Administered Medications: 17:55 Not Given (Patient Refused): norco10 mg-325 mg 1 tabs PO once ko1 Medication: 17:59 VIS not applicable for this client. ko1 Outcome: 18:38 Discharge ordered by . rn 18:42 Discharged to home ambulatory, ld1 18:42 Condition: stable 18:42 Discharge instructions given to patient, Instructed on discharge instructions, follow up and referral plans. Demonstrated understanding of instructions, follow-up care, 18:43 Patient left the ED. ld1 Signatures: Dispatcher [employer] EDIN Savanna Montano, Reg Reg mr Maxi Gonzalez MD MD rn Sims, Lauren RN RN ld1 Elda Garcia, RN RN ko1 Kiah Hummel, RN RN me1
[2024-12-21 22:51] VITALS: TEMP 98.1
[2024-12-21 22:52] VITALS: BP 144/78; O2SAT 98
--- NOTE | 2024-12-22 11:45 | EKG ---
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
== END 2024-12-21 18:43 | disposition home or self-care (01) ==
LOC: ER 17:16
DX: S22.42XA Multiple fractures of ribs, left side, initial encounter for closed fracture (principal); W18.09XA Striking against other object with subsequent fall, initial encounter; F17.210 Nicotine dependence, cigarettes, uncomplicated
CPT/HCPCS: 71250; 93005

== ENCOUNTER 2025-02-22 19:31 | Inpatient (IN) | payer OTHER ==
--- OUTSIDE RECORDS SUMMARY | 2025-02-22 19:34 | XMS REPORT | Continuity of Care Document ---
Author Name Unknown Address [address] [place] [address] [facility] Address [address] [place] [address] Care Team Providers Care Foamite Mixer Name Role Phone Alexandrea Banegas Primary Care Physician [phone] VEGA MACEDO Attending Clinician Unavailable Rolly Araya MD Attending Clinician [phone] Mikki Jiménez MA Attending Clinician Unavailab Shaggy Higgins Attending Clinician [phone] Payers Payer Name Policy Type Policy Number Effective Date Expirati on Date Source HUMANA [id number] 2020 00:00:00 2020 00:00:00 [employer] PPO [id number] 2024 00:00:00 Problems Condition Name Condition Details Condition [...] Tear of right rotator cuff Disease Active 2022-0 7-26 00:00: 00 [facility] 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 vicular joint Disease Active 517 00:00: 00 [facility] Essential hypertensi on Essential hypertensi on Disease Active 2017-11 006 00:00: 00 [facility] 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 Disease Active 2017-11 006 00:00: 00 [facility] Chest pain Chest pain Disease Active 2017-11 004 00:00: 00 [facility] Social History Social Habit Start Date Stop Date Quantity Comments Source Sexual orientation [facility] History of tobacco use Cigarette Smoker [facility] History of Social function 2023-05-27 00:00:00 2023-05-27 00:00:00 [facility] Alcohol intake 2023-05-27 00:00:00 2023-05-27 00:00:00 Current drinker of alcohol (finding) [facility] Exposure to SARS-CoV-2 (event) 2022-02-24 00:00:00 2022-03-26 14:58:00 Not sure [facility] Cigarettes smoked current (pack per day) - Reported 2022-02-28 00:00:00 2022-02-28 00:00:00 [facility] Tobacco use and exposure 2022-02-28 00:00:00 2022-02-28 00:00:00 Smokeless tobacco non-user [facility] Cigarette pack-years 2022-02-28 00:00:00 2022-02-28 00:00:00 [facility] Alcohol Comment 2018-08-13 00:00:00 2018-08-13 00:00:00 Occasional [facility] Sex Assigned At 1960 00:00:00 1960 00:00:00 [facility] Smoking Status Start Date Stop Date Source Heavy tobacco smoker 2022-02-28 00:00:00 [facility] Current every day smoker 2019-07-02 00:00:00 [facility] Medications Ordered Medication Name Filled Medication Name Start Date Stop Date Current Medication? Ordering Clinician Indication Dosage Frequency Signature (SIG) Comments Components Source lidocaine (Xylocaine) 1 % injection 1 mL 07-15 13:00: 00 07-15 13:00 :00 No [id number] 1mL [facility] betamethaso ne acetate-bet amethasone sodium phosphate (Celestone) injection 1 mg 07-15 13:00: 00 07-15 13:00 :00 No [id number] 1mg [facility] meloxicam (Mobic) 15 MG tablet 05-27 00:00: 00 06-27 04:59 :00 No [id number] 09766 15mg QD Take 1 tablet (15 mg total) by mouth 1 (one) time each day. [facility] cyclobenzap rine (Flexeril) 10 MG tablet 03-01 00:00: 00 Yes [id number] 412466 10mg Q.[id number] 3D Take 1 tablet (10 mg total) by mouth 3 (three) times a day if needed for muscle spasms for up to 10 days. [facility] naloxone (Narcan) 2 MG/2ML injection 03-01 00:00: 00 03-02 04:59 :00 No [id number] 451034 .4mg Administer 0.4 mL (0.4 mg total) into affected nostril(s) if needed for opioid reversal. May repeat every 2-3 minutes as needed until medical assistance available. [facility] traMADol (Ultram) 50 MG tablet 03-01 00:00: 00 03-12 04:59 :00 No [id number] 073833 50mg Q6H Take 1 tablet (50 mg total) by mouth every 6 (six) hours if needed for severe pain for up to 10 days. [facility] aspirin 81 MG chewable tablet 02-28 10:40: 31 Yes 81mg Chew 81 mg. [facility] citalopram (CeleXA) 20 MG tablet 02-28 10:40: 30 Yes 20mg Take 20 mg by mouth. [facility] propranolol (Inderal) 10 MG tablet 02-11 00:00: 00 Yes [facility] gabapentin (Neurontin) 600 MG tablet 07-21 00:00: 00 Yes [facility] iohexol (OMNIPAQUE 350 BULK-100 mL) injection 120 mL 07-03 02:45: 00 07-03 02:23 :00 No 120mL 120 mL, Intravenou s, ONCE, 1 dose, 07/02/19 at 2145, Routine [facility] aspirin 81 mg chewable tablet 2017-11 17:44: 42 Yes 81mg Take 81 mg by mouth daily. [facility] propranolol 10 mg tablet 2017-11 17:44: 42 Yes 10mg Take 10 mg by mouth 2 (two) times daily. [facility] citalopram 20 mg tablet 2017-11 17:44: 42 Yes 20mg Take 20 mg by mouth daily. [facility] omeprazole 40 mg capsule 2017-11 17:44: 42 Yes 40mg Take 40 mg by mouth 2 (two) times daily. [facility] Vital Signs Vital Name Observation Time Observation Value Comments S ource Body height 2023-05-27 20:27:00 [facility].3 [facility] Body weight 2023-05-27 20:27:00 78.926 kg [facility] BMI 2023-05-27 20:27:00 25.70 kg/m2 [facility] Body height 2022-02-28 15:39:00 175.3 cm [facility] Body weight 2022-02-28 15:39:00 78.926 kg [facility] BMI 2022-02-28 15:39:00 25.70 kg/m2 [facility] Systolic blood pressure 2019-07-03 02:00:00 142 mm[Hg] [facility] Diastolic blood pressure 2019-07-03 02:00:00 92 mm[Hg] [facility] Heart rate 2019-07-03 02:00:00 80 /min [facility] Respiratory rate 2019-07-03 02:00:00 18 /min [facility] Oxygen saturation in Arterial blood by Pulse oximetry 2019-07-03 02:00:00 98 /min [facility] Body temperature 2019-07-02 23:41:00 36.83 Seema [facility] Body height 2019-07-02 23:41:00 175.3 cm [facility] Body weight 2019-07-02 23:41:00 79.379 kg [facility] BMI 2019-07-02 23:41:00 25.84 kg/m2 [facility] Systolic blood pressure 2019-07-03 02:00:00 142 mm[Hg] [facility] Diastolic blood pressure 2019-07-03 02:00:00 92 mm[Hg] [facility] Heart rate 2019-07-03 02:00:00 80 /min [facility] Respiratory rate 2019-07-03 02:00:00 18 /min [facility] Oxygen saturation in Arterial blood by Pulse oximetry 2019-07-03 02:00:00 98 /min [facility] Body temperature 2019-07-02 23:41:00 36.83 Seema [facility] Body height 2019-07-02 23:41:00 175.3 cm [facility] Body weight 2019-07-02 23:41:00 79.379 kg [facility] BMI 2019-07-02 23:41:00 25.84 kg/m2 [facility] Procedures Procedure Date / Time Performed Performing Clinician Source CO INJECT TENDON SHEATH/LIGAMENT 2023-07-15 13:00:00 Zenkars Martine AR iVengo CO INJECT TENDON SHEATH/LIGAMENT [facility]07[facility]EL[facility] W CONTRAST 2019-07-03 02:30:21 Shaggy Gonzalez [facility] LIPASE 2019-07-03 01:59:00 Sheyla Gao [facility] COMP. METABOLIC PANEL (10333) 2019-07-03 01:59:00 Sheyla Gao [facility] CBC WITH DIFFERENTIAL 2019-07-03 01:59:00 Sa cadence Gao [facility] URINALYSIS 2019-07-03 01:59:00 Sheyla Gao Un [facility] CONSENT/REFUSAL FOR DIAGNOSIS AND TREATMENT 2019-07-02 23:33:31 Doctor Unassigned, Coco [facility] Encounters Start Date/Time End Date/Time Encounter Type Admission Type Attending [facility] Care Department Encounter ID Source 2023-05-27 15:08:50 Outpatient [facility] [id number] [facility] 2023-05-23 14:42:59 Outpatient [facility] ER [id number] [facility] 2023-05-22 09:33:41 Outpatient [facility] [id number] [facility] 2023-04-16 12:45:29 Outpatient [facility] [id number] [facility] 2023-03-12 09:15:57 Outpatient [facility] ER [id number] [facility] 2025-03-01 10:00:00 2025-03-01 10:00:00 Outpatient VEGA MACEDO [facility] ER [id number] [facility] 2023-07-31 10:30:00 2023-07-31 11:34:02 Office Visit Vega Macedo [facility] [id number] [facility] 2023-07-24 14:15:00 2023-07-24 14:15:00 Outpatient VEGA MACEDO [facility] [id number] [facility] 2023-07-15 08:10:00 2023-07-15 09:05:23 Outpatient [facility] [id number] [facility] 2023-07-15 08:00:00 2023-07-15 09:04:59 Office [address] Rolly Araya [facility] 1 1.2.840.114 [id number] [id number] [id number] [facility] 2023-05-27 15:15:00 2023-05-27 16:42:25 Office Visit Vega Macedo [facility] 1 1.2.840.114 [id number] [id number] [facility] 2023-03-25 14:15:00 2023-03-25 14:15:00 Outpatient VEGA MACEDO [facility] ER [id number] [facility] 2022-03-26 15:30:00 2022-03-26 16:50:06 Office Visit Vega Macedo [facility] 1 1.2.840.114 [id number] [id number] [id number] [facility] 2022-03-04 00:00:00 2022-03-04 00:00:00 Telephone Tino, Mikki Tino, Mikki UTP [facility] 1 1.2.840.114 350.1.13.58 9.2.7.2.686 [id number] [facility] 2022-02-28 10:00:00 2022-02-28 12:04:39 Office Visit Vega Macedo [facility] 1 1.2.840.114 [id number] 9.2.7.2.686 [id number] [facility] 2019-07-02 20:25:52 2019-07-02 22:21:00 [facility] 1.2.840.114 350.1.13.10 [id number] [id number] [facility] 2019-07-02 20:25:52 2019-07-02 22:21:00 Emergency Shaggy Gonzalez [facility] [id number] 350.1.13.10 [id number] [id number] Results Test Description Test Time Test Comments Results Result Co mments Source [facility] Metabolic [id number] 02:18:00* Test Item Value Reference Range Interpretation Comme nts NA (test code = 5988202174) 143 mmol/L 135-145 K (test code = 8510939664) 4.3 mmol/L 3.5-5 CL (test code = 2832451286) 110 mmol/L 98-108 H CO2 TOTAL (test code = 6584935325) 19 mmol/L 23-31 L AGAP (test code = 5690161298) 2-16 BUN (test code = 7020648564) 6 mg/dL 7-23 L GLUCOSE (test code = 5770838912) 73 mg/dL 70-110 CREATININE (test code = 5350916721) 0.62 mg/dL 0.6-1.25 TOTAL BILI (test code = 4957812396) 0.4 mg/dL 0.1-1.1 CALCIUM (test code = 2148313986) 8.9 mg/dL 8.6-10.6 T PROTEIN (test code = 2902128602) 7.6 g/dL 6.3-8.2 ALBUMIN (test code = 9936442935) 4.4 g/dL 3.5-5 ALK PHOS (test code = 3686993729) 114 U/L 34-122 ALT(SGPT) (test code = 7839104429) 60 U/L 9-51 H AST(SGOT) (test code = 6836616490) 26 U/L 13-40 eGFR Calculation (Non-) (test code = 0787849076) mL/min/1.73m2 eGFR Calculation () (test code = 3868150587) mL/min/1.73m2 THOMAS (test code = THOMAS) Association [...] imaging tests). Lab Interpretation (test code = 94153-0) Abnormal [facility] Center[facility]inalysis2019-08-24 02:16:00* Test Item Value Reference Range Interpretation Comme nts APPEARANCE (test code = 2469011684) Clear Clear COLOR (test code = 0512637139) Yellow Yellow PH (test code = 7608579440) 4.8-8.0 SP GRAVITY (test code = 2578649481) <=1.005 1.003-1.030 GLU U QUAL (test code = 1976092798) Negative Negative BLOOD (test code = 3003683617) Negative Negative KETONES (test code = 0113413552) Negative Negative PROTEIN (test code = 2887-8) Negative Negative UROBILIN (test code = 4296027821) 0.2 mg/dL See_Comment [Automated messa ge] The system which generated this result transmitted reference range: 0-1.0 mg/dL. The reference range was not used to interpret this result as normal/abnormal. BILIRUBIN (test code = 8480649060) Negative Negative NITRITE (test code = 4142582403) Negative Negative LEUK HARSHA (test code = 3560457256) Negative Negative RBC/HPF (test code = 9303232809) See_Comment [Automated messa ge] The system which generated this result transmitted reference range: 0 - 3 HPF. The reference range was not used to interpret this result as normal/abnormal. WBC/HPF (test code = 1745989193) See_Comment [Automated messa ge] The system which generated this result transmitted reference range: 0 - 5 HPF. The reference range was not used to interpret this result as normal/abnormal. BACTERIA (test code = 2490982754) Negative Negative Lab Interpretation (test code = 85913-8) Normal [facility] WITH [id number] 02:07:00* Test Item Value Reference Range Interpretation Comme nts WBC (test code = 6690-2) See_Comment H [Automated messa ge] The system which generated this result transmitted reference range: 4.20 - 10.70 10*3/?L. The reference range was not used to interpret this result as normal/abnormal. RBC (test code = 789-8) See_Comment [Automated [employer] ge] The system which generated this result [...] 34.5 g/dL 31.2-35 RDW-SD (test code = 53187-1) 45.6 fL 38.5-51.6 RDW-CV (test code = 788-0) 13.4 % 12.1-15.4 PLT (test code = 777-3) See_Comment [Automated [employer] ge] The system which generated this result transmitted reference range: 150 - 328 10*3/?L. The reference range was not used to interpret this result as normal/abnormal. MPV (test code = 47252-5) 9.8 fL 9.8-13 NRBC/100 WBC (test code = 1720964348) See_Comment [Automated 123people ssage] The system which generated this result transmitted reference range: 0.0 - 10.0 /100 WBCs. The reference range was not used to interpret this result as normal/abnormal. NRBC x10^3 (test code = 9788395661) <0.01 See_Comment [Automated [employer] ge] The system which generated this result transmitted reference range: 10*3/?L. The reference range was not used to interpret this result as normal/abnormal. GRAN MAT (NEUT) % (test code = 770-8) 60.9 % IMM GRAN % (test code = 7111842731) 0.40 % LYMPH % (test code = 736-9) 31.2 % MONO % (test code = 5905-5) 4.9 % EOS % (test code = 713-8) 2.0 % BASO % (test code = 706-2) 0.6 % GRAN MAT x10^3(ANC) (test code = 6127062378) 6.66 10*3/uL 1.99-6.95 IMM GRAN x10^3 (test code = 9014105263) 0.04 10*3/uL 0-0.06 LYMPH x10^3 (test code = 731-0) 3.41 10*3/uL 1.09-3.23 H MONO x10^3 (test code = 742-7) 0.54 10*3/uL 0.36-1.02 EOS x10^3 (test code = 711-2) 0.22 10*3/uL 0.06-0.53 BASO x10^3 (test code = 704-7) 0.07 10*3/uL 0.01-0.09 Lab Interpretation (test code = 18700-0) Abnormal [facility]"
[2025-02-22 20:36] LABS: Absolute Basophils 0.1 K/uL (0-0.5); Absolute Eosinophils 0.2 K/uL (0-0.5); Absolute Lymphocytes (CBC) 2.1 K/uL (0.7-4.9); Absolute Monocytes 0.5 K/uL (0.1-1.3); Absolute Neutrophil 4.6 K/uL (1.8-8.0); Eosinophils % 2.4 % (0-4.4); Hematocrit 37.4 % (39.6-49.0); Lymphocytes % 28.3 % (15.3-44.8); MCH 33.4 pg (27.0-35.0); MCHC 34.7 g/dL (32.0-36.0); MCV 96.1 fL (80-100); MPV 7.8 fL (7.6-11.3); Monocytes % 6.4 % (3.3-12.3); Neutrophils % 61.9 % (41.7-73.7); Platelets 205 thou/uL (152-406); RBC Red Blood Cell Count 3.89 M/uL (4.33-5.43); Red Cell Distribution Width 14.5 % (12.1-15.2)
[2025-02-22 20:47] LABS: PT Prothrombin Time 10.5 SECONDS (10-13.0); Protime INR 0.92
[2025-02-22 20:53] LABS: Anion Gap 9.6 mEq/L (5.0-15.0); Magnesium 2.1 mg/dL (1.6-2.4); Potassium 3.6 mEq/L (3.5-5.1); Troponin High Sensitivity 6.3 pg/mL (<58.9)
--- NOTE | 2025-02-22 21:19 | RAD REPORT ---
EXAMINATION: ONE VIEW CHEST XR CLINICAL INDICATION: CHEST PAIN TECHNIQUE: Frontal chest projection is submitted. Examination is limited by patient positioning and t echnique. COMPARISON: 07/21/2024 FINDINGS: Mild bibasilar lung opacities are present suggesting infiltrate/pneumonia. The heart is mildly enlarg ed in size. No displaced fractures identified.
--- NOTE | 2025-02-22 21:41 | RAD REPORT ---
EXAM: CTA of the chest, abdomen and pelvis HISTORY: Chest pain and back pain ABD PAIN COMPARISON: None TECHNIQUE: Multiple contiguous axial images were obtained a CTA of the chest and abdomen with contras t per aortic dissection protocol. This involves 3D reconstructions, MIPs, volume rendered images and/or shaded surface rendering. One or more of the following dose reduction techniques were used: Au tomated exposure control, adjustment of the mA and/or kV according to patient size, and/or iterative reconstruction. Unless otherwise specified, incidental findings do not require dedicated im aging follow-up. Sagittal and coronal 3-D MIP reformats were performed. FINDINGS: PULMONARY ARTERIES: Normal in caliber without filling defects to suggest pulmonary emboli. ASCENDING THORACIC AORTA: Normal caliber without evidence of dissection or aneurysmal dilatation. DESCENDING THORACIC AORTA: Normal caliber without evidence of dissection or aneurysmal dilatation. ABDOMINAL AORTA: Normal caliber without evidence of dissection or aneurysmal dilatation. CELIAC TRUNK: Patent. SMA: Patent TAWNYA: Patent RENAL ARTERIES: Bilateral single renal arteries without significant atherosclerotic disease. MEDIASTINUM: No hilar or mediastinal lymphadenopathy. LUNGS: No focal infiltrates or masses. PLEURAL SPACE: No pleural effusion or pneumothorax. LIVER: 11 mm cyst left lobe liver. No worrisome liver lesions. No intra or extrahepatic biliary tree dilatation.. Postoperative clips. SPLEEN: Unremarkable. PANCREAS: Unremarkable. KIDNEYS: Unremarkable. ADRENALS: Unremarkable. BOWEL: Moderate stool is present throughout the colon.. RETROPERITONEUM: No lymphadenopathy. BONES: Unremarkable ADDITIONAL FINDINGS: Postsurgical clips right inguinal region. IMPRESSION: No significant flow abnormality detected.
[2025-02-22] MEDS ORDERED: NITROGLYCERIN 0.4 MG/TAB SL PRN (22:36)
[2025-02-22] MEDS ORDERED: ALPRAZOLAM 0.25 MG TABLET PO PRN (22:36)
[2025-02-22] MEDS ORDERED: ONDANSETRON 4 MG/2 ML VIAL IV PRN (22:36)
--- NOTE | 2025-02-22 22:41 | EDPHYS ---
Physician Documentation [facility] Name: Agustín Camacho Age: 64 yrs Sex: Male : 1960 Arrival Date: 02/22/2025 Time: 19:31 Bed 27 Private MD: ED Physician Duran De La Fuente HPI: 02/22 23:36 This 64 yrs old Male presents to ER via EMS with complaints of Chest Pain. kb 23:38 Patient is a 64-year-old male who presents for chest pain, nausea and mild shortness of kb breath that started at 3 PM. Describes the pain as a pressure to his chest. 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 Historical: - Allergies: 19:47 NKA; kj2 - Home Meds: 19:47 aspirin 325 mg Oral tab 1 tab once daily [Active]; kj2 - PMHx: 19:47 AAA; ADD/ADHD; Anxiety; CVA; Hernia; High Cholesterol; Hypertension; Prostate Cancer; kj2 - PSHx: 19:47 Cholecystectomy; prostate removal; right knee revision; roator cuff repair right; kj2 umbilical hernia repair; - Immunization history:: Adult Immunizations unknown. - Infectious Disease History:: Denies. - Social history:: Smoking status: . ROS: 23:31 Constitutional: As per HPI kb Exam: 23:31 Constitutional: This is a well developed, well nourished patient who is awake, alert, kb and in no acute distress. Head/Face: Normocephalic, atraumatic. ENT: Moist Mucous membranes Cardiovascular: Regular rate Respiratory: Respirations even and unlabored. No increased work of breathing. Talking in full sentences Skin: Warm, dry with normal turgor. Normal color. MS/ Extremity: Pulses equal, no cyanosis. Neurovascular intact. Full, normal range of motion. Neuro: Awake and alert, GCS 15, oriented to person, place, time, and situation. 23:31 ECG was reviewed by the Attending Physician. 23:31 Abdomen/GI: Inspection: abdomen appears normal, Bowel sounds: normal, Palpation: soft, in all quadrants, moderate abdominal tenderness, in the left upper quadrant and left lower quadrant, Vital Signs: 19:43 BP 153 / 88; Pulse 60; Resp 12; Pulse Ox 95% on R/A; af3 19:45 BP 146 / 98; Pulse 59; Resp 18; Temp 98; Pulse Ox 100% ; Weight 70.31 kg; Height 5 ft. kj2 9 in. ; 20:50 BP 94 / 80; Pulse 57; Resp 20; Pulse Ox 97% ; kj2 21:50 BP 96 / 82; Pulse 60; Resp 18; Pulse Ox 100% ; kj2 22:50 BP 130 / 85; Pulse 52; Resp 18; Pulse Ox 98% on R/A; kj2 23:50 BP 132 / 86; Pulse 56; Resp 20; Pulse Ox 100% on R/A; kj2 19:45 Body Mass Index 22.89 (70.31 kg, 175.26 cm) kj2 MDM: 20:00 Medical Screening Exam initiated kb 23:32 Differential diagnosis: Acute MA, arrhythmia, dissection. Data reviewed: vital signs, kb nurses notes. Consideration of Admission/Observation Patient was admitted/placed on observation. Escalation of care including admission/observation considered. Management of patient was discussed with the following: Hospitalist: Dr Alcantara accepts pt for admission. Historians other than the Patient: EMS: [facility]. Counseling: I had a detailed discussion with the patient and/or guardian regarding the historical points, exam findings, and any diagnostic results supporting the discharge/admit diagnosis, lab results, radiology results, the need for further work-up and treatment in the hospital. 02/22 19:59 Order name: Basic Metabolic Panel; Complete Time: 20:59 kb 02/22 19:59 Order name: CBC with Diff; Complete Time: 20:42 kb 02/22 19:59 Order name: Magnesium; Complete Time: 20:59 kb 02/22 19:59 Order name: NT PRO-BNP; Complete Time: 20:59 kb 02/22 19:59 Order name: PT-INR; Complete Time: 20:51 kb 02/22 19:59 Order name: Troponin HS; Complete Time: 20:59 kb 02/22 22:19 Order name: Blood Culture Adult (2) kb 02/22 22:44 Order name: Comprehensive Metabolic Panel EDIA 02/22 22:44 Order name: CBC with Automated Diff EDMS 02/22 22:44 Order name: CBC with Automated Diff EDMS 02/22 22:44 Order name: Lipid Profile EDMS 02/22 22:44 Order name: Lipid Profile EDMS 02/22 22:44 Order name: Lipid Profile EDIA 02/22 22:44 Order name: Lipid Profile EDIA 02/22 22:44 Order name: Troponin High Sensitivity EDMS 02/22 22:44 Order name: Troponin High Sensitivity EDMS 02/22 22:44 Order name: Troponin High Sensitivity EDIA 02/22 22:44 Order name: Troponin High Sensitivity EDIA 02/22 22:44 Order name: Troponin High Sensitivity EDIA 02/22 22:44 Order name: Sputum Culture EDIA 02/23 07:21 Order name: Comprehensive Metabolic Panel EDIA 02/23 07:21 Order name: Troponin High Sensitivity EDIA 02/23 07:43 Order name: Procalcitonin EDIA 02/22 19:59 Order name: XRAY Chest (1 view); Complete Time: 21:21 kb 02/22 20:59 Order name: CT Aorta for Dissection; Complete Time: 21:50 kb 02/22 22:44 Order name: Echo with Doppler EDIA 02/22 19:59 Order name: EKG; Complete Time: 19:59 kb 02/22 19:59 Order name: Cardiac monitoring; Complete Time: 20:13 kb 02/22 19:59 Order name: EKG - Nurse/Tech; Complete Time: 20:13 kb 02/22 19:59 Order name: IV Saline Lock; Complete Time: 20:14 kb 02/22 19:59 Order name: Labs collected and sent; Complete Time: 20:14 kb 02/22 19:59 Order name: O2 Per Protocol; Complete Time: 20:14 kb 02/22 19:59 Order name: O2 Sat Monitoring; Complete Time: 20:14 kb EC:31 Rate is 55 beats/min. Rhythm is regular. QRS [place] is Normal. RI interval is normal at kb 160 msec. QRS interval is normal at 90 msec. QT interval is normal at 424 msec. Administered Medications: 20:13 Not Given (given by EMS ptaa): aspirinchewable tablet 324 mg PO once; 81 mg tablets x 4 kb 02/23 00:59 Drug: Rocephin IV 1 grams IV at calculated rate once; Given slow IV push per pharmacy kj2 instructions Route: IV; Rate: calculated rate; Site: right forearm; 01:30 Follow up: Response: No adverse reaction; IV Status: Completed infusion ha1 00:59 Drug: Zithromax IVPB 500 mg IVPB once over 1 hrs; mix in 250 mL NS Route: IVPB; Infused kj2 Over: 1 hrs; Site: right forearm; 03:00 Follow up: Response: No adverse reaction; IV Status: Completed infusion ha1 00:59 Drug: NS 0.9% IV 1000 ml IV at 1000 ml once; to be given as a bolus over 60 minutes kj2 Route: IV; Rate: 1000 ml; Site: right forearm; 02:00 Follow up: Response: No adverse reaction; IV Status: Completed infusion ha1 Disposition Summary: 02/22/25 22:41 Hospitalization Ordered Notes: Hospitalization Status: Observation kb Provider: Yarelis Alcantara Condition: Stable kb Problem: new kb Symptoms: are unchanged kb Bed/Room Type: Standard kb Location: Telemetry/MedSurg (Inpatient)(02/23/25 14:25) sp Room Assignment: [facility](02/23/25 14:25) sp Diagnosis - Chest pain, unspecified kb - Pneumonia, unspecified organism kb Forms: - Medication Reconciliation Form kb - SBAR form kb - Leadership Thank You Letter kb Addendum: 02/26/2025 08:50 Co-signature as Attending Physician, Duran De La Fuente MD I agree with the assessment and c batista plan of care. Signatures: Dispatcher [employer] Miriam Lemus, KALANI-C HEAT TREAT OPERATOR-Duran Alcocer MD MD cha Pinkerton, Shawna sp Calcote, Vanessa RN RN vc1 Rukhsana Eddy RN RN kj2 Sallie Olea RN ha1 Corrections: (The following items were deleted from the chart) 02/22 20:00 19:59 BASIC METABOLIC PANEL+C.LAB.BRZ ordered. EDMS EDMS 20:00 19:59 CBC+H.LAB.BRZ ordered. EDMS EDMS 20:00 19:59 MAGNESIUM+C.LAB.BRZ ordered. EDMS EDMS 20:00 19:59 PROBNP+C.LAB.BRZ ordered. EDMS EDMS 20:00 19:59 PROTIME (+INR)+COAG.LAB.BRZ ordered. EDMS EDMS 20:00 19:59 Troponin High Sensitivity+C.LAB.BRZ ordered. EDMS EDMS 02/23 01:05 02/22 22:41 Telemetry/MedSurg (observation) kb vc1 02/23 01:05 02/22 22:41 kb vc1 02/23 14:25 01:05 [facility] ER HOLD vc1 sp 14:25 01:05 ERHOLD- vc1 sp
--- NOTE | 2025-02-22 22:41 | ER ---
Nurse's Notes [facility] Name: Agustín Camacho Age: 64 yrs Sex: Male : 1960 Arrival Date: 02/22/2025 Time: 19:31 Bed 27 Private MD: Diagnosis: Chest pain, unspecified;Pneumonia, unspecified organism Presentation: 02/22 19:46 Chief complaint: EMS states: chest pain, weakness, shortness of breath on inspiration. kj2 Coronavirus screen: Client denies travel out of the [place] in the last 14 days. Ebola Screen: No symptoms or risks identified at this time. Risk Assessment: Do you want to hurt yourself or someone else? Patient reports no desire to harm self or others. Onset of symptoms was February 22, 2025. 19:46 Method Of Arrival: EMS: [place] [id number] 19:46 Acuity: BEVERLY 3 kj2 19:51 Initial Sepsis Screen: Does the patient meet any 2 criteria? RR > 20 per min. Does the kj2 patient have a suspected source of infection? No. Patient's initial sepsis screen is negative. Triage Assessment: 19:51 General: Appears in no apparent distress. Behavior is cooperative. Pain: Complains of kj2 pain in chest Pain currently is 8 out of 10 on a pain scale. Cardiovascular: Reports chest pain. Historical: - Allergies: 19:47 NKA; kj2 - Home Meds: 19:47 aspirin 325 mg Oral tab 1 tab once daily [Active]; kj2 - PMHx: 19:47 AAA; ADD/ADHD; Anxiety; CVA; Hernia; High Cholesterol; Hypertension; Prostate Cancer; kj2 - PSHx: 19:47 Cholecystectomy; prostate removal; right knee revision; roator cuff repair right; kj2 umbilical hernia repair; - Immunization history:: Adult Immunizations unknown. - Infectious Disease History:: Denies. - Social history:: Smoking status: . Screenin:49 [facility] ED Fall Risk Assessment (Adult) History of falling in the last 3 months, kj2 including since admission No falls in past 3 months (0 pts) Confusion or Disorientation No (0 pts) Intoxicated or Sedated No (0 pts) Impaired Gait No (0 pts) Mobility Assist Device Used No (0 pt) Altered Elimination No (0 pt) Score/Fall Risk Level 0 - 2 = Low Risk Maintained a safe environment, Hourly rounding (assess needs \T\ fall precautionary measures) done. Abuse screen: Denies threats or abuse. Denies injuries from another. Nutritional screening: No deficits noted. Tuberculosis screening: No symptoms or risk factors identified. Assessment: 19:50 General: see triage assessment. kj2 20:50 Reassessment: Patient appears in no apparent distress at this time. Patient and/or kj2 family updated on plan of care and expected duration. Pain level reassessed. Patient is alert, oriented x 3, equal unlabored respirations, skin warm/dry/pink. 21:50 Reassessment: Patient appears in no apparent distress at this time. Patient and/or kj2 family updated on plan of care and expected duration. Pain level reassessed. Patient is alert, oriented x 3, equal unlabored respirations, skin warm/dry/pink. 22:50 Reassessment: Patient appears in no apparent distress at this time. Patient and/or kj2 family updated on plan of care and expected duration. Pain level reassessed. Patient is alert, oriented x 3, equal unlabored respirations, skin warm/dry/pink. 23:50 Reassessment: Patient appears in no apparent distress at this time. Patient and/or kj2 family updated on plan of care and expected duration. Pain level reassessed. Patient is alert, oriented x 3, equal unlabored respirations, skin warm/dry/pink. Vital Signs: 19:43 BP 153 / 88; Pulse 60; Resp 12; Pulse Ox 95% on R/A; af3 19:45 BP 146 / 98; Pulse 59; Resp 18; Temp 98; Pulse Ox 100% ; Weight 70.31 kg; Height 5 ft. kj2 9 in. ; 20:50 BP 94 / 80; Pulse 57; Resp 20; Pulse Ox 97% ; kj2 21:50 BP 96 / 82; Pulse 60; Resp 18; Pulse Ox 100% ; kj2 22:50 BP 130 / 85; Pulse 52; Resp 18; Pulse Ox 98% on R/A; kj2 23:50 BP 132 / 86; Pulse 56; Resp 20; Pulse Ox 100% on R/A; kj2 19:45 Body Mass Index 22.89 (70.31 kg, 175.26 cm) kj2 ED Course: 19:40 Patient arrived in ED. vc1 19:43 EKG done, by interventional tech. af3 19:45 Rukhsana Eddy, RN is Primary Nurse. kj2 19:47 Triage completed. kj2 19:50 Arm band placed on Patient placed. EKG completed in triage. Results shown to MD. kj2 19:50 Patient has correct armband on for positive identification. Provided Education on: call kj2 light. Client placed on continuous cardiac and pulse oximetry monitoring. NIBP monitoring applied. personnel monitor on. Pulse ox on. 19:59 Miriam Darling FNP-C is PHCP. kb 19:59 Duran De La Fuente MD is Attending Physician. kb 21:03 XRAY Chest (1 view) In Process Unspecified. EDMS 21:35 CT Aorta for Dissection In Process Unspecified. EDMS 22:41 Yarelis Alcantara MD is Hospitalizing Provider. kb 02/23 00:59 Blood Culture Adult (2) Sent. kj2 04:00 Inserted saline lock: 20 gauge in right antecubital area, using aseptic technique. ha1 Flushed with 10 mL NS. 05:00 No provider procedures requiring assistance completed. Patient admitted, IV remains in ha1 place. Patient maintains SpO2 saturation greater than 95% on room air. Administered Medications: 02/22 20:13 Not Given (given by EMS ptaa): aspirinchewable tablet 324 mg PO once; 81 mg tablets x 4 kb 02/23 00:59 Drug: Rocephin IV 1 grams IV at calculated rate once; Given slow IV push per pharmacy kj2 instructions Route: IV; Rate: calculated rate; Site: right forearm; 01:30 Follow up: Response: No adverse reaction; IV Status: Completed infusion ha1 00:59 Drug: Zithromax IVPB 500 mg IVPB once over 1 hrs; mix in 250 mL NS Route: IVPB; Infused kj2 Over: 1 hrs; Site: right forearm; 03:00 Follow up: Response: No adverse reaction; IV Status: Completed infusion ha1 00:59 Drug: NS 0.9% IV 1000 ml IV at 1000 ml once; to be given as a bolus over 60 minutes kj2 Route: IV; Rate: 1000 ml; Site: right forearm; 02:00 Follow up: Response: No adverse reaction; IV Status: Completed infusion ha1 Medication: 02/22 19:51 VIS not applicable for this client. kj2 Outcome: 22:41 Decision to Hospitalize by Provider. kb 02/23 04:00 Admitted to ER Hold. Please see [facility] for further documentation. ha1 Condition: stable Instructed on the need for admit, Demonstrated understanding of instructions, 15:05 Patient left the ED. cm10 Signatures: Dispatcher [employer] EDMS Miriam Darling, BURGLAR ALARM ASSEMBLER-C BURGLAR ALARM ASSEMBLER-Ckb Krissy Castorena RN RN vc1 Sallie Olea RN RN ha1 Natasha Lima RN RN cm10 Rukhsana Eddy, DIEGO RN kj2 Geneva Francis
--- NOTE | 2025-02-22 22:44 | P.HP ---
Patient History Date of Service: 02/23/25 History of Present Illness: 64-year-old man with a past medical history of hypertension, history of CVA with left-sided weakness, history of prostate cancer, presenting with chest pain. He states the pain started after doing yard work late afternoon. He was sitting down when the pain started. His took his blood pressure and it was travon high. Associated symptoms include shortness of breath. He states he has had 3 aneurysms in the past. He denies fever, chills, vomitting, diarrhea. Allergies No Known Allergies Allergy (Verified 07/03/17 15:30) Home Medications: Aspirin Chewable [Aspirin Chewable*] 81 mg PO DAILY 04/02/20 Citalopram Hydrobromide [Citalopram HBr] 40 mg PO DAILY 04/02/20 Gabapentin 300 mg PO DAILY 04/02/20 Melatonin 5 mg PO BEDTIME 04/02/20 Omeprazole [Prilosec] 40 mg PO BEDTIME 04/02/20 Propranolol [Inderal*] 10 mg PO DAILY 04/02/20 - Past Medical/Surgical History Diabetic: No -: CVA Jul 2014 -: Seziures started November 2014 -: HTN -: Tremors -: High CHolestrol -: Rotator Cuff SX Right X 3 -: Right Knee Arthroscopic -: Hernia with mesh - Family History Mother -: Heart disease, Diabetes, Other (see notes) Notes: cabg. alzheimers Father -: Cancer Notes: Brother -: Cancer Notes: bladder cancer - Social History Alcohol use: Yes CD- Drugs: No Caffeine use: Yes Review of Systems General: Weakness, As per HPI Eyes: Unremarkable ENT: Unremarkable Respiratory: Shortness of Breath Cardiovascular: Chest Pain Gastrointestinal: Unremarkable Genitourinary: Unremarkable Musculoskeletal: Unremarkable Integumentary: Unremarkable Neurological: Unremarkable Lymphatics: Unremarkable Physical Examination - Physical Exam General: In no apparent distress HEENT: Normocephalic Neck: Supple Respiratory: Clear to auscultation bilaterally Cardiovascular: No edema, Normal pulses Gastrointestinal: Normal bowel sounds Musculoskeletal: No clubbing Integumentary: No rashes Neurological: Normal gait Lymphatics: No axilla or inguinal lymphadenopathy - Studies Laboratory Data (last 24 hrs) 02/22/25 02/22/25 02/22/25 20:25 20:25 20:25 WBC 7.40 Hgb 13.0 L Hct 37.4 L Plt Count 205 PT 10.5 INR 0.92 Sodium 133 L Potassium 3.6 BUN 8 Creatinine 0.78 Glucose 92 Magnesium 2.1 Assessment and Plan - Plan Chest pain Pneumonia Anxiety Hypertension Elevated BNP History of CVA Admit to floor Chest x-ray concerning for infiltrate Start Rocephin and azithromycin Blood and sputum cultures pending Trend troponin, lipid panel pending, echo pending Continue aspirin Continue propranolol Continue citalopram Continue gabapentin CMP pending DVT prophylaxis with Lovenox - Advance Directives Does patient have a Living Will: No Does patient have a Durable POA for Healthcare: No
[2025-02-23] MEDS ORDERED: CEFTRIAXONE 1000 MG/VIAL ONE ×2 (00:18→09:42)
[2025-02-23] MEDS ORDERED: AZITHROMYCIN 500 MG INJ IVPB ONE (00:18)
[2025-02-23] MEDS ORDERED: NA CHLORIDE 0.9% 250 ML ONE (00:19)
[2025-02-23] MEDS ORDERED: NA CHLORIDE 0.9% 1,000 ML ONE ×2 (00:19→03:26)
[2025-02-23 01:40] VITALS: BMI 10.3
[2025-02-23] MEDS: NA CHLORIDE 0.9% 1,000 ML IV SCH (03:30)
[2025-02-23 06:52] LABS: Absolute Basophils 0.1 K/uL (0-0.5); Absolute Eosinophils 0.2 K/uL (0-0.5); Absolute Lymphocytes (CBC) 1.8 K/uL (0.7-4.9); Absolute Monocytes 0.5 K/uL (0.1-1.3); Basophils % 1.3 % (0-1.3); Eosinophils % 3.4 % (0-4.4); Hematocrit 37.1 % (39.6-49.0); Hemoglobin 12.5 g/dL (13.6-17.9); Lymphocytes % 32.4 % (15.3-44.8); MCH 32.9 pg (27.0-35.0); MCHC 33.8 g/dL (32.0-36.0); MCV 97.3 fL (80-100); Monocytes % 9.2 % (3.3-12.3); Neutrophils % 53.7 % (41.7-73.7); Platelets 194 thou/uL (152-406); RBC Red Blood Cell Count 3.81 M/uL (4.33-5.43); Red Cell Distribution Width 15.1 % (12.1-15.2)
[2025-02-23 07:10] LABS: Albumin 2.9 g/dL (3.4-5.0); Albumin/Globulin Ratio 1.2 (1.1-1.8); Anion Gap 7.2 mEq/L (5.0-15.0); Bilirubin Total 0.3 mg/dL (0.2-1.0); Globulin 2.4 g/dL (2.3-3.5); Potassium 4.2 mEq/L (3.5-5.1); Protein, Total 5.3 g/dL (6.4-8.2); Troponin High Sensitivity 6.2 pg/mL (<58.9)
[2025-02-23] MEDS: PNEUMOCOCCAL VACCINE 0.5 ML IMVAC ONE (07:56)
[2025-02-23] MEDS: ASPIRIN 325 MG TAB PO SCH (09:00)
[2025-02-23] MEDS: CITALOPRAM 10 MG TABLET PO SCH (09:00)
[2025-02-23] MEDS: GABAPENTIN 300 MG CAP PO SCH (09:00)
[2025-02-23] MEDS: ASPIRIN 81 MG CHEWABLE TABLET PO SCH (09:00)
[2025-02-23] MEDS: ENOXAPARIN 40 MG/0.4 ML SQ SCH (09:00)
[2025-02-23] MEDS: PROPRANOLOL HCL 10 MG TAB PO SCH (09:00)
[2025-02-23] MEDS: CEFTRIAXONE 1,000 MG in NA CHLORIDE 0.9% 50 ML IVPB SCH (09:30)
[2025-02-23] MEDS: ACETAMINOPHEN 500 MG TAB PO PRN (09:35)
[2025-02-23] MEDS ORDERED: ASPIRIN 325 MG TAB ONE (09:42)
[2025-02-23] MEDS ORDERED: ENOXAPARIN 40 MG/0.4 ML SQ ONE (09:43)
[2025-02-23] MEDS ORDERED: NA CHLORIDE 0.9% 50 ML ONE (09:43)
[2025-02-23] MEDS ORDERED: GABAPENTIN 300 MG CAP ONE (09:43)
[2025-02-23] MEDS ORDERED: ACETAMINOPHEN 500 MG TAB ONE (09:48)
[2025-02-23] MEDS: MELATONIN 5 MG TABLET PO SCH (20:20)
[2025-02-23 21:54] VITALS: O2SAT 98
[2025-02-23 23:57] VITALS: TEMP 97.7
--- NOTE | 2025-02-24 07:18 | P.PN ---
Subjective Date of Service: 02/23/25 Patient continues to improve. Patient clinical status is stable. Will get patient out of bed and ambulate. Review of Systems 10-point ROS is otherwise unremarkable Physical Examination - Vital Signs Temperature: 97.7 F Blood Pressure: 140/73 Pulse: 51 Respirations: 14 Pulse Ox (%): 99 - Physical Exam General: Alert, In no apparent distress, Oriented x3 Respiratory: Clear to auscultation bilaterally, Normal air movement Cardiovascular: Regular rate/rhythm, Normal S1 S2, No murmurs Gastrointestinal: Normal bowel sounds, Soft and benign, Non-distended, No tenderness Musculoskeletal: No clubbing, No swelling Neurological: Sensation intact, Cranial nerves 3-12 intact - Studies Medications List Reviewed: Yes Assessment & Plan - Problems (Diagnosis) (1) Chest pain Onset Date: 04/24/16 Current Visit: No Status: Acute (2) Syncope Onset Date: 04/02/17 Current Visit: No Status: Acute Qualifiers: Syncope type: unspecified Qualified Code(s): R55 - Syncope and collapse (3) Tobacco abuse Onset Date: 04/02/17 Current Visit: No Status: Acute (4) Anxiety Onset Date: 10/15/16 Current Visit: No Status: Chronic (5) History of completed stroke Current Visit: No Status: Chronic (6) Hypertension Onset Date: 04/02/17 Current Visit: No Status: Chronic Qualifiers: Hypertension type: essential hypertension Qualified Code(s): I10 - Essential (primary) hypertension - Plan Plan: 1. Patient was diagnosed with pneumonia; CT scan was negative. Patient's debilitated and weak. Continue with physical therapy and arrange for home health with physical therapy 2. History of CVA; continue with antiplatelet therapy and statin therapy 3. History of hypertension; resume antihypertensives 4. Prior history of tobacco use; monitor for atherosclerotic disease. 5. History of seizure disorder; continue monitoring neurologic status Discharge Plan: Home Plan to discharge in: Greater than 2 days - Advance Directives Does patient have a Living Will: No Does patient have a Durable POA for Healthcare: No - Code Status/Comfort Care Code Status Assessed: Yes Code Status: Full Code Critical Care: No Time Spent Managing PTS Care (In Minutes): 35
--- NOTE | 2025-02-24 07:21 | P.DS ---
Discharge Date: 02/24/25 Disposition: ROUTINE DISCHARGE Discharge Condition: GOOD - Problems (1) Chest pain Onset Date: 04/24/16 Current Visit: No Status: Acute (2) Syncope Onset Date: 04/02/17 Current Visit: No Status: Acute Qualifiers: Syncope type: unspecified Qualified Code(s): R55 - Syncope and collapse (3) Tobacco abuse Onset Date: 04/02/17 Current Visit: No Status: Acute (4) Anxiety Onset Date: 10/15/16 Current Visit: No Status: Chronic (5) History of completed stroke Current Visit: No Status: Chronic (6) Hypertension Onset Date: 04/02/17 Current Visit: No Status: Chronic Qualifiers: Hypertension type: essential hypertension Qualified Code(s): I10 - Essential (primary) hypertension Brief History of Present Illness: 64-year-old man with a past medical history of hypertension, history of CVA with left-sided weakness, history of prostate cancer, presenting with chest pain. He states the pain started after doing yard work late afternoon. He was sitting down when the pain started. His took his blood pressure and it was travon high. Associated symptoms include shortness of breath. He states he has had 3 aneurysms in the past. He denies fever, chills, vomitting, diarrhea. Hospital Course: Patient has done well during hospital stay. Clinically feels much better. Patient has 3 aneurysms and he was having elevated blood pressure. We controlled patient's blood pressure. Was also felt to have a pneumonia but CT scan with no infiltrates. Patient was on Rocephin and will continue oral antibiotics at discharge but otherwise patient is stable for discharge. Patient needs to refrain from quinolone use because of his history of aneurysms. At this time patient clinically doing well and stable for discharge home. Vital Signs/Physical Exam: Temp Pulse Resp BP Pulse Ox 97.7 F 51 14 140/73 99 02/24/25 07:18 02/24/25 07:18 02/24/25 07:18 02/24/25 07:18 02/24/25 07:18 General: Alert, In no apparent distress, Oriented x3 Laboratory Data at Discharge: WBC 5.60 thou/uL (4.3-10.9) 02/23/25 06:40 Hgb 12.5 g/dL (13.6-17.9) L 02/23/25 06:40 Hct 37.1 % (39.6-49.0) L 02/23/25 06:40 Plt Count 194 thou/uL (152-406) 02/23/25 06:40 PT 10.5 SECONDS (10-13.0) 02/22/25 20:25 INR 0.92 02/22/25 20:25 Sodium 140 mEq/L (136-145) D 02/23/25 06:40 Potassium 4.2 mEq/L (3.5-5.1) D 02/23/25 06:40 BUN 10 mg/dL (7-18) 02/23/25 06:40 Creatinine 0.68 mg/dL (0.70-1.30) L 02/23/25 06:40 Glucose 116 mg/dL (74-106) H 02/23/25 06:40 Magnesium 2.1 mg/dL (1.6-2.4) 02/22/25 20:25 Total Bilirubin 0.3 mg/dL (0.2-1.0) 02/23/25 06:40 AST 14 U/L (15-37) L 02/23/25 06:40 ALT 20 U/L (16-61) 02/23/25 06:40 Alkaline Phosphatase 67 U/L (45-117) 02/23/25 06:40 Triglycerides 65 mg/dL (<150) 02/23/25 06:40 Cholesterol 109 mg/dL (<200) 02/23/25 06:40 HDL Cholesterol 49 mg/dL (40-60) 02/23/25 06:40 Cholesterol/HDL Ratio 2.22 02/23/25 06:40 Home Medications: Aspirin Chewable [Aspirin Chewable*] 81 mg PO DAILY 04/02/20 Citalopram Hydrobromide [Citalopram HBr] 40 mg PO BID 04/02/20 Gabapentin 800 mg PO BID 04/02/20 Melatonin 5 mg PO BEDTIME PRN 04/02/20 Omeprazole [Prilosec] 40 mg PO BEDTIME PRN 04/02/20 Naltrexone HCl 50 mg PO DAILY 02/23/25 Oxybutynin Chloride [Oxybutynin Chloride ER] 5 mg PO BID 02/23/25 Rosuvastatin Calcium 20 mg PO BEDTIME 02/23/25 carvediloL [Carvedilol] 6.25 mg PO BID 02/23/25 lisinopriL [Lisinopril] 20 mg PO BEDTIME 02/23/25 Physician Discharge Instructions: -DC IV and DC home -Follow-up with PCP in 1 to 2 weeks -Follow-up with Cardiology in 1 to 2 weeks -Please call Dr. Ewing at [phone] if any questions regarding hospital stay -Please call nursing station at [phone] if any nursing or medication questions -Return to the emergency room if symptoms worsen Diet: AHA Activity: Fall precautions Followup: Makenzie NICOLE,Naif Carvalho DO [Primary Care Provider] - Time spent managing pt's care (in minutes): 35
[2025-02-24 08:07] VITALS: BP 144/73
--- NOTE | 2025-02-25 07:25 | ECHO ---
HEIGHT: 5 ft 9 in WEIGHT: 70 lb 4.96 oz DATE OF STUDY: 02/24/[address]: Yarelis Alcantara MD 2-DIMENSIONAL: YES M.MODE: YES DOPPLER: YES COLOR FLOW: YES TDS: PORTABLE: YES DEFINITY: BUBBLE STUDY: DIAGNOSIS: CHEST PAIN CARDIAC HISTORY: CATHERIZATION: NO SURGERY: NO PROSTHETIC VALVE: NO PACEMAKER: NO MEASUREMENTS (cm) DIASTOLIC (NORMALS) SYSTOLIC (NORMALS) IVSd 0.9 (0.6-1.2) LA Diam 2.7 (1.9-4.0) LVEF 60-65% LVIDd 4.0 (3.5-5.7) LVIDs 2.7 (2.0-3.5) %FS 33% LVPWd 1.0 (0.6-1.2) Ao Diam 3.4 (2.0-3.7) 2 DIMENSIONAL ASSESSMENT: RIGHT ATRIUM: NORMAL LEFT ATRIUM: NORMAL RIGHT VENTRICLE: NORMAL LEFT VENTRICLE: NORMAL TRICUSPID VALVE: TRACE TRICUSPID REGURGITAITON MITRAL VALVE: NORMAL PULMONIC VALVE: NORMAL AORTIC VALVE: MILD AORTIC INSUFFICIENCY PERICARDIAL EFFUSION: NONE AORTIC ROOT: NORMAL LEFT VENTRICULAR WALL MOTION: NORMAL DOPPLER/COLOR FLOW: SEE BELOW COMMENTS: 1. NORMAL LEFT VENTRICULAR EJECTION FRACTION 60-65% 2. NORMAL WALL MOTION 3. MILD AORTIC INSUFFICIENCY 4. NORMAL DIASTOLIC FUNCTION TECHNOLOGIST: SUDHEER MADISON
--- NOTE | 2025-03-02 13:09 | EKG ---
Test Date: 2025-02-22 Test Time: 19:33:22 Print Line Tailer: AF MEASUREMENT RESULTS: Intervals: Rate: 55 [place]: 160 QRSD: 90 QT: 444 QTc: 424 [place]: P: 73 [place]: 160 QRS: 44 T: 36 INTERPRETIVE STATEMENTS: Sinus bradycardia Minimal voltage criteria for LVH, may be normal variant Borderline ECG Compared to ECG 12/21/2024 18:19:12 Left ventricular hypertrophy now present Atrial premature complex(es) no longer present Short [place] interval no longer present Myocardial infarct finding no longer present Electronically Signed On 03-02-25 12:48:17 CDT by Daren Zuniga
== END 2025-02-24 10:19 | disposition home or self-care (01) | DRG 195 ==
LOC: ER 19:31 → ERHOLD 22:36 → 4TH 02-23 14:54
PROVIDERS: ADMIT Family Medicine; ATTEND Hospitalist
DX: J18.9 Pneumonia, unspecified organism (principal); E78.00 Pure hypercholesterolemia, unspecified; I10 Essential (primary) hypertension; F41.9 Anxiety disorder, unspecified; F90.9 Attention-deficit hyperactivity disorder, unspecified type; G40.909 Epilepsy, unspecified, not intractable, without status epilepticus; Z85.46 Personal history of malignant neoplasm of prostate; Z79.82 Long term (current) use of aspirin; Z90.49 Acquired absence of other specified parts of digestive tract; Z86.73 Personal history of transient ischemic attack (TIA), and cerebral infarction without residual deficits; Z79.899 Other long term (current) drug therapy; Z96.651 Presence of right artificial knee joint
CPT/HCPCS: 36415; 71045; 71275; 74175; 80048; 80053; 80061; 83735; 83880; 84145; 84484; 85025; 85610; 87040; 93005; 93306; 94760; 96365; 96366; 96368; 99285; J0696; J1650; J7030; J7050; Q9967

== ENCOUNTER 2025-03-12 16:46 | Observation (INO) | payer OTHER ==
--- OUTSIDE RECORDS SUMMARY | 2025-03-12 16:49 | XMS REPORT | Continuity of Care Document ---
Author Name Unknown Address [address] [facility] [address] [place] [address] [facility] Address [address] [address] [place] [address] Care Team Providers Care Roof Panel Hanger Name Role Phone Alexandrea Banegas Primary Care Physician VEGA MACEDO Attending Clinician Unavailable Rolly Araya MD Attending Clinician [phone] Mikki Jiménez MA Attending Clinician Unavailab Shaggy Higgins Attending Clinician [phone] Payers Payer Name Policy Type Policy Number Effective Date Expirati on Date Source [employer] [id number] 2020 00:00:00 2020 00:00:00 [employer] MED[employer]ARE PPO [id number] 2024 00:00:00 Problems Condition Name Condition Details Condition Category Status Onset Date Resolution Date Last Treatment Date Treating Clinician Comments Source Pain of left hand Pain of left hand Disease Active 07-15 00:00: 00 [facility] Trigger finger, left middle finger Trigger finger, left middle finger Disease Active 07-15 00:00: 00 [facility] Ganglion of left wrist Ganglion of left wrist Disease Active 07-15 00:00: 00 [facility] Tear of right rotator cuff Tear of right rotator cuff Disease Active 2022-0 7-26 00:00: 00 [facility] 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 vicular joint Disease Active 517 00:00: 00 [facility] Essential hypertensi on Essential hypertensi on Disease Active 2017-11 006 00:00: 00 [facility] 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 Disease Active 2017-11 006 00:00: 00 [facility] Chest pain Chest pain Disease Active 2017-11 004 00:00: 00 [facility] Social History Social Habit Start Date Stop Date Quantity Comments Source Sexual orientation [facility] History of tobacco use Cigarette Smoker [facility] History of Social function 2023-05-27 00:00:00 2023-05-27 00:00:00 [facility] Alcohol intake 2023-05-27 00:00:00 2023-05-27 00:00:00 Current drinker of alcohol (finding) [facility] Exposure to SARS-CoV-2 (event) 2022-02-24 00:00:00 2022-03-26 14:58:00 Not sure [facility] Cigarettes smoked current (pack per day) - Reported 2022-02-28 00:00:00 2022-02-28 00:00:00 [facility] Tobacco use and exposure 2022-02-28 00:00:00 2022-02-28 00:00:00 Smokeless tobacco non-user [facility] Cigarette pack-years 2022-02-28 00:00:00 2022-02-28 00:00:00 [facility] Alcohol Comment 2018-08-13 00:00:00 2018-08-13 00:00:00 [facility] Sex Assigned At 1960 00:00:00 1960 00:00:00 [facility] Smoking Status Start Date Stop Date Source Heavy tobacco smoker 2022-02-28 00:00:00 [facility] Current every day smoker 2019-07-02 00:00:00 [facility] Medications Ordered Medication Name Filled Medication Name Start Date Stop Date Current Medication? Ordering Clinician Indication Dosage Frequency Signature (SIG) Comments Components Source lidocaine (Xylocaine) 1 % injection 1 mL 07-15 13:00: 00 07-15 13:00 :00 No [id number] 1mL [facility] betamethaso ne acetate-bet amethasone sodium phosphate (Celestone) injection 1 mg 07-15 13:00: 00 07-15 13:00 :00 No [id number] 1mg [facility] meloxicam (Mobic) 15 MG tablet 05-27 00:00: 00 06-27 04:59 :00 No [id number] 15mg QD Take 1 tablet (15 mg total) by mouth 1 (one) time each day. [facility] cyclobenzap rine (Flexeril) 10 MG tablet 03-01 00:00: 00 Yes [id number] 093204 10mg Q.[id number] 3D Take 1 tablet (10 mg total) by mouth 3 (three) times a day if needed for muscle spasms for up to 10 days. [facility] naloxone (Narcan) 2 MG/2ML injection 03-01 00:00: 00 03-02 04:59 :00 No [id number] 776649 .4mg Administer 0.4 mL (0.4 mg total) into affected nostril(s) if needed for opioid reversal. May repeat every 2-3 minutes as needed until medical assistance available. [facility] traMADol (Ultram) 50 MG tablet 03-01 00:00: 00 03-12 04:59 :00 No [id number] 235559 50mg Q6H Take 1 tablet (50 mg total) by mouth every 6 (six) hours if needed for severe pain for up to 10 days. [facility] aspirin 81 MG chewable tablet 02-28 10:40: 31 Yes 81mg Chew 81 mg. [facility] citalopram (CeleXA) 20 MG tablet 02-28 10:40: 30 Yes 20mg Take 20 mg by mouth. [facility] propranolol (Inderal) 10 MG tablet 02-11 00:00: 00 Yes [facility] gabapentin (Neurontin) 600 MG tablet 07-21 00:00: 00 Yes [facility] iohexol (OMNIPAQUE 350 BULK-100 mL) injection 120 mL 07-03 02:45: 00 07-03 02:23 :00 No 120mL 120 mL, Intravenou s, ONCE, 1 dose, 07/02/19 at 2145, Routine [facility] aspirin 81 mg chewable tablet 2017-11 17:44: 42 Yes 81mg Take 81 mg by mouth daily. [facility] propranolol 10 mg tablet 2017-11 17:44: 42 Yes 10mg Take 10 mg by mouth 2 (two) times daily. [facility] citalopram 20 mg tablet 2017-11 17:44: 42 Yes 20mg Take 20 mg by mouth daily. [facility] omeprazole 40 mg capsule 2017-11 17:44: 42 Yes 40mg Take 40 mg by mouth 2 (two) times daily. [facility] Vital Signs Vital Name Observation Time Observation Value Comments S ource Body height 2023-05-27 20:27:00 175.3 cm [facility] Body weight 2023-05-27 20:27:00 78.926 kg [facility] BMI 2023-05-27 20:27:00 25.70 kg/m2 [facility] Body height 2022-02-28 15:39:00 175.3 cm [facility] Body weight 2022-02-28 15:39:00 78.926 kg [facility] BMI 2022-02-28 15:39:00 25.70 kg/m2 [facility] Systolic blood pressure 2019-07-03 02:00:00 142 mm[Hg] [facility] Diastolic blood pressure 2019-07-03 02:00:00 92 mm[Hg] [facility] Heart rate 2019-07-03 02:00:00 80 /min [facility] Respiratory rate 2019-07-03 02:00:00 18 /min [facility] Oxygen saturation in Arterial blood by Pulse oximetry 2019-07-03 02:00:00 98 /min [facility] Body temperature 2019-07-02 23:41:00 36.83 [facility] Body height 2019-07-02 23:41:00 175.3 cm [facility] Body weight 2019-07-02 23:41:00 79.379 kg [facility] BMI 2019-07-02 23:41:00 25.84 kg/m2 [facility] Systolic blood pressure 2019-07-03 02:00:00 142 mm[Hg] [facility] Diastolic blood pressure 2019-07-03 02:00:00 92 mm[Hg] [facility] Heart rate 2019-07-03 02:00:00 80 /min [facility] Respiratory rate 2019-07-03 02:00:00 18 /min [facility] Oxygen saturation in Arterial blood by Pulse oximetry 2019-07-03 02:00:00 98 /min [facility] Body temperature 2019-07-02 23:41:00 36.83 [facility] Body height 2019-07-02 23:41:00 175.3 cm [facility] Body weight 2019-07-02 23:41:00 79.379 kg [facility] BMI 2019-07-02 23:41:00 25.84 kg/m2 [facility] Procedures Procedure Date / Time Performed Performing Clinician Source [place] INJECT TENDON SHEATH/LIGAMENT 2023-07-15 13:00:00 hiogi Martine MD [place]JECT TENDON SHEATH/LIGAMENT 2023-07-15 [facility]BD[facility] PELVIS W CONTRAST 2019-07-03 02:30:21 Shaggy Gonzalez [facility] LIPASE 2019-07-03 01:59:[address] [facility] COMP. METABOLIC PANEL ([id number]) 2019-07-03 01:59:00 Sheyla Gao [facility] CBC WITH DIFFERENTIAL 2019-07-03 01:59:00 Sa cadence Gao [facility] URINALYSIS 2019-07-03 01:59:00 Sheyla Gao Un [facility] CONSENT/REFUSAL FOR DIAGNOSIS AND TREATMENT 2019-07-02 23:33:31 Doctor Unassigned, [place] [facility] Encounters Start Date/Time End Date/Time Encounter Type Admission Type Attending [facility] Care Department Encounter ID Source 2023-05-27 15:08:50 Outpatient [facility] [id number] [facility] 2023-05-23 14:42:59 Outpatient [facility] [id number] [facility] 2023-05-22 09:33:41 Outpatient [facility] [id number] [facility] 2023-04-16 12:45:29 Outpatient [facility] [id number] [facility] 2023-03-12 09:15:57 Outpatient [facility] [id number] [facility] 2025-03-01 10:00:00 2025-03-01 10:00:00 Outpatient [facility] [id number] [facility] 2025-03-01 10:00:00 2025-03-01 10:00:00 Outpatient VEGA MACEDO [facility] [id number] [facility] 2023-07-31 10:30:00 2023-07-31 11:34:02 Office Visit Vega Macedo [facility] 1..840.114 350.1.13.58 [id number] [id number] [facility] 2023-07-24 14:15:00 2023-07-24 14:15:00 Outpatient VEGA MACEDO [facility] [id number] [facility] 2023-07-15 08:10:00 2023-07-15 09:05:23 Outpatient [facility] [id number] [facility] 2023-07-15 08:00:00 2023-07-15 09:04:59 Office Visit Rolly Araya [facility] 1 1..840.114 350.1.13.58 9.2.7.2.686 [id number] [facility] 2023-05-27 15:15:00 2023-05-27 16:42:25 Office Visit Vega Macedo [facility] 1 [id number] 350.1.13.58 [id number] [id number] [facility] 2023-03-25 14:15:00 2023-03-25 14:15:00 Outpatient VEGA MACEDO [facility] [id number] [facility] 2022-03-26 15:30:00 2022-03-26 16:50:06 Office Visit Vega Macedo [facility] 1 [id number] 350.1.13.58 9.2.7.2.686 [id number] [facility] 2022-03-04 00:00:00 2022-03-04 00:00:00 Telephone TinoMikki TinoMikki [facility] 1 1.2.840.114 350.1.13.58 9.2.7.2.686 [id number] [facility] 2022-02-28 10:00:00 2022-02-28 12:04:39 Office Visit Vega Macedo [facility] 1 1.2.840.114 350.1.13.58 9.2.7.2.686 [id number] [facility] 2019-07-02 20:25:52 2019-07-02 22:21:00 Emergency Shaggy Gonzalez [facility] 1.2.840.114 350.1.13.10 [id number] [id number] 2019-07-02 20:25:52 2019-07-02 22:21:00 Emergency Shaggy Gonzalez [facility] 1.2.840.114 350.1.13.10 4.2.7.2.686 [id number] [facility] Results Test Description Test Time Test Comments Results Result Co mments Source [facility]oa9465-[facility]-16 02:18:00* Test Item Value Reference Range Interpretation Comme nts NA (test code = 7704343322) 143 mmol/L 135-145 K (test code = 6337351514) 4.3 mmol/L 3.5-5 CL (test code = 0034906035) 110 mmol/L 98-108 H CO2 TOTAL (test code = 3856292645) 19 mmol/L 23-31 L AGAP (test code = 5001456374) 2-16 BUN (test code = 1434040925) 6 mg/dL 7-23 L GLUCOSE (test code = 4666174907) 73 mg/dL 70-110 CREATININE (test code = 0225788233) 0.62 mg/dL 0.6-1.25 TOTAL BILI (test code = 5508506911) 0.4 mg/dL 0.1-1.1 CALCIUM (test code = 6350958084) 8.9 mg/dL 8.6-10.6 T PROTEIN (test code = 8723443616) 7.6 g/dL 6.3-8.2 ALBUMIN (test code = 2867290378) 4.4 g/dL 3.5-5 ALK PHOS (test code = 0807075980) 114 U/L 34-122 ALT(SGPT) (test code = 9451861164) 60 U/L 9-51 H AST(SGOT) (test code = 2763877963) 26 U/L 13-40 eGFR Calculation (Non-) (test code = 6121080692) mL/min/1.73m2 eGFR Calculation () (test code = 1715277701) mL/min/1.73m2 THOMAS (test code = THOMAS) Association [...] imaging tests). Lab Interpretation (test code = 99941-4) [facility]normal [facility] 02:16:00* Test Item Value Reference Range Interpretation Comme nts APPEARANCE (test code = 1978764801) Clear Clear COLOR (test code = 8625014554) Yellow Yellow PH (test code = 8824604124) 4.8-8.0 SP GRAVITY (test code = 7993601855) <=1.005 1.003-1.030 GLU U QUAL (test code = 8315530929) Negative Negative BLOOD (test code = 1220227724) Negative Negative KETONES (test code = 8459798446) Negative Negative PROTEIN (test code = 2887-8) Negative Negative UROBILIN (test code = 8377939402) 0.2 mg/dL See_Comment [Automated messa ge] The system which generated this result transmitted reference range: 0-1.0 mg/dL. The reference range was not used to interpret this result as normal/abnormal. BILIRUBIN (test code = 3813981851) Negative Negative NITRITE (test code = 6710948054) Negative Negative LEUK HARSHA (test code = 5176553245) Negative Negative RBC/HPF (test code = 2890768746) See_Comment [Automated messa ge] The system which generated this result transmitted reference range: 0 - 3 HPF. The reference range was not used to interpret this result as normal/abnormal. WBC/HPF (test code = 8639803420) See_Comment [Automated [employer] ge] The system which generated this result transmitted reference range: 0 - 5 HPF. The reference range was not used to interpret this result as normal/abnormal. BACTERIA (test code = 4043019529) Negative Negative Lab Interpretation (test code = 93881-3) [facility] WITH [id number] 02:07:00* Test Item Value Reference Range Interpretation [...] 34.5 g/dL 31.2-35 RDW-SD (test code = 24203-4) 45.6 fL 38.5-51.6 RDW-CV (test code = 788-0) 13.4 % 12.1-15.4 PLT (test code = 777-3) See_Comment [Automated messa ge] The system which generated this result transmitted reference range: 150 - 328 10*3/?L. The reference range was not used to interpret this result as normal/abnormal. MPV (test code = 47444-5) 9.8 fL 9.8-13 NRBC/100 WBC (test code = 7462326367) See_Comment [Automated Zodio ssage] The system which generated this result transmitted reference range: 0.0 - 10.0 /100 WBCs. The reference range was not used to interpret this result as normal/abnormal. NRBC x10^3 (test code = 6572005353) <0.01 See_Comment [Automated messa ge] The system which generated this result transmitted reference range: 10*3/?L. The reference range was not used to interpret this result as normal/abnormal. GRAN MAT (NEUT) % (test code = 770-8) 60.9 % IMM GRAN % (test code = 2914882485) 0.40 % LYMPH % (test code = 736-9) 31.2 % MONO % (test code = 5905-5) 4.9 % EOS % (test code = 713-8) 2.0 % BASO % (test code = 706-2) 0.6 % GRAN MAT x10^3(ANC) (test code = 0638805408) 6.66 10*3/uL 1.99-6.95 IMM GRAN x10^3 (test code = 8753201278) 0.04 10*3/uL 0-0.06 LYMPH x10^3 (test code = 731-0) 3.41 10*3/uL 1.09-3.23 H MONO x10^3 (test code = 742-7) 0.54 10*3/uL 0.36-1.02 EOS x10^3 (test code = 711-2) 0.22 10*3/uL 0.06-0.53 BASO x10^3 (test code = 704-7) 0.07 10*3/uL 0.01-0.09 Lab Interpretation (test code = 49259-5) Abnormal [facility]"
[2025-03-12] MEDS ORDERED: NA CHLORIDE 0.9% 500 ML ONE (17:16)
[2025-03-12] MEDS ORDERED: FAMOTIDINE 20 MG/2 ML VIAL IV ONE (17:16)
[2025-03-12 17:44] LABS: Absolute Basophils 0.1 K/uL (0-0.5); Absolute Eosinophils 0.3 K/uL (0-0.5); Absolute Lymphocytes (CBC) 1.9 K/uL (0.7-4.9); Absolute Monocytes 0.5 K/uL (0.1-1.3); Absolute Neutrophil 4.5 K/uL (1.8-8.0); Basophils % 0.9 % (0-1.3); Eosinophils % 3.7 % (0-4.4); Hematocrit 34.8 % (39.6-49.0); Hemoglobin 12.4 g/dL (13.6-17.9); Lymphocytes % 26.9 % (15.3-44.8); MCH 33.6 pg (27.0-35.0); MCHC 35.6 g/dL (32.0-36.0); MCV 94.4 fL (80-100); MPV 7.6 fL (7.6-11.3); Monocytes % 6.4 % (3.3-12.3); Neutrophils % 62.1 % (41.7-73.7); Nucleated Red Blood Cells % 0.1 % (0-0); Platelets 237 thou/uL (152-406); RBC Red Blood Cell Count 3.68 M/uL (4.33-5.43); Red Cell Distribution Width 14.5 % (12.1-15.2)
[2025-03-12 17:51] LABS: PT Prothrombin Time 10.4 SECONDS (10-13.0); Protime INR 0.91
--- NOTE | 2025-03-12 18:00 | RAD REPORT ---
EXAMINATION: ONE VIEW CHEST XR CLINICAL INDICATION: Male, 64 years old.,CHEST PAIN TECHNIQUE: Frontal chest projection is submitted. Examination is limited by patient positioning and t echnique. COMPARISON: 02/22/2025 FINDINGS: The lungs are well inflated and clear. No pneumothorax or sizable effusion. The heart is normal in s ize. Mediastinal contours are unremarkable. IMPRESSION: No acute intrathoracic abnormalities.
[2025-03-12 18:15] LABS: ALT/SGPT 18 U/L (16-61); AST/SGOT 17 U/L (15-37); Albumin 3.1 g/dL (3.4-5.0); Alkaline Phosphatase 73 U/L (45-117); Anion Gap 11.1 mEq/L (5.0-15.0); BUN Blood Urea Nitrogen 14 mg/dL (7-18); Bicarbonate 22 mEq/L (21-32); Bilirubin Total 0.3 mg/dL (0.2-1.0); Glomerular Filtration Rate 97 ml/min (=/>90); Glucose Level 84 mg/dL (74-106); Lipase 42 U/L (13-75); NT PRO-BNP 131 pg/mL (<125); Potassium 4.1 mEq/L (3.5-5.1); Protein, Total 6.1 g/dL (6.4-8.2); Sodium Level 131 mEq/L (136-145); Troponin High Sensitivity 5.8 pg/mL (<58.9)
[2025-03-12 18:17] LABS: Bilirubin Direct < 0.2 mg/dL (0-0.2); Bilirubin Indirect, Calculated 0.1 mg/dL (0.2-0.8)
[2025-03-12 18:48] LABS: Specific Gravity 1.007 (1.005-1.030); Urine Bilirubin NEGATIVE (Negative); Urine Blood Negative (Negative); Urine Clarity Clear (Clear); Urine Color Colorless (Yellow); Urine Glucose NEGATIVE (Negative); Urine Ketones NEGATIVE (Negative); Urine Microscopic Reflex YN NO UMIC; Urine Nitrite NEGATIVE (Negative); Urine Protein NEGATIVE (Negative); Urine Urobilinogen Normal (Normal)
--- NOTE | 2025-03-12 19:20 | ER ---
Nurse's Notes [facility] Name: Agustín Camacho Age: 64 yrs Sex: Male : 1960 Arrival Date: 03/12/2025 Time: 16:46 Bed 14 Private MD: Diagnosis: Chest pain on breathing;Tobacco abuse counseling;Tobacco use;Essential (primary) hypertension Presentation: 03/12 17:00 Chief complaint: EMS states: CP STARTED AT 1500 324 MG ASA TAKEN BY PT PRIOR TO db ARRIVAL. EMS GAVE NITRO 0.4 MG. Coronavirus screen: Client denies travel out of the [place] in the last 14 days. At this time, the client does not indicate any symptoms associated with coronavirus-19. Ebola Screen: Patient negative for fever greater than or equal to 101.5 degrees Fahrenheit, and additional compatible Ebola Virus Disease symptoms Patient denies exposure to infectious person. Patient denies travel to an Ebola-affected area in the 21 days before illness onset. No symptoms or risks identified at this time. Initial Sepsis Screen: Does the patient meet any 2 criteria? No. Patient's initial sepsis screen is negative. Does the patient have a suspected source of infection? No. Patient's initial sepsis screen is negative. Risk Assessment: Do you want to hurt yourself or someone else? Patient reports no desire to harm self or others. Onset of symptoms was March 12, 2025. Care prior to arrival: IV initiated. 20 GA, in the right antecubital area. 17:00 Method Of Arrival: EMS: [facility] db 17:00 Acuity: BEVERLY 2 db Triage Assessment: 17:00 General: Appears in no apparent distress. comfortable, Behavior is calm, cooperative. db Pain: Complains of pain in chest. Neuro: Level of Consciousness is awake, alert, obeys commands, Oriented to person, place, time, situation. Cardiovascular: Reports chest pain. Respiratory: Airway is patent Respiratory effort is even, unlabored, Respiratory pattern is regular, symmetrical. Historical: - Allergies: 17:00 NKA; db - PMHx: 17:00 AAA; ADD/ADHD; CVA; Hernia; High Cholesterol; Hypertension; Anxiety; Prostate Cancer; db - PSHx: 17:00 Cholecystectomy; prostate removal; right knee revision; roator cuff repair right; db umbilical hernia repair; - Immunization history:: Adult Immunizations unknown. - Infectious Disease History:: Denies. - Social history:: Smoking status: Patient denies any tobacco usage or history of. - Family history:: not pertinent. Screenin:07 [facility] ED Fall Risk Assessment (Adult) History of falling in the last 3 months, lg3 including since admission No falls in past 3 months (0 pts) Confusion or Disorientation No (0 pts) Intoxicated or Sedated No (0 pts) Impaired Gait No (0 pts) Mobility Assist Device Used No (0 pt) Altered Elimination No (0 pt) Score/Fall Risk Level 0 - 2 = Low Risk. [facility] ED Fall Risk Assessment (Adult) Score/Fall Risk Level 0 - 2 = Low Risk Oriented to surroundings, Maintained a safe environment, Educated pt \T\ family on fall prevention, incl call for assistance when getting out of bed, Assessed \T\ reinforced patient's understanding of fall precautions, Provided non-skid footwear. Abuse screen: Denies threats or abuse. Denies injuries from another. Nutritional screening: No deficits noted. Tuberculosis screening: No symptoms or risk factors identified. Assessment: 17:43 Reassessment: Patient appears in no apparent distress at this time. Patient and/or db family updated on plan of care and expected duration. Pain level reassessed. Patient is alert, oriented x 3, equal unlabored respirations, skin warm/dry/pink. General: Appears in no apparent distress. comfortable, Behavior is calm, cooperative. Pain: Complains of pain in chest Pain radiates to chest Pain began gradually. Neuro: Level of Consciousness is awake, alert, obeys commands. Cardiovascular: Reports chest pain. Respiratory: Airway is patent Respiratory effort is even, unlabored, Respiratory pattern is regular, symmetrical. 20:07 General: Appears in no apparent distress. comfortable, Behavior is calm, cooperative. lg3 Pain: Denies pain. Neuro: No deficits noted. Jo Agitation-Sedation Scale (RASS): 0 - Alert and Calm Level of Consciousness is awake, alert, obeys commands, Oriented to person, place, time, situation. Cardiovascular: No deficits noted. Denies chest pain, shortness of breath, Heart tones S1 S2 present Capillary refill < 3 seconds Clubbing of nail beds is absent JVD is absent Patient's skin is warm and dry. Respiratory: No deficits noted. Airway is patent Respiratory effort is even, unlabored, Respiratory pattern is regular, symmetrical, Breath sounds are clear bilaterally. GI: No deficits noted. No signs and/or symptoms were reported involving the gastrointestinal system. : No signs and/or symptoms were reported regarding the genitourinary system. EENT: No deficits noted. No signs and/or symptoms were reported regarding the EENT system. Derm: No deficits noted. No signs and/or symptoms reported regarding the dermatologic system. Skin is intact, is healthy with good turgor, Skin is dry, Skin is normal, Skin temperature is warm. Musculoskeletal: No deficits noted. No signs and/or symptoms reported regarding the musculoskeletal system. Circulation, motion, and sensation intact. Range of motion: intact in all extremities. 22:33 Reassessment: Patient appears in no apparent distress at this time. No changes from lg3 previously documented assessment. Patient and/or family updated on plan of care and expected duration. Pain level reassessed. Patient is alert, oriented x 3, equal unlabored respirations, skin warm/dry/pink. Patient denies pain at this time. Patient states feeling better. Vital Signs: 17:00 BP 116 / 73; Pulse 54; Resp 18; Temp 98.7; Pulse Ox 95% ; Weight 77.11 kg; Height 5 ft. db 9 in. ; 17:35 BP 133 / 79; Pulse 54; Resp 24; Pulse Ox 98% ; db 18:30 BP 139 / 79; Pulse 61; Resp 20; Pulse Ox 100% on R/A; db 19:22 BP 164 / 85 RA; Pulse 59; Pulse Ox 100% on R/A; lg3 19:22 BP 170 / 85 LA; Pulse 61; Pulse Ox 100% on R/A; lg3 20:07 BP 140 / 92; Pulse 69; Resp 16 S; Pulse Ox 100% on R/A; Pain 0/10; lg3 21:12 BP 138 / 66; Pulse 61; Resp 19 S; Pulse Ox 100% on R/A; lg3 17:00 Body Mass Index 25.10 (77.11 kg, 175.26 cm) db 20:07 Pain Scale: Adult lg3 NIH Stroke Scale Scores: 19:13 NIHSS Score: 0 [facility] ED Course: 16:54 Patient arrived in ED. em1 16:57 Duran De La Fuente MD is Attending Physician. walter 17:15 Initial lab(s) drawn, by me, sent to lab. Maintain EMS IV. Dressing intact. Good blood db return noted. Site clean \T\ dry. Gauge \T\ site: 20 G RAC. Flushed with 10 mL NS. Patient maintains SpO2 saturation greater than 95% on room air. 17:32 XRAY Chest (1 view) In Process Unspecified. EDMS 17:42 Caitlyn Santamaria, RN is Primary Nurse. db 17:46 Triage completed. db 17:46 Arm band placed on Patient placed in an exam room. db 19:19 Pritesh Ambriz MD is Hospitalizing Provider. walter 19:51 CT Aorta for Dissection In Process Unspecified. EDMS 20:07 No provider procedures requiring assistance completed. lg3 20:07 Patient has correct armband on for positive identification. Placed in gown. Bed in low lg3 position. Call light in reach. Side rails up X 1. Client placed on continuous cardiac and pulse oximetry monitoring. NIBP monitoring applied. community nutrition educator on. Door closed. Noise minimized. Warm blanket given. Pillow given. 22:34 Patient admitted, IV remains in place. lg3 Administered Medications: 17:20 Drug: NS 0.9% IV 500 ml 500 ml IV at 1 bolus once; to be given as a bolus over 30 db minutes Volume: 500 ml; Route: IV; Rate: 1 bolus; Site: right antecubital; 20:09 Follow up: Response: No adverse reaction; IV Status: Completed infusion; IV Intake: lg3 500ml 17:25 Drug: Famotidine IVP 20 mg IVP once; dilute with 10 mL 0.9% NaCl; give over 2 minutes db Route: IVP; Site: right antecubital; 20:10 Follow up: Response: No adverse reaction lg3 20:09 Drug: Enoxaparin Sub-Q 1 mg/kg Sub-Q once Route: Sub-Q; Site: abdomen; lg3 20:10 Follow up: Response: No adverse reaction lg3 20:09 Drug: Lisinopril PO 20 mg PO once Route: PO; lg3 20:10 Follow up: Response: No adverse reaction lg3 20:09 Drug: Coreg PO 6.25 mg PO once; administer with food Route: PO; lg3 20:10 Follow up: Response: No adverse reaction lg3 20:09 Drug: Aspirin PO Chewable Tablet 81 mg PO once Route: PO; lg3 20:10 Follow up: Response: No adverse reaction lg3 Medication: 20:07 VIS not applicable for this client. lg3 Intake: 20:09 IV: 500ml; Total: 500ml. lg3 Outcome: 19:20 Decision to Hospitalize by Provider. [facility] 22:34 Admitted to Med/surg accompanied by tech, lg3 22:34 Condition: stable 22:34 Instructed on the need for admit, Demonstrated understanding of instructions, 22:34 Patient left the ED. lg3 NIH Stroke Scale - NIH Stroke Score Date: 03/12/2025 Time: 19:13 Total Score = 0 10. Dysarthria (speech clarity - read or repeat words) - 0(Normal) 11. Extinction and Inattention (visual/tactile/auditory/spatial/personal) - 0(No abnormality) 1a. Level of Consciousness (LOC) - 0(Alert) 1b. Level of Consciousness (LOC) (Month \T\ Age) - 0(Both) 1c. LOC Commands (Open \T\ Closes Eyes/Key Worker) - 0(Both) 2. Best Gaze (Lateral Gaze Paresis) - 0(Normal) 3. Visual Field Loss - 0(No visual loss) 4. Facial Palsy - 0(Normal) 5a. Left Arm: Motor (10-second hold) - 0(No drift) 5b. Right Arm: Motor (10-second hold) - 0(No drift) 6a. Left Leg: Motor (5-second hold - always test supine) - 0(No drift) 6b. Right Leg: Motor (5-second hold - always test supine) - 0(No drift) 7. Limb Ataxia (finger/nose \T\ heel/rodney - test with eyes open) - 0(Absent) 8. Sensory Loss (pinprick arms/legs/face) - 0(Normal) 9. Best Language: Aphasia (description/naming/reading) - 0(No aphasia) Initials: [facility] Signatures: Dispatcher [employer] EDDuran Koch MD MD cha Martinez, Eric em1 Jaelyn Guaman RN RN lg3 Caitlyn Santamaria RN RN db
--- NOTE | 2025-03-12 19:20 | EDPHYS ---
Physician Documentation [facility] Name: Agustín Camacho Age: 64 yrs Sex: Male : 1960 Arrival Date: 03/12/2025 Time: 16:46 Bed 14 Private MD: ED Physician Duran De La Fuente HPI: 03/12 19:13 This 64 yrs old Male presents to ER via EMS with complaints of Chest Pain. walter 19:13 The patient or guardian reports chest pain that is located primarily in the anterior [facility] chest wall, left. Onset: just prior to arrival. The pain radiates to both arms. Associated signs and symptoms: Pertinent positives: nausea. The chest pain is described as sharp. Duration: The patient or guardian reports a single episode, that is now resolved. Modifying factors: The symptoms are alleviated by nothing. the symptoms are aggravated by nothing. Severity of pain: At its worst the pain was moderate in the emergency department the pain has resolved after treatment by EMS personnel, nitro. EMS care prior to arrival includes: aspirin, nitroglycerin, saline lock, supplemental oxygen. The patient has not experienced similar symptoms in the past. Historical: - Allergies: 17:00 NKA; db - PMHx: 17:00 AAA; ADD/ADHD; CVA; Hernia; High Cholesterol; Hypertension; Anxiety; Prostate Cancer; db - PSHx: 17:00 Cholecystectomy; prostate removal; right knee revision; roator cuff repair right; db umbilical hernia repair; - Immunization history:: Adult Immunizations unknown. - Infectious Disease History:: Denies. - Social history:: Smoking status: Patient denies any tobacco usage or history of. - Family history:: not pertinent. ROS: 19:13 Constitutional: Negative for fever, chills, and weight loss, Eyes: Negative for injury, walter pain, redness, and discharge, ENT: Negative for injury, pain, and discharge, Neck: Negative for injury, pain, and swelling, Respiratory: Negative for shortness of breath, cough, wheezing, and pleuritic chest pain, Abdomen/GI: Negative for abdominal pain, nausea, vomiting, diarrhea, and constipation, Back: Negative for injury and pain, : Negative for injury, bleeding, discharge, and swelling, MS/Extremity: Negative for injury and deformity, Skin: Negative for injury, rash, and discoloration, Neuro: Negative for headache, weakness, numbness, tingling, and seizure, Psych: Negative for depression, anxiety, suicide ideation, homicidal ideation, and hallucinations, Allergy/Immunology: Negative for hives, rash, and allergies, Endocrine: Negative for neck swelling, polydipsia, polyuria, polyphagia, and marked weight changes, Hematologic/Lymphatic: Negative for swollen nodes, abnormal bleeding, and unusual bruising, 19:13 Cardiovascular: Positive for chest pain, of the anterior aspect of left upper chest and left breast, Exam: 19:13 Constitutional: This is a well developed, well nourished patient who is awake, alert, walter and in no acute distress. Head/Face: Normocephalic, atraumatic. Eyes: Pupils equal round and reactive to light, extra-ocular motions intact. Lids and lashes normal. Conjunctiva and sclera are non-icteric and not injected. Cornea within normal limits. Periorbital areas with no swelling, redness, or edema. ENT: Nares patent. No nasal discharge, no septal abnormalities noted. Tympanic membranes are normal and external auditory canals are clear. Oropharynx with no redness, swelling, or masses, exudates, or evidence of obstruction, uvula midline. Mucous membranes moist. Neck: Trachea midline, no thyromegaly or masses palpated, and no cervical lymphadenopathy. Supple, full range of motion without nuchal rigidity, or vertebral point tenderness. No Meningismus. Chest/axilla: Normal chest wall appearance and motion. Nontender with no deformity. No lesions are appreciated. Cardiovascular: Regular rate and rhythm with a normal S1 and S2. No gallops, murmurs, or rubs. Normal PMI, no JVD. No pulse deficits. Respiratory: Lungs have equal breath sounds bilaterally, clear to auscultation and percussion. No rales, rhonchi or wheezes noted. No increased work of breathing, no retractions or nasal flaring. Abdomen/GI: Soft, non-tender, with normal bowel sounds. No distension or tympany. No guarding or rebound. No evidence of tenderness throughout. Back: No spinal tenderness. No costovertebral tenderness. Full range of motion. Male : Normal genitalia with no discharge or lesions. Skin: Warm, dry with normal turgor. Normal color with no rashes, no lesions, and no evidence of cellulitis. MS/ Extremity: Pulses equal, no cyanosis. Neurovascular intact. Full, normal range of motion., bilateral aka Neuro: Awake and alert, GCS 15, oriented to person, place, time, and situation. Cranial nerves II-XII grossly intact. Motor strength 5/5 in all extremities. Sensory grossly intact. Cerebellar exam normal. Normal gait. Psych: Awake, alert, with orientation to person, place and time. Behavior, mood, and affect are within normal limits. 19:13 ECG was reviewed by the Attending Physician. 19:13 Musculoskeletal/extremity: ROM: no acute changes, intact in all extremities, full active range of motion, full passive range of motion, Circulation is intact in all extremities. Sensation intact. Compartment Syndrome exam of affected extremity: is normal. Weight bearing: able to fully bear weight, DVT Exam: No signs of deep vein thrombosis. no pain, no swelling, no tenderness, negative Homans' sign noted on exam, no appreciated bluish discoloration, no erythema, no increased warmth, Vital Signs: 17:00 BP 116 / 73; Pulse 54; Resp 18; Temp 98.7; Pulse Ox 95% ; Weight 77.11 kg; Height 5 ft. db 9 in. ; 17:35 BP 133 / 79; Pulse 54; Resp 24; Pulse Ox 98% ; db 18:30 BP 139 / 79; Pulse 61; Resp 20; Pulse Ox 100% on R/A; db 19:22 BP 164 / 85 RA; Pulse 59; Pulse Ox 100% on R/A; lg3 19:22 BP 170 / 85 LA; Pulse 61; Pulse Ox 100% on R/A; lg3 20:07 BP 140 / 92; Pulse 69; Resp 16 S; Pulse Ox 100% on R/A; Pain 0/10; lg3 21:12 BP 138 / 66; Pulse 61; Resp 19 S; Pulse Ox 100% on R/A; lg3 17:00 Body Mass Index 25.10 (77.11 kg, 175.26 cm) db 20:07 Pain Scale: Adult lg3 NIH Stroke Scale Scores: 19:13 NIHSS Score: 0 walter MDM: 16:57 Medical Screening Exam initiated walter 19:16 Differential diagnosis: abnormal EKG, acute myocardial infarction, acute pericarditis, walter anxiety, coronary artery disease chest wall pain, congestive heart failure Cholelithiasis costochondritis, esophagitis, gastritis, gastroesophageal reflux disease (GERD), herpes zoster, hiatal hernia, myocarditis, pancreatitis, peptic ulcer disease, pericarditis, pleurisy, pneumonia, pulmonary embolus, stable angina, thoracic aortic disection, unstable angina. HEART Score: History: Moderately Suspicious (1), ECG: Normal (0), Age: > or = 65 years (2), Risk Factors: > or = 3 Risk factors for atherosclerotic disease (2), [Hypercholesterolemia] [Hypertension] [Active Smoker] [+ Family HX] Troponin: < or = 1 x Normal Limit (0). The patient was given aspirin in the Emergency Department. PATITO Risk Score: 1 - patient's age is greater or equal to 65 years, 1 - Three or more CAD risk factors, 1- Known CAD, 1 - ASA use in past 7 days, 1 - Recent [<24hrs] Severe Angina, TOTAL SCORE = 5. Data reviewed: vital signs, nurses notes, lab test result(s), EKG, radiologic studies, plain films. Consideration of Admission/Observation Patient was admitted/placed on observation. Escalation of care including admission/observation considered. I considered the following discharge prescriptions or medication management in the emergency department Medications were administered in the Emergency Department. See MAR. Independent interpretation of the following test(s) in the Emergency Department EKG: See my EKG interpretation above. Test considered but Not performed: Ultrasound no 2 d echo. Historians other than the Patient: EMS: ems well informed. Spouse/Significant Other: well informed. Care significantly affected by the following chronic conditions: Hypertension, Chronic Obstructive Pulmonary Disease, anxiety , adhd, smoker, hernia. 03/12 16:58 Order name: Basic Metabolic Panel; Complete Time: 18:55 [facility] 03/12 16:58 Order name: CBC with Diff; Complete Time: 18:55 [facility] 03/12 16:58 Order name: LFT's; Complete Time: 18:55 03/12 16:58 Order name: Magnesium; Complete Time: 18:55 03/12 16:58 Order name: NT PRO-BNP; Complete Time: 18:55 walter 03/12 16:58 Order name: PT-INR; Complete Time: 18:55 [facility] 03/12 16:58 Order name: Troponin HS; Complete Time: 18:55 [facility] 03/12 16:58 Order name: Lipase; Complete Time: 18:55 [facility] 03/12 16:58 Order name: UA Rfx Stu Cult if indicated; Complete Time: 18:55 [facility] 03/12 19:55 Order name: CBC with Automated Diff [facility] 03/12 19:55 Order name: CBC with Automated Diff [facility] 03/12 19:55 Order name: Comprehensive Metabolic Panel [facility] 03/12 19:55 Order name: Comprehensive Metabolic Panel [facility] 03/12 19:55 Order name: Lipid Profile [facility] 03/12 19:55 Order name: Lipid Profile [facility] 03/12 19:55 Order name: Troponin High Sensitivity [facility] 03/12 19:55 Order name: Troponin High Sensitivity [facility] 03/12 16:58 Order name: XRAY Chest (1 view); Complete Time: 18:55 [facility] 03/12 19:11 Order name: CT Aorta for Dissection [facility] 03/12 16:58 Order name: Cardiac monitoring; Complete Time: 17:43 [facility] 03/12 16:58 Order name: EKG - Nurse/Tech; Complete Time: 17:43 [facility] 03/12 16:58 Order name: IV Saline Lock; Complete Time: 17:43 [facility] 03/12 16:58 Order name: Labs collected and sent; Complete Time: 17:43 [facility] 03/12 16:58 Order name: O2 Per Protocol; Complete Time: 17:43 [facility] 03/12 16:58 Order name: O2 Sat Monitoring; Complete Time: 17:43 [facility] 03/12 19:13 Order name: Bilateral blood pressure; Complete Time: 19:23 walter EC:13 Rate is 54 beats/min. Rhythm is regular. QRS [place] is Normal. SD interval is normal. QRS walter interval is normal. QT interval is normal. No Q waves. T waves are Normal. No ST changes noted. Clinical impression: Sinus bradycardia and No evidence of ischemia. Interpreted by me. Reviewed by me. Administered Medications: 17:20 Drug: NS 0.9% IV 500 ml 500 ml IV at 1 bolus once; to be given as a bolus over 30 db minutes Volume: 500 ml; Route: IV; Rate: 1 bolus; Site: right antecubital; 20:09 Follow up: Response: No adverse reaction; IV Status: Completed infusion; IV Intake: lg3 500ml 17:25 Drug: Famotidine IVP 20 mg IVP once; dilute with 10 mL 0.9% NaCl; give over 2 minutes db Route: IVP; Site: right antecubital; 20:10 Follow up: Response: No adverse reaction lg3 20:09 Drug: Enoxaparin Sub-Q 1 mg/kg Sub-Q once Route: Sub-Q; Site: abdomen; lg3 20:10 Follow up: Response: No adverse reaction lg3 20:09 Drug: Lisinopril PO 20 mg PO once Route: PO; lg3 20:10 Follow up: Response: No adverse reaction lg3 20:09 Drug: Coreg PO 6.25 mg PO once; administer with food Route: PO; lg3 20:10 Follow up: Response: No adverse reaction lg3 20:09 Drug: Aspirin PO Chewable Tablet 81 mg PO once Route: PO; lg3 20:10 Follow up: Response: No adverse reaction lg3 Disposition Summary: 03/12/25 19:20 Hospitalization Ordered Notes: Hospitalization Status: Observation walter Provider: Pritesh Ambriz cha Location: Telemetry/MedSurg (observation) walter Condition: Fair walter Problem: new walter Symptoms: have improved walter Bed/Room Type: Standard walter Room Assignment: 214(03/12/25 21:03) kmf Diagnosis - Chest pain on breathing walter - Tobacco abuse counseling walter - Tobacco use walter - Essential (primary) hypertension walter Forms: - Medication Reconciliation Form walter - SBAR form walter - Leadership Thank You Letter [facility] NIH Stroke Scale - NIH Stroke Score Date: 03/12/2025 Time: 19:13 Total Score = 0 10. Dysarthria (speech clarity - read or repeat words) - 0(Normal) 11. Extinction and Inattention (visual/tactile/auditory/spatial/personal) - 0(No abnormality) 1a. Level of Consciousness (LOC) - 0(Alert) 1b. Level of Consciousness (LOC) (Month \T\ Age) - 0(Both) 1c. LOC Commands (Open \T\ Closes Eyes/Filter Assembler) - 0(Both) 2. Best Gaze (Lateral Gaze Paresis) - 0(Normal) 3. Visual Field Loss - 0(No visual loss) 4. Facial Palsy - 0(Normal) 5a. Left Arm: Motor (10-second hold) - 0(No drift) 5b. Right Arm: Motor (10-second hold) - 0(No drift) 6a. Left Leg: Motor (5-second hold - always test supine) - 0(No drift) 6b. Right Leg: Motor (5-second hold - always test supine) - 0(No drift) 7. Limb Ataxia (finger/nose \T\ heel/rodney - test with eyes open) - 0(Absent) 8. Sensory Loss (pinprick arms/legs/face) - 0(Normal) 9. Best Language: Aphasia (description/naming/reading) - 0(No aphasia) Initials: [facility] Signatures: Dispatcher [employer] EDMS Duran De La Fuente MD MD cha Able, Lacie RN RN lg3 Caitlyn Santamaria, RN RN db Mallory Lipscomb km Corrections: (The following items were deleted from the chart) 16:58 16:58 BASIC METABOLIC PANEL+C.LAB.BRZ ordered. EDMS EDMS 16:58 16:58 CBC+H.LAB.BRZ ordered. EDMS EDMS 16:58 16:58 HEPATIC FUNCTION+C.LAB.BRZ ordered. EDMS EDMS 16:58 16:58 MAGNESIUM+C.LAB.BRZ ordered. EDMS EDMS 16:58 16:58 PROBNP+C.LAB.BRZ ordered. EDMS EDMS 16:58 16:58 PROTIME (+INR)+COAG.LAB.BRZ ordered. EDMS EDMS 16:58 16:58 Troponin High Sensitivity+C.LAB.BRZ ordered. EDMS EDMS 16:58 16:58 LIPASE+C.LAB.BRZ ordered. EDMS EDMS 16:58 16:58 UA Rfx Stu Cult if indicated+U.LAB.BRZ ordered. EDMS EDMS 16:59 16:58 Chest Single View+RAD.RAD.BRZ ordered. EDMS EDMS 19:12 19:12 Angio Aorta For Dissection+CT.RAD.BRZ ordered. EDMS EDMS 21:03 19:20 [facility]
[2025-03-12] MEDS ORDERED: lisinopriL 20 MG TAB ONE (19:26)
[2025-03-12] MEDS ORDERED: ASPIRIN 81 MG CHEWABLE TABLET ONE (19:26)
[2025-03-12] MEDS ORDERED: ENOXAPARIN 80 MG/0.8 ML SQ ONE (19:26)
[2025-03-12] MEDS ORDERED: carvediloL 6.25 MG TAB ONE (19:26)
[2025-03-12] MEDS ORDERED: ONDANSETRON 4 MG/2 ML VIAL IV PRN (19:50)
[2025-03-12] MEDS ORDERED: ACETAMINOPHEN 325 MG TABLET PO PRN (19:50)
[2025-03-12] MEDS ORDERED: ALBUTEROL 2.5 MG/3 ML NEB SOL NEB PRN (19:50)
--- NOTE | 2025-03-12 19:50 | P.HP ---
Certification for Inpatient Patient admitted to: Inpatient With expected LOS: >2 Midnights Practitioner: I am a practitioner with admitting privileges, knowledge of patient current condition, hospital course, and medical plan of care. Services: Services provided to patient in accordance with Admission requirements found in Title 42 Section 412.3 of the Code of Federal Regulations Patient History Date of Service: 03/12/25 Reason for admission: Chest Pain History of Present Illness: 64 yrs old Male with past medical history of hypertension, hyperlipidemia, anxiety, history of prostate cancer, AAA, ADD who was brought to ER with chest pain.Pain is located primarily in the anterior chest wall, The pain radiates to both arms. Associated with nausea. The chest pain is described as sharp. Denies any fever or chills. No vomiting or diarrhea. oxygen. The patient has not experienced similar symptoms in the past. Patient was assessed in the ER and is admitted for further management of chest pain to rule out ACS Allergies No Known Allergies Allergy (Verified 07/03/17 15:30) Home medications list reviewed: Yes Home Medications: Aspirin Chewable [Aspirin Chewable*] 81 mg PO DAILY 04/02/20 Citalopram Hydrobromide [Citalopram HBr] 40 mg PO BID 04/02/20 Gabapentin 800 mg PO BID 04/02/20 Melatonin 5 mg PO BEDTIME PRN 04/02/20 Omeprazole [Prilosec] 40 mg PO BEDTIME PRN 04/02/20 Naltrexone HCl 50 mg PO DAILY 02/23/25 Oxybutynin Chloride [Oxybutynin Chloride ER] 5 mg PO BID 02/23/25 Rosuvastatin Calcium 20 mg PO BEDTIME 02/23/25 carvediloL [Carvedilol] 6.25 mg PO BID 02/23/25 lisinopriL [Lisinopril] 20 mg PO BEDTIME 02/23/25 Cefdinir [Cefdinir*] 300 mg PO BID #10 cap 02/24/25 - Past Medical/Surgical History Diabetic: No Past Medical History: Reviewed- Non-Contributory -: CVA Jul 2014 -: Seziures started November 2014 -: HTN -: Tremors -: High CHolestrol Past Surgical History: Reviewed- Non-Contributory -: Rotator Cuff SX Right X 3 -: Right Knee Arthroscopic -: Hernia with mesh - Family History Mother -: Heart disease, Diabetes, Other (see notes) Notes: cabg. alzheimers Father -: Cancer Notes: Brother -: Cancer Notes: bladder cancer - Social History Smoking Status: Never smoker Alcohol use: Yes CD- Drugs: No Caffeine use: Yes Review of Systems 10-point ROS is otherwise unremarkable Physical Examination - Physical Exam General: Alert, Oriented x3 HEENT: Atraumatic, Normocephalic, Mucous membr. moist/pink Neck: Supple Respiratory: Clear to auscultation bilaterally, Normal air movement Cardiovascular: Regular rate/rhythm, Normal S1 S2 Capillary refill: <2 Seconds Gastrointestinal: Soft and benign, W/out hepatosplenomegaly Musculoskeletal: No clubbing, No swelling Integumentary: No rashes Neurological: Other (Alert awake nonfocal) Lymphatics: No axilla or inguinal lymphadenopathy - Studies Laboratory Data (last 24 hrs) 03/12/25 03/12/25 03/12/25 17:11 17:11 17:11 WBC 7.20 Hgb 12.4 L Hct 34.8 L Plt Count 237 PT 10.4 INR 0.91 Sodium 131 L Potassium 4.1 BUN 14 Creatinine 0.83 Glucose 84 Magnesium 2.0 Total Bilirubin 0.3 AST 17 ALT 18 Alkaline Phosphatase 73 Lipase 42 Assessment and Plan - Plan Chest Pain Will trend cardiac enzymes Will monitor telemetry Started on aspirin and statin EKG did not show any acute changes suggestive of ischemia Will get an echocardiogram Cardiology consult Hypertension Antihypertensives titrated Continue home medications and titrate as needed Hyperlipidemia Continue statin Anxiety History of prostate cancer, AAA, ADD Continue home medications and titrate as needed GI/DVT prophylaxis Advanced directive full code Discharge Plan: Home Plan to discharge in: 48 Hours - Advance Directives Does patient have a Living Will: No Does patient have a Durable POA for Healthcare: No - Code Status/Comfort Care Code Status: Full Code Time Spent Managing Pts Care (In Minutes): 48
--- NOTE | 2025-03-12 20:23 | RAD REPORT ---
EXAM: Angio Aorta For Dissection HISTORY: HS MAIN na DISSECTION Bed Name: 14 COMPARISON: None TECHNIQUE: Multiple contiguous axial images were obtained a CTA of the chest and abdomen with contras t per aortic dissection protocol. Sagittal and coronal 3-D MIP reformats were performed. One or more of the following dose reduction techniques were used: Automated exposure control, adjustment of the mA and kV according to patient size, and iterative reconstruction. Unless otherwise specified, incidental findings do not require dedicated imaging follow-up. FINDINGS: PULMONARY ARTERIES: Normal in caliber without filling defects to suggest pulmonary emboli. MEDIASTINUM: No hilar or mediastinal lymphadenopathy. LUNGS: No focal infiltrates or masses. Mild apical predominant centrilobular emphysematous changes. PLEURAL SPACE: No pleural effusion or pneumothorax. LIVER: Unremarkable. KIDNEYS: Unremarkable. SPLEEN: Unremarkable. PANCREAS: Unremarkable. Status post cholecystectomy. BOWEL: Unremarkable. RETROPERITONEUM: No lymphadenopathy BONES: Healing left fourth, fifth, and sixth rib fractures, healing anterior right fourth and fifth r ib fractures ASCENDING THORACIC AORTA: Mild fusiform dilation measuring up to 4.1 cm in caliber. No evidence of d issection or saccular aneurysmal dilatation. DESCENDING THORACIC AORTA: Normal caliber without evidence of dissection or aneurysmal dilatation. M ild tortuosity distally. ABDOMINAL AORTA: Normal caliber without evidence of dissection or aneurysmal dilatation. CELIAC TRUNK: Patent SMA: Patent TAWNYA: Patent RENAL ARTERIES: Bilateral single renal arteries without significant atherosclerotic disease IMPRESSION: No evidence of thoracic or abdominal aortic dissection. Mild aneurysmal dilation of the ascending tho racic aorta measuring up to 4.1 cm in caliber. Healing bilateral rib fractures as above. These may contribute to the patient's symptoms. Other incidental findings as above.
[2025-03-12 22:59] VITALS: BMI 24.9
[2025-03-13] MEDS ORDERED: MELATONIN 5 MG TABLET PO PRN (00:17)
[2025-03-13] MEDS ORDERED: PANTOPRAZOLE 40MG TABLET PO PRN (00:17)
[2025-03-13 06:27] LABS: Absolute Basophils 0.1 K/uL (0-0.5); Absolute Eosinophils 0.3 K/uL (0-0.5); Absolute Lymphocytes (CBC) 1.8 K/uL (0.7-4.9); Absolute Monocytes 0.4 K/uL (0.1-1.3); Basophils % 1.3 % (0-1.3); Eosinophils % 4.6 % (0-4.4); Hematocrit 37.5 % (39.6-49.0); Hemoglobin 13.1 g/dL (13.6-17.9); Lymphocytes % 31.9 % (15.3-44.8); MCH 33.2 pg (27.0-35.0); MCHC 34.9 g/dL (32.0-36.0); MCV 95.4 fL (80-100); MPV 7.5 fL (7.6-11.3); Monocytes % 8.1 % (3.3-12.3); Neutrophils % 54.1 % (41.7-73.7); Nucleated Red Blood Cells % 0.1 % (0-0); Platelets 247 thou/uL (152-406); RBC Red Blood Cell Count 3.94 M/uL (4.33-5.43); Red Cell Distribution Width 14.8 % (12.1-15.2)
[2025-03-13 06:50] LABS: Anion Gap 6.5 mEq/L (5.0-15.0); Bilirubin Total 0.3 mg/dL (0.2-1.0); Globulin 2.9 g/dL (2.3-3.5); Potassium 4.5 mEq/L (3.5-5.1); Protein, Total 5.9 g/dL (6.4-8.2)
[2025-03-13] MEDS ORDERED: ALBUTEROL 2.5 MG/3 ML NEB SOL NEB PRN (06:59)
[2025-03-13] MEDS: PNEUMOCOCCAL VACCINE 0.5 ML IMVAC ONE (07:00)
[2025-03-13] MEDS: ASPIRIN 81 MG CHEWABLE TABLET PO SCH (08:33)
[2025-03-13] MEDS: GABAPENTIN 400 MG CAP PO SCH (08:33)
[2025-03-13] MEDS: carvediloL 6.25 MG TAB PO SCH (08:34)
[2025-03-13] MEDS: oxyBUTYnin chloride 5 MG TAB PO SCH (08:34)
[2025-03-13] MEDS: CITALOPRAM 10 MG TABLET PO SCH (08:34)
[2025-03-13] MEDS: ENOXAPARIN 40 MG/0.4 ML SQ SCH (08:35)
[2025-03-13 08:49] VITALS: O2SAT 98
[2025-03-13 08:59] VITALS: BP 130/73; TEMP 97.8
--- NOTE | 2025-03-13 13:21 | P.DS ---
Admission Date: 03/12/25 Discharge Date: 03/13/25 Disposition: ROUTINE DISCHARGE Discharge Condition: FAIR Reason for Admission: Chest Pain Hospital Course: Diagnosis Chest pain History of aortic aneurysm Hyperlipidemia Essential hypertension History of carotid artery disease Patient with a history of hypertension, hyperlipidemia, abdominal aortic aneurysm presented with anterior chest pain. Patient was evaluated in the ED, initial troponin negative. EKG did not show any ischemic changes. CT dissection showed mild ascending thoracic aortic dilatation up to 4.1 cm. Troponin was monitored which turned out to be negative. Acute coronary syndrome ruled out. Patient has been asymptomatic and ambulatory. Case discussed with cardiology Dr. Zuniga recommend follow-up in the office next week for further cardiac evaluation. Patient has been informed of the cardiology follow-up in the office and he voiced understanding. Lipid profile checked showed LDL within target. Patient is on aspirin and Crestor which are resumed on discharge. Vital Signs/Physical Exam: Temp Pulse Resp BP Pulse Ox 97.8 F 56 16 130/73 99 03/13/25 08:00 03/13/25 08:00 03/13/25 08:00 03/13/25 08:00 03/13/25 08:00 General: Alert, In no apparent distress, Oriented x3 HEENT: Mucous membr. moist/pink Neck: JVD not distended Respiratory: Clear to auscultation bilaterally Cardiovascular: Regular rate/rhythm, Normal S1 S2 Gastrointestinal: Soft and benign, Non-distended, No tenderness Musculoskeletal: No swelling Neurological: Normal strength at 5/5 x4 extr Laboratory Data at Discharge: WBC 5.60 thou/uL (4.3-10.9) 03/13/25 06:15 Hgb 13.1 g/dL (13.6-17.9) L 03/13/25 06:15 Hct 37.5 % (39.6-49.0) L 03/13/25 06:15 Plt Count 247 thou/uL (152-406) 03/13/25 06:15 PT 10.4 SECONDS (10-13.0) 03/12/25 17:11 INR 0.91 03/12/25 17:11 Sodium 136 mEq/L (136-145) D 03/13/25 06:15 Potassium 4.5 mEq/L (3.5-5.1) 03/13/25 06:15 BUN 11 mg/dL (7-18) 03/13/25 06:15 Creatinine 0.80 mg/dL (0.70-1.30) 03/13/25 06:15 Glucose 108 mg/dL (74-106) H 03/13/25 06:15 Magnesium 2.0 mg/dL (1.6-2.4) 03/12/25 17:11 Total Bilirubin 0.3 mg/dL (0.2-1.0) 03/13/25 06:15 AST 15 U/L (15-37) 03/13/25 06:15 ALT 18 U/L (16-61) 03/13/25 06:15 Alkaline Phosphatase 81 U/L (45-117) 03/13/25 06:15 Triglycerides 89 mg/dL (<150) 03/13/25 06:15 Cholesterol 122 mg/dL (<200) 03/13/25 06:15 HDL Cholesterol 42 mg/dL (40-60) 03/13/25 06:15 Cholesterol/HDL Ratio 2.90 03/13/25 06:15 Lipase 42 U/L (13-75) 03/12/25 17:11 Home Medications: Aspirin Chewable [Aspirin Chewable*] 81 mg PO DAILY 04/02/20 Citalopram Hydrobromide [Citalopram HBr] 40 mg PO BID 04/02/20 Gabapentin 800 mg PO BID 04/02/20 Melatonin 5 mg PO BEDTIME PRN 04/02/20 Omeprazole [Prilosec] 40 mg PO BEDTIME PRN 04/02/20 Naltrexone HCl 50 mg PO DAILY 02/23/25 Oxybutynin Chloride [Oxybutynin Chloride ER] 5 mg PO BID 02/23/25 Rosuvastatin Calcium 20 mg PO BEDTIME 02/23/25 carvediloL [Carvedilol] 6.25 mg PO BID 02/23/25 lisinopriL [Lisinopril] 20 mg PO BEDTIME 02/23/25 Physician Discharge Instructions: Patient with a history of hypertension, hyperlipidemia, abdominal aortic aneurysm presented with anterior chest pain. Patient was evaluated in the ED, initial troponin negative. EKG did not show any ischemic changes. CT dissection showed mild ascending thoracic aortic dilatation up to 4.1 cm. Troponin was monitored which turned out to be negative. Acute coronary syndrome ruled out. Patient has been asymptomatic and ambulatory. Case discussed with cardiology Dr. Zuniga recommend follow-up in the office next week for further cardiac evaluation. Patient has been informed of the cardiology follow-up in the office and he voiced understanding. Lipid profile checked showed LDL within target. Patient is on aspirin and Crestor which are resumed on discharge. Diet: AHA Activity: Ad alejandra Followup: Naif Banegas DO, DO [Primary Care Provider] - 1 Week Daren Zuniga MD [ACTIVE - CAN ADMIT] - 2-3 Days Time spent managing pt's care (in minutes): 28
[2025-03-13] MEDS ORDERED: ROSUVASTATIN 10 MG TAB PO SCH (21:00)
[2025-03-13] MEDS ORDERED: lisinopriL 20 MG TAB PO SCH (21:00)
--- NOTE | 2025-03-14 12:09 | EKG ---
Test Date: 2025-03-12 Test Time: 17:07:56 Supervisor Policy Change Clerks: REGINE MEASUREMENT RESULTS: Intervals: Rate: 54 NE: 172 QRSD: 78 QT: 418 QTc: 396 [place]: P: 80 NE: 172 QRS: 53 T: 45 INTERPRETIVE STATEMENTS: Sinus bradycardia Otherwise normal ECG Compared to ECG 02/22/2025 19:33:22 Left ventricular hypertrophy no longer present Electronically Signed On 03-14-25 12:06:34 CDT by Daren Zuniga
== END 2025-03-13 14:50 | disposition home or self-care (01) ==
LOC: ER 16:46 → ERHOLD 19:50 → 2ND 22:02
PROVIDERS: ADMIT Family Medicine; ATTEND Internal Medicine
DX: R07.9 Chest pain, unspecified (principal); I25.10 Atherosclerotic heart disease of native coronary artery without angina pectoris; I71.40 Abdominal aortic aneurysm, without rupture, unspecified; I10 Essential (primary) hypertension; E78.5 Hyperlipidemia, unspecified; F41.9 Anxiety disorder, unspecified; Z85.46 Personal history of malignant neoplasm of prostate; Z79.82 Long term (current) use of aspirin
CPT/HCPCS: 96361; 93005; 85025 ×2; 80048; 36415; 83735; 85610; 80061; 80076; 81003; 84484 ×2; 83690; 80053; 83880; 71275; 74175; 71045; 94760 ×2; 96372; 96374; 99285; Q9967; J1650; J7040; G0378 ×4

== ENCOUNTER 2025-03-25 16:32 | Emergency (ER) | payer OTHER ==
--- OUTSIDE RECORDS SUMMARY | 2025-03-25 16:36 | XMS REPORT | Continuity of Care Document ---
Author Name Unknown Address [address] [place] [address] [facility] Address 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 Name Role Phone Alexandrea Banegas Primary Care Physician VEGA MACEDO Attending Clinician Unavailable Rolly Araya MD Attending Clinician [phone] Mikki Jiménez MA Attending Clinician Unavailab Shaggy Higgins Attending Clinician [phone] Payers Payer Name Policy Type Policy Number Effective Date Expirati on Date Source [employer] [id number] 2020 00:00:00 2020 00:00:00 [employer] MED[employer] PPO [id number] 2024 00:00:00 Problems Condition Name Condition Details [...] cuff Disease Active 2022-0 7-26 00:00: 00 [facility] 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 vicular joint Disease Active 517 00:00: 00 [facility] Essential hypertensi on Essential hypertensi on Disease Active 2017-11 006 00:00: 00 [facility] 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 Disease Active 2017-11 006 00:00: 00 [facility] Chest pain Chest pain Disease Active 2017-11 004 00:00: 00 [facility] Social History Social Habit Start Date Stop Date Quantity Comments Source Sexual orientation [facility] History of tobacco use Cigarette Smoker [facility] History of Social function 2023-05-27 00:00:00 2023-05-27 00:00:00 [facility] Alcohol intake 2023-05-27 00:00:00 2023-05-27 00:00:00 Current drinker of alcohol (finding) [facility] Exposure to SARS-CoV-2 (event) 2022-02-24 00:00:00 2022-03-26 14:58:00 Not sure [facility] Cigarettes smoked current (pack per day) - Reported 2022-02-28 00:00:00 2022-02-28 00:00:00 [facility] Tobacco use and exposure 2022-02-28 00:00:00 2022-02-28 00:00:00 Smokeless tobacco non-user [facility] Cigarette pack-years 2022-02-28 00:00:00 2022-02-28 00:00:00 [facility] Alcohol Comment 2018-08-13 00:00:00 2018-08-13 00:00:00 Occasional [facility] Sex Assigned At 1960 00:00:00 1960 00:00:00 [facility] Smoking Status Start Date Stop Date Source Heavy tobacco smoker 2022-02-28 00:00:00 [facility] Current every day smoker 2019-07-02 00:00:00 [facility] Medications Ordered Medication Name Filled Medication Name Start Date Stop Date Current Medication? Ordering Clinician Indication Dosage Frequency Signature (SIG) Comments Components Source lidocaine (Xylocaine) 1 % injection 1 mL 07-15 13:00: 00 07-15 13:00 :00 No [id number] 1mL [facility] betamethaso ne acetate-bet amethasone sodium phosphate (Celestone) injection 1 mg 07-15 13:00: 00 07-15 13:00 :00 No [id number] 1mg [facility] meloxicam (Mobic) 15 MG tablet 05-27 00:00: 00 06-27 04:59 :00 No [id number] 88073 15mg QD Take 1 tablet (15 mg total) by mouth 1 (one) time each day. [facility] cyclobenzap rine (Flexeril) 10 MG tablet 03-01 00:00: 00 Yes [id number] 046205 10mg Q.[id number] 3D Take 1 tablet (10 mg total) by mouth 3 (three) times a day if needed for muscle spasms for up to 10 days. [facility] naloxone (Narcan) 2 MG/2ML injection 03-01 00:00: 00 03-02 04:59 :00 No [id number] 928336 .4mg Administer 0.4 mL (0.4 mg total) into affected nostril(s) if needed for opioid reversal. May repeat every 2-3 minutes as needed until medical assistance available. [facility] traMADol (Ultram) 50 MG tablet 03-01 00:00: 00 03-12 04:59 :00 No [id number] 50mg Q6H Take 1 tablet (50 mg total) by mouth every 6 (six) hours if needed for severe pain for up to 10 days. [facility] aspirin 81 MG chewable tablet 02-28 10:40: 31 Yes 81mg Chew 81 mg. [facility] citalopram (CeleXA) 20 MG tablet 02-28 10:40: 30 Yes 20mg Take 20 mg by mouth. [facility] propranolol (Inderal) 10 MG tablet 02-11 00:00: 00 Yes [facility] gabapentin (Neurontin) 600 MG tablet 07-21 00:00: 00 Yes [facility] iohexol (OMNIPAQUE 350 BULK-100 mL) injection 120 mL 07-03 02:45: 00 07-03 02:23 :00 No 120mL 120 mL, Intravenou s, ONCE, 1 dose, 07/02/19 at 2145, Routine [facility] aspirin 81 mg chewable tablet 2017-11 17:44: 42 Yes 81mg Take 81 mg by mouth daily. [facility] propranolol 10 mg tablet 2017-11 17:44: 42 Yes 10mg Take 10 mg by mouth 2 (two) times daily. [facility] citalopram 20 mg tablet 2017-11 17:44: 42 Yes 20mg Take 20 mg by mouth daily. [facility] omeprazole 40 mg capsule 2017-11 17:44: 42 Yes 40mg Take 40 mg by mouth 2 (two) times daily. [facility] Vital Signs Vital Name Observation Time Observation Value Comments S ource Body height 2023-05-27 20:27:00 175.3 cm [facility] Body weight 2023-05-27 20:27:00 78.926 kg [facility] BMI 2023-05-27 20:27:00 25.70 kg/m2 [facility] BMI 2022-02-28 15:39:00 25.70 kg/m2 [facility] Body height 2022-02-28 15:39:00 175.3 cm [facility] Body weight 2022-02-28 15:39:00 78.926 kg [facility] Systolic blood pressure 2019-07-03 02:00:00 142 mm[Hg] [facility] Diastolic blood pressure 2019-07-03 02:00:00 92 mm[Hg] [facility] Heart rate 2019-07-03 02:00:00 80 /min Sarik[facility] Respiratory rate 2019-07-03 02:00:00 18 /min [facility] Oxygen saturation in Arterial blood by Pulse oximetry 2019-07-03 02:00:00 98 /min [facility] Body temperature 2019-07-02 23:41:00 36.83 Seema [facility] Body height 2019-07-02 23:41:00 175.3 cm [facility] Body weight 2019-07-02 23:41:00 79.379 kg [facility] BMI 2019-07-02 23:41:00 25.84 kg/m2 [facility] Systolic blood pressure 2019-07-03 02:00:00 142 mm[Hg] [facility] Diastolic blood pressure 2019-07-03 02:00:00 92 mm[Hg] [facility] Heart rate 2019-07-03 02:00:00 80 /min [facility] Respiratory rate 2019-07-03 02:00:00 18 /min [facility] Oxygen saturation in Arterial blood by Pulse oximetry 2019-07-03 02:00:00 98 /min [facility] Body temperature 2019-07-02 23:41:00 36.83 Seema [facility] Body height 2019-07-02 23:41:00 175.3 cm [facility] Body weight 2019-07-02 23:41:00 79.379 kg [facility] BMI 2019-07-02 23:41:00 25.84 kg/m2 [facility] Procedures Procedure Date / Time Performed Performing Clinician Source ME INJECT TENDON SHEATH/LIGAMENT 2023-07-15 13:00:00 Zoyi Martine [place] [facility] [place] INJECT TENDON SHEATH/LIGAMENT 2023-07-15 13:[facility] ABDOMEN PELVIS W CONTRAST 2019-07-03 02:30:21 Shaggy Gonzalez [facility] LIPASE 2019-07-03 01:59:00 Sheyla Gao [facility] COMP. METABOLIC PANEL (12926) 2019-07-03 01:59:00 Sheyla Gao [facility] CBC WITH DIFFERENTIAL 2019-07-03 01:59:00 Sa cadence Gao [facility] URINALYSIS 2019-07-03 01:59:00 Sheyla Gao Un [facility] CONSENT/REFUSAL FOR DIAGNOSIS AND TREATMENT 2019-07-02 23:33:31 Doctor Unassigned, [place] [facility] Encounters Start Date/Time End Date/Time Encounter Type Admission Type Attending [facility] Care Department Encounter ID Source 2023-05-27 15:08:50 Outpatient [facility] [id number] [facility] 2023-05-23 14:42:59 Outpatient [facility] [id number] [facility] 2023-05-22 09:33:41 Outpatient [facility] [id number] [facility] 2023-04-16 12:45:29 Outpatient [facility] [id number] [facility] 2023-03-12 09:15:57 Outpatient [facility] [id number] [facility] 2025-03-01 10:00:00 2025-03-01 10:00:00 Outpatient [facility] [id number] [facility] 2025-03-01 10:00:00 2025-03-01 10:00:00 Outpatient VEGA MACEDO [facility] [id number] [facility] 2023-07-31 10:30:00 2023-07-31 11:34:02 Office Visit Vega Macedo [facility] 1..840.114 350.1.13.58 9.2.7.2.686 [id number] [facility] 2023-07-24 14:15:00 2023-07-24 14:15:00 Outpatient VEGA MACEDO [facility] [id number] [facility] 2023-07-15 08:10:00 2023-07-15 09:05:23 Outpatient [facility] [id number] [facility] 2023-07-15 08:00:00 2023-07-15 09:04:59 Office Visit Rolly Araya [facility] 1 1..840.114 350.1.13.58 9.2.7.2.686 [id number] [facility] 2023-05-27 15:15:00 2023-05-27 16:42:25 Office Visit Vega Macedo [facility] 1 1.2840.114 350.1.13.58 9.2.7.2.686 [id number] [facility] 2023-03-25 14:15:00 2023-03-25 14:15:00 Outpatient VEGA MACEDO [facility] [id number] [facility] 2022-03-26 15:30:00 2022-03-26 16:50:06 Office Visit Vega Macedo [facility] 1 1.2.840.114 350.1.13.58 9.2.7.2.686 [id number] [facility] 2022-03-04 00:00:00 2022-03-04 00:00:00 Telephone TinoMikki TinoMikki [facility] 1 1.2.840.114 350.1.13.58 9.2.7.2.686 [id number] [facility] 2022-02-28 10:00:00 2022-02-28 12:04:39 Office Visit Vega Macedo [facility] 1 1.2.840.114 350.1.13.58 9.2.7.2.686 [id number] [facility] 2019-07-02 20:25:52 2019-07-02 22:21:00 Emergency Shaggy Gonzalez [facility] 1.2.840.114 350.1.13.10 4.2.7.2.686 [id number] 2019-07-02 20:25:52 2019-07-02 22:21:00 Emergency Shaggy Gonzalez [facility] 1.2.840.114 350.1.13.10 4.2.7.2.686 [id number] [facility] Results Test Description Test Time Test Comments Results Result Co mments Source [facility] [id number] 02:18:00* Test Item Value Reference Range Interpretation Comme nts NA (test code = 8453939522) 143 mmol/L 135-145 K (test code = 7760328154) 4.3 mmol/L 3.5-5 CL (test code = 8611405578) 110 mmol/L 98-108 H CO2 TOTAL (test code = 8428247107) 19 mmol/L 23-31 L AGAP (test code = 7075383538) 2-16 BUN (test code = 0540515423) 6 mg/dL 7-23 L GLUCOSE (test code = 4719520635) 73 mg/dL 70-110 CREATININE (test code = 6814933300) 0.62 mg/dL 0.6-1.25 TOTAL BILI (test code = 9112054432) 0.4 mg/dL 0.1-1.1 CALCIUM (test code = 6631231443) 8.9 mg/dL 8.6-10.6 T PROTEIN (test code = 8909599102) 7.6 g/dL 6.3-8.2 ALBUMIN (test code = 3661440124) 4.4 g/dL 3.5-5 ALK PHOS (test code = 2071031852) 114 U/L 34-122 ALT(SGPT) (test code = 1386416478) 60 U/L 9-51 H AST(SGOT) (test code = 6284301188) 26 U/L 13-40 eGFR Calculation (Non-) (test code = 0169747183) mL/min/1.73m2 eGFR Calculation () (test code = 2154756255) mL/min/1.73m2 THOMAS (test code = THOMAS) Association [...] imaging tests). Lab Interpretation (test code = 27383-1) [facility]normal [facility] 02:16:00* Test Item Value Reference Range Interpretation Comme nts APPEARANCE (test code = 0772004738) Clear Clear COLOR (test code = 3097396369) Yellow Yellow PH (test code = 1675922619) 4.8-8.0 SP GRAVITY (test code = 3330393126) <=1.005 1.003-1.030 GLU U QUAL (test code = 8326711705) Negative Negative BLOOD (test code = 2999869592) Negative Negative KETONES (test code = 2624287479) Negative Negative PROTEIN (test code = 2887-8) Negative Negative UROBILIN (test code = 7384459939) 0.2 mg/dL See_Comment [Automated messa ge] The system which generated this result transmitted reference range: 0-1.0 mg/dL. The reference range was not used to interpret this result as normal/abnormal. BILIRUBIN (test code = 5482080816) Negative Negative NITRITE (test code = 8956973379) Negative Negative LEUK AHRSHA (test code = 2463430507) Negative Negative RBC/HPF (test code = 4443640545) See_Comment [Automated messa ge] The system which generated this result transmitted reference range: 0 - 3 HPF. The reference range was not used to interpret this result as normal/abnormal. WBC/HPF (test code = 4984395534) See_Comment [Automated Can'tWaita ge] The system which generated this result transmitted reference range: 0 - 5 HPF. The reference range was not used to interpret this result as normal/abnormal. BACTERIA (test code = 0263565921) Negative Negative Lab Interpretation (test code = 80560-0) Normal [facility] WITH [id number] 02:07:00* Test Item Value Reference Range Interpretation [...] 34.5 g/dL 31.2-35 RDW-SD (test code = 43305-8) 45.6 fL 38.5-51.6 RDW-CV (test code = 788-0) 13.4 % 12.1-15.4 PLT (test code = 777-3) See_Comment [Automated messa ge] The system which generated this result transmitted reference range: 150 - 328 10*3/?L. The reference range was not used to interpret this result as normal/abnormal. MPV (test code = 90183-1) 9.8 fL 9.8-13 NRBC/100 WBC (test code = 5328368910) See_Comment [Automated Medium ssage] The system which generated this result transmitted reference range: 0.0 - 10.0 /100 WBCs. The reference range was not used to interpret this result as normal/abnormal. NRBC x10^3 (test code = 2347678748) <0.01 See_Comment [Automated messa ge] The system which generated this result transmitted reference range: 10*3/?L. The reference range was not used to interpret this result as normal/abnormal. GRAN MAT (NEUT) % (test code = 770-8) 60.9 % IMM GRAN % (test code = 4171964018) 0.40 % LYMPH % (test code = 736-9) 31.2 % MONO % (test code = 5905-5) 4.9 % EOS % (test code = 713-8) 2.0 % BASO % (test code = 706-2) 0.6 % GRAN MAT x10^3(ANC) (test code = 9158834242) 6.66 10*3/uL 1.99-6.95 IMM GRAN x10^3 (test code = 8273763800) 0.04 10*3/uL 0-0.06 LYMPH x10^3 (test code = 731-0) 3.41 10*3/uL 1.09-3.23 H MONO x10^3 (test code = 742-7) 0.54 10*3/uL 0.36-1.02 EOS x10^3 (test code = 711-2) 0.22 10*3/uL 0.06-0.53 BASO x10^3 (test code = 704-7) 0.07 10*3/uL 0.01-0.09 Lab Interpretation (test code = 81459-9) Abnormal [facility]"
[2025-03-25 17:08] LABS: Absolute Basophils 0.1 K/uL (0-0.5); Absolute Eosinophils 0.2 K/uL (0-0.5); Absolute Monocytes 0.6 K/uL (0.1-1.3); Absolute Neutrophil 5.9 K/uL (1.8-8.0); Eosinophils % 2.6 % (0-4.4); Hematocrit 34.6 % (39.6-49.0); Hemoglobin 12.2 g/dL (13.6-17.9); Lymphocytes % 22.4 % (15.3-44.8); MCH 33.5 pg (27.0-35.0); MCHC 35.2 g/dL (32.0-36.0); MCV 95.3 fL (80-100); MPV 7.4 fL (7.6-11.3); Monocytes % 6.8 % (3.3-12.3); Neutrophils % 67.2 % (41.7-73.7); Nucleated Red Blood Cells % 0.1 % (0-0); Platelets 227 thou/uL (152-406); RBC Red Blood Cell Count 3.63 M/uL (4.33-5.43); Red Cell Distribution Width 14.2 % (12.1-15.2)
--- NOTE | 2025-03-25 17:17 | RAD REPORT ---
EXAM: Chest Single View HISTORY: 64 years Male CHEST PAIN COMPARISON: 03/12/2025 FINDINGS: LUNGS/PLEURA: The lungs are clear. No pleural effusions or pneumothorax. No pulmonary edema. CARDIAC/MEDIASTINUM: The cardiac silhouette is within normal limits. UPPER ABDOMEN: No significant abnormality. BONES: No acute abnormality. LINES/TUBES/OTHER: N/A IMPRESSION: No evidence of acute cardiopulmonary disease. No significant change from prior.
[2025-03-25 17:24] LABS: Anion Gap 9.4 mEq/L (5.0-15.0); Potassium 3.4 mEq/L (3.5-5.1); Troponin High Sensitivity 6.1 pg/mL (<58.9)
--- NOTE | 2025-03-25 18:39 | ER ---
Nurse's Notes [facility] Name: Agustín Camacho Age: 64 yrs Sex: Male : 1960 Arrival Date: 03/25/2025 Time: 16:32 Bed 6 Private MD: Diagnosis: Chest pain, unspecified;Bradycardia, unspecified Presentation: 03/25 16:45 Chief complaint: EMS states: CHEST PAIN. Coronavirus screen: At this time, the client bp does not indicate any symptoms associated with coronavirus-19. Ebola Screen: No symptoms or risks identified at this time. Initial Sepsis Screen: Does the patient meet any 2 criteria? No. Patient's initial sepsis screen is negative. Does the patient have a suspected source of infection? No. Patient's initial sepsis screen is negative. Risk Assessment: Do you want to hurt yourself or someone else? Patient reports no desire to harm self or others. Onset of symptoms is unknown. Care prior to arrival: Medication(s) given: ASA, 81 mg, x 4, Nitroglycerin, 0.4 mg SL x 1, IV initiated. 20 GA, in the right forearm. 16:45 Method Of Arrival: EMS: [facility] bp 16:45 Acuity: BEVERLY 3 bp Triage Assessment: 16:47 General: Appears in no apparent distress. comfortable, Behavior is cooperative, bp appropriate for age, anxious. Pain: Complains of pain in chest. EENT: No deficits noted. Neuro: No deficits noted. Cardiovascular: Rhythm is sinus rhythm. Respiratory: No deficits noted. GI: No signs and/or symptoms were reported involving the gastrointestinal system. : No signs and/or symptoms were reported regarding the genitourinary system. Derm: No deficits noted. Musculoskeletal: No deficits noted. Historical: - Allergies: 16:47 NKA; bp - PMHx: 16:47 AAA; ADD/ADHD; Anxiety; CVA; Hernia; High Cholesterol; Hypertension; Prostate Cancer; bp - PSHx: 16:47 Cholecystectomy; prostate removal; right knee revision; roator cuff repair right; bp umbilical hernia repair; - Immunization history:: Adult Immunizations up to date. - Infectious Disease History:: Denies. - Social history:: Smoking status: unknown. Screenin:08 [facility] ED Fall Risk Assessment (Adult) History of falling in the last 3 months, ph including since admission No falls in past 3 months (0 pts) Confusion or Disorientation No (0 pts) Intoxicated or Sedated No (0 pts) Impaired Gait No (0 pts) Mobility Assist Device Used No (0 pt) Altered Elimination No (0 pt) Score/Fall Risk Level 0 - 2 = Low Risk Oriented to surroundings, Maintained a safe environment, Hourly rounding (assess needs \T\ fall precautionary measures) done. Abuse screen: Denies threats or abuse. Denies injuries from another. Nutritional screening: No deficits noted. Tuberculosis screening: No symptoms or risk factors identified. Assessment: 16:45 General: SEE TRIAGE NOTE. bp 16:45 Pain: Pain does not radiate. Pain began 2-3 days ago. bp 18:00 Reassessment: Patient appears in no apparent distress at this time. Patient is alert, bp oriented x 3, equal unlabored respirations, skin warm/dry/pink. 18:36 Reassessment: PT DECLINED TO REMAIN FOR RESULTS. INFORMED. bp Vital Signs: 16:45 BP 133 / 67; Pulse 60; Resp 16; Temp 98; Pulse Ox 95% ; bp 17:09 BP 153 / 85; Pulse 54; Resp 18; Pulse Ox 97% on R/A; ph 18:36 BP 147 / 79; Pulse 59; Resp 16; Pulse Ox 98% ; bp ED Course: 16:45 Patient arrived in ED. bp 16:47 Triage completed. bp 16:47 Arm band placed on. bp 16:48 Rajendra Dickens, RN is Primary Nurse. bp 16:56 EKG done, by ED staff. em1 17:08 Patient has correct armband on for positive identification. Bed in low position. Call ph light in reach. Side rails up X 1. traffic sergeant on. Pulse ox on. NIBP on. Door closed. Noise minimized. 17:08 Basic Metabolic Panel Sent. ph 17:08 CBC with Diff Sent. ph 17:08 NT PRO-BNP Sent. ph 17:08 PT-INR Sent. ph 17:08 Troponin HS Sent. ph 17:09 XRAY Chest (1 view) In Process Unspecified. EDMS 17:09 Nick Jason MD is Attending Physician. bo1 18:36 No provider procedures requiring assistance completed. IV discontinued, intact, bp bleeding controlled, No redness/swelling at site. Pressure dressing applied. Patient maintains SpO2 saturation greater than 95% on room air. 18:37 Provided Education on: NA. bp Administered Medications: No medications were administered Medication: 17:08 VIS not applicable for this client. ph Outcome: 18:36 Discharged to home ambulatory, with family, bp 18:36 Condition: stable 18:36 Discharge instructions given to patient, Instructed on discharge instructions, follow up and referral plans. Demonstrated understanding of instructions, follow-up care, 18:39 Discharge ordered by boLissa 18:40 Patient left the ED. bp Signatures: Dispatcher [employer] Jorge Luis Angulo em1 Maxine Murillo, RN RN ph Rajendra Dickens, RN RN bp Nick Jason MD MD bo1
--- NOTE | 2025-03-25 18:39 | EDPHYS ---
Physician Documentation [facility] Name: Agustín Camacho Age: 64 yrs Sex: Male : 1960 Arrival Date: 03/25/2025 Time: 16:32 Bed 6 Private MD: ED Physician Nick Jason HPI: 03/25 17:59 This 64 yrs old Male presents to ER via EMS with complaints of Chest Pain. bo1 17:59 The patient or guardian reports chest pain that is located primarily in the left bo1 breast. Onset: suddenly. The pain does not radiate. Associated signs and symptoms: Pertinent positives: headache. The chest pain is described as sharp. Duration: The patient or guardian reports a single episode, that is now resolved. EMS care prior to arrival includes: nitroglycerin, x 1, with resolution of the chest pain. The patient has experienced similar episodes in the past. The patient has been recently seen by a physician: in the office, in [facility] in [place], adjusting the BP med to increase the HR, The patient has been recently seen at the [facility] Emergency Department. Pt was admitted 2 weeks ago and referred to OP cardiology. Pt chose a MD in [place]. Dr Seo". Pt is pending a stress test - April 13. Pt was working outside this AM doing yard work w/o CP till this afternoon sitting in a chair.. Historical: - Allergies: 16:47 NKA; bp - PMHx: 16:47 AAA; ADD/ADHD; Anxiety; CVA; Hernia; High Cholesterol; Hypertension; Prostate Cancer; bp - PSHx: 16:47 Cholecystectomy; prostate removal; right knee revision; roator cuff repair right; bp umbilical hernia repair; - Immunization history:: Adult Immunizations up to date. - Infectious Disease History:: Denies. - Social history:: Smoking status: unknown. ROS: 18:31 Constitutional: Negative for fever, chills, and weight loss bo1 18:31 Constitutional: Positive for WILKINS, 18:31 Neck: Positive for pain with movement, pain at rest, 18:31 Cardiovascular: Positive for chest pain, 18:31 Respiratory: Negative for cough, shortness of breath, 18:31 Abdomen/GI: Negative for abdominal pain, nausea and vomiting, 18:31 MS/extremity: Negative for pain, swelling, 18:31 Skin: Negative for diaphoresis, rash, swelling, 18:31 All other systems are negative, Exam: 18:33 Constitutional: This is a well developed, well nourished patient who is awake, alert, bo1 and in no acute distress. 18:33 Constitutional: The patient appears in no acute distress, alert, awake, comfortable, non-toxic, 18:33 Eyes: Sclera: icterus, is not appreciated, 18:33 Neck: External neck: is normal, no acute changes, 18:33 Chest/axilla: Inspection: normal, no acute changes, 18:33 Cardiovascular: Rate: bradycardic, Rhythm: regular, Pulses: no pulse deficits are appreciated, 18:33 ECG was reviewed by the Attending Physician. 18:33 Respiratory: Exam negative for acute changes, the patient does not display signs of respiratory distress, Respirations: normal, no acute changes, Breath sounds: are clear throughout, 18:33 Abdomen/GI: Exam negative for acute changes, Palpation: abdomen is soft and non-tender, 18:33 Musculoskeletal/extremity: DVT Exam: No signs of deep vein thrombosis. 18:33 Skin: no rash present. Warm/dry. Vital Signs: 16:45 BP 133 / 67; Pulse 60; Resp 16; Temp 98; Pulse Ox 95% ; bp 17:09 BP 153 / 85; Pulse 54; Resp 18; Pulse Ox 97% on R/A; ph 18:36 BP 147 / 79; Pulse 59; Resp 16; Pulse Ox 98% ; bp MDM: 17:10 Medical Screening Exam initiated bo1 18:35 Differential diagnosis: coronary artery disease chest wall pain. Data reviewed: vital bo1 signs, old medical records, Multiple ER visits lab test result(s), cardiac enzymes, CBC, electrolytes. Consideration of Admission/Observation Patient was admitted/placed on observation. Pt did not meet criteria for admit/obs. Was offered and he decided to go home. Pt understands his condition and rational for the offer of obs at a minimum.. 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 03/25 16:48 Order name: Basic Metabolic Panel; Complete Time: 17:55 bp 03/25 16:48 Order name: CBC with Diff; Complete Time: 17:55 bp 03/25 16:48 Order name: NT PRO-BNP; Complete Time: 17:55 bp 03/25 16:48 Order name: PT-INR bp 03/25 16:48 Order name: Troponin HS; Complete Time: 17:55 bp 16 16:48 Order name: XRAY Chest (1 view); Complete Time: 17:22 bp 16 16:48 Order name: EKG; Complete Time: 16:49 bp 03/25 16:48 Order name: Cardiac monitoring; Complete Time: 17:08 bp 03/25 16:48 Order name: EKG - Nurse/Tech; Complete Time: 16:56 bp 16 16:48 Order name: IV Saline Lock; Complete Time: 17:08 bp 03/25 16:48 Order name: Labs collected and sent; Complete Time: 17:08 bp 16 16:48 Order name: O2 Per Protocol; Complete Time: 17:08 bp 03/25 16:48 Order name: O2 Sat Monitoring; Complete Time: 17:08 bp EC:33 Rate is 59 beats/min. Rhythm is regular. QRS [place] is Normal. HI interval is normal. QRS bo1 interval is normal. QT interval is normal. No Q waves. T waves are Normal. No ST changes noted. Clinical impression: Sinus bradycardia. Interpreted by me. Reviewed by me. Administered Medications: No medications were administered Disposition Summary: 03/25/25 18:39 Discharge Ordered Notes: Location: Home bo1 Problem: chronic bo1 Symptoms: are resolved bo1 Condition: Stable bo1 Diagnosis - Chest pain, unspecified bo1 - Bradycardia, unspecified bo1 Followup: bo1 - With: Private Physician - When: Upon discharge from the Emergency Department - Reason: Recheck today's complaints, Continuance of care Discharge Instructions: - Discharge Summary Sheet bo1 - Bradycardia, Adult bo1 - Chest Wall Pain bo1 - Nonspecific Chest Pain, Adult, [id number] bo1 Forms: - Medication Reconciliation Form bo1 - Antibiotic Education bo1 - Prescription Opioid Use bo1 - Patient Portal Instructions bo1 - Leadership Thank You Letter bo1 Signatures: Dispatcher [employer] EDRajendra Singh RN RN bp OeiNick MD MD bo1
[2025-03-25 18:45] VITALS: TEMP 98
[2025-03-25 18:47] VITALS: BP 147/79; O2SAT 98
[2025-03-26 07:05] LABS: PT Prothrombin Time 10.7; Protime INR 0.9
== END 2025-03-25 18:40 | disposition home or self-care (01) ==
LOC: ER 16:32
DX: R07.9 Chest pain, unspecified (principal); R00.1 Bradycardia, unspecified; I10 Essential (primary) hypertension; E78.00 Pure hypercholesterolemia, unspecified; F41.9 Anxiety disorder, unspecified
CPT/HCPCS: 36415; 71045; 80048; 83880; 84484; 85025; 85610; 99284